=== PATIENT | female | born 1960 | race Caucasian/White ===

== ENCOUNTER 2017-10-08 13:06 | Inpatient (IN) ==
[2017-10-08] MEDS ORDERED: methylPREDNISolone 125 MG/2 ML VIAL IVP ONE (13:15)
[2017-10-08] MEDS ORDERED: Ipratropium/Albuterol Neb 3 ML IH ONE (13:15)
[2017-10-08] MEDS ORDERED: 0.9 % Sodium Chloride 1,000 ML IVC ONE (13:15)
--- NOTE | 2017-10-08 13:18 | Emergency Department Note ---
Disposition Clinical Impression: COPD (chronic obstructive pulmonary disease) Qualifiers: COPD type: unspecified COPD Qualified Code(s): J44.9 - Chronic obstructive pulmonary disease, unspecified Disposition: Admitted As Inpatient Condition: Fair Referrals: NONE,PCP [Primary Care Provider] - Forms: ED Satisfaction Letter Time of Disposition: 15:35 SOB HPI - General Chief Complaint: ED Shortness of Breath/Dyspnea Stated Complaint: JONATAN Time Seen by Provider: 10/08/17 13:15 Source: patient, EMS Mode of arrival: EMS Limitations: no limitations Nursing Notes Reviewed: Yes Vital Signs Reviewed: Yes - History of Present Illness 57-year-old female history of COPD, diabetes presents for evaluation dyspnea. Patient states everything short of breath over the past 2 days. Patient notes got worse. Patient is typically on 3 L oxygen. Patient reports some chest pain. Patient reports productive cough. Reports fevers. Patient states she has been using her inhaler as instructed. Patient does say that she has history of increased anxiety. Denies any abdominal pain nausea or vomiting. Denies any recent antibiotics or steroid use. - Related Data Home Medications Medication Instructions Recorded Confirmed Albuterol Neb [Proventil Neb] 2.5 mg IH Q6H PRN 10/08/17 10/08/17 Albuterol Sulfate [Ventolin Hfa] 2 puff IH Q6H PRN 10/08/17 10/08/17 Aspirin [Lo-Dose Aspirin EC] 81 mg PO DAILY 10/08/17 10/08/17 Carvedilol [Coreg] 6.25 mg PO BIDWM 10/08/17 10/08/17 Gabapentin [Neurontin] 600 mg PO TID 10/08/17 10/08/17 Insulin Glargine,Hum.rec.anlog 36 unit SQ QPM 10/08/17 10/08/17 [Basaglar Kwikpen U-100] Isosorbide MONOnitrate (24 HR) 30 mg PO DAILY 10/08/17 10/08/17 [Imdur] Metformin HCl [Glucophage Xr] 750 mg PO DAILY 10/08/17 10/08/17 Montelukast [Singulair] 10 mg PO DAILY 10/08/17 10/08/17 Tiotropium Br/Olodaterol HCl 2 puff IH BID 10/08/17 10/08/17 [Stiolto Respimat Inhal [place]] amLODIPine [Norvasc] 5 mg PO DAILY 10/08/17 10/08/17 Allergies Allergy/AdvReac Type Severity Reaction Status Date / Time No Known Allergies Allergy Verified 10/08/17 13:26 All systems ED: reviewed and negative except as stated. Constitutional: Denies: fever Cardiovascular: Reports: chest pain Respiratory: Reports: cough, dyspnea, sputum production Gastrointestinal: Denies: abdominal pain, nausea, vomiting Past Medical History - Past Medical History Source: patient Physical Exam - General Limitations: no limitations General appearance: alert, in no apparent distress - Head Head exam: atraumatic, normocephalic, normal inspection - Eye Eye exam: Present: normal appearance - ENT ENT exam: normal exam - Neck Neck exam: Present: normal inspection - Chest Chest inspection: Present: normal inspection, symmetric chest wall rise - Respiratory Respiratory exam: Present: respiratory distress, wheezes (scattered inspiratory wheeze), accessory muscle use, prolonged expiratory phase - Cardiovascular Cardiovascular exam: Present: regular rate, normal rhythm. Absent: systolic murmur - Abdominal Exam Abdominal exam: Present: soft - Extremities Exam Extremities exam: Present: normal inspection - Back Exam Back exam: Present: normal inspection - Neurological Exam Neurological exam: Present: alert - Skin Skin exam: Present: warm, dry, intact, normal color Course Course Narrative: Patient did have increased work of breathing upon arrival. Patient declined use of BiPAP. Patient will get basic labs nebs steroids chest x-ray. Disposition likely admission. - Reevaluation(s) Reevaluation #1: Repeat lung exam shows persistent wheezing. Patient will get repeat nebs. Time: 15:33 Vital Signs Respiratory Rate 26 10/08/17 13:24 O2 Sat by Pulse Oximetry 96 10/08/17 13:24 Temperature 97.5 F L 10/08/17 14:38 Pulse Rate 95 10/08/17 14:38 Respiratory Rate 20 10/08/17 15:32 Blood Pressure 142/83 10/08/17 14:38 O2 Sat by Pulse Oximetry 99 10/08/17 15:32 Oxygen Delivery Oxygen Delivery Nasal Cannula Shortness of Breath/Dyspnea - MDM Narrative Medical decision making narrative: Patient with a history of COPD percents for evaluation of exacerbation. Patient 's been having infectious complaints of fevers cough. Patient was to get neck upon arrival. Patient refused BiPAP. Patient was treated with triple vessel steroids. Patient's work of breathing improved however persistently had wheeze. Patient had serial nebs. Given the patient's work of breathing and dyspnea with an increased oxygen requirement the patient will be admitted to hospital service. There is low suspicion or concern that the patient does have a pulmonary embolism. Patient's symptoms are most likely infectious or related to an exacerbation. - Lab Data Lab results reviewed: Yes I reviewed the patient's lab results. Result diagrams: 10/08/17 13:35 10/08/17 13:35 Lab Results 10/08/17 10/08/17 10/08/17 Range/Units 13:35 13:35 13:35 WBC 7.5 (4.3-11.1) K/mcL RBC 4.24 (3.82-4.97) M/mcL Hgb 12.7 (11.5-15.4) g/dL Hct 38.7 (35.3-44.9) % MCV 91.3 (83.0-100.0) fL MCH 30.0 (28.0-33.3) pg MCHC 32.8 (31.6-35.5) g/dL RDW 11.9 (11.5-14.5) % Plt Count 190 (140-400) K/mcL MPV 9.6 (9.4-12.4) fL Immature Gran % 0.3 (0-4) % Seg Neutrophils % 50.4 % Lymphocytes % 27.6 % Monocytes % 21.2 % Eosinophils % 0.1 % Basophils % 0.4 % Neutrophils # 3.8 (1.6-8.9) K/mcL Lymphocytes # 2.1 (0.6-4.6) K/mcL Monocytes # 1.6 H (0.0-1.3) K/mcL Eosinophils # 0.0 (0.0-0.6) K/mcL Basophils # 0.0 (0.0-0.2) K/mcL Platelet Estimate Normal (Normal) VBG pH (7.32-7.42) pH Units VBG pCO2 (41-51) mmHg VBG pO2 (25-50) mmHg VBG HCO3 (21-27) mEq/L Sodium 134 L (136-145) mEq/L Potassium 3.5 (3.5-5.1) mEq/L Chloride 95 L (98-107) mEq/L Carbon Dioxide 29 (23-29) mEq/L BUN 7 (6-20) mg/dL Creatinine 0.57 L (0.60-1.20) mg/dL Est GFR ( Amer) > 60 (> 60) Est GFR (Non-Af Amer) > 60 (> 60) BUN/Creatinine Ratio 12 (6-26) Glucose 194 H (70-105) mg/dL Calculated Osmolality 281 (280-300) Lactic Acid 1.5 (0.5-2.2) mmol/L Calcium 9.4 (8.6-10.3) mg/dL Total Bilirubin 0.2 L (0.3-1.0) mg/dL Direct Bilirubin 0.0 (0.0-0.2) mg/dL Indirect Bilirubin 0.2 (0.0-1.2) mg/dL AST 33 (13-39) Units/L ALT 28 (7-52) Units/L Alkaline Phosphatase 61 (34-104) Units/L Troponin I < 0.03 (< 0.04) ng/mL B-Natriuretic Peptide (Less than 100) pg/mL Serum Total Protein 7.1 (6.4-8.9) g/dL Albumin 4.1 (3.5-5.7) g/dL Globulin 3.0 (2.4-3.5) g/dL Albumin/Globulin Ratio 1.4 (1.1-2.2) 10/08/17 10/08/17 Range/Units 13:35 13:52 WBC (4.3-11.1) K/mcL RBC (3.82-4.97) M/mcL Hgb (11.5-15.4) g/dL Hct (35.3-44.9) % MCV (83.0-100.0) fL MCH (28.0-33.3) pg MCHC (31.6-35.5) g/dL RDW (11.5-14.5) % Plt Count (140-400) K/mcL MPV (9.4-12.4) fL Immature Gran % (0-4) % Seg Neutrophils % % Lymphocytes % % Monocytes % % Eosinophils % % Basophils % % Neutrophils # (1.6-8.9) K/mcL Lymphocytes # (0.6-4.6) K/mcL Monocytes # (0.0-1.3) K/mcL Eosinophils # (0.0-0.6) K/mcL Basophils # (0.0-0.2) K/mcL Platelet Estimate (Normal) VBG pH 7.32 (7.32-7.42) pH Units VBG pCO2 64 H (41-51) mmHg VBG pO2 70 H (25-50) mmHg VBG HCO3 33 H (21-27) mEq/L Sodium (136-145) mEq/L Potassium (3.5-5.1) mEq/L Chloride (98-107) mEq/L Carbon Dioxide (23-29) mEq/L BUN (6-20) mg/dL Creatinine (0.60-1.20) mg/dL Est GFR ( Amer) (> 60) Est GFR (Non-Af Amer) (> 60) BUN/Creatinine Ratio (6-26) Glucose (70-105) mg/dL Calculated Osmolality (280-300) Lactic Acid (0.5-2.2) mmol/L Calcium (8.6-10.3) mg/dL Total Bilirubin (0.3-1.0) mg/dL Direct Bilirubin (0.0-0.2) mg/dL Indirect Bilirubin (0.0-1.2) mg/dL AST (13-39) Units/L ALT (7-52) Units/L Alkaline Phosphatase (34-104) Units/L Troponin I (< 0.04) ng/mL B-Natriuretic Peptide 34 (Less than 100) pg/mL Serum Total Protein (6.4-8.9) g/dL Albumin (3.5-5.7) g/dL Globulin (2.4-3.5) g/dL Albumin/Globulin Ratio (1.1-2.2) - Radiology Data Radiology results reviewed: Yes I reviewed the patient's radiology results. Chest X-Ray 10/08/17 13:15 IMPRESSION: 1. No active pulmonary disease. D/ / Juan R Campbell MD / Juan R Campbell MD Interpreting Provider: Juan R Campbell MD - EKG Data EKG attestation: Yes I reviewed and interpreted this EKG. EKG shows normal: Reports: sinus rhythm Rate: Reports: normal Rhythm: Reports: NSR [place]/QRS: Reports: right axis deviation, RBBB Interpretation: Reports: nonspecific ST-T wave changes S.Mervin - Umair Situation: Demographics Background: Presenting Complaint Assessment: Vital Signs, Course and respsone to treatment, Patient/Family Expectation Recommendation: Barrier(s) to disposition, Recommendation based on pending studies, treatments, or consults S.B.AGraciela Report Given to: Dr. Estrada Block Repor Time: 15:34
--- NOTE | 2017-10-08 13:39 | Emergency Department Note ---
START Narrative - START START: I examined this patient and my medical decision-making was reviewed with the Resident Physician. I agree with the documented findings, disposition and treatment plan as described except to the extent set forth below. 57-year-old female presented to the emergency room via EMS for shortness of breath. Patient has a history of COPD. She has not sick for the past few days with increasing work of breathing. Squad gave her a DuoNeb treatment. We will workup from a COPD cardiac standpoint. She is appearing better at this time after her DuoNeb treatments. She wears chronic home oxygen at 3 L.
[2017-10-08 13:53] LABS: Basophils % 0.4 %; Eosinophils % 0.1 %; Hematocrit 38.7 % (35.3-44.9); Hemoglobin 12.7 g/dL (11.5-15.4); Immature Granulocytes % 0.3 % (0-4); Lymphocytes # 2.1 K/mcL (0.6-4.6); Lymphocytes % 27.6 %; Mean Corpuscular HGB Conc 32.8 g/dL (31.6-35.5); Mean Corpuscular Volume 91.3 fL (83.0-100.0); Mean Platelet Volume 9.6 fL (9.4-12.4); Monocytes # 1.6 K/mcL (0.0-1.3); Monocytes % 21.2 %; Neutrophils # 3.8 K/mcL (1.6-8.9); Platelet Count 190 K/mcL (140-400); Red Blood Count 4.24 M/mcL (3.82-4.97); Red Cell Distribution Width 11.9 % (11.5-14.5); Segmented Neutrophils % 50.4 %
[2017-10-08 13:54] LABS: VBG HCO3 33 mEq/L (21-27); VBG PCO2 64 mmHg (41-51); VBG PH 7.32 pH Units (7.32-7.42); VBG PO2 70 mmHg (25-50)
[2017-10-08 14:18] LABS: Platelet Estimate Normal (Normal)
[2017-10-08 14:26] LABS: Alanine Aminotransferase 28 Units/L (7-52); Albumin 4.1 g/dL (3.5-5.7); Albumin/Globulin Ratio 1.4 (1.1-2.2); Alkaline Phosphatase 61 Units/L (34-104); Aspartate Amino Transferase 33 Units/L (13-39); BUN/Creatinine Ratio 12 (6-26); Bilirubin,Indirect 0.2 mg/dL (0.0-1.2); Bilirubin,Total 0.2 mg/dL (0.3-1.0); Blood Urea Nitrogen 7 mg/dL (6-20); Calcium 9.4 mg/dL (8.6-10.3); Carbon Dioxide 29 mEq/L (23-29); Chloride 95 mEq/L (98-107); Glucose 194 mg/dL (70-105); Osmolality,Calculated 281 (280-300); Potassium 3.5 mEq/L (3.5-5.1); Sodium 134 mEq/L (136-145); Total Protein 7.1 g/dL (6.4-8.9); Troponin I < 0.03 ng/mL (< 0.04); eGFR For African Americans > 60 (> 60); eGFR For Non-African Americans > 60 (> 60)
[2017-10-08] MEDS ORDERED: Levofloxacin 750 MG/150 ML 750 MG/150 ML BAG IVPB ONE (15:19)
[2017-10-08] MEDS ORDERED: Albuterol 2.5 MG/3 ML NEBULIZER IH ONE (15:19)
[2017-10-08] MEDS ORDERED: Naloxone 0.4 MG/ML INJ IVP PRN (16:38)
[2017-10-08] MEDS ORDERED: D5% in Water 1,000 ML IVC PRN (16:42)
[2017-10-08] MEDS ORDERED: Dextrose Gel 15 GM/37.5 ML TUBE PO PRN ×2 (16:42)
[2017-10-08] MEDS ORDERED: *HR* Dextrose 50 % in Water (Syg) 50 ML SYRINGE IVP PRN (16:42)
[2017-10-08] MEDS: Acetaminophen 325 MG TABLET PO PRN ×2 (17:17→22:36)
--- NOTE | 2017-10-08 17:17 | Internal Med History&Physical ---
Date of Encounter: 10/08/17 Time of Encounter: 16:45 Assessment and Plan (1) Acute on chronic respiratory failure with hypoxia Current visit: Yes Status: Acute Admit the pt into Tele She is high risk for sepsis and resp failure need close monitoring reviewed CXR no acute inflitrates / consolidation noticed placed on empirical abx Levaquin f/u o blood cx sent for sputum culture, step pneumonia, Legionella and respiratory viral panel continue symptomatic and supportive care (2) COPD exacerbation Current visit: Yes Status: Acute Started on high-dose IV steroids continue scheduled Duoneb (3) Influenza A Current visit: Yes Status: Acute Started on Tamiflu (4) Acute bronchitis Current visit: Yes Status: Acute Mostly influenza related Qualifiers: Qualified Code(s): J20.9 - Acute bronchitis, unspecified (5) DM2 (diabetes mellitus, type 2) Current visit: Yes Status: Acute on ISS + Lantus Qualifiers: Qualified Code(s): E11.9 - Type 2 diabetes mellitus without complications (6) HTN (hypertension) Current visit: Yes Status: Acute Stable with home medications Qualifiers: Hypertension type: essential hypertension Qualified Code(s): I10 - Essential (primary) hypertension (7) HLD (hyperlipidemia) Current visit: Yes Status: Acute Qualifiers: Hyperlipidemia type: unspecified Qualified Code(s): E78.5 - Hyperlipidemia , unspecified (8) Anxiety Current visit: Yes Status: Acute On Ativan (9) Tobacco dependence Current visit: Yes Status: Acute Counseled to quit smoking placed on nicotine patch Internal Medicine - H&P: HPI Chief complaint: Shortness of breath Admitted From: Emergency Dept Plans for Post Hospital Care: Home History of present illness: Ms. Mckeon is a 57 year old female with a known past medical history of hypertension, DM2, COPD, and chronic hypoxic respiratory failure with 3 L oxygen dependent patient presented emergency room complaining about 3 days history of progressive worsening shortness of breath, cough with greenish expectoration. In the emergency room her influenza A came back as positive. Patient denied any chest pain. She denied of any recent travel history. Her grandchildren have flulike symptoms at home Past Med Surg Social Fam HX - Past Medical History Medical history: COPD, coronary artery disease, diabetes, hypertension Psychiatric history: anxiety, depression - Social History Smoking Status: Current every day smoker Smokeless Tobacco Status: No Alcohol use: none Drug use: none - Additional Family History Additional family history: Family hsitory reviewed and non contribuitory to current problem. Internal Medicine - H&P: Meds Albuterol Neb [Proventil Neb] 2.5 mg IH Q6H PRN 10/08/17 [History] Albuterol Sulfate [Ventolin Hfa] 2 puff IH Q6H PRN 10/08/17 [History] Aspirin [Lo-Dose Aspirin EC] 81 mg PO DAILY 10/08/17 [History] Carvedilol [Coreg] 6.25 mg PO BIDWM 10/08/17 [History] Gabapentin [Neurontin] 600 mg PO TID 10/08/17 [History] Insulin Glargine,Hum.rec.anlog [Basaglar Kwikpen U-100] 36 unit SQ QPM 10/08/17 [History] Isosorbide MONOnitrate (24 HR) [Imdur] 30 mg PO DAILY 10/08/17 [History] Metformin HCl [Glucophage Xr] 750 mg PO DAILY 10/08/17 [History] Montelukast [Singulair] 10 mg PO DAILY 10/08/17 [History] Tiotropium Br/Olodaterol HCl [Stiolto Respimat Inhal [place]] 2 puff IH BID [History] amLODIPine [Norvasc] 5 mg PO DAILY 10/08/17 [History] 3 Allergy/AdvReac Type Severity Reaction Status Date / Time No Known Allergies Allergy Verified 10/08/17 13:26 All Systems PM: A 10-system review of systems was performed and is negative for pertinent findings except as documented above in the HPI. Review of systems: All the systems are reviewed everything is benign except the systems and symptoms I mentioned in the history of present illness - Constitutional Vitals: Temp Pulse Resp BP Pulse Ox 99.4 F 112 20 145/77 94 10/08/17 16:17 10/08/17 16:17 10/08/17 16:17 10/08/17 16:17 10/08/17 16:17 General appearance: Present: mild distress, A&O X 3, answers questions appropriately - Head Head exam: Present: atraumatic, normal inspection - Neck Neck exam general surgery: Present: supple - Respiratory Respiratory exam: Present: respiratory distress (mild), wheezes (moderate to severe). Absent: rales, rhonchi - Cardiovascular Cardiovascular exam: Present: RRR, +S1, +S2. Absent: tachycardia - Back Exam Back exam: Absent: CVA tenderness (L), CVA tenderness (R) - Neurological Exam Neurological exam: Present: alert, oriented X3 - Psychiatric Psychiatric exam: Present: anxious - Skin Skin exam: Absent: rash Internal Med - H&P Results - Labs CBC & Chem 7: 10/08/17 13:35 10/08/17 13:35
[2017-10-08] MEDS: *HR* LORazepam 2 MG/ML VIAL IVP PRN (17:56)
[2017-10-08] MEDS: MethylPREDNISolone 40 MG/ML VIAL IVP SCH (17:56)
[2017-10-08] MEDS ORDERED: NON-FORMULARY MEDICATION 1 EACH EACH (Insulin Glargine,Hum.Rec.Anlog [Basaglar Kwikpen U-1 SQ SCH (18:00)
[2017-10-08] MEDS: Ipratropium/Albuterol Neb 3 ML IH SCH ×2 (20:00→23:49)
[2017-10-08] MEDS: Insulin DETEMIR 100 UNIT/ML X5UNITS SQ SCH (20:50)
[2017-10-08] MEDS: Gabapentin 300 MG CAPSULE PO SCH (20:50)
[2017-10-08] MEDS ORDERED: Insulin LISPRO 300 UNITS/3 ML VIAL SQ SCH (21:00)
[2017-10-09] MEDS: MethylPREDNISolone 40 MG/ML VIAL IVP SCH ×3 (00:43→11:41)
[2017-10-09] MEDS: *HR* LORazepam 2 MG/ML VIAL IVP PRN ×3 (00:45→18:17)
[2017-10-09] MEDS: Ipratropium/Albuterol Neb 3 ML IH SCH ×6 (04:05→23:30)
[2017-10-09] MEDS: *HR* Enoxaparin 40 MG/0.4 ML SYRINGE SQ SCH (05:25)
[2017-10-09 05:54] LABS: Basophils % 0.3 %; Hematocrit 36.1 % (35.3-44.9); Hemoglobin 11.8 g/dL (11.5-15.4); Immature Granulocytes % 0.5 % (0-4); Lymphocytes # 0.7 K/mcL (0.6-4.6); Lymphocytes % 18.9 %; Mean Corpuscular HGB Conc 32.7 g/dL (31.6-35.5); Mean Corpuscular Hemoglobin 29.8 pg (28.0-33.3); Mean Corpuscular Volume 91.2 fL (83.0-100.0); Mean Platelet Volume 9.8 fL (9.4-12.4); Monocytes # 0.2 K/mcL (0.0-1.3); Monocytes % 5.9 %; Neutrophils # 2.8 K/mcL (1.6-8.9); Platelet Count 188 K/mcL (140-400); Red Blood Count 3.96 M/mcL (3.82-4.97); Red Cell Distribution Width 11.7 % (11.5-14.5); Segmented Neutrophils % 74.4 %
[2017-10-09 06:18] LABS: BUN/Creatinine Ratio 24 (6-26); Blood Urea Nitrogen 13 mg/dL (6-20); Carbon Dioxide 27 mEq/L (23-29); Chloride 103 mEq/L (98-107); Glucose 296 mg/dL (70-105); Osmolality,Calculated 293 (280-300); Potassium 4.5 mEq/L (3.5-5.1); Sodium 136 mEq/L (136-145); eGFR For African Americans > 60 (> 60); eGFR For Non-African Americans > 60 (> 60)
[2017-10-09] MEDS: Levofloxacin 750 MG/150 ML 750 MG/150 ML BAG IVPB SCH (08:12)
[2017-10-09] MEDS: Isosorbide MONOnitrate (24 HR) 30 MG TAB.ER.24H PO SCH (08:13)
[2017-10-09] MEDS: Aspirin Enteric Coated 81 MG Tablet PO SCH (08:13)
[2017-10-09] MEDS: amLODIPine 5 MG TABLET PO SCH (08:13)
[2017-10-09] MEDS: Gabapentin 300 MG CAPSULE PO SCH ×3 (08:13→20:11)
[2017-10-09] MEDS: Insulin LISPRO 300 UNITS/3 ML VIAL SQ SCH ×4 (08:14→20:23)
[2017-10-09] MEDS: Acetaminophen 325 MG TABLET PO PRN ×2 (08:33→14:17)
[2017-10-09] MEDS: Ondansetron 4 MG/2 ML VIAL IVP PRN (11:41)
[2017-10-09] MEDS: Albuterol 2.5 MG/3 ML NEBULIZER IH PRN (11:56)
--- NOTE | 2017-10-09 16:08 | Internal Med Progress Note ---
Date of Encounter: 10/09/17 Time of Encounter: 16:06 - Assessment and plan (1) Influenza A Current Visit: Yes Status: Acute Assessment and plan: rapid flu swab positive. Cont tamiflu (2) Acute on chronic respiratory failure with hypoxia Current Visit: Yes Status: Acute Assessment and plan: has known COPD. presented with worsening shortness of breath and productive cough. Appears to be an exacerbation with scattered rhonchi/wheezing. CXR without evidence of infiltrate. Symptoms significantly improved with IV steroids , ATB bronchodilators. De-escalate steroids to PO. Cont IV Levaquin, bronchodilators. Add Mucinex. (3) Anxiety Current Visit: Yes Status: Acute Assessment and plan: per hx. Says she take Xanax at home but not on vacation less. Continue Ativan for now; will check [place] (4) DM2 (diabetes mellitus, type 2) Current Visit: Yes Status: Acute Assessment and plan: per hx. Blood sugars uncontrolled. Most likely secondary to dietary and lifestyle noncompliance in addition to steroids. Decrease steroids, increase sliding scale to high dose. 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 Cont home statin Qualifiers: Hyperlipidemia type: unspecified Qualified Code(s): E78.5 - Hyperlipidemia , unspecified (6) HTN (hypertension) Current Visit: Yes Status: Acute Assessment and plan: per hx. Cont home BP medications. Monitor BP and titrate PRN Qualifiers: Hypertension type: essential hypertension Qualified Code(s): I10 - Essential (primary) hypertension (7) DVT prophylaxis Current Visit: Yes Status: Acute Assessment and plan: lovenox - Subjective Interval history: Seen and examined at bedside. Information obtained from chart review and patient report. Still with shortness of breath and nonproductive cough but overall significantly improved from arrival. No chest pain. Says she gets anxious when she starts have a coughing fit and is requesting home Xanax be resumed. - Constitutional Vitals: Temp Pulse Resp BP Pulse Ox 97.8 F 92 26 122/73 93 10/09/17 15:26 10/09/17 15:26 10/09/17 15:49 10/09/17 15:26 10/09/17 15:49 General appearance: Present: A&O X 3, morbidly obese, answers questions appropriately - Head Head exam: Present: atraumatic, normocephalic - Eye Eye exam: Present: PERRL, conjuntiva pink, sclera anicteric Pupils: Present: PERRL - Neck Neck exam general surgery: Present: supple, trachea midline. Absent: lymphadenopathy - Respiratory Respiratory exam: Present: wheezes. Absent: accessory muscle use, rales, rhonchi - Cardiovascular Cardiovascular exam: Present: RRR, +S1, +S2. Absent: diastolic murmur, gallop, rubs, systolic murmur - GI/Abdominal GI/Abdominal exam: Present: normal bowel sounds, soft, no peritoneal signs. Absent: distended, tenderness - Extremities Exam Extremities exam: Present: warm, radial pulses palpable and symmetrical. Absent : calf tenderness, cyanotic, pedal edema - Neurological Exam Neurological exam: Present: CN II-XII intact, oriented X3, no focal deficits. Absent: pronater drift, facial droop, speech deficit - Skin Skin exam: Present: dry, intact Internal Medicine: Result - Labs CBC & Chem 7: 10/09/17 05:05 10/09/17 05:05 Labs: Short CBC 10/09/17 Range/Units 05:05 WBC 3.7 L D (4.3-11.1) K/mcL Hgb 11.8 (11.5-15.4) g/dL Hct 36.1 (35.3-44.9) % Plt Count 188 (140-400) K/mcL Neutrophils # 2.8 (1.6-8.9) K/mcL BMP 10/09/17 05:05 Sodium 136 Potassium 4.5 D Chloride 103 Carbon Dioxide 27 BUN 13 Creatinine 0.54 L Glucose 296 H Calcium 9.0 - VTE Documentation of Mechanical Device: Intermittent pneumatic compression device Consult Discharge Plan - Plan Referrals: NONE,PCP [Primary Care Provider] -
[2017-10-09] MEDS: *HR* HYDROcodone/Acet 5/325 mg TABLET PO PRN ×2 (16:59→23:00)
--- NOTE | 2017-10-09 17:03 | Electrocardiograph Report ---
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
[2017-10-09] MEDS: predniSONE 20 MG TABLET PO SCH (17:11)
[2017-10-09] MEDS: Insulin DETEMIR 100 UNIT/ML X5UNITS SQ SCH (20:11)
[2017-10-09] MEDS: GuaiFENesin/Pseudophedrine TABLET PO SCH (20:11)
[2017-10-09] MEDS: *HR* Promethazine 25 MG/ML VIAL IVP PRN (20:18)
[2017-10-10] MEDS: *HR* LORazepam 2 MG/ML VIAL IVP PRN ×4 (02:13→20:01)
[2017-10-10] MEDS: Ipratropium/Albuterol Neb 3 ML IH SCH ×6 (03:38→23:22)
[2017-10-10] MEDS: *HR* Enoxaparin 40 MG/0.4 ML SYRINGE SQ SCH (05:12)
[2017-10-10 05:23] LABS: Hematocrit 35.4 % (35.3-44.9); Hemoglobin 11.3 g/dL (11.5-15.4); Mean Corpuscular HGB Conc 31.9 g/dL (31.6-35.5); Mean Corpuscular Volume 93.9 fL (83.0-100.0); Mean Platelet Volume 9.7 fL (9.4-12.4); Platelet Count 194 K/mcL (140-400); Red Blood Count 3.77 M/mcL (3.82-4.97)
[2017-10-10] MEDS ORDERED: Ondansetron 4 MG/2 ML VIAL IVP PRN (07:01)
[2017-10-10] MEDS: Ondansetron 4 MG/2 ML VIAL IVP PRN (08:55)
[2017-10-10] MEDS: Levofloxacin 750 MG/150 ML 750 MG/150 ML BAG IVPB SCH (08:55)
[2017-10-10] MEDS: amLODIPine 5 MG TABLET PO SCH (08:57)
[2017-10-10] MEDS: Insulin LISPRO 300 UNITS/3 ML VIAL SQ SCH ×4 (08:58→21:04)
[2017-10-10] MEDS: Albuterol 2.5 MG/3 ML NEBULIZER IH PRN (09:55)
--- NOTE | 2017-10-10 11:20 | Internal Med Progress Note ---
Date of Encounter: 10/10/17 Time of Encounter: 11:13 - Assessment and plan (1) Acute on chronic respiratory failure with hypoxia Current Visit: Yes Status: Acute Assessment and plan: has known COPD and wears 2.5 L oxygen at home. Now requiring 3-4 L to maintain adequate oxygen saturation. Presented with worsening shortness of breath and productive cough. Appears to be an acute COPD exacerbation with scattered rhonchi/wheezing. CXR without evidence of infiltrate. Symptoms significantly improved with IV steroids, ATB bronchodilators on 10/09 however with worsening shortness of breath and respiratory distress on 10/10 exam. Has intermittently been tachycardic which could be secondary to anxiety and/or breathing treatments. However with worsening shortness of breath, intermittent tachycardia and hypoxia will check CTA to rule out pulmonary embolism. Continue IV ATB, steroids, bronchodilators and Mucinex. (2) Influenza A Current Visit: Yes Status: Acute Assessment and plan: rapid flu swab positive. Cont tamiflu (3) Anxiety Current Visit: Yes Status: Acute Assessment and plan: per hx. Says she take Xanax at home however she has not had active Rx for Xanax since 03/2017 ([place] reviewed 10/10/2017). Clinically appears anxious which is likely contributing to shortness of breath. Continue PRN Ativan for now as she appears to be having a panic attack. Will likely discontinue on 10/10. Will discuss with patient; she will need to follow-up with her PCP for long-term anxiety management. (4) DM2 (diabetes mellitus, type 2) Current Visit: Yes Status: Acute Assessment and plan: per hx. Blood sugars uncontrolled. Most likely secondary to dietary and lifestyle noncompliance in addition to steroids. Decrease steroids, increase sliding scale to high dose. Monitor blood sugars and titrate PRN. Blood sugars variable but acceptable on 10/10 review Qualifiers: Diabetes mellitus fci insulin use: with termite exterminator helper use Diabetes mellitus complication status: with hyperglycemia Qualified Code(s): E11.65 - Type 2 diabetes mellitus with hyperglycemia; Z79.4 - vermin exterminator (current) use of insulin; Z79.4 - vermin exterminator (current) use of insulin; Z79.4 - intermediate (current ) use of insulin; Z79.4 - vermin exterminator (current) use of insulin (5) HLD (hyperlipidemia) Current Visit: Yes Status: Acute Assessment and plan: per hx. Cont home statin Qualifiers: Hyperlipidemia type: unspecified Qualified Code(s): E78.5 - Hyperlipidemia , unspecified (6) HTN (hypertension) Current Visit: Yes Status: Acute Assessment and plan: per hx. Cont home BP medications. Monitor BP and titrate PRN Qualifiers: Hypertension type: essential hypertension Qualified Code(s): I10 - Essential (primary) hypertension (7) DVT prophylaxis Current Visit: Yes Status: Acute Assessment and plan: lovenox - Subjective Interval history: Seen and examined at bedside; she appears anxious and says she is short of breath. Appears mildly dyspneic, says she cannot catch her breath. No chest pain. RN and respiratory therapy notified. Breathing treatment administered at time of exam. Reassessed approximately 45 minutes later and she appears much calmer, respirations easy and unlabored. - Constitutional Vitals: Temp Pulse Resp BP Pulse Ox 97.8 F 110 22 150/80 95 10/10/17 07:33 10/10/17 07:33 10/10/17 09:56 10/10/17 07:33 10/10/17 09:56 General appearance: Present: mild distress, A&O X 3, morbidly obese, answers questions appropriately - Head Head exam: Present: atraumatic, normocephalic - Eye Eye exam: Present: PERRL, conjuntiva pink, sclera anicteric Pupils: Present: PERRL - Neck Neck exam general surgery: Present: supple, trachea midline. Absent: lymphadenopathy - Respiratory Respiratory exam: Present: accessory muscle use, respiratory distress, rhonchi, wheezes. Absent: rales - Cardiovascular Cardiovascular exam: Present: RRR, +S1, +S2. Absent: diastolic murmur, gallop, rubs, systolic murmur - GI/Abdominal GI/Abdominal exam: Present: normal bowel sounds, soft, no peritoneal signs. Absent: distended, tenderness - Extremities Exam Extremities exam: Present: warm, radial pulses palpable and symmetrical. Absent : calf tenderness, cyanotic, pedal edema - Neurological Exam Neurological exam: Present: CN II-XII intact, oriented X3, no focal deficits. Absent: pronater drift, facial droop, speech deficit - Skin Skin exam: Present: dry, intact Internal Medicine: Result - Labs CBC & Chem 7: 10/10/17 04:54 10/09/17 05:05 Labs: Short CBC 10/10/17 Range/Units 04:54 WBC 8.3 D (4.3-11.1) K/mcL Hgb 11.3 L (11.5-15.4) g/dL Hct 35.4 (35.3-44.9) % Plt Count 194 (140-400) K/mcL - VTE Documentation of Mechanical Device: Intermittent pneumatic compression device Consult Discharge Plan - Plan Referrals: NONE,PCP [Primary Care Provider] -
[2017-10-10] MEDS: GuaiFENesin/Pseudophedrine TABLET PO SCH ×2 (11:26→20:02)
[2017-10-10] MEDS: Aspirin Enteric Coated 81 MG Tablet PO SCH (11:27)
[2017-10-10] MEDS: predniSONE 20 MG TABLET PO SCH (11:27)
[2017-10-10] MEDS: Gabapentin 300 MG CAPSULE PO SCH ×3 (11:27→20:02)
[2017-10-10] MEDS: Isosorbide MONOnitrate (24 HR) 30 MG TAB.ER.24H PO SCH (11:27)
[2017-10-10] MEDS: Acetaminophen 325 MG TABLET PO PRN (15:56)
[2017-10-10] MEDS: *HR* HYDROcodone/Acet 5/325 mg TABLET PO PRN ×2 (18:48→23:30)
[2017-10-10] MEDS: *HR* Promethazine 25 MG/ML VIAL IVP PRN (19:26)
[2017-10-10] MEDS: Insulin DETEMIR 100 UNIT/ML X5UNITS SQ SCH (20:02)
[2017-10-11] MEDS: Ipratropium/Albuterol Neb 3 ML IH SCH ×9 (03:18→23:59)
[2017-10-11] MEDS: *HR* LORazepam 2 MG/ML VIAL IVP PRN ×2 (04:06→19:59)
[2017-10-11] MEDS: *HR* HYDROcodone/Acet 5/325 mg TABLET PO PRN ×2 (05:33→17:30)
[2017-10-11] MEDS: Ondansetron 4 MG/2 ML VIAL IVP PRN (05:33)
[2017-10-11] MEDS: *HR* Enoxaparin 40 MG/0.4 ML SYRINGE SQ SCH (05:37)
[2017-10-11 05:56] LABS: Hematocrit 39.6 % (35.3-44.9); Hemoglobin 11.8 g/dL (11.5-15.4); Mean Corpuscular HGB Conc 29.8 g/dL (31.6-35.5); Mean Corpuscular Hemoglobin 29.1 pg (28.0-33.3); Mean Corpuscular Volume 97.8 fL (83.0-100.0); Mean Platelet Volume 10.2 fL (9.4-12.4); Platelet Count 167 K/mcL (140-400); Red Blood Count 4.05 M/mcL (3.82-4.97); Red Cell Distribution Width 12.2 % (11.5-14.5)
[2017-10-11 06:14] LABS: BUN/Creatinine Ratio 28 (6-26); Blood Urea Nitrogen 18 mg/dL (6-20); Calcium 8.9 mg/dL (8.6-10.3); Carbon Dioxide 36 mEq/L (23-29); Chloride 100 mEq/L (98-107); Glucose 156 mg/dL (70-105); Osmolality,Calculated 291 (280-300); Potassium 4.1 mEq/L (3.5-5.1); Sodium 138 mEq/L (136-145); eGFR For African Americans > 60 (> 60); eGFR For Non-African Americans > 60 (> 60)
[2017-10-11] MEDS: predniSONE 20 MG TABLET PO SCH (08:41)
[2017-10-11] MEDS: Gabapentin 300 MG CAPSULE PO SCH ×3 (08:42→20:11)
[2017-10-11] MEDS: Aspirin Enteric Coated 81 MG Tablet PO SCH (08:42)
[2017-10-11] MEDS: Isosorbide MONOnitrate (24 HR) 30 MG TAB.ER.24H PO SCH (08:42)
[2017-10-11] MEDS: amLODIPine 5 MG TABLET PO SCH (08:42)
[2017-10-11] MEDS: GuaiFENesin/Pseudophedrine TABLET PO SCH ×2 (08:42→20:11)
[2017-10-11] MEDS: Levofloxacin 750 MG/150 ML 750 MG/150 ML BAG IVPB SCH (08:45)
[2017-10-11] MEDS: Insulin LISPRO 300 UNITS/3 ML VIAL SQ SCH ×4 (08:49→21:04)
[2017-10-11] MEDS ORDERED: *HR* LORazepam 2 MG/ML VIAL IVP ONE ×2 (09:12→11:16)
[2017-10-11 09:21] LABS: ABG Base Excess 9 mEq/L (-2 to 3); ABG HCO3 41 mEq/L (21-27); ABG Oxygen Saturation 89 % (95-98); ABG PCO2 105 mmHg (35-45); ABG PO2 74 mmHg (85-104); ABG TCO2 45 mEq/L (20-26)
--- NOTE | 2017-10-11 09:25 | Internal Med Progress Note ---
Date of Encounter: 10/11/17 Time of Encounter: 09:18 - Assessment and plan (1) Acute and chronic respiratory failure with hypercapnia Current Visit: Yes Status: Acute Assessment and plan: has known COPD and wears 2.5 L oxygen at home. Presented with worsening shortness of breath and productive cough. Appears to be an acute COPD exacerbation with scattered rhonchi/wheezing. Urinary antigens negative. CXR without evidence of infiltrate. Symptoms initially significantly improved with IV steroids, ATB bronchodilators however now with worsening shortness of breath , increased wheezing and lethargy. ABGs show pH 7.2, PaCO2 105, PaO2 74, bicarb 41. Placed on BiPAP. Closey monitor respiratory status. Repeat ABGs in 2 hours (of note, patient is agreeable to intubation if needed) Continue IV ATB, steroids, bronchodilators. Transfer to for higher level of care and close monitoring. Resp PCR, repeat CXR pending. (2) Influenza A Current Visit: Yes Status: Acute Assessment and plan: rapid flu swab positive. Cont tamiflu (3) Anxiety Current Visit: Yes Status: Acute Assessment and plan: per hx. Says she take Xanax at home however she has not had active Rx for Xanax since 03/2017 ([place] reviewed 10/10/2017). Clinically appears anxious which is likely contributing to shortness of breath. Cont PRN ativan for now. (4) DM2 (diabetes mellitus, type 2) Current Visit: Yes Status: Acute Assessment and plan: per hx. Blood sugars uncontrolled. Most likely secondary to dietary and lifestyle noncompliance in addition to steroids. Increase sliding scale to high dose. Monitor blood sugars and titrate PRN. Blood sugars variable but acceptable on 10/11 review Qualifiers: Diabetes mellitus steel grinder insulin use: with nursing home use Diabetes mellitus complication status: with hyperglycemia Qualified Code(s): E11.65 - Type 2 diabetes mellitus with hyperglycemia; Z79.4 - shop welder (current) use of insulin; Z79.4 - shop welder (current) use of insulin; Z79.4 - shop welder (current ) use of insulin; Z79.4 - shop welder (current) use of insulin (5) HLD (hyperlipidemia) Current Visit: Yes Status: Acute Assessment and plan: per hx. Cont home statin Qualifiers: Hyperlipidemia type: unspecified Qualified Code(s): E78.5 - Hyperlipidemia , unspecified (6) HTN (hypertension) Current Visit: Yes Status: Acute Assessment and plan: per hx. BP controlled. Cont home BP medications. Monitor BP and titrate PRN Qualifiers: Hypertension type: essential hypertension Qualified Code(s): I10 - Essential (primary) hypertension (7) DVT prophylaxis Current Visit: Yes Status: Acute Assessment and plan: lovenox (8) Full code status Current Visit: Yes Status: Acute Assessment and plan: verified with patient on 10/11/2017; okay with intubation if needed. - Subjective Interval history: Seen and examined at bedside; she is in acute respiratory distress with increased wheezing, rhonchi and work of breathing compared to yesterday's exam. She is also lethargic. Stat ABGs show rested for a acidosis with PaCO2 105. Placed on BiPAP and received half milligram IV Ativan. Hemodynamically stable, respiratory status improved with BiPAP and Ativan. Transfer to [facility] for higher level of care and close monitoring. Sister called by RN and updated. Verified CODE STATUS is full code with patient at time of exam area patient also is okay with intubation if needed. - Constitutional Vitals: Temp Pulse Resp BP Pulse Ox 97.8 F 98 18 160/80 93 10/11/17 08:13 10/11/17 08:13 10/11/17 08:13 10/11/17 08:13 10/11/17 08:13 General appearance: Present: A&O X 3, morbidly obese, severe distress, answers questions appropriately - Head Head exam: Present: atraumatic, normocephalic - Eye Eye exam: Present: PERRL, conjuntiva pink, sclera anicteric Pupils: Present: PERRL - Neck Neck exam general surgery: Present: supple, trachea midline. Absent: lymphadenopathy - Respiratory Respiratory exam: Present: accessory muscle use, rales, respiratory distress, rhonchi, wheezes, tachypnea - Cardiovascular Cardiovascular exam: Present: RRR, +S1, +S2. Absent: diastolic murmur, gallop, rubs, systolic murmur - GI/Abdominal GI/Abdominal exam: Present: normal bowel sounds, soft, no peritoneal signs. Absent: distended, tenderness - Extremities Exam Extremities exam: Present: warm, radial pulses palpable and symmetrical. Absent : calf tenderness, cyanotic, pedal edema - Neurological Exam Neurological exam: Present: CN II-XII intact, oriented X3, no focal deficits. Absent: pronater drift, facial droop, speech deficit - Skin Skin exam: Present: dry, intact Internal Medicine: Result - Labs CBC & Chem 7: 10/11/17 04:13 10/11/17 04:13 Labs: Short CBC 10/11/17 Range/Units 04:13 WBC 9.6 (4.3-11.1) K/mcL Hgb 11.8 (11.5-15.4) g/dL Hct 39.6 (35.3-44.9) % Plt Count 167 (140-400) K/mcL BMP 10/11/17 04:13 Sodium 138 Potassium 4.1 Chloride 100 Carbon Dioxide 36 H BUN 18 Creatinine 0.64 Glucose 156 H Calcium 8.9 - Impressions Impressions Chest CTA 10/10/17 09:53 IMPRESSION: No evidence of pulmonary embolism. No focal consolidation in the chest. Diffuse mild airway thickening can be seen in the setting of bronchitis or bronchiolitis. D/ / Hans Arora / Hans Arora Interpreting Provider: Hans Arora - VTE Documentation of Mechanical Device: Intermittent pneumatic compression device Consult Discharge Plan - Plan Referrals: NONE,PCP [Primary Care Provider] -
[2017-10-11 11:29] LABS: Estimated Average Glucose 183 mg/dl
[2017-10-11 12:34] LABS: ABG Base Excess 10 mEq/L (-2 to 3); ABG HCO3 42 mEq/L (21-27); ABG Oxygen Saturation 93 % (95-98); ABG PCO2 101 mmHg (35-45); ABG PH 7.22 pH Units (7.32-7.45); ABG PO2 84 mmHg (85-104); ABG TCO2 45 mEq/L (20-26); Blood Gas PEEP 8 cm H2O; Blood Gas Pressure Support 16 cm H2O; Blood Gas Respiration Rate 29
[2017-10-11 13:03] LABS: Adenovirus Not Detected (Not Detect); Bordetella Pertussis Not Detected (Not Detect); Chlamydophila pneumoniae Not Detected (Not Detect); Coronavirus 229E Not Detected (Not Detect); Coronavirus HKU1 Not Detected (Not Detect); Coronavirus NL63 Not Detected (Not Detect); Coronavirus OC43 Not Detected (Not Detect); Human Metapneumovirus Not Detected (Not Detect); Human Rhinovirus/Enterovirus Not Detected (Not Detect); Influenza A Subtype 2009 H1 Not Detected (Not Detect); Influenza A Untypeable Not Detected (Not Detect); Influenza B ***DETECTED*** (Not Detect); Mycoplasma pneumoniae Not Detected (Not Detect); Parainfluenza Virus 1 Not Detected (Not Detect); Parainfluenza Virus 2 Not Detected (Not Detect); Parainfluenza Virus 3 Not Detected (Not Detect); Parainfluenza Virus 4 Not Detected (Not Detect); Respiratory Syncytial Virus Not Detected (Not Detect)
[2017-10-11] MEDS ORDERED: Perflutren Lipid Microsphere 1.3 ML in 0.9 % Sodium Chloride 8.7 ML IVP ONE (14:24)
[2017-10-11] MEDS ORDERED: Perflutren Lipid Microsphere 2 ML VIAL ONE (14:28)
[2017-10-11 17:03] LABS: ABG Base Excess 12 mEq/L (-2 to 3); ABG HCO3 42 mEq/L (21-27); ABG Oxygen Saturation 93 % (95-98); ABG PCO2 93 mmHg (35-45); ABG PH 7.27 pH Units (7.32-7.45); ABG PO2 81 mmHg (85-104); ABG TCO2 45 mEq/L (20-26); Blood Gas Modality BiLevel; Blood Gas PEEP 8 cm H2O; Blood Gas Respiration Rate 16; Blood Gas VT 500 cc
[2017-10-11] MEDS ORDERED: Ipratropium/Albuterol Neb 3 ML ONE (17:11)
[2017-10-11] MEDS: MethylPREDNISolone 40 MG/ML VIAL IVP SCH ×2 (17:16→23:23)
--- NOTE | 2017-10-11 17:24 | Event Note ---
Date of Encounter: 10/11/17 Time of Encounter: 17:22 Seen and examined at bedside. Repeat ABGs show improving pH and CO2 (7.27, 93 respectively). Drowsy but easily to respond; suspect multifactorial with Ativan and retain CO2. A Godfrey catheter was placed due to urinary retention which patient states she has had a problem in the past. Family at bedside and updated. Overall remains hemodynamically stable. Discussed with RN who feels comfortable with patient remaining on 2N at this time. Advised RN that if patient declines our ABGs worsens patient will need to be transferred to ICU. Case discussed with Dr. Jay Sotelo. Continue BiPAP, monitor serial ABGs.
[2017-10-11] MEDS: Acetaminophen 325 MG TABLET PO PRN (20:10)
[2017-10-11 22:13] LABS: ABG Base Excess 13 mEq/L (-2 to 3); ABG HCO3 43 mEq/L (21-27); ABG Oxygen Saturation 95 % (95-98); ABG PCO2 90 mmHg (35-45); ABG PH 7.29 pH Units (7.32-7.45); ABG PO2 87 mmHg (85-104); ABG TCO2 46 mEq/L (20-26); Blood Gas Modality NIV; Blood Gas PEEP 8 cm H2O
[2017-10-11] MEDS: Insulin DETEMIR 100 UNIT/ML X5UNITS SQ SCH (23:19)
[2017-10-11] MEDS: *HR* Promethazine 25 MG/ML VIAL IVP PRN (23:23)
[2017-10-12] MEDS: Ipratropium/Albuterol Neb 3 ML IH SCH ×6 (02:03→20:14)
[2017-10-12] MEDS: *HR* LORazepam 2 MG/ML VIAL IVP PRN ×3 (02:11→17:54)
[2017-10-12 03:44] LABS: Hematocrit 34.7 % (35.3-44.9); Hemoglobin 11.1 g/dL (11.5-15.4); Mean Corpuscular Hemoglobin 29.8 pg (28.0-33.3); Mean Platelet Volume 9.3 fL (9.4-12.4); Platelet Count 146 K/mcL (140-400); Red Blood Count 3.73 M/mcL (3.82-4.97); Red Cell Distribution Width 11.7 % (11.5-14.5)
[2017-10-12 04:01] LABS: BUN/Creatinine Ratio 33 (6-26); Blood Urea Nitrogen 14 mg/dL (6-20); Carbon Dioxide 38 mEq/L (23-29); Chloride 93 mEq/L (98-107); Glucose 216 mg/dL (70-105); Osmolality,Calculated 285 (280-300); Potassium 4.1 mEq/L (3.5-5.1); Sodium 134 mEq/L (136-145); eGFR For African Americans > 60 (> 60); eGFR For Non-African Americans > 60 (> 60)
[2017-10-12] MEDS: *HR* Promethazine 25 MG/ML VIAL IVP PRN ×3 (05:45→20:43)
[2017-10-12] MEDS: *HR* Enoxaparin 40 MG/0.4 ML SYRINGE SQ SCH (05:45)
[2017-10-12 08:01] LABS: ABG Base Excess 15 mEq/L (-2 to 3); ABG HCO3 43 mEq/L (21-27); ABG Oxygen Saturation 90 % (95-98); ABG PCO2 74 mmHg (35-45); ABG PH 7.37 pH Units (7.32-7.45); ABG PO2 63 mmHg (85-104); ABG TCO2 45 mEq/L (20-26)
[2017-10-12] MEDS: Aspirin Enteric Coated 81 MG Tablet PO SCH (08:06)
[2017-10-12] MEDS: Levofloxacin 750 MG/150 ML 750 MG/150 ML BAG IVPB SCH (08:06)
[2017-10-12] MEDS: Gabapentin 300 MG CAPSULE PO SCH ×3 (08:06→20:42)
[2017-10-12] MEDS: amLODIPine 5 MG TABLET PO SCH (08:06)
[2017-10-12] MEDS: Isosorbide MONOnitrate (24 HR) 30 MG TAB.ER.24H PO SCH (08:06)
[2017-10-12] MEDS: GuaiFENesin/Pseudophedrine TABLET PO SCH ×2 (08:06→20:42)
[2017-10-12] MEDS: MethylPREDNISolone 40 MG/ML VIAL IVP SCH ×3 (08:07→20:42)
[2017-10-12] MEDS: Insulin LISPRO 300 UNITS/3 ML VIAL SQ SCH ×4 (08:08→20:48)
[2017-10-12] MEDS: Ondansetron 4 MG/2 ML VIAL IVP PRN (08:25)
--- NOTE | 2017-10-12 10:21 | Internal Med Progress Note ---
<Herberth Perez - Last Filed: 10/12/17 10:53> Date of Encounter: 10/12/17 Time of Encounter: 09:40 - Assessment and plan (1) Acute and chronic respiratory failure with hypercapnia Current Visit: Yes Status: Acute Assessment and plan: Acute on chronic respiratory failure due to acute exacerbation of COPD from influenza B and history of COPD Known COPD and wears 2.5 L oxygen at home Presented with worsening shortness of breath and productive cough Scattered rhonchi/wheezing present at admission Urinary antigens negative CXR without evidence of infiltrate Patient transferred to [address] [place], [place] [address]terday due to decreased mental status with worsening shortness of breath and lethargy ABGs at the time of transfer showed pH of 7.2, PaCO2 105, PaO2 74, bicarb 41 Repeat chest x-ray unremarkable Repeat ABGs performed this morning show improvement: PH is 7.37, PCO2 of 74, PO2 of 63 Decreased air movement overall Closely monitor respiratory status Patient continues to use accessory muscles with nasal cannula, will use BiPAP if needed Repeat ABGs if needed Continue IV ATB, steroids, bronchodilators We will increase frequency of IV steroids This morning was dose 8 of 10 of Tamiflu Today is day 5 of Levaquin (2) COPD exacerbation Current Visit: Yes Status: Acute Assessment and plan: COPD exacerbation secondary to influenza B (3) Influenza B Current Visit: Yes Status: Acute Assessment and plan: Found to have positive influenza B antigen Started on Tamiflu This morning was dose 8 of 10 of Tamiflu (4) Anxiety Current Visit: Yes Status: Acute Assessment and plan: Patient has history of anxiety Says she take Xanax at home however she has not had active Rx for Xanax since 2016 ([place] reviewed 10/10/2017). Clinically appears anxious which is likely contributing to shortness of breath. Cont PRN ativan for now We will adjust dosage and/or frequency if patient placed back on BiPAP (5) DM2 (diabetes mellitus, type 2) Current Visit: Yes Status: Acute Assessment and plan: Blood sugars uncontrolled Most likely secondary to dietary and lifestyle noncompliance in addition to steroids Increase sliding scale to high dose Monitor blood sugars and titrate PRN Blood sugars variable but acceptable on 10/12 review Qualifiers: Diabetes mellitus oil heaterman insulin use: with alf use Diabetes mellitus complication status: with hyperglycemia Qualified Code(s): E11.65 - Type 2 diabetes mellitus with hyperglycemia; Z79.4 - skilled nursing (current) use of insulin; Z79.4 - laborer marine terminal (current) use of insulin; Z79.4 - skilled nursing (current ) use of insulin; Z79.4 - laborer marine terminal (current) use of insulin (6) DVT prophylaxis Current Visit: Yes Status: Acute Assessment and plan: Lovenox 40 mg daily We will start pantoprazole for patient GERD symptoms (7) HLD (hyperlipidemia) Current Visit: Yes Status: Acute Assessment and plan: Cont home statin Qualifiers: Hyperlipidemia type: unspecified Qualified Code(s): E78.5 - Hyperlipidemia , unspecified (8) HTN (hypertension) Current Visit: Yes Status: Acute Assessment and plan: BP controlled Cont home BP medications Monitor BP and titrate PRN Qualifiers: Hypertension type: essential hypertension Qualified Code(s): I10 - Essential (primary) hypertension - Subjective Interval history: Patient states she is still somewhat short of breath (that is worse than her chronic shortness of breath), though feels she is improved from previous. She does report having some mild chest discomfort which feels like surging coming off from her epigastric region. She denies having any fevers/chills, she reports constipation, she also reports feeling worn out. - Constitutional Vitals: Temp Pulse Resp BP Pulse Ox 97.5 F L 91 20 137/75 92 10/12/17 07:16 10/12/17 07:16 10/12/17 07:48 10/12/17 07:16 10/12/17 07:48 General appearance: Present: mild distress, A&O X 3, morbidly obese, answers questions appropriately Exam: General: Cooperative, pleasant, mild distress, alert and oriented 3, answers questions appropriately HEENT: Normocephalic, atraumatic, neck supple, trachea midline, Conjunctiva pink , sclera anicteric, oral mucosa moist Respiratory: Patient using accessory muscles of respiration, worse after sitting up (likely from exertion), decreased air movement throughout, mild bibasilar Rales on auscultation Cardiovascular: Tachycardia, S1 and S2 present, no murmurs/rubs/gallops/clicks appreciated GI/abdominal: Nondistended, nontender, soft, normal bowel sounds, no peritoneal signs Extremities: No calf tenderness, noncyanotic, no pedal edema appreciated, warm, lower extremity pulses palpable and symmetrical Neurological: Alert and oriented 3, no facial droop, no focal deficits Skin: Dry, intact, normal color Internal Medicine: Result - Labs CBC & Chem 7: 10/12/17 03:31 10/12/17 03:31 Labs: Short CBC 10/12/17 Range/Units 03:31 WBC 4.1 L D (4.3-11.1) K/mcL Hgb 11.1 L (11.5-15.4) g/dL Hct 34.7 L (35.3-44.9) % Plt Count 146 (140-400) K/mcL BMP 10/12/17 03:31 Sodium 134 L Potassium 4.1 Chloride 93 L Carbon Dioxide 38 H BUN 14 Creatinine 0.42 L Glucose 216 H Calcium 9.0 - ABG Interpretation ABG results: ABG ABG pH 7.37 pH Units (7.32-7.45) 10/12/17 07:43 ABG pCO2 74 mmHg (35-45) H* 10/12/17 07:43 ABG pO2 63 mmHg (85-104) L 10/12/17 07:43 ABG O2 Saturation 90 % (95-98) L 10/12/17 07:43 - Impressions Impressions Chest X-Ray 10/11/17 09:39 IMPRESSION: No acute cardiopulmonary disease. D/ / 10/11/2017 10:14:27 Joseph Aaron MD / [facility] Interpreting Provider: Joseph Aaron MD Chest X-Ray 10/11/17 19:57 IMPRESSION: No acute cardiopulmonary abnormality. D/ / Jabari Mireles / Jabari Mireles Interpreting Provider: Jabari Mireles - VTE Documentation of Mechanical Device: Intermittent pneumatic compression device Consult Discharge Plan - Plan Referrals: DANUTA MELGAR [Other] - 10/19/17 2:00 pm NONE,PCP [Non-Partnered Physician] - <Taco Nuno H - Last Filed: 10/12/17 11:13> Date of Encounter: 10/12/17 - Constitutional Vitals: Temp Pulse Resp BP Pulse Ox 97.5 F L 91 20 137/75 98 10/12/17 07:16 10/12/17 07:16 10/12/17 10:43 10/12/17 07:16 10/12/17 10:43 Internal Medicine: Result - Labs CBC & Chem 7: 10/12/17 03:31 10/12/17 03:31 Labs: Short CBC 10/12/17 Range/Units 03:31 WBC 4.1 L D (4.3-11.1) K/mcL Hgb 11.1 L (11.5-15.4) g/dL Hct 34.7 L (35.3-44.9) % Plt Count 146 (140-400) K/mcL BMP 10/12/17 03:31 Sodium 134 L Potassium 4.1 Chloride 93 L Carbon Dioxide 38 H BUN 14 Creatinine 0.42 L Glucose 216 H Calcium 9.0 - ABG Interpretation ABG results: ABG ABG pH 7.37 pH Units (7.32-7.45) 10/12/17 07:43 ABG pCO2 74 mmHg (35-45) H* 10/12/17 07:43 ABG pO2 63 mmHg (85-104) L 10/12/17 07:43 ABG O2 Saturation 90 % (95-98) L 10/12/17 07:43 - Impressions Impressions Chest X-Ray 10/11/17 19:57 IMPRESSION: No acute cardiopulmonary abnormality. D/ / Jabari Mireles / Jabari Mireles Interpreting Provider: Jabari Mireles - Attending Attestation Acute on chronic hypoxic hypercapnic respiratory failure secondary to acute COPD exacerbation due to influence of the and possibly bacterial bronchitis Continue Levaquin, Tamiflu and Solu-Medrol BiPAP qualification I examined this patient and my medical decision-making was reviewed with the Resident Physician. I agree with the documented findings, disposition and treatment plan as described except to the extent set forth below.
[2017-10-12] MEDS: Pantoprazole 40 MG VIAL IVP SCH (11:50)
[2017-10-12] MEDS: *HR* HYDROcodone/Acet 5/325 mg TABLET PO PRN ×2 (11:57→20:42)
[2017-10-12] MEDS: Albuterol 2.5 MG/3 ML NEBULIZER IH PRN (14:06)
[2017-10-12] MEDS: Insulin DETEMIR 100 UNIT/ML X5UNITS SQ SCH (20:45)
[2017-10-13] MEDS: Ipratropium/Albuterol Neb 3 ML IH SCH ×6 (00:23→20:08)
[2017-10-13] MEDS: MethylPREDNISolone 40 MG/ML VIAL IVP SCH ×4 (03:10→20:32)
[2017-10-13 05:02] LABS: Basophils % 0.4 %; Hematocrit 34.9 % (35.3-44.9); Immature Granulocytes % 3.1 % (0-4); Lymphocytes # 1.2 K/mcL (0.6-4.6); Lymphocytes % 26.7 %; Mean Corpuscular HGB Conc 31.5 g/dL (31.6-35.5); Mean Corpuscular Hemoglobin 29.2 pg (28.0-33.3); Mean Corpuscular Volume 92.6 fL (83.0-100.0); Mean Platelet Volume 9.8 fL (9.4-12.4); Monocytes # 0.6 K/mcL (0.0-1.3); Monocytes % 13.7 %; Neutrophils # 2.5 K/mcL (1.6-8.9); Platelet Count 188 K/mcL (140-400); Red Blood Count 3.77 M/mcL (3.82-4.97); Red Cell Distribution Width 11.4 % (11.5-14.5); Segmented Neutrophils % 56.1 %
[2017-10-13 05:19] LABS: BUN/Creatinine Ratio 38 (6-26); Blood Urea Nitrogen 18 mg/dL (6-20); Calcium 8.8 mg/dL (8.6-10.3); Carbon Dioxide 36 mEq/L (23-29); Chloride 96 mEq/L (98-107); Glucose 296 mg/dL (70-105); Magnesium 2.2 mg/dL (1.6-2.6); Osmolality,Calculated 299 (280-300); Phosphorous 2.8 mg/dL (2.7-4.5); Potassium 4.1 mEq/L (3.5-5.1); Sodium 138 mEq/L (136-145); eGFR For African Americans > 60 (> 60); eGFR For Non-African Americans > 60 (> 60)
[2017-10-13 05:45] LABS: Platelet Estimate Normal (Normal)
[2017-10-13] MEDS: *HR* LORazepam 2 MG/ML VIAL IVP PRN (05:49)
[2017-10-13] MEDS: *HR* HYDROcodone/Acet 5/325 mg TABLET PO PRN ×3 (05:50→23:39)
[2017-10-13] MEDS: *HR* Enoxaparin 40 MG/0.4 ML SYRINGE SQ SCH (06:02)
--- NOTE | 2017-10-13 06:35 | Event Note ---
Date of Encounter: 10/13/17 Time of Encounter: 06:24 Seen and examined at bedside. A Pressley catheter was placed during preceding day due to urinary retention. RN contacted resident MD due to presence of pink urine. Per staff overnight, pink urine seen yesterday night as well, with patient possibly pulling at pressley. Platelet count stable overnight (10/12: 146 K/ mCL, 10/13 188 K/mcL). Hgb/Hct stable. No signs of petechia on evaluation. Case discussed with Dr. Mascorro. Will confer in 30 min with AM day shift. RN notified.
[2017-10-13] MEDS: Insulin LISPRO 300 UNITS/3 ML VIAL SQ SCH ×6 (08:29→22:22)
[2017-10-13] MEDS: Isosorbide MONOnitrate (24 HR) 30 MG TAB.ER.24H PO SCH (08:29)
[2017-10-13] MEDS: Aspirin Enteric Coated 81 MG Tablet PO SCH (08:29)
[2017-10-13] MEDS: Pantoprazole 40 MG VIAL IVP SCH (08:29)
[2017-10-13] MEDS: amLODIPine 5 MG TABLET PO SCH (08:29)
[2017-10-13] MEDS: Gabapentin 300 MG CAPSULE PO SCH ×3 (08:30→20:32)
[2017-10-13] MEDS: GuaiFENesin/Pseudophedrine TABLET PO SCH ×2 (08:30→22:22)
[2017-10-13] MEDS ORDERED: levoFLOXacin 750 MG TABLET PO SCH (09:00)
--- NOTE | 2017-10-13 09:13 | Internal Med Progress Note ---
<Herberth Perez - Last Filed: 10/13/17 15:33> Date of Encounter: 10/13/17 Time of Encounter: 09:00 - Assessment and plan (1) Acute and chronic respiratory failure with hypercapnia Current Visit: Yes Status: Acute Assessment and plan: Acute on chronic respiratory failure due to acute exacerbation of COPD from influenza B and history of COPD Known COPD and wears 2.5 L oxygen at home Presented with worsening shortness of breath and productive cough Scattered rhonchi/wheezing present at admission Urinary antigens negative CXR without evidence of infiltrate Patient transferred to [facility] on 10/11/17 due to decreased mental status with worsening shortness of breath and lethargy ABGs at the time of transfer showed pH of 7.2, PaCO2 105, PaO2 74, bicarb 41 Repeat chest x-ray unremarkable Repeat ABGs performed 10/12/17 show improvement: PH is 7.37, PCO2 of 74, PO2 of 63 Patient does report improvement IV steroids increased yesterday from 40 mg later in the usual 3 times a day to 40 mg laryngeal 4 times a day Closely monitor respiratory status Patient is stable for transfer to Use BiPAP if needed Continue IV ATB, steroids, bronchodilators This morning was dose 10 of 10 of Tamiflu Today is day 5/5 of Levaquin (2) COPD exacerbation Current Visit: Yes Status: Acute Assessment and plan: COPD exacerbation secondary to influenza B (3) Influenza B Current Visit: Yes Status: Acute Assessment and plan: Found to have positive influenza B antigen Started on Tamiflu This morning was dose 10 of 10 of Tamiflu (4) Anxiety Current Visit: Yes Status: Acute Assessment and plan: Patient has history of anxiety Says she had previously taken Xanax at home however she has not had active Rx for Xanax since 03/2017 ([place] reviewed 10/10/2017). Clinically appears anxious which is likely contributing to shortness of breath. 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 mellitus halfway insulin use: with buttermaker continuous churn use Diabetes mellitus complication status: with hyperglycemia Qualified Code(s): E11.65 - Type 2 diabetes mellitus with hyperglycemia; Z79.4 - custodial (current) use of insulin; Z79.4 - emt intermediate (current) use of insulin; Z79.4 - emt intermediate (current ) use of insulin; Z79.4 - custodial (current) use of insulin (6) DVT prophylaxis Current Visit: Yes Status: Acute Assessment and plan: Lovenox 40 mg daily Continue pantoprazole (7) HLD (hyperlipidemia) Current Visit: Yes Status: Acute Assessment and plan: Continue home statin Qualifiers: Hyperlipidemia type: unspecified Qualified Code(s): E78.5 - Hyperlipidemia , unspecified (8) HTN (hypertension) Current Visit: Yes Status: Acute Assessment and plan: BP slightly elevated this mornings BP improved with repeat measurements Continue home BP medications Monitor BP and titrate PRN Qualifiers: Hypertension type: essential hypertension Qualified Code(s): I10 - Essential (primary) hypertension (9) Urinary retention Current Visit: Yes Status: Acute Assessment and plan: Patient has been having some difficulty voiding requiring pressley when previously removed, she required straight catheterization 2/2 high residual bladder volume beginning to have some slight discoloration of urine Recommend f/u urology as outpatient - Subjective Interval history: Patient reports having continued episodes of fevers and chills, though there are no documented elevations in temperature setting. She also reports having some diaphoresis during these episodes. She reports improvement in what she was experiencing previously and her shortness of breath, though states that when having a coughing fit she feels that is difficult to breathe. She reports having a dry cough, though sometimes feels she is very congested with mucus running down her throat. She reports mild nausea and mild chest pain as before. She reports having continued anxiety related to her inability to breathe well and is asking about making sure she can continue to get her anxiolytics. - Constitutional Vitals: Temp Pulse Resp BP Pulse Ox 98.3 F 80 18 161/91 95 10/13/17 07:09 10/13/17 07:09 10/13/17 08:04 10/13/17 07:09 10/13/17 08:04 General appearance: Present: A&O X 3, morbidly obese, no acute distress, answers questions appropriately Exam: General: Cooperative, pleasant, no acute distress, alert and oriented 3, answers questions appropriately HEENT: Normocephalic, atraumatic, neck supple, trachea midline, Conjunctiva pink , sclera anicteric, oral mucosa moist Respiratory: No accessory muscle usage, diffuse wheeze on auscultation Cardiovascular: Regular rate and rhythm, S1 and S2 present, no murmurs/rubs/ gallops/clicks appreciated GI/abdominal: Nondistended, nontender, soft, normal bowel sounds, no peritoneal signs Extremities: No calf tenderness, no pedal edema appreciated, warm, lower extremity pulses palpable and symmetrical Neurological: Alert and oriented 3, no facial droop, no focal deficits Skin: Dry, intact, normal color Internal Medicine: Result - Labs CBC & Chem 7: 10/13/17 04:19 10/13/17 04:19 Labs: Short CBC 10/13/17 Range/Units 04:19 WBC 4.5 (4.3-11.1) K/mcL Hgb 11.0 L (11.5-15.4) g/dL Hct 34.9 L (35.3-44.9) % Plt Count 188 (140-400) K/mcL Neutrophils # 2.5 (1.6-8.9) K/mcL BMP 10/13/17 04:19 Sodium 138 Potassium 4.1 Chloride 96 L Carbon Dioxide 36 H BUN 18 Creatinine 0.47 L Glucose 296 H Calcium 8.8 - ABG Interpretation ABG results: ABG ABG pH 7.37 pH Units (7.32-7.45) 10/12/17 07:43 ABG pCO2 74 mmHg (35-45) H* 10/12/17 07:43 ABG pO2 63 mmHg (85-104) L 10/12/17 07:43 ABG O2 Saturation 90 % (95-98) L 10/12/17 07:43 - VTE Documentation of Mechanical Device: Intermittent pneumatic compression device Consult Discharge Plan - Plan Referrals: DANUTA MELGAR [Other] - 10/19/17 2:00 pm Rodney Devries MD [Partnered Physician] - (OFFICE WILL CALL PATIENT AT HOME WITH FOLLOW UP APPOINTMENT) Antonio Calderón MD [Partnered Physician] - 10/23/17 8:45 am (bring medication with you, picture ID, and Insurance card) <NakitaobduliaTaco arizmendi H - Last Filed: 10/13/17 16:34> Date of Encounter: 10/13/17 - Assessment and plan (1) Acute and chronic respiratory failure with hypercapnia Current Visit: Yes Status: Acute (2) COPD exacerbation Current Visit: Yes Status: Acute (3) Influenza B Current Visit: Yes Status: Acute (4) Anxiety Current Visit: Yes Status: Acute (5) DM2 (diabetes mellitus, type 2) Current Visit: Yes Status: Acute Qualifiers: Diabetes mellitus halfway insulin use: with buttermaker continuous churn use Diabetes mellitus complication status: with hyperglycemia Qualified Code(s): E11.65 - Type 2 diabetes mellitus with hyperglycemia; Z79.4 - custodial (current) use of insulin; Z79.4 - emt intermediate (current) use of insulin; Z79.4 - emt intermediate (current ) use of insulin; Z79.4 - emt intermediate (current) use of insulin (6) DVT prophylaxis Current Visit: Yes Status: Acute (7) HLD (hyperlipidemia) Current Visit: Yes Status: Acute Qualifiers: Hyperlipidemia type: unspecified Qualified Code(s): E78.5 - Hyperlipidemia , unspecified (8) HTN (hypertension) Current Visit: Yes Status: Acute Qualifiers: Hypertension type: essential hypertension Qualified Code(s): I10 - Essential (primary) hypertension (9) Urinary retention Current Visit: Yes Status: Acute - Constitutional Vitals: Temp Pulse Resp BP Pulse Ox 98.4 F 105 22 155/92 95 10/13/17 16:18 10/13/17 16:18 10/13/17 16:18 10/13/17 16:18 10/13/17 16:18 Internal Medicine: Result - Labs CBC & Chem 7: 10/13/17 04:19 10/13/17 04:19 Labs: Short CBC 10/13/17 Range/Units 04:19 WBC 4.5 (4.3-11.1) K/mcL Hgb 11.0 L (11.5-15.4) g/dL Hct 34.9 L (35.3-44.9) % Plt Count 188 (140-400) K/mcL Neutrophils # 2.5 (1.6-8.9) K/mcL BMP 10/13/17 04:19 Sodium 138 Potassium 4.1 Chloride 96 L Carbon Dioxide 36 H BUN 18 Creatinine 0.47 L Glucose 296 H Calcium 8.8 - ABG Interpretation ABG results: ABG ABG pH 7.37 pH Units (7.32-7.45) 10/12/17 07:43 ABG pCO2 74 mmHg (35-45) H* 10/12/17 07:43 ABG pO2 63 mmHg (85-104) L 10/12/17 07:43 ABG O2 Saturation 90 % (95-98) L 10/12/17 07:43 - Attending Attestation Acute on chronic hypoxic hypercapnic respiratory failure secondary to acute COPD exacerbation due to influence of the and possibly bacterial bronchitis Continue Levaquin, Tamiflu and Solu-Medrol BiPAP qualification I examined this patient and my medical decision-making was reviewed with the Resident Physician. I agree with the documented findings, disposition and treatment plan as described except to the extent set forth below.
[2017-10-13] MEDS: Ondansetron 4 MG/2 ML VIAL IVP PRN (12:47)
[2017-10-13] MEDS: *HR* LORazepam 1 MG TABLET PO PRN ×2 (12:48→20:32)
[2017-10-13] MEDS: hydrOXYzine pamoate 25 MG CAPSULE PO PRN (17:30)
[2017-10-14] MEDS: Insulin DETEMIR 100 UNIT/ML X5UNITS SQ SCH ×2 (00:20→22:04)
[2017-10-14] MEDS: Ipratropium/Albuterol Neb 3 ML IH SCH ×7 (00:26→23:35)
[2017-10-14] MEDS: MethylPREDNISolone 40 MG/ML VIAL IVP SCH ×3 (00:46→15:20)
[2017-10-14] MEDS: *HR* Enoxaparin 40 MG/0.4 ML SYRINGE SQ SCH (05:11)
[2017-10-14] MEDS: *HR* HYDROcodone/Acet 5/325 mg TABLET PO PRN ×3 (05:19→22:04)
[2017-10-14 05:25] LABS: Hematocrit 35.9 % (35.3-44.9); Hemoglobin 11.4 g/dL (11.5-15.4); Mean Corpuscular HGB Conc 31.8 g/dL (31.6-35.5); Mean Corpuscular Hemoglobin 29.2 pg (28.0-33.3); Mean Corpuscular Volume 91.8 fL (83.0-100.0); Mean Platelet Volume 9.5 fL (9.4-12.4); Platelet Count 234 K/mcL (140-400); Red Blood Count 3.91 M/mcL (3.82-4.97); Red Cell Distribution Width 11.6 % (11.5-14.5)
[2017-10-14 05:46] LABS: BUN/Creatinine Ratio 36 (6-26); Blood Urea Nitrogen 18 mg/dL (6-20); Calcium 8.7 mg/dL (8.6-10.3); Carbon Dioxide 34 mEq/L (23-29); Chloride 96 mEq/L (98-107); Glucose 311 mg/dL (70-105); Osmolality,Calculated 298 (280-300); Potassium 4.2 mEq/L (3.5-5.1); Sodium 137 mEq/L (136-145); eGFR For African Americans > 60 (> 60); eGFR For Non-African Americans > 60 (> 60)
[2017-10-14] MEDS: Insulin LISPRO 300 UNITS/3 ML VIAL SQ SCH ×7 (08:29→22:04)
[2017-10-14] MEDS: Aspirin Enteric Coated 81 MG Tablet PO SCH (08:30)
[2017-10-14] MEDS: amLODIPine 5 MG TABLET PO SCH (08:30)
[2017-10-14] MEDS: Gabapentin 300 MG CAPSULE PO SCH ×3 (08:30→22:04)
[2017-10-14] MEDS: *HR* LORazepam 1 MG TABLET PO PRN ×2 (08:30→15:20)
[2017-10-14] MEDS: GuaiFENesin/Pseudophedrine TABLET PO SCH ×2 (08:30→22:03)
[2017-10-14] MEDS: Pantoprazole 40 MG VIAL IVP SCH (08:31)
[2017-10-14] MEDS: Ondansetron 4 MG/2 ML VIAL IVP PRN ×2 (08:31→16:59)
[2017-10-14] MEDS: Isosorbide MONOnitrate (24 HR) 30 MG TAB.ER.24H PO SCH (08:31)
--- NOTE | 2017-10-14 08:42 | Internal Med Progress Note ---
<Herberth Perez - Last Filed: 10/14/17 08:55> Date of Encounter: 10/14/17 Time of Encounter: 08:15 - Assessment and plan (1) Acute and chronic respiratory failure with hypercapnia Current Visit: Yes Status: Acute Assessment and plan: Acute on chronic respiratory failure due to acute exacerbation of COPD from influenza B and history of COPD Known COPD and wears 2.5 L oxygen at home Presented with worsening shortness of breath and productive cough Scattered rhonchi/wheezing present at admission Urinary antigens negative CXR without evidence of infiltrate Patient transferred to [facility] on 10/11/17 due to decreased mental status with worsening shortness of breath and lethargy ABGs at the time of transfer showed pH of 7.2, PaCO2 105, PaO2 74, bicarb 41 Repeat chest x-ray unremarkable Repeat ABGs performed 10/12/17 show improvement: PH is 7.37, PCO2 of 74, PO2 of 63 Patient does report improvement Patient did not qualify for BiPAP overnight Closely monitor respiratory status We will decrease patient's steroids to 40 mg Solu-Medrol 3 times a day Use BiPAP if needed Continue IV ATB, steroids, bronchodilators Tamiflu and Levaquin both finished yesterday (2) COPD exacerbation Current Visit: Yes Status: Acute Assessment and plan: COPD exacerbation secondary to influenza B (3) Influenza B Current Visit: Yes Status: Acute Assessment and plan: Found to have positive influenza B antigen Full course of Tamiflu finished yesterday (4) Anxiety Current Visit: Yes Status: Acute Assessment and plan: Patient has history of anxiety Says she had previously taken Xanax at home however she has not had active Rx for Xanax since 03/2017 ([place] reviewed 10/10/2017). Clinically appears anxious which is likely contributing to shortness of breath. 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: with retirement use Diabetes mellitus complication status: with hyperglycemia Qualified Code(s): E11.65 - Type 2 diabetes mellitus with hyperglycemia; Z79.4 - jail (current) use of insulin; Z79.4 - ocean transportation intermediary (current) use of insulin; Z79.4 - jail (current ) use of insulin; Z79.4 - jail (current) use of insulin (6) DVT prophylaxis Current Visit: Yes Status: Acute Assessment and plan: Lovenox 40 mg daily Continue pantoprazole (7) HLD (hyperlipidemia) Current Visit: Yes Status: Acute Assessment and plan: Continue home statin Qualifiers: Hyperlipidemia type: unspecified Qualified Code(s): E78.5 - Hyperlipidemia , unspecified (8) HTN (hypertension) Current Visit: Yes Status: Acute Assessment and plan: BP slightly elevated this mornings BP improved with repeat measurements Continue home BP medications Monitor BP and titrate PRN Qualifiers: Hypertension type: essential hypertension Qualified Code(s): I10 - Essential (primary) hypertension (9) Urinary retention Current Visit: Yes Status: Acute Assessment and plan: Patient has been having some difficulty voiding requiring pressley when previously removed, she required straight catheterization 2/2 high residual bladder volume beginning to have some slight discoloration of urine Recommend f/u urology as outpatient - Subjective Interval history: Patient reports feeling slightly worse than she did yesterday. She continues to report having low-grade fever and chills, she has been afebrile with a couple episodes of mild hypothermia. She reports having mild nausea, but not so bad she is unable to eat. She also reports having continued shortness of breath does able to converse without problem. She had BiPAP qualification last night, and did not meet requirements for outpatient BiPAP. She states she is still coughing that last night she coughs something up, but was unable to see what it was in the middle the night. She denies chest pain, denies pleuritic pain. She does report there still a light pinkish you to her urine output. - Constitutional Vitals: Temp Pulse Resp BP Pulse Ox 97.9 F 87 20 165/91 93 10/14/17 06:34 10/14/17 06:34 10/14/17 07:36 10/14/17 06:34 10/14/17 07:36 General appearance: Present: A&O X 3, morbidly obese, no acute distress, answers questions appropriately Exam: General: Cooperative, pleasant, no acute distress, alert and oriented 3, answers questions appropriately HEENT: Normocephalic, atraumatic, neck supple, trachea midline, Conjunctiva pink , sclera anicteric, oral mucosa moist Respiratory: No accessory muscle usage, clear to auscultation bilaterally Cardiovascular: Regular rate and rhythm, S1 and S2 present, no murmurs/rubs/ gallops/clicks appreciated GI/abdominal: Nondistended, nontender, soft, normal bowel sounds, no peritoneal signs Extremities: No calf tenderness, no pedal edema appreciated, warm, lower extremity pulses palpable and symmetrical Neurological: Alert and oriented 3, no facial droop, no focal deficits Skin: Dry, intact, normal color Internal Medicine: Result - Labs CBC & Chem 7: 10/14/17 04:39 10/14/17 04:39 Labs: Short CBC 10/14/17 Range/Units 04:39 WBC 6.4 (4.3-11.1) K/mcL Hgb 11.4 L (11.5-15.4) g/dL Hct 35.9 (35.3-44.9) % Plt Count 234 (140-400) K/mcL BMP 10/14/17 04:39 Sodium 137 Potassium 4.2 Chloride 96 L Carbon Dioxide 34 H BUN 18 Creatinine 0.50 L Glucose 311 H Calcium 8.7 - ABG Interpretation ABG results: ABG ABG pH 7.37 pH Units (7.32-7.45) 10/12/17 07:43 ABG pCO2 74 mmHg (35-45) H* 10/12/17 07:43 ABG pO2 63 mmHg (85-104) L 10/12/17 07:43 ABG O2 Saturation 90 % (95-98) L 10/12/17 07:43 - VTE Documentation of Mechanical Device: Intermittent pneumatic compression device Consult Discharge Plan - Plan Referrals: DANUTA MELGAR [Other] - 10/19/17 2:00 pm Rodney Devries MD [Partnered Physician] - (OFFICE WILL CALL PATIENT AT HOME WITH FOLLOW UP APPOINTMENT) Antonio Calderón MD [Partnered Physician] - 10/23/17 8:45 am (bring medication with you, picture ID, and Insurance card) <Taco Nuno H - Last Filed: 10/14/17 12:27> Date of Encounter: 10/14/17 - Assessment and plan (1) Acute and chronic respiratory failure with hypercapnia Current Visit: Yes Status: Acute (2) COPD exacerbation Current Visit: Yes Status: Acute (3) Influenza B Current Visit: Yes Status: Acute (4) Anxiety Current Visit: Yes Status: Acute (5) DM2 (diabetes mellitus, type 2) Current Visit: Yes Status: Acute Qualifiers: 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: with retirement use Diabetes mellitus complication status: with hyperglycemia Qualified Code(s): E11.65 - Type 2 diabetes mellitus with hyperglycemia; Z79.4 - jail (current) use of insulin; Z79.4 - ocean transportation intermediary (current) use of insulin; Z79.4 - jail (current ) use of insulin; Z79.4 - ocean transportation intermediary (current) use of insulin (6) DVT prophylaxis Current Visit: Yes Status: Acute (7) HLD (hyperlipidemia) Current Visit: Yes Status: Acute Qualifiers: Hyperlipidemia type: unspecified Qualified Code(s): E78.5 - Hyperlipidemia , unspecified (8) HTN (hypertension) Current Visit: Yes Status: Acute Qualifiers: Hypertension type: essential hypertension Qualified Code(s): I10 - Essential (primary) hypertension (9) Urinary retention Current Visit: Yes Status: Acute - Constitutional Vitals: Temp Pulse Resp BP Pulse Ox 98.3 F 94 17 132/77 92 10/14/17 11:23 10/14/17 11:23 10/14/17 11:23 10/14/17 11:23 10/14/17 11:23 Internal Medicine: Result - Labs CBC & Chem 7: 10/14/17 04:39 10/14/17 04:39 Labs: Short CBC 10/14/17 Range/Units 04:39 WBC 6.4 (4.3-11.1) K/mcL Hgb 11.4 L (11.5-15.4) g/dL Hct 35.9 (35.3-44.9) % Plt Count 234 (140-400) K/mcL BMP 10/14/17 04:39 Sodium 137 Potassium 4.2 Chloride 96 L Carbon Dioxide 34 H BUN 18 Creatinine 0.50 L Glucose 311 H Calcium 8.7 - ABG Interpretation ABG results: ABG ABG pH 7.37 pH Units (7.32-7.45) 03 07:43 ABG pCO2 74 mmHg (35-45) H* 03 07:43 ABG pO2 63 mmHg (85-104) L 03 07:43 ABG O2 Saturation 90 % (95-98) L 03 07:43 - Attending Attestation Acute on chronic hypoxic hypercapnic respiratory failure secondary to acute COPD exacerbation due to influence of the and possibly bacterial bronchitis Received Levaquin and Tamiflu continue Solu-Medrol BiPAP qualification I examined this patient and my medical decision-making was reviewed with the Resident Physician. I agree with the documented findings, disposition and treatment plan as described except to the extent set forth below.
[2017-10-14] MEDS: *HR* Promethazine 25 MG/ML VIAL IVP PRN (11:59)
[2017-10-14 16:30] LABS: Bilirubin,Urine Negative (Negative); Blood,Urine Large (Negative); Clarity,Urine Clear (Clear); Color,Urine Yellow (Yellow); Glucose,Urine (UA) >=1000 mg/dL (Normal); Ketones,Urine Negative (Negative); Leukocyte Esterase,Urine Negative (Negative); Nitrite,Urine Negative (Negative); Protein,Urine Negative (Neg-Trace); Specific Gravity,Urine 1.015 (1.010-1.025); Urobilinogen,Urine Normal (Normal)
[2017-10-14 16:34] LABS: Bacteria,Urine None Seen per hpf (None-Few); Hyaline Casts,Urine None Seen per lpf (None-Few); RBC,Urine 50-100 per hpf (0-3); Squamous Epithelial Cell,Urine None Seen per lpf (None-Few); WBC,Urine 0-3 per hpf (0-3)
[2017-10-14] MEDS: Albuterol 2.5 MG/3 ML NEBULIZER IH PRN (21:56)
[2017-10-15] MEDS: *HR* LORazepam 1 MG TABLET PO PRN ×3 (00:50→18:52)
[2017-10-15] MEDS: MethylPREDNISolone 40 MG/ML VIAL IVP SCH ×3 (00:50→16:18)
[2017-10-15] MEDS: Ipratropium/Albuterol Neb 3 ML IH SCH ×6 (03:40→23:35)
[2017-10-15 04:39] LABS: Hematocrit 37.3 % (35.3-44.9); Hemoglobin 12.3 g/dL (11.5-15.4); Mean Corpuscular Hemoglobin 29.9 pg (28.0-33.3); Mean Corpuscular Volume 90.5 fL (83.0-100.0); Mean Platelet Volume 9.4 fL (9.4-12.4); Platelet Count 291 K/mcL (140-400); Red Blood Count 4.12 M/mcL (3.82-4.97); Red Cell Distribution Width 11.7 % (11.5-14.5)
[2017-10-15 05:02] LABS: BUN/Creatinine Ratio 36 (6-26); Blood Urea Nitrogen 20 mg/dL (6-20); Carbon Dioxide 33 mEq/L (23-29); Chloride 97 mEq/L (98-107); Glucose 354 mg/dL (70-105); Osmolality,Calculated 301 (280-300); Potassium 4.2 mEq/L (3.5-5.1); Sodium 137 mEq/L (136-145); eGFR For African Americans > 60 (> 60); eGFR For Non-African Americans > 60 (> 60)
[2017-10-15 05:40] LABS: ABG Base Excess 8 mEq/L (-2 to 3); ABG HCO3 35 mEq/L (21-27); ABG Oxygen Saturation 91 % (95-98); ABG PCO2 54 mmHg (35-45); ABG PH 7.41 pH Units (7.32-7.45); ABG PO2 63 mmHg (85-104); ABG TCO2 36 mEq/L (20-26)
[2017-10-15] MEDS: *HR* Enoxaparin 40 MG/0.4 ML SYRINGE SQ SCH (05:54)
[2017-10-15] MEDS: *HR* HYDROcodone/Acet 5/325 mg TABLET PO PRN ×2 (05:54→20:05)
[2017-10-15] MEDS: Ondansetron 4 MG/2 ML VIAL IVP PRN ×2 (06:50→16:32)
--- NOTE | 2017-10-15 07:41 | Internal Med Progress Note ---
<Herberth Perez - Last Filed: 10/15/17 08:02> Date of Encounter: 10/15/17 Time of Encounter: 07:20 - Assessment and plan (1) Acute and chronic respiratory failure with hypercapnia Current Visit: Yes Status: Acute Assessment and plan: Acute on chronic respiratory failure due to acute exacerbation of COPD from influenza B and history of COPD Known COPD and wears 2.5 L oxygen at home Presented with worsening shortness of breath and productive cough Scattered rhonchi/wheezing present at admission Urinary antigens negative CXR without evidence of infiltrate Patient transferred to [facility] on 10/11/17 due to decreased mental status with worsening shortness of breath and lethargy ABGs at the time of transfer showed pH of 7.2, PaCO2 105, PaO2 74, bicarb 41 Repeat chest x-ray unremarkable Repeat ABGs performed 10/12/17 show improvement: PH is 7.37, PCO2 of 74, PO2 of 63 She seems to be struggling with breathing a little more today Patient did qualify for BiPAP overnight Closely monitor respiratory status We will decrease patient's steroids to 40 mg Solu-Medrol 3 times a day Use BiPAP if needed Continue IV ATB, steroids, bronchodilators consider switching xopenex for albuterol Consider a repeat CXR if patient continues to have difficulty with breathing Tamiflu and Levaquin both finished yesterday Will stop patient pseudaphed due to her continued hypertension and tachycardia (2) COPD exacerbation Current Visit: Yes Status: Acute Assessment and plan: COPD exacerbation secondary to influenza B Plan as above (3) Influenza B Current Visit: Yes Status: Acute Assessment and plan: Found to have positive influenza B antigen Full course of Tamiflu finished 10/13/16 (4) Anxiety Current Visit: Yes Status: Acute Assessment and plan: Patient has history of anxiety Says she had previously taken Xanax at home however she has not had active Rx for Xanax since 03/2017 ([place] reviewed 10[place]10/2017). Clinically appears anxious which is likely contributing to shortness of breath. Cont PRN ativan for now Will try addition of hydroxyzine We will adjust dosage and/or frequency if patient placed back on BiPAP (5) DM2 (diabetes mellitus, type 2) Current Visit: Yes Status: Acute Assessment and plan: Blood sugars uncontrolled Most likely secondary to dietary and lifestyle noncompliance in addition to steroids Blood sugars appear slightly elevated Continue high dose sliding scale to high dose Will increase patient basal insulin to her home dose of 36 units Monitor blood sugars and titrate PRN will add an additional 5 units TIDWM prandial insulin, to a total of 10 units TIDWM Qualifiers: Diabetes mellitus penitentiary insulin use: with cook box filler use Diabetes mellitus complication status: with hyperglycemia Qualified Code(s): E11.65 - Type 2 diabetes mellitus with hyperglycemia; Z79.4 - snf (current) use of insulin; Z79.4 - line staker (current) use of insulin; Z79.4 - snf (current ) use of insulin; Z79.4 - line staker (current) use of insulin (6) DVT prophylaxis Current Visit: Yes Status: Acute Assessment and plan: Lovenox 40 mg daily Continue pantoprazole (7) HLD (hyperlipidemia) Current Visit: Yes Status: Acute Assessment and plan: Continue home statin Qualifiers: Hyperlipidemia type: unspecified Qualified Code(s): E78.5 - Hyperlipidemia , unspecified (8) HTN (hypertension) Current Visit: Yes Status: Acute Assessment and plan: BP has appeared slightly elevated for the last few days Patient home carvedilol increased to 12.5 BID Pseudophed stopped today Monitor BP and titrate PRN Qualifiers: Hypertension type: essential hypertension Qualified Code(s): I10 - Essential (primary) hypertension (9) Urinary retention Current Visit: Yes Status: Acute Assessment and plan: Patient has been having some difficulty voiding requiring pressley when previously removed, she required straight catheterization 2/2 high residual bladder volume beginning to have some slight discoloration of urine Pressley fell out yesterday (apparently balloon deflated and catheter fell out of its own) Patient does report having dysuria since catheter fell out Will obtain additional UA - Subjective Interval history: Patient reports having continued fevers and chills, as well as having some shortness of breath. But, given the patient history of anxiety, it is difficult to tell whether it is because of her anxiety. Her pressley fell out yesterday and was not replaced. She does complain of having some mild burning with urination however. She did have a bipap qualification last night and appears to have qualified. - Constitutional Vitals: Temp Pulse Resp BP Pulse Ox 97.8 F 101 18 175/92 95 10/15/17 03:50 10/15/17 03:50 10/15/17 03:50 10/15/17 03:50 10/15/17 03:50 General appearance: Present: A&O X 3, morbidly obese, no acute distress, answers questions appropriately Exam: General: Cooperative, pleasant, mild distress, alert and oriented 3, answers questions appropriately HEENT: Normocephalic, atraumatic, neck supple, trachea midline, Conjunctiva pink , sclera anicteric, oral mucosa moist Respiratory: Patient appears to be smooth respiration, clear to auscultation bilaterally Cardiovascular: Regular rate and rhythm, S1 and S2 present, no murmurs/rubs/ gallops/clicks appreciated GI/abdominal: Nondistended, nontender, soft, normal bowel sounds, no peritoneal signs Extremities: No calf tenderness, no pedal edema appreciated, warm, lower extremity pulses palpable and symmetrical Neurological: Alert and oriented 3, no facial droop, no focal deficits Skin: Dry, intact, normal color Internal Medicine: Result - Labs CBC & Chem 7: 10/15/17 04:09 10/15/17 04:09 Labs: Short CBC 10/15/17 Range/Units 04:09 WBC 9.7 D (4.3-11.1) K/mcL Hgb 12.3 (11.5-15.4) g/dL Hct 37.3 (35.3-44.9) % Plt Count 291 (140-400) K/mcL BMP 10/15/17 04:09 Sodium 137 Potassium 4.2 Chloride 97 L Carbon Dioxide 33 H BUN 20 Creatinine 0.55 L Glucose 354 H Calcium 9.0 Urine 10/14/17 Range/Units 11:27 Urine Color Yellow (Yellow) Urine Clarity Clear (Clear) Urine pH 7.0 (5.0-8.0) pH Units Ur Specific Rake 1.015 (1.010-1.025) Urine Protein Negative (Neg-Trace) mg/dL Urine Glucose (UA) >=1000 H (Normal) mg/dL - ABG Interpretation ABG results: ABG ABG pH 7.41 pH Units (7.32-7.45) 10/15/17 05:35 ABG pCO2 54 mmHg (35-45) H 10/15/17 05:35 ABG pO2 63 mmHg (85-104) L 10/15/17 05:35 ABG O2 Saturation 91 % (95-98) L 10/15/17 05:35 - VTE Documentation of Mechanical Device: Intermittent pneumatic compression device Consult Discharge Plan - Plan Referrals: DANUTA MELGAR [Other] - 10/19/17 2:00 pm Rodney Devries MD [Partnered Physician] - (OFFICE WILL CALL PATIENT AT HOME WITH FOLLOW UP APPOINTMENT) Antonio Calderón MD [Partnered Physician] - 10/23/17 8:45 am (bring medication with you, picture ID, and Insurance card) <Taco Nuno H - Last Filed: 10/15/17 12:32> Date of Encounter: 10/15/17 - Assessment and plan (1) Acute and chronic respiratory failure with hypercapnia Current Visit: Yes Status: Acute (2) COPD exacerbation Current Visit: Yes Status: Acute (3) Influenza B Current Visit: Yes Status: Acute (4) Anxiety Current Visit: Yes Status: Acute (5) DM2 (diabetes mellitus, type 2) Current Visit: Yes Status: Acute Qualifiers: Diabetes mellitus cook box filler insulin use: with cook box filler use Diabetes mellitus complication status: with hyperglycemia Qualified Code(s): E11.65 - Type 2 diabetes mellitus with hyperglycemia; Z79.4 - snf (current) use of insulin; Z79.4 - line staker (current) use of insulin; Z79.4 - snf (current ) use of insulin; Z79.4 - snf (current) use of insulin (6) DVT prophylaxis Current Visit: Yes Status: Acute (7) HLD (hyperlipidemia) Current Visit: Yes Status: Acute Qualifiers: Hyperlipidemia type: unspecified Qualified Code(s): E78.5 - Hyperlipidemia , unspecified (8) HTN (hypertension) Current Visit: Yes Status: Acute Qualifiers: Hypertension type: essential hypertension Qualified Code(s): I10 - Essential (primary) hypertension (9) Urinary retention Current Visit: Yes Status: Acute - Constitutional Vitals: Temp Pulse Resp BP Pulse Ox 97.8 F 93 18 138/70 94 10/15/17 11:35 10/15/17 11:35 10/15/17 11:35 10/15/17 11:35 10/15/17 11:35 Internal Medicine: Result - Labs CBC & Chem 7: 10/15/17 04:09 10/15/17 04:09 Labs: Short CBC 10/15/17 Range/Units 04:09 WBC 9.7 D (4.3-11.1) K/mcL Hgb 12.3 (11.5-15.4) g/dL Hct 37.3 (35.3-44.9) % Plt Count 291 (140-400) K/mcL BMP 10/15/17 04:09 Sodium 137 Potassium 4.2 Chloride 97 L Carbon Dioxide 33 H BUN 20 Creatinine 0.55 L Glucose 354 H Calcium 9.0 Urine 10/14/17 Range/Units 11:27 Urine Color Yellow (Yellow) Urine Clarity Clear (Clear) Urine pH 7.0 (5.0-8.0) pH Units Ur Specific Rake 1.015 (1.010-1.025) Urine Protein Negative (Neg-Trace) mg/dL Urine Glucose (UA) >=1000 H (Normal) mg/dL - ABG Interpretation ABG results: ABG ABG pH 7.41 pH Units (7.32-7.45) 10/15/17 05:35 ABG pCO2 54 mmHg (35-45) H 10/15/17 05:35 ABG pO2 63 mmHg (85-104) L 10/15/17 05:35 ABG O2 Saturation 91 % (95-98) L 10/15/17 05:35 - Attending Attestation Acute on chronic hypoxic hypercapnic respiratory failure secondary to acute COPD exacerbation due to influence of the and possibly bacterial bronchitis Received Levaquin and Tamiflu continue Solu-Medrol increase levemir and humalog doses due to steroid induced hyperglycemia in the setting of DM2 BiPAP qualification I examined this patient and my medical decision-making was reviewed with the Resident Physician. I agree with the documented findings, disposition and treatment plan as described except to the extent set forth below.
[2017-10-15] MEDS: amLODIPine 5 MG TABLET PO SCH (08:21)
[2017-10-15] MEDS: Isosorbide MONOnitrate (24 HR) 30 MG TAB.ER.24H PO SCH (08:21)
[2017-10-15] MEDS: Aspirin Enteric Coated 81 MG Tablet PO SCH (08:21)
[2017-10-15] MEDS: Gabapentin 300 MG CAPSULE PO SCH ×3 (08:21→20:05)
[2017-10-15] MEDS: Insulin LISPRO 300 UNITS/3 ML VIAL SQ SCH ×7 (08:22→20:05)
[2017-10-15] MEDS: Insulin DETEMIR 100 UNIT/ML X5UNITS SQ SCH (20:05)
[2017-10-15 20:13] LABS: Bilirubin,Urine Negative (Negative); Blood,Urine Large (Negative); Clarity,Urine Clear (Clear); Color,Urine Yellow (Yellow); Glucose,Urine (UA) >=1000 mg/dL (Normal); Ketones,Urine Negative (Negative); Leukocyte Esterase,Urine Negative (Negative); Nitrite,Urine Positive (Negative); Protein,Urine Negative (Neg-Trace); Specific Gravity,Urine > 1.030 (1.010-1.025); Urobilinogen,Urine Normal (Normal)
[2017-10-15 20:19] LABS: Bacteria,Urine Moderate per hpf (None-Few); Hyaline Casts,Urine None Seen per lpf (None-Few); RBC,Urine TNTC per hpf (0-3); Squamous Epithelial Cell,Urine Many per lpf (None-Few)
[2017-10-16] MEDS: *HR* LORazepam 1 MG TABLET PO PRN ×3 (00:32→20:10)
[2017-10-16] MEDS: MethylPREDNISolone 40 MG/ML VIAL IVP SCH ×3 (00:32→20:13)
[2017-10-16] MEDS: Ipratropium/Albuterol Neb 3 ML IH SCH ×5 (03:50→20:01)
[2017-10-16 04:02] LABS: Basophils # 0.1 K/mcL (0.0-0.2); Basophils % 0.9 %; Hematocrit 36.6 % (35.3-44.9); Hematocrit 36.7 % (35.3-44.9); Hemoglobin 11.9 g/dL (11.5-15.4); Immature Granulocytes % 6.6 % (0-4); Lymphocytes # 1.2 K/mcL (0.6-4.6); Lymphocytes % 10.6 %; Mean Corpuscular HGB Conc 32.5 g/dL (31.6-35.5); Mean Corpuscular HGB Conc 32.7 g/dL (31.6-35.5); Mean Corpuscular Hemoglobin 29.2 pg (28.0-33.3); Mean Corpuscular Hemoglobin 29.6 pg (28.0-33.3); Mean Corpuscular Volume 89.9 fL (83.0-100.0); Mean Corpuscular Volume 90.6 fL (83.0-100.0); Mean Platelet Volume 9.3 fL (9.4-12.4); Mean Platelet Volume 9.4 fL (9.4-12.4); Monocytes % 8.6 %; Neutrophils # 8.4 K/mcL (1.6-8.9); Nucleated Red Blood Cells 0.4 /100 WBC (0); Platelet Count 309 K/mcL (140-400); Platelet Count 328 K/mcL (140-400); Red Blood Count 4.05 M/mcL (3.82-4.97); Red Blood Count 4.07 M/mcL (3.82-4.97); Red Cell Distribution Width 11.7 % (11.5-14.5); Red Cell Distribution Width 11.8 % (11.5-14.5); Segmented Neutrophils % 73.3 %
[2017-10-16 04:17] LABS: BUN/Creatinine Ratio 45 (6-26); Blood Urea Nitrogen 21 mg/dL (6-20); Calcium 8.6 mg/dL (8.6-10.3); Carbon Dioxide 33 mEq/L (23-29); Chloride 98 mEq/L (98-107); Glucose 326 mg/dL (70-105); Osmolality,Calculated 298 (280-300); Potassium 4.6 mEq/L (3.5-5.1); Sodium 136 mEq/L (136-145); eGFR For African Americans > 60 (> 60); eGFR For Non-African Americans > 60 (> 60)
[2017-10-16] MEDS: *HR* HYDROcodone/Acet 5/325 mg TABLET PO PRN ×3 (06:11→20:10)
[2017-10-16] MEDS: *HR* Enoxaparin 40 MG/0.4 ML SYRINGE SQ SCH (06:11)
[2017-10-16 06:55] LABS: Reactive Lymphocytes Present (Not Present)
[2017-10-16 06:56] LABS: Platelet Estimate Normal (Normal); Toxic Granulation Present (Not Present)
--- NOTE | 2017-10-16 07:11 | Internal Med Progress Note ---
<Herberth Perez - Last Filed: 10/16/17 08:13> Date of Encounter: 10/16/17 Time of Encounter: 06:50 - Assessment and plan (1) UTI (urinary tract infection) Current Visit: Yes Status: Acute Assessment and plan: Patient complaining of dysuria and low back pain UA suggestive for UTI, though grossly contaminated Wait for final culture and sensitivity Patient started empirically on ceftriaxone 1 g daily Patient is high risk for readmission due to patient psychiatric history with anxiety Qualifiers: Urinary tract infection type: site unspecified Hematuria presence: with hematuria Qualified Code(s): N39.0 - Urinary tract infection, site not specified; R31.9 - Hematuria, unspecified; R31.9 - Hematuria, unspecified (2) Acute and chronic respiratory failure with hypercapnia Current Visit: Yes Status: Acute Assessment and plan: Resolved. patient at baseline Acute on chronic respiratory failure due to acute exacerbation of COPD from influenza B and history of COPD Known COPD and wears 2.5 L oxygen at home Presented with worsening shortness of breath and productive cough Scattered rhonchi/wheezing present at admission Urinary antigens negative CXR without evidence of infiltrate Patient transferred to [facility] on 10/11/17 due to decreased mental status with worsening shortness of breath and lethargy ABGs at the time of transfer showed pH of 7.2, PaCO2 105, PaO2 74, bicarb 41 Repeat chest x-ray unremarkable Repeat ABGs performed 10/12/17 show improvement: PH is 7.37, PCO2 of 74, PO2 of 63 She seems to be struggling with breathing a little more today Patient did qualify for BiPAP overnight Closely monitor respiratory status We will further taper IV steroids to 20 mg Solu-Medrol every 8 hours Use BiPAP if needed Continue steroids and bronchodilators IV ceftriaxone added for UTI Tamiflu and Levaquin both finished 10/13/17 Patient Sudafed stopped previously (3) COPD exacerbation Current Visit: Yes Status: Resolved Assessment and plan: COPD exacerbation secondary to influenza B Now resolved Plan as above (4) Influenza B Current Visit: Yes Status: Acute Assessment and plan: Found to have positive influenza B antigen Full course of Tamiflu finished 10/13/16 (5) Anxiety Current Visit: Yes Status: Acute Assessment and plan: Patient has history of anxiety Says she had previously taken Xanax at home however she has not had active Rx for Xanax since 03/2017 ([place] reviewed 10/10/2017). Clinically appears anxious which is likely contributing to shortness of breath. Cont PRN ativan for now Will try addition of hydroxyzine We will adjust dosage and/or frequency if patient placed back on BiPAP (6) DM2 (diabetes mellitus, type 2) Current Visit: Yes Status: Acute Assessment and plan: Blood sugars uncontrolled Most likely secondary to dietary and lifestyle noncompliance in addition to steroids Blood sugars appear slightly elevated Continue high dose sliding scale to high dose Continue home basal insulin at 36 units Levemir Monitor blood sugars and titrate PRN Prandial insulin at 10 units 3 times a day with meals Qualifiers: Diabetes mellitus intermediate teacher insulin use: with intermediate teacher use Diabetes mellitus complication status: with hyperglycemia Qualified Code(s): E11.65 - Type 2 diabetes mellitus with hyperglycemia; Z79.4 - senior care (current) use of insulin; Z79.4 - manager terminal (current) use of insulin; Z79.4 - manager terminal (current ) use of insulin; Z79.4 - senior care (current) use of insulin (7) DVT prophylaxis Current Visit: Yes Status: Acute Assessment and plan: Lovenox 40 mg daily Continue pantoprazole (8) HLD (hyperlipidemia) Current Visit: Yes Status: Acute Assessment and plan: Continue home statin Qualifiers: Hyperlipidemia type: unspecified Qualified Code(s): E78.5 - Hyperlipidemia , unspecified (9) HTN (hypertension) Current Visit: Yes Status: Acute Assessment and plan: BP has appeared slightly elevated for the last few days Patient home carvedilol increased to 12.5 BID Pseudophed stopped today Monitor BP and titrate PRN Qualifiers: Hypertension type: essential hypertension Qualified Code(s): I10 - Essential (primary) hypertension (10) Urinary retention Current Visit: Yes Status: Acute Assessment and plan: Patient has been having some difficulty voiding requiring pressley when previously removed, she required straight catheterization 2/2 high residual bladder volume beginning to have some slight discoloration of urine Pressley fell out 10/14/17 (apparently balloon deflated and catheter fell out of its own) Patient does report having dysuria since catheter fell out UA suggestive of UTI - Subjective Interval history: Patient reports that her breathing has improved from yesterday and that she is no longer having any shortness of breath. She does report having had subjective fevers. She Also reports mild back pain and dysuria. She is concerned about a kidney infection. She denies chest pain or abdominal pain. - Constitutional Vitals: Temp Pulse Resp BP Pulse Ox 98.2 F 86 18 144/86 93 10/16/17 03:56 10/16/17 03:56 10/16/17 03:56 10/16/17 03:56 10/16/17 03:56 General appearance: Present: A&O X 3, morbidly obese, no acute distress, answers questions appropriately Exam: General: Cooperative, pleasant, mild distress, alert and oriented 3, answers questions appropriately HEENT: Normocephalic, atraumatic, neck supple, trachea midline, Conjunctiva pink , sclera anicteric, oral mucosa moist Respiratory: No accessory muscle use, clear to auscultation bilaterally Cardiovascular: Regular rate and rhythm, S1 and S2 present, no murmurs/rubs/ gallops/clicks appreciated GI/abdominal: Nondistended, soft, mild tenderness in lower abdomen, no peritoneal signs Extremities: No pedal edema appreciated, warm, lower extremity pulses palpable and symmetrical Neurological: Alert and oriented 3, no facial droop, no focal deficits Skin: Dry, intact, normal color Internal Medicine: Result - Labs CBC & Chem 7: 10/16/17 03:22 10/16/17 03:22 Labs: Short CBC 10/16/17 10/16/17 Range/Units 03:22 03:22 WBC 11.5 H 11.5 H (4.3-11.1) K/mcL Hgb 11.9 12.0 (11.5-15.4) g/dL Hct 36.6 36.7 (35.3-44.9) % Plt Count 309 328 (140-400) K/mcL Neutrophils # 8.4 (1.6-8.9) K/mcL BMP 10/16/17 03:22 Sodium 136 Potassium 4.6 Chloride 98 Carbon Dioxide 33 H BUN 21 H Creatinine 0.47 L Glucose 326 H Calcium 8.6 Urine 10/15/17 Range/Units 20:08 Urine Color Yellow (Yellow) Urine Clarity Clear (Clear) Urine pH 6.0 (5.0-8.0) pH Units Ur Specific [place] > 1.030 H (1.010-1.025) Urine Protein Negative (Neg-Trace) mg/dL Urine Glucose (UA) >=1000 H (Normal) mg/dL - ABG Interpretation ABG results: ABG ABG pH 7.41 pH Units (7.32-7.45) 10/15/17 05:35 ABG pCO2 54 mmHg (35-45) H 10/15/17 05:35 ABG pO2 63 mmHg (85-104) L 10/15/17 05:35 ABG O2 Saturation 91 % (95-98) L 10/15/17 05:35 - VTE Documentation of Mechanical Device: Intermittent pneumatic compression device Consult Discharge Plan - Plan Referrals: DANUTA MELGAR [Other] - 10/19/17 2:00 pm Rodney Devries MD [Partnered Physician] - (OFFICE WILL CALL PATIENT AT HOME WITH FOLLOW UP APPOINTMENT) Antonio Calderón MD [Partnered Physician] - 10/23/17 8:45 am (bring medication with you, picture ID, and Insurance card) <Taco Nuno H - Last Filed: 10/16/17 15:26> Date of Encounter: 10/16/17 - Assessment and plan (1) Acute and chronic respiratory failure with hypercapnia Current Visit: Yes Status: Acute (2) COPD exacerbation Current Visit: Yes Status: Resolved (3) Influenza B Current Visit: Yes Status: Acute (4) Anxiety Current Visit: Yes Status: Acute (5) DM2 (diabetes mellitus, type 2) Current Visit: Yes Status: Acute Qualifiers: Diabetes mellitus care home insulin use: with care home use Diabetes mellitus complication status: with hyperglycemia Qualified Code(s): E11.65 - Type 2 diabetes mellitus with hyperglycemia; Z79.4 - senior care (current) use of insulin; Z79.4 - senior care (current) use of insulin; Z79.4 - senior care (current ) use of insulin; Z79.4 - manager terminal (current) use of insulin (6) DVT prophylaxis Current Visit: Yes Status: Acute (7) HLD (hyperlipidemia) Current Visit: Yes Status: Acute Qualifiers: Hyperlipidemia type: unspecified Qualified Code(s): E78.5 - Hyperlipidemia , unspecified (8) HTN (hypertension) Current Visit: Yes Status: Acute Qualifiers: Hypertension type: essential hypertension Qualified Code(s): I10 - Essential (primary) hypertension (9) Urinary retention Current Visit: Yes Status: Acute - Constitutional Vitals: Temp Pulse Resp BP Pulse Ox 98 F 91 18 130/70 97 10/16/17 11:33 10/16/17 11:33 10/16/17 15:21 10/16/17 11:33 10/16/17 15:21 Internal Medicine: Result - Labs CBC & Chem 7: 10/16/17 03:22 10/16/17 03:22 Labs: Short CBC 10/16/17 10/16/17 Range/Units 03:22 03:22 WBC 11.5 H 11.5 H (4.3-11.1) K/mcL Hgb 11.9 12.0 (11.5-15.4) g/dL Hct 36.6 36.7 (35.3-44.9) % Plt Count 309 328 (140-400) K/mcL Neutrophils # 8.4 (1.6-8.9) K/mcL BMP 10/16/17 03:22 Sodium 136 Potassium 4.6 Chloride 98 Carbon Dioxide 33 H BUN 21 H Creatinine 0.47 L Glucose 326 H Calcium 8.6 Urine 10/15/17 Range/Units 20:08 Urine Color Yellow (Yellow) Urine Clarity Clear (Clear) Urine pH 6.0 (5.0-8.0) pH Units Ur Specific [place] > 1.030 H (1.010-1.025) Urine Protein Negative (Neg-Trace) mg/dL Urine Glucose (UA) >=1000 H (Normal) mg/dL - ABG Interpretation ABG results: ABG ABG pH 7.41 pH Units (7.32-7.45) 10/15/17 05:35 ABG pCO2 54 mmHg (35-45) H 10/15/17 05:35 ABG pO2 63 mmHg (85-104) L 10/15/17 05:35 ABG O2 Saturation 91 % (95-98) L 10/15/17 05:35 - Attending Attestation Acute on chronic hypoxic hypercapnic respiratory failure secondary to acute COPD exacerbation due to influence of the and possibly bacterial bronchitis Received Levaquin and Tamiflu continue steroids increased levemir and humalog doses due to steroid induced hyperglycemia in the setting of DM2 BiPAP UTI , continue Rocephin, await culture report I examined this patient and my medical decision-making was reviewed with the Resident Physician. I agree with the documented findings, disposition and treatment plan as described except to the extent set forth below.
[2017-10-16] MEDS: Aspirin Enteric Coated 81 MG Tablet PO SCH (09:23)
[2017-10-16] MEDS: Isosorbide MONOnitrate (24 HR) 30 MG TAB.ER.24H PO SCH (09:23)
[2017-10-16] MEDS: Ondansetron 4 MG/2 ML VIAL IVP PRN ×2 (09:23→20:14)
[2017-10-16] MEDS: Gabapentin 300 MG CAPSULE PO SCH ×3 (09:23→20:10)
[2017-10-16] MEDS: amLODIPine 5 MG TABLET PO SCH (09:23)
[2017-10-16] MEDS: cefTRIAXone 1,000 MG in Water for inj. (sterile) 20 ML 10 ML IVP SCH (09:24)
[2017-10-16] MEDS: Insulin LISPRO 300 UNITS/3 ML VIAL SQ SCH ×7 (09:24→21:27)
[2017-10-16] MEDS: *HR* Promethazine 25 MG/ML VIAL IVP PRN (12:38)
[2017-10-16] MEDS: Insulin DETEMIR 100 UNIT/ML X5UNITS SQ SCH (21:25)
[2017-10-17] MEDS: Ipratropium/Albuterol Neb 3 ML IH SCH ×7 (00:13→23:37)
[2017-10-17] MEDS: *HR* Promethazine 25 MG/ML VIAL IVP PRN ×2 (01:03→20:24)
[2017-10-17] MEDS: MethylPREDNISolone 40 MG/ML VIAL IVP SCH ×2 (03:20→08:16)
[2017-10-17 04:57] LABS: Hematocrit 38.3 % (35.3-44.9); Hemoglobin 12.4 g/dL (11.5-15.4); Mean Corpuscular HGB Conc 32.4 g/dL (31.6-35.5); Mean Corpuscular Hemoglobin 29.2 pg (28.0-33.3); Mean Corpuscular Volume 90.3 fL (83.0-100.0); Mean Platelet Volume 9.2 fL (9.4-12.4); Nucleated Red Blood Cells 0.2 /100 WBC (0); Platelet Count 340 K/mcL (140-400); Red Blood Count 4.24 M/mcL (3.82-4.97); Red Cell Distribution Width 12.1 % (11.5-14.5)
[2017-10-17 05:18] LABS: Lymphocytes # 3.4 K/mcL (0.6-4.6); Monocytes # 0.3 K/mcL (0.0-1.3); Neutrophils # 8.6 K/mcL (1.6-8.9); Platelet Estimate Normal (Normal)
[2017-10-17] MEDS: *HR* LORazepam 1 MG TABLET PO PRN ×4 (05:56→23:54)
[2017-10-17] MEDS: *HR* HYDROcodone/Acet 5/325 mg TABLET PO PRN ×3 (05:56→20:20)
[2017-10-17] MEDS: *HR* Enoxaparin 40 MG/0.4 ML SYRINGE SQ SCH (05:57)
[2017-10-17] MEDS: Aspirin Enteric Coated 81 MG Tablet PO SCH (08:15)
[2017-10-17] MEDS: amLODIPine 5 MG TABLET PO SCH (08:15)
[2017-10-17] MEDS: Isosorbide MONOnitrate (24 HR) 30 MG TAB.ER.24H PO SCH (08:16)
[2017-10-17] MEDS: cefTRIAXone 1,000 MG in Water for inj. (sterile) 20 ML 10 ML IVP SCH (08:16)
[2017-10-17] MEDS: Gabapentin 300 MG CAPSULE PO SCH ×3 (08:16→20:20)
[2017-10-17] MEDS: Insulin LISPRO 300 UNITS/3 ML VIAL SQ SCH ×9 (08:20→20:21)
[2017-10-17] MEDS: Ondansetron 4 MG/2 ML VIAL IVP PRN ×3 (08:28→23:54)
--- NOTE | 2017-10-17 12:15 | Internal Med Progress Note ---
Date of Encounter: 10/17/17 Time of Encounter: 12:12 - Assessment and plan (1) Acute and chronic respiratory failure with hypercapnia Current Visit: Yes Status: Acute Assessment and plan: On 3 L nasal cannula at this time. At home she is on 2.5 L. Continues to have bilateral scattered wheezing. Continue to treat underlying COPD. Monitor vital signs. Moderate risk for complications. (2) UTI (urinary tract infection) Current Visit: Yes Status: Acute Assessment and plan: Urine culture positive for gram-positive cocci. Started patient on vancomycin today. Most likely related to presence of Godfrey catheter. Qualifiers: Urinary tract infection type: acute cystitis Hematuria presence: with hematuria Qualified Code(s): N30.01 - Acute cystitis with hematuria (3) Anxiety Current Visit: Yes Status: Chronic Assessment and plan: Continue Ativan as needed. (4) COPD exacerbation Current Visit: Yes Status: Resolved Assessment and plan: Improved. On bronchodilators. O2 supplementation. Continue tapering steroids. We will switch to oral prednisone. (5) DM2 (diabetes mellitus, type 2) Current Visit: Yes Status: Chronic Assessment and plan: Blood sugars remain elevated. Patient is on 36 units Levemir at bedtime and 10 units 3 times a day of prandial insulin. She is also on high-dose correctional scale. We will add 10 units of Levemir in a.m. Qualifiers: Diabetes mellitus assisted insulin use: with intermediate manager use Diabetes mellitus complication status: with hyperglycemia Qualified Code(s): E11.65 - Type 2 diabetes mellitus with hyperglycemia; Z79.4 - assisted (current) use of insulin; Z79.4 - assisted (current) use of insulin; Z79.4 - intermediate manager (current ) use of insulin; Z79.4 - assisted (current) use of insulin (6) DVT prophylaxis Current Visit: Yes Status: Acute Assessment and plan: Patient is on Lovenox subcutaneous (7) HTN (hypertension) Current Visit: Yes Status: Chronic Assessment and plan: Well controlled. Continue amlodipine. Qualifiers: Hypertension type: essential hypertension Qualified Code(s): I10 - Essential (primary) hypertension (8) Influenza B Current Visit: Yes Status: Acute Assessment and plan: Completed treatment with Tamiflu. Does have cough. Being treated with Mucinex. - Subjective Interval history: Patient complaining of generalized body aches. Reports feeling feverish earlier. No documented episode of fever. Denies any dysuria. - Constitutional Vitals: Temp Pulse Resp BP Pulse Ox 97.3 F L 92 16 124/71 92 10/17/17 11:16 10/17/17 11:16 18 11:20 10/17/17 11:16 10/17/17 11:20 General appearance: Present: mild distress, A&O X 3, morbidly obese, no acute distress, answers questions appropriately - Neck Neck exam general surgery: Present: supple, trachea midline. Absent: lymphadenopathy - Respiratory Respiratory exam: Present: prolonged expiratory phase, wheezes. Absent: accessory muscle use, rales, rhonchi - Cardiovascular Cardiovascular exam: Present: RRR, +S1, +S2. Absent: diastolic murmur, gallop, rubs, systolic murmur - GI/Abdominal GI/Abdominal exam: Present: normal bowel sounds, soft, no peritoneal signs. Absent: distended, tenderness - Extremities Exam Extremities exam: Present: warm, radial pulses palpable and symmetrical. Absent : calf tenderness, cyanotic, pedal edema - Back Exam Back exam: Present: paraspinal tenderness - Neurological Exam Neurological exam: Present: alert, oriented X3, no focal deficits. Absent: facial droop, speech deficit - Skin Skin exam: Present: dry, intact Internal Medicine: Result - Labs CBC & Chem 7: 10/17/17 04:07 10/16/17 03:22 Labs: Short CBC 10/17/17 Range/Units 04:07 WBC 12.3 H (4.3-11.1) K/mcL Hgb 12.4 (11.5-15.4) g/dL Hct 38.3 (35.3-44.9) % Plt Count 340 (140-400) K/mcL Neutrophils # 8.6 (1.6-8.9) K/mcL - ABG Interpretation ABG results: ABG ABG pH 7.41 pH Units (7.32-7.45) 10/15/17 05:35 ABG pCO2 54 mmHg (35-45) H 10/15/17 05:35 ABG pO2 63 mmHg (85-104) L 10/15/17 05:35 ABG O2 Saturation 91 % (95-98) L 10/15/17 05:35 - VTE Documentation of Mechanical Device: Intermittent pneumatic compression device Consult Discharge Plan - Plan Referrals: DANUTA MELGAR [Other] - 10/19/17 2:00 pm Rodney Devries MD [Partnered Physician] - (OFFICE WILL CALL PATIENT AT HOME WITH FOLLOW UP APPOINTMENT) Antonio Calderón MD [Partnered Physician] - 10/23/17 8:45 am (bring medication with you, picture ID, and Insurance card)
[2017-10-17] MEDS ORDERED: Insulin DETEMIR 100 UNIT/ML X5UNITS SQ SCH (12:30)
[2017-10-17] MEDS: Insulin DETEMIR 100 UNIT/ML X5UNITS SQ SCH (20:20)
[2017-10-18] MEDS: Ipratropium/Albuterol Neb 3 ML IH SCH ×6 (03:44→23:32)
[2017-10-18 03:52] LABS: Basophils # 0.1 K/mcL (0.0-0.2); Basophils % 0.8 %; Eosinophils % 0.2 %; Hematocrit 34.9 % (35.3-44.9); Hemoglobin 11.3 g/dL (11.5-15.4); Immature Granulocytes % 6.9 % (0-4); Lymphocytes # 3.4 K/mcL (0.6-4.6); Lymphocytes % 24.6 %; Mean Corpuscular HGB Conc 32.4 g/dL (31.6-35.5); Mean Corpuscular Hemoglobin 29.7 pg (28.0-33.3); Mean Corpuscular Volume 91.8 fL (83.0-100.0); Mean Platelet Volume 9.3 fL (9.4-12.4); Monocytes # 1.9 K/mcL (0.0-1.3); Monocytes % 13.4 %; Neutrophils # 7.6 K/mcL (1.6-8.9); Nucleated Red Blood Cells 0.1 /100 WBC (0); Platelet Count 304 K/mcL (140-400); Red Cell Distribution Width 12.2 % (11.5-14.5); Segmented Neutrophils % 54.1 %
[2017-10-18] MEDS: Acetaminophen 325 MG TABLET PO PRN ×2 (03:56→08:17)
[2017-10-18 04:16] LABS: BUN/Creatinine Ratio 39 (6-26); Blood Urea Nitrogen 18 mg/dL (6-20); eGFR For African Americans > 60 (> 60); eGFR For Non-African Americans > 60 (> 60)
[2017-10-18 04:20] LABS: BUN/Creatinine Ratio 41 (6-26); Blood Urea Nitrogen 19 mg/dL (6-20); Calcium 8.3 mg/dL (8.6-10.3); Carbon Dioxide 31 mEq/L (23-29); Chloride 96 mEq/L (98-107); Glucose 343 mg/dL (70-105); Osmolality,Calculated 296 (280-300); Sodium 135 mEq/L (136-145); eGFR For African Americans > 60 (> 60); eGFR For Non-African Americans > 60 (> 60)
[2017-10-18 04:28] LABS: Platelet Estimate Normal (Normal)
[2017-10-18] MEDS: *HR* Enoxaparin 40 MG/0.4 ML SYRINGE SQ SCH (06:59)
[2017-10-18] MEDS: amLODIPine 5 MG TABLET PO SCH (08:04)
[2017-10-18] MEDS: Isosorbide MONOnitrate (24 HR) 30 MG TAB.ER.24H PO SCH (08:05)
[2017-10-18] MEDS: Aspirin Enteric Coated 81 MG Tablet PO SCH (08:05)
[2017-10-18] MEDS: Gabapentin 300 MG CAPSULE PO SCH ×3 (08:05→20:11)
[2017-10-18] MEDS: cefTRIAXone 1,000 MG in Water for inj. (sterile) 20 ML 10 ML IVP SCH (08:05)
[2017-10-18] MEDS: predniSONE 20 MG TABLET PO SCH (08:05)
[2017-10-18] MEDS: Insulin LISPRO 300 UNITS/3 ML VIAL SQ SCH ×7 (08:06→20:23)
[2017-10-18] MEDS: *HR* LORazepam 1 MG TABLET PO PRN ×3 (08:17→20:58)
[2017-10-18] MEDS: Insulin DETEMIR 100 UNIT/ML X5UNITS SQ SCH (08:17)
--- NOTE | 2017-10-18 11:12 | Internal Med Progress Note ---
Date of Encounter: 10/18/17 Time of Encounter: 10:00 - Assessment and plan (1) Acute and chronic respiratory failure with hypercapnia Current Visit: Yes Status: Acute Assessment and plan: Continue O2 supplementation. On 2.5 L nasal cannula at this time. (2) UTI (urinary tract infection) Current Visit: Yes Status: Acute Assessment and plan: Urine culture growing enterococcus and staph aureus. Awaiting sensitivity results. Continue vancomycin. Will add pyridium for dysuria . WBC count elevated but could be related to steroid use. We will monitor for now.. Qualifiers: Urinary tract infection type: acute cystitis Hematuria presence: with hematuria Qualified Code(s): N30.01 - Acute cystitis with hematuria (3) Anxiety Current Visit: Yes Status: Chronic Assessment and plan: On Ativan as needed. (4) COPD exacerbation Current Visit: Yes Status: Resolved Assessment and plan: Continue bronchodilators. Taper steroids. (5) DM2 (diabetes mellitus, type 2) Current Visit: Yes Status: Chronic Assessment and plan: Blood sugars remain elevated. We will further increase insulin regimen. Increase his Levemir to 15 units a.m. and 40 units bedtime. Continue prandial insulin coverage at 12 units 3 times a day with meals. Qualifiers: Diabetes mellitus rat exterminator insulin use: with fpc use Diabetes mellitus complication status: with hyperglycemia Qualified Code(s): E11.65 - Type 2 diabetes mellitus with hyperglycemia; Z79.4 - exterminator (current) use of insulin; Z79.4 - exterminator (current) use of insulin; Z79.4 - exterminator (current ) use of insulin; Z79.4 - exterminator (current) use of insulin (6) DVT prophylaxis Current Visit: Yes Status: Acute Assessment and plan: Continue Lovenox (7) HTN (hypertension) Current Visit: Yes Status: Chronic Assessment and plan: Blood pressure remains well controlled. On amlodipine Qualifiers: Hypertension type: essential hypertension Qualified Code(s): I10 - Essential (primary) hypertension (8) Influenza B Current Visit: Yes Status: Acute Assessment and plan: Treated with Tamiflu. - Subjective Interval history: Patient feeling better today. Body aches have improved. She does complain of dysuria. Shortness of breath is better. No chest pain or palpitations. - Constitutional Vitals: Temp Pulse Resp BP Pulse Ox 98.4 F 89 18 122/71 93 03/18/18 10:38 10/18/17 10:38 10/18/17 10:38 10/18/17 10:38 10/18/17 10:38 General appearance: Present: mild distress, A&O X 3, morbidly obese, no acute distress, answers questions appropriately - Neck Neck exam general surgery: Present: supple, trachea midline. Absent: lymphadenopathy - Respiratory Respiratory exam: Present: CTAB. Absent: accessory muscle use, rales, rhonchi, wheezes - Cardiovascular Cardiovascular exam: Present: RRR, +S1, +S2. Absent: diastolic murmur, gallop, rubs, systolic murmur - GI/Abdominal GI/Abdominal exam: Present: normal bowel sounds, soft, no peritoneal signs. Absent: distended, tenderness - Extremities Exam Extremities exam: Present: warm, radial pulses palpable and symmetrical. Absent : calf tenderness, cyanotic, pedal edema - Back Exam Back exam: Present: paraspinal tenderness Internal Medicine: Result - Labs CBC & Chem 7: 10/18/17 03:23 10/18/17 03:23 Labs: Short CBC 10/18/17 Range/Units 03:23 WBC 14.0 H (4.3-11.1) K/mcL Hgb 11.3 L (11.5-15.4) g/dL Hct 34.9 L (35.3-44.9) % Plt Count 304 (140-400) K/mcL Neutrophils # 7.6 (1.6-8.9) K/mcL BMP 10/18/17 10/18/17 03:23 03:23 Sodium 135 L Potassium 4.0 Chloride 96 L Carbon Dioxide 31 H BUN 18 19 Creatinine 0.46 L 0.46 L Glucose 343 H Calcium 8.3 L - ABG Interpretation ABG results: ABG ABG pH 7.41 pH Units (7.32-7.45) 10/15/17 05:35 ABG pCO2 54 mmHg (35-45) H 10/15/17 05:35 ABG pO2 63 mmHg (85-104) L 10/15/17 05:35 ABG O2 Saturation 91 % (95-98) L 10/15/17 05:35 - VTE Documentation of Mechanical Device: Intermittent pneumatic compression device Consult Discharge Plan - Plan Referrals: DANUTA MELGAR [Other] - 10/19/17 2:00 pm Rodney Devries MD [Partnered Physician] - (OFFICE WILL CALL PATIENT AT HOME WITH FOLLOW UP APPOINTMENT) Antonio Calderón MD [Partnered Physician] - 10/23/17 8:45 am (bring medication with you, picture ID, and Insurance card)
[2017-10-18] MEDS: Ondansetron 4 MG/2 ML VIAL IVP PRN (16:34)
[2017-10-18] MEDS: hydrOXYzine pamoate 25 MG CAPSULE PO PRN (20:24)
[2017-10-18] MEDS: *HR* HYDROcodone/Acet 5/325 mg TABLET PO PRN (20:58)
[2017-10-18] MEDS ORDERED: Insulin DETEMIR 100 UNIT/ML X5UNITS SQ SCH (21:00)
[2017-10-18] MEDS: *HR* Promethazine 25 MG/ML VIAL IVP PRN (23:23)
[2017-10-19] MEDS: *HR* HYDROcodone/Acet 5/325 mg TABLET PO PRN (02:57)
[2017-10-19] MEDS: *HR* LORazepam 1 MG TABLET PO PRN ×2 (02:57→08:02)
[2017-10-19] MEDS: Ipratropium/Albuterol Neb 3 ML IH SCH ×5 (04:20→19:50)
[2017-10-19] MEDS: *HR* Enoxaparin 40 MG/0.4 ML SYRINGE SQ SCH (04:37)
[2017-10-19] MEDS: Isosorbide MONOnitrate (24 HR) 30 MG TAB.ER.24H PO SCH (07:55)
[2017-10-19] MEDS: amLODIPine 5 MG TABLET PO SCH (07:55)
[2017-10-19] MEDS: Aspirin Enteric Coated 81 MG Tablet PO SCH (07:55)
[2017-10-19] MEDS: Gabapentin 300 MG CAPSULE PO SCH (07:55)
[2017-10-19] MEDS: predniSONE 20 MG TABLET PO SCH (07:55)
[2017-10-19] MEDS: Insulin DETEMIR 100 UNIT/ML X5UNITS SQ SCH (07:56)
[2017-10-19] MEDS: Insulin LISPRO 300 UNITS/3 ML VIAL SQ SCH ×4 (07:56→11:57)
[2017-10-19] MEDS: Acetaminophen 325 MG TABLET PO PRN ×2 (08:02→15:45)
--- NOTE | 2017-10-19 09:30 | Physician Discharge Referral ---
<AnaHerberth - Last Filed: 10/19/17 10:15> Home Health/Hosp Referral Info Transfer to: Home Health Provider in Charge Post Discharge: PCP - Diagnosis (1) UTI (urinary tract infection) Priority: Primary Status: Acute (2) Acute and chronic respiratory failure with hypercapnia Priority: Primary Status: Resolved (3) COPD exacerbation Priority: Primary Status: Resolved (4) Influenza B Priority: Primary Status: Resolved (5) Anxiety Priority: Primary Status: Chronic (6) DM2 (diabetes mellitus, type 2) Priority: Primary Status: Chronic (7) DVT prophylaxis Priority: Secondary Status: Acute (8) HLD (hyperlipidemia) Priority: Primary Status: Chronic (9) HTN (hypertension) Priority: Primary Status: Chronic (10) Urinary retention Priority: Primary Status: Chronic - Respiratory Orders Oxygen / L per min (3 l/min at all times Bipap at night per script) Smoking Cessation: Smoking cessation has been advised. For more information, call the [place] Quit Line at 9-741-AFTE-NOW. - Diet/Nutrition Diet/Nutrition Orders: No Concentrated Sweets - Activity Activity Orders: Ambulate - Services Needed Following services are medically necessary services: Nursing, Physical Therapy ( Home safety eval), Occupational Therapy (Home safety eval) - Transfer Medications Prescriptions: hydrOXYzine pamoate [HydrOXYzine Pamoate] 25 mg PO TID PRN #50 capsule PRN Reason: Anxiety Nitrofurantoin Macrocrystal [Nitrofurantoin] 100 mg PO BID #14 capsule predniSONE [PredniSONE] See Taper PO DAILY #38 tablet Home Medications: Albuterol Neb [Proventil Neb] 2.5 mg IH Q6H PRN 10/08/17 [History] Albuterol Sulfate [Ventolin Hfa] 2 puff IH Q6H PRN 10/08/17 [History] Aspirin [Lo-Dose Aspirin EC] 81 mg PO DAILY 10/08/17 [History] Carvedilol [Coreg] 6.25 mg PO BIDWM 10/08/17 [History] Gabapentin [Neurontin] 600 mg PO TID 10/08/17 [History] Insulin Glargine,Hum.rec.anlog [Basaglar Kwikpen U-100] 36 unit SQ QPM 10/08/17 [History] Isosorbide MONOnitrate (24 HR) [Imdur] 30 mg PO DAILY 10/08/17 [History] Metformin HCl [Glucophage Xr] 750 mg PO DAILY 10/08/17 [History] Montelukast [Singulair] 10 mg PO DAILY 10/08/17 [History] Tiotropium Br/Olodaterol HCl [Stiolto Respimat Inhal Malcolm] 2 puff IH BID [History] amLODIPine [Norvasc] 5 mg PO DAILY 10/08/17 [History] Nitrofurantoin Macrocrystal [Nitrofurantoin] 100 mg PO BID #14 capsule 10/19/17 [Rx] hydrOXYzine pamoate [HydrOXYzine Pamoate] 25 mg PO TID PRN #50 capsule 10/19/17 [Rx] predniSONE [PredniSONE] See Taper PO DAILY #38 tablet 10/19/17 [Rx] Allergies/Adverse Reactions: 3 Allergy/AdvReac Type Severity Reaction Status Date / Time No Known Allergies Allergy Verified 10/08/17 13:26 Certification: Further, I certify that my clinical findings support that this patient is homebound (i.e. absences from home require considerable and taxing effort and are for medical reasons or uatsdin services or infrequently or short duration when for other reasons) because: Homebound Reason: Patient requires assistance of a person or device to safely leave home, Leaving home requires considerable and taxing effort due to condition Attestation: My signature below is to certify that this patient is under my care and that I, or nurse practitioner, or a physician's fleet administrative assistant working with me, has a face-to -face encounter with this patient. <Taco Nuno - Last Filed: 10/19/17 17:03> - Diagnosis (1) Acute and chronic respiratory failure with hypercapnia Status: Resolved (2) COPD exacerbation Status: Resolved (3) Influenza B Status: Resolved (4) Anxiety Status: Chronic (5) DM2 (diabetes mellitus, type 2) Status: Chronic (6) DVT prophylaxis Status: Acute (7) HLD (hyperlipidemia) Status: Chronic (8) HTN (hypertension) Status: Chronic (9) Urinary retention Status: Chronic - Respiratory Orders Smoking Cessation: Smoking cessation has been advised. For more information, call the [place] [employer] Quit Line at 5-617-FKPT-NOW. Certification: Further, I certify that my clinical findings support that this patient is homebound (i.e. absences from home require considerable and taxing effort and are for medical reasons or uatsdin services or infrequently or short duration when for other reasons) because: Attestation: My signature below is to certify that this patient is under my care and that I, or nurse practitioner, or a physician's fleet administrative assistant working with me, has a face-to -face encounter with this patient.
--- NOTE | 2017-10-19 09:31 | Discharge Summary ---
<Herberth Perez - Last Filed: 10/19/17 13:09> - NOTES TO OUTPATIENT PROVIDER Notes to Outpatient Provider: She was treated initially for an URI and found to be Flu B positive. She completed a course of Tamiflu and received antibiotics for concern of possibe bacterial superinfection. Her respiratory status returned to baseline (which is pretty bad) and qualified for bipap, but started to develop urinary symptoms. She was found to have enterococcus and staph epi. uti. [facility]. Orders not resulted at time of discharge: Pending orders 10/16/17 08:00 Culture,Urine [RM] Routine 10/19/17 10:00 Vancomycin,Trough Timed Date of Encounter: 10/19/17 Time of Encounter: 08:15 - Discharge Diagnosis (1) UTI (urinary tract infection) Priority: Primary Status: Acute Qualifiers: Urinary tract infection type: acute cystitis Hematuria presence: with hematuria Qualified Code(s): N30.01 - Acute cystitis with hematuria (2) Acute and chronic respiratory failure with hypercapnia Priority: Primary Status: Resolved (3) COPD exacerbation Priority: Primary Status: Resolved (4) Influenza B Priority: Primary Status: Resolved (5) Anxiety Priority: Primary Status: Chronic (6) DM2 (diabetes mellitus, type 2) Priority: Primary Status: Chronic Qualifiers: Diabetes mellitus correction insulin use: with long term care phlebotomist use Diabetes mellitus complication status: with hyperglycemia Qualified Code(s): E11.65 - Type 2 diabetes mellitus with hyperglycemia; 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; Z79.4 - nursing home (current) use of insulin; Z79.4 - ferry terminal supervisor (current ) use of insulin; Z79.4 - nursing home (current) use of insulin (7) DVT prophylaxis Priority: Secondary Status: Acute (8) HLD (hyperlipidemia) Priority: Primary Status: Chronic Qualifiers: Hyperlipidemia type: unspecified Qualified Code(s): E78.5 - Hyperlipidemia , unspecified (9) HTN (hypertension) Priority: Primary Status: Chronic Qualifiers: Hypertension type: essential hypertension Qualified Code(s): I10 - Essential (primary) hypertension (10) Urinary retention Priority: Primary Status: Chronic Hospital course: Mrs. Mckeon is a 57 year old woman with past medical history of COPD, CAD, diabetes, and chronic respiratory failure on 3 L home oxygen who presented to [facility] on 10/08/17 with a 3 day history of progressive worsening dyspnea with cough productive of greenish sputum. At presentation she was found to be flu B positive with a clear chest x-ray. She was treated for 5 days with Tamiflu and received empiric antibiotics. She received a full course of Tamiflu and antibiotics and her respiratory status appeared to stabilize, though she did have one episode of CO2 narcosis requiring BiPAP administration. Although her respiratory status improved, after being in the hospital for several days she developed an UTI. She was empirically started on ceftriaxone, but after initial culture come back that showed enterococcus and gram-positive cocci, she was changed to vancomycin. She was on vancomycin for 2 days when final culture and sensitivity came back that showed both bacteria have sensitivity to nitrofurantoin. At this point patient is continuing to complain of some dysuria but feels she is safe for discharge with continuation of antibiotics, three-week prednisone taper, and home BiPAP. Patient does not drive and is mostly homebound and would likely benefit from home health. Discharge discussed with: patient, nurse, social work - Time Spent with Patient Total time spent providing and/or coordinating discharge services: Greater than 30 minutes - Discharge Medications Prescriptions: hydrOXYzine pamoate [HydrOXYzine Pamoate] 25 mg PO TID PRN #50 capsule PRN Reason: Anxiety Nitrofurantoin Macrocrystal [Nitrofurantoin] 100 mg PO BID #14 capsule predniSONE [PredniSONE] See Taper PO DAILY #38 tablet Home Medications: Albuterol Neb [Proventil Neb] 2.5 mg IH Q6H PRN 10/08/17 [History] Albuterol Sulfate [Ventolin Hfa] 2 puff IH Q6H PRN 10/08/17 [History] Aspirin [Lo-Dose Aspirin EC] 81 mg PO DAILY 10/08/17 [History] Carvedilol [Coreg] 6.25 mg PO BIDWM 10/08/17 [History] Gabapentin [Neurontin] 600 mg PO TID 10/08/17 [History] Insulin Glargine,Hum.rec.anlog [Basaglar Kwikpen U-100] 36 unit SQ QPM 10/08/17 [History] Isosorbide MONOnitrate (24 HR) [Imdur] 30 mg PO DAILY 10/08/17 [History] Metformin HCl [Glucophage Xr] 750 mg PO DAILY 10/08/17 [History] Montelukast [Singulair] 10 mg PO DAILY 10/08/17 [History] Tiotropium Br/Olodaterol HCl [Stiolto Respimat Inhal [place]] 2 puff IH BID [History] amLODIPine [Norvasc] 5 mg PO DAILY 10/08/17 [History] Nitrofurantoin Macrocrystal [Nitrofurantoin] 100 mg PO BID #14 capsule 10/19/17 [Rx] hydrOXYzine pamoate [HydrOXYzine Pamoate] 25 mg PO TID PRN #50 capsule 10/19/17 [Rx] predniSONE [PredniSONE] See Taper PO DAILY #38 tablet 10/19/17 [Rx] Allergies/Adverse Reactions: 3 Allergy/AdvReac Type Severity Reaction Status Date / Time No Known Allergies Allergy Verified 10/08/17 13:26 Date of admission: 10/08/17 17:15 Primary care physician: Patrica Melgar Consults: 10/11/17 12:43 Consult to Pulmonology [CONS] Stat Consulting Provider: [facility] Reason for Consult: Critical ABG on bipap. Time Notified: 12:44 Call Completed: Yes Discharging clinician: Herberth Perez Anticipated date of discharge: 10/19/17 - Constitutional Vitals: Temp Pulse Resp BP Pulse Ox 97.4 F L 93 18 129/69 94 10/19/17 07:16 10/19/17 07:16 10/19/17 07:27 10/19/17 07:16 10/19/17 07:27 General appearance: Present: A&O X 3, morbidly obese, no acute distress, answers questions appropriately Exam: General: Cooperative, pleasant, no acute distress, alert and oriented 3, answers questions appropriately HEENT: Normocephalic, atraumatic, Conjunctiva pink, sclera anicteric, oral mucosa moist Respiratory: No accessory muscle usage, clear to auscultation bilaterally, no wheezes/rhonchi/rales appreciated Cardiovascular: Regular rate and rhythm, S1 and S2 present, no murmurs/rubs/ gallops/clicks appreciated GI/abdominal: Nondistended, mild tenderness in the suprapubic region, soft, normal bowel sounds, no peritoneal signs Extremities: No calf tenderness, 1+ pedal edema appreciated, warm, lower extremity pulses palpable and symmetrical Neurological: Alert and oriented 3, no facial droop, no focal deficits Skin: Dry, intact, normal color - Patient Status Disposition: Home Health Service Condition: Fair Functional capacity at discharge: independent ambulation Overall status at discharge: patient is progressing back to baseline - Discharge Instructions Instructions: Urinary Tract Infection in Women (DC), Influenza (DC), Chronic Obstructive Pulmonary Disease (DC) Follow Up With: PATRICA MELGAR [Other] - 10/26/17 3:00 pm Rodney Devries MD [Partnered Physician] - (OFFICE WILL CALL PATIENT AT HOME WITH FOLLOW UP APPOINTMENT) Antonio Calderón MD [Partnered Physician] - 10/23/17 8:45 am (bring medication with you, picture ID, and Insurance card) Additional Instructions: Please return to ED if worsening shortness of breath, development of chest pain , return of fevers/chills, development of worse pain in her back or worsening pain with urination. Physical medications as prescribed: Nitrofurantoin 100 mg twice a day for 7 days Hydroxyzine 25 mg up to 3 times a day as needed for anxiety Prednisone 10 mg tablets as a taper as follows: Take 4 tablets once a day for 5 days Then take 2 tablets once a day for 5 days Then take 1 tablet once a day for 5 days Then take 1/2 tablet once a day for 5 days Please follow-up with your PCP in 1-2 weeks Please follow-up with urology in 1-2 weeks This follow-up with cardiology in 1-2 weeks - Diet and Activity Activity: increase activity as tolerated, wear oxygen at all times, wear oxygen at night Diet: diabetic diet - VTE Documentation of Mechanical Device: Intermittent pneumatic compression device <Taco Nuno - Last Filed: 10/19/17 16:50> Orders not resulted at time of discharge: Pending orders 10/16/17 08:00 Culture,Urine [RM] Routine Date of Encounter: 10/19/17 - Discharge Diagnosis (1) Acute and chronic respiratory failure with hypercapnia Status: Resolved (2) COPD exacerbation Status: Resolved (3) Influenza B Status: Resolved (4) Anxiety Status: Chronic (5) DM2 (diabetes mellitus, type 2) Status: Chronic Qualifiers: Diabetes mellitus long term care phlebotomist insulin use: with long term care phlebotomist use Diabetes mellitus complication status: with hyperglycemia Qualified Code(s): E11.65 - Type 2 diabetes mellitus with hyperglycemia; Z79.4 - nursing home (current) use of insulin; Z79.4 - nursing home (current) use of insulin; Z79.4 - ferry terminal supervisor (current ) use of insulin; 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 Mckeon is a 57 year old female - Time Spent with Patient Total time spent providing and/or coordinating discharge services: Date of admission: 10/08/17 17:15 Primary care physician: Patrica Melgar Consults: 10/11/17 12:43 Consult to Pulmonology [CONS] Stat Consulting Provider: [facility] Reason for Consult: Critical ABG on bipap. Time Notified: 12:44 Call Completed: Yes - Constitutional Vitals: Temp Pulse Resp BP Pulse Ox 98.1 F 105 18 147/80 93 10/19/17 15:12 10/19/17 15:12 10/19/17 15:41 10/19/17 15:12 10/19/17 15:41 - Attending Attestation Acute on chronic hypoxic hypercapnic respiratory failure secondary to acute COPD exacerbation due to influence of the and possibly bacterial bronchitis Received Levaquin and Tamiflu continue steroids BiPAP sepsis 2ry to UTI due to enterococcus and staph epidermidis responded to IV vancomycin, discharge on nitrofurantoin for 1 week time spent 40 min I examined this patient and my medical decision-making was reviewed with the Resident Physician. I agree with the documented findings, disposition and treatment plan as described except to the extent set forth below
[2017-10-19 15:13] VITALS: BP 147/80
[2017-10-19] MEDS ORDERED: Ondansetron ODT 4 MG TAB.RAPDIS SL ONE (16:23)
[2017-10-19] MEDS ORDERED: Aminoglycoside Consult 1 EACH MC ONE (18:39)
== END 2017-10-19 18:40 | disposition home health service (06) | DRG 113 ==
LOC: 3BNU 13:06 → EMEROO 13:06 → 3BNU 16:06 → SUATTDRO 17:15 → 3BNU 10-11 06:38 → 2NNU 10-11 11:06 → 2ANU 10-13 16:54
PROVIDERS: ADMIT Family Medicine; ATTEND Internal Medicine

== ENCOUNTER 2020-03-21 21:58 | Observation (INO) ==
[2020-03-22 01:39] LABS: Adenovirus Not Detected (Not Detect); Coronavirus 229E Not Detected (Not Detect); Coronavirus HKU1 Not Detected (Not Detect); Coronavirus NL63 Not Detected (Not Detect); Coronavirus OC43 Not Detected (Not Detect)
[2020-03-22 01:42] LABS: Bordetella Pertussis Not Detected (Not Detect); Chlamydophila pneumoniae Not Detected (Not Detect); Human Metapneumovirus Not Detected (Not Detect); Human Rhinovirus/Enterovirus Not Detected (Not Detect); Influenza A Subtype 2009 H1 Not Detected (Not Detect); Influenza B Not Detected (Not Detect); Mycoplasma pneumoniae Not Detected (Not Detect); Parainfluenza Virus 1 Not Detected (Not Detect); Parainfluenza Virus 2 Not Detected (Not Detect); Parainfluenza Virus 3 Not Detected (Not Detect); Parainfluenza Virus 4 Not Detected (Not Detect); Respiratory Syncytial Virus Not Detected (Not Detect)
[2020-03-22] MEDS ORDERED: Naloxone 0.4 MG/ML INJ IVP PRN (02:38)
[2020-03-22] MEDS ORDERED: *HR* Dextrose 50 % in Water (Vial) 50 ML VIAL IVP PRN (02:41)
[2020-03-22] MEDS ORDERED: D5% in Water 1,000 ML IVC PRN (02:41)
[2020-03-22] MEDS ORDERED: Dextrose Gel 15 GM/37.5 ML TUBE PO PRN ×2 (02:41)
[2020-03-22] MEDS ORDERED: Albuterol 2.5 MG/3 ML NEBULIZER IH PRN (03:29)
[2020-03-22] MEDS: Ipratropium/Albuterol Neb 3 ML IH SCH ×4 (03:45→22:18)
[2020-03-22 04:41] LABS: Hematocrit 40.8 % (35.3-44.9); Hemoglobin 12.5 g/dL (11.5-15.4); Mean Corpuscular HGB Conc 30.6 g/dL (31.6-35.5); Mean Corpuscular Hemoglobin 29.1 pg (28.0-33.3); Mean Corpuscular Volume 95.1 fL (83.0-100.0); Mean Platelet Volume 9.1 fL (9.4-12.4); Platelet Count 250 K/mcL (140-400); Red Blood Count 4.29 M/mcL (3.82-4.97); Red Cell Distribution Width 11.6 % (11.5-14.5); White Blood Count 11.8 K/mcL (4.3-11.1)
[2020-03-22 05:02] LABS: Alanine Aminotransferase 16 Units/L (7-52); Albumin 3.9 g/dL (3.5-5.7); Albumin/Globulin Ratio 1.3 (1.1-2.2); Alkaline Phosphatase 58 Units/L (34-104); Aspartate Amino Transferase 11 Units/L (13-39); BUN/Creatinine Ratio 26 (6-26); Bilirubin,Total 0.4 mg/dL (0.3-1.0); Blood Urea Nitrogen 15 mg/dL (8-23); Calcium 9.2 mg/dL (8.6-10.3); Carbon Dioxide 34 mEq/L (23-29); Chloride 95 mEq/L (98-107); Glucose 367 mg/dL (70-105); Magnesium 1.8 mg/dL (1.6-2.6); Osmolality,Calculated 302 (280-300); Phosphorous 3.3 mg/dL (2.7-4.5); Potassium 4.1 mEq/L (3.5-5.1); Sodium 138 mEq/L (136-145); Total Protein 6.9 g/dL (6.4-8.9); eGFR For African Americans > 60 (> 60); eGFR For Non-African Americans > 60 (> 60)
[2020-03-22] MEDS: MethylPREDNISolone 40 MG/ML VIAL IVP SCH ×3 (05:15→20:14)
[2020-03-22] MEDS: Nicotine 21 MG PATCH.TD24 TD SCH (05:16)
[2020-03-22] MEDS: *HR* Heparin 5,000 UNIT/ML VIAL SQ SCH ×2 (05:16→17:24)
[2020-03-22] MEDS: Azithromycin 500 MG in 0.9 % Sodium Chloride 250 ML IVPB SCH (05:16)
[2020-03-22] MEDS ORDERED: *HR* LORazepam 0.5 MG TABLET PO ONE (05:50)
[2020-03-22] MEDS: Acetaminophen 325 MG TABLET PO PRN ×4 (06:36→21:56)
[2020-03-22] MEDS: Insulin LISPRO 300 UNITS/3 ML VIAL SQ SCH ×3 (08:23→21:51)
[2020-03-22] MEDS ORDERED: MethylPREDNISolone 40 MG/ML VIAL IVP SCH (13:45)
[2020-03-22] MEDS: Gabapentin 300 MG CAPSULE PO SCH ×2 (14:34→20:14)
[2020-03-22] MEDS: carvediloL 6.25 MG TABLET PO SCH (14:34)
[2020-03-22] MEDS: Aspirin Enteric Coated 81 MG Tablet PO SCH (14:41)
[2020-03-22] MEDS: hydrOXYzine pamoate 25 MG CAPSULE PO PRN ×2 (14:53→21:55)
[2020-03-22] MEDS ORDERED: Insulin DETEMIR 100 UNIT/ML X5UNITS SQ SCH (18:00)
[2020-03-22] MEDS ORDERED: Insulin LISPRO 300 UNITS/3 ML VIAL SQ SCH (21:00)
[2020-03-22] MEDS ORDERED: GUAIFENESIN 1200 MG PO SCH (21:00)
[2020-03-22] MEDS: (Tiotropium Br/Olodaterol Hcl [Stiolto Respimat Inhal IH SCH (21:56)
[2020-03-23] MEDS: Ipratropium/Albuterol Neb 3 ML IH SCH ×2 (03:53→10:01)
[2020-03-23] MEDS: MethylPREDNISolone 40 MG/ML VIAL IVP SCH (04:06)
[2020-03-23] MEDS: Azithromycin 500 MG in 0.9 % Sodium Chloride 250 ML IVPB SCH (04:07)
[2020-03-23] MEDS: Acetaminophen 325 MG TABLET PO PRN (04:12)
[2020-03-23] MEDS: *HR* Heparin 5,000 UNIT/ML VIAL SQ SCH (05:22)
[2020-03-23 05:25] LABS: Basophils % 0.1 %; Hematocrit 36.7 % (35.3-44.9); Hemoglobin 11.5 g/dL (11.5-15.4); Immature Granulocytes % 0.7 % (0-4); Lymphocytes # 1.6 K/mcL (0.6-4.6); Lymphocytes % 12.5 %; Mean Corpuscular HGB Conc 31.3 g/dL (31.6-35.5); Mean Corpuscular Hemoglobin 30.4 pg (28.0-33.3); Mean Corpuscular Volume 97.1 fL (83.0-100.0); Mean Platelet Volume 9.2 fL (9.4-12.4); Monocytes # 1.2 K/mcL (0.0-1.3); Monocytes % 9.3 %; Neutrophils # 10.1 K/mcL (1.6-8.9); Platelet Count 233 K/mcL (140-400); Red Blood Count 3.78 M/mcL (3.82-4.97); Red Cell Distribution Width 11.7 % (11.5-14.5); Segmented Neutrophils % 77.4 %; White Blood Count 13.1 K/mcL (4.3-11.1)
[2020-03-23 06:02] LABS: BUN/Creatinine Ratio 53 (6-26); Blood Urea Nitrogen 25 mg/dL (8-23); Calcium 8.5 mg/dL (8.6-10.3); Chloride 101 mEq/L (98-107); Glucose 296 mg/dL (70-105); Magnesium 2.1 mg/dL (1.6-2.6); Osmolality,Calculated 301 (280-300); Phosphorous 3.4 mg/dL (2.7-4.5); Potassium 4.2 mEq/L (3.5-5.1); Sodium 138 mEq/L (136-145); eGFR For African Americans > 60 (> 60); eGFR For Non-African Americans > 60 (> 60)
[2020-03-23 06:31] LABS: Carbon Dioxide 29 mEq/L (23-29)
[2020-03-23] MEDS: Insulin LISPRO 300 UNITS/3 ML VIAL SQ SCH (08:16)
[2020-03-23] MEDS: Nicotine 21 MG PATCH.TD24 TD SCH (08:18)
[2020-03-23] MEDS: carvediloL 6.25 MG TABLET PO SCH (08:19)
[2020-03-23] MEDS: Aspirin Enteric Coated 81 MG Tablet PO SCH (08:20)
[2020-03-23] MEDS: Gabapentin 300 MG CAPSULE PO SCH (08:20)
[2020-03-23] MEDS ORDERED: amLODIPine 5 MG TABLET PO SCH (09:00)
[2020-03-23] MEDS ORDERED: Insulin LISPRO 300 UNITS/3 ML VIAL SQ SCH (09:08)
[2020-03-23] MEDS: (Tiotropium Br/Olodaterol Hcl [Stiolto Respimat Inhal IH SCH (09:09)
[2020-03-23] MEDS ORDERED: Furosemide 40 MG TABLET PO SCH (09:15)
[2020-03-23] MEDS ORDERED: Isosorbide MONOnitrate (24 HR) 30 MG TAB.ER.24H PO SCH (09:15)
[2020-03-23] MEDS: hydrOXYzine pamoate 25 MG CAPSULE PO PRN (10:22)
[2020-03-23 10:24] VITALS: BP 145/84
== END 2020-03-23 12:31 | disposition home health service (06) ==
LOC: CDU → SUATTDRO 03-22 00:01 → 3BNU 03-22 02:34
PROVIDERS: ADMIT Internal Medicine; ATTEND Internal Medicine

== ENCOUNTER 2020-09-12 17:17 | Inpatient (IN) ==
[2020-09-12] MEDS ORDERED: Naloxone 0.4 MG/ML INJ IVP PRN (20:37)
[2020-09-12] MEDS ORDERED: Artificial Tears SOLN 15 ML BOTTLE BOTH EYES PRN (20:42)
[2020-09-12] MEDS: FentaNYL (PF) 1,000 MCG/100 ML IV.SOLN IVC SCH (21:10)
[2020-09-12] MEDS: Chlorhexidine Rinse 15 ML MOUTHWASH MM SCH (21:22)
[2020-09-12 21:47] LABS: ABG Base Excess 19 mEq/L (-2 to 3); ABG HCO3 45 mEq/L (21-27); ABG Oxygen Saturation 97 % (95-98); ABG PCO2 55 mmHg (35-45); ABG PH 7.52 pH Units (7.32-7.45); ABG PO2 80 mmHg (85-104); ABG TCO2 47 mEq/L (20-26); Blood Gas Modality ASSIST CONTROL; Blood Gas VT 450 cc
[2020-09-12 22:17] LABS: Basophils % 0.2 %; Hematocrit 40.5 % (35.3-44.9); Hemoglobin 12.3 g/dL (11.5-15.4); Immature Granulocytes % 0.6 % (0-4); Lymphocytes # 0.9 K/mcL (0.6-4.6); Lymphocytes % 9.9 %; Mean Corpuscular HGB Conc 30.4 g/dL (31.6-35.5); Mean Corpuscular Hemoglobin 29.6 pg (28.0-33.3); Mean Corpuscular Volume 97.6 fL (83.0-100.0); Mean Platelet Volume 9.6 fL (9.4-12.4); Monocytes # 0.1 K/mcL (0.0-1.3); Monocytes % 1.4 %; Neutrophils # 7.5 K/mcL (1.6-8.9); Platelet Count 241 K/mcL (140-400); Red Blood Count 4.15 M/mcL (3.82-4.97); Red Cell Distribution Width 11.6 % (11.5-14.5); Segmented Neutrophils % 87.9 %; White Blood Count 8.6 K/mcL (4.3-11.1)
[2020-09-12 22:38] LABS: BUN/Creatinine Ratio 25 (6-26); Blood Urea Nitrogen 13 mg/dL (8-23); Calcium 9.2 mg/dL (8.6-10.3); Carbon Dioxide 41 mEq/L (23-29); Chloride 89 mEq/L (98-107); Glucose 340 mg/dL (70-105); Magnesium 1.8 mg/dL (1.6-2.6); Osmolality,Calculated 296 (280-300); Potassium 4.1 mEq/L (3.5-5.1); Sodium 136 mEq/L (136-145); eGFR For African Americans > 60 (> 60); eGFR For Non-African Americans > 60 (> 60)
[2020-09-12] MEDS ORDERED: Dextrose Gel 15 GM/37.5 ML TUBE PO PRN ×2 (23:42)
[2020-09-12] MEDS ORDERED: *HR* Dextrose 50 % in Water (Vial) 50 ML VIAL IVP PRN (23:42)
[2020-09-12] MEDS ORDERED: D5% in Water 1,000 ML IVC PRN (23:42)
[2020-09-12] MEDS: methylPREDNISolone 125 MG/2 ML VIAL IVP SCH (23:54)
[2020-09-12] MEDS: Artificial Tears SOLN 15 ML BOTTLE BOTH EYES SCH (23:55)
[2020-09-13] MEDS: Insulin LISPRO 300 UNITS/3 ML VIAL SUBQ SCH ×6 (00:01→23:07)
[2020-09-13] MEDS: Ipratropium/Albuterol Neb 3 ML IH SCH ×7 (00:14→23:24)
[2020-09-13] MEDS: Artificial Tears SOLN 15 ML BOTTLE BOTH EYES SCH ×6 (03:04→23:06)
[2020-09-13 03:34] LABS: Adenovirus Not Detected (Not Detect); Bordetella Pertussis Not Detected (Not Detect); Chlamydophila pneumoniae Not Detected (Not Detect); Coronavirus 229E Not Detected (Not Detect); Coronavirus HKU1 Not Detected (Not Detect); Coronavirus NL63 Not Detected (Not Detect); Coronavirus OC43 Not Detected (Not Detect); Human Metapneumovirus Not Detected (Not Detect); Human Rhinovirus/Enterovirus Not Detected (Not Detect); Influenza A Subtype 2009 H1 Not Detected (Not Detect); Influenza B Not Detected (Not Detect); Mycoplasma pneumoniae Not Detected (Not Detect); Parainfluenza Virus 1 Not Detected (Not Detect); Parainfluenza Virus 2 Not Detected (Not Detect); Parainfluenza Virus 3 Not Detected (Not Detect); Parainfluenza Virus 4 Not Detected (Not Detect); Respiratory Syncytial Virus Not Detected (Not Detect); SARS-CoV-2 Not Detected (Not Detect)
[2020-09-13 04:30] LABS: ABG Base Excess 13 mEq/L (-2 to 3); ABG HCO3 41 mEq/L (21-27); ABG Oxygen Saturation 89 % (95-98); ABG PCO2 62 mmHg (35-45); ABG PH 7.42 pH Units (7.32-7.45); ABG PO2 58 mmHg (85-104); ABG TCO2 42 mEq/L (20-26); Blood Gas Modality ASSIST CONTROL; Blood Gas VT 400 cc
[2020-09-13 04:42] LABS: Basophils % 0.1 %; Hematocrit 41.4 % (35.3-44.9); Hemoglobin 12.5 g/dL (11.5-15.4); Immature Granulocytes % 0.8 % (0-4); Lymphocytes # 0.9 K/mcL (0.6-4.6); Lymphocytes % 8.5 %; Mean Corpuscular HGB Conc 30.2 g/dL (31.6-35.5); Mean Corpuscular Hemoglobin 29.2 pg (28.0-33.3); Mean Corpuscular Volume 96.7 fL (83.0-100.0); Mean Platelet Volume 9.7 fL (9.4-12.4); Monocytes # 0.2 K/mcL (0.0-1.3); Monocytes % 1.4 %; Neutrophils # 9.9 K/mcL (1.6-8.9); Platelet Count 251 K/mcL (140-400); Red Blood Count 4.28 M/mcL (3.82-4.97); Red Cell Distribution Width 11.6 % (11.5-14.5); Segmented Neutrophils % 89.2 %; White Blood Count 11.1 K/mcL (4.3-11.1)
[2020-09-13 05:03] LABS: BUN/Creatinine Ratio 25 (6-26); Blood Urea Nitrogen 14 mg/dL (8-23); Calcium 9.5 mg/dL (8.6-10.3); Carbon Dioxide 40 mEq/L (23-29); Chloride 89 mEq/L (98-107); Glucose 290 mg/dL (70-105); Magnesium 1.8 mg/dL (1.6-2.6); Osmolality,Calculated 295 (280-300); Potassium 3.5 mEq/L (3.5-5.1); Sodium 137 mEq/L (136-145); eGFR For African Americans > 60 (> 60); eGFR For Non-African Americans > 60 (> 60)
[2020-09-13] MEDS: *HR* Enoxaparin 40 MG/0.4 ML SYRINGE SQ SCH (05:38)
[2020-09-13] MEDS: methylPREDNISolone 125 MG/2 ML VIAL IVP SCH (05:38)
[2020-09-13] MEDS: Chlorhexidine Rinse 15 ML MOUTHWASH MM SCH ×2 (08:19→19:20)
[2020-09-13] MEDS: Pantoprazole 40 MG VIAL IVP SCH (08:19)
[2020-09-13] MEDS: Azithromycin 500 MG in 0.9 % Sodium Chloride 250 ML IVPB SCH (08:20)
[2020-09-13] MEDS: cefTRIAXone 1,000 MG in Water for inj. (sterile) 10 ML IVP SCH (08:20)
[2020-09-13] MEDS: FentaNYL (PF) 1,000 MCG/100 ML IV.SOLN IVC SCH ×3 (08:31→23:15)
[2020-09-13] MEDS: Furosemide 40 MG/4 ML VIAL IVP SCH (10:56)
[2020-09-13] MEDS: Insulin DETEMIR 100 UNIT/ML X5UNITS SUBQ SCH ×2 (12:03→19:20)
[2020-09-13 13:23] LABS: Estimated Average Glucose 229 mg/dl; Hemoglobin A1C 9.6 %
[2020-09-13] MEDS ORDERED: Perflutren Lipid Microsphere 1.3 ML in 0.9 % Sodium Chloride 8.7 ML IVP PRN (15:45)
[2020-09-13] MEDS: MethylPREDNISolone 40 MG/ML VIAL IVP SCH (17:43)
[2020-09-14] MEDS: Insulin LISPRO 300 UNITS/3 ML VIAL SUBQ SCH ×6 (03:20→23:47)
[2020-09-14] MEDS: Artificial Tears SOLN 15 ML BOTTLE BOTH EYES SCH ×6 (03:20→23:46)
[2020-09-14] MEDS: Ipratropium/Albuterol Neb 3 ML IH SCH ×6 (04:28→23:48)
[2020-09-14] MEDS: MethylPREDNISolone 40 MG/ML VIAL IVP SCH ×2 (05:28→18:03)
[2020-09-14] MEDS: *HR* Enoxaparin 40 MG/0.4 ML SYRINGE SQ SCH (05:29)
[2020-09-14] MEDS: FentaNYL (PF) 1,000 MCG/100 ML IV.SOLN IVC SCH ×2 (05:29→12:51)
[2020-09-14 05:34] LABS: ABG Base Excess 19 mEq/L (-2 to 3); ABG HCO3 50 mEq/L (21-27); ABG Oxygen Saturation 88 % (95-98); ABG PCO2 95 mmHg (35-45); ABG PH 7.33 pH Units (7.32-7.45); ABG PO2 64 mmHg (85-104); ABG TCO2 > 50 mEq/L (20-26); Blood Gas VT 400 cc
[2020-09-14 06:02] LABS: Basophils % 0.1 %; Hematocrit 38.8 % (35.3-44.9); Hemoglobin 12.1 g/dL (11.5-15.4); Immature Granulocytes % 0.7 % (0-4); Lymphocytes # 1.7 K/mcL (0.6-4.6); Lymphocytes % 9.7 %; Mean Corpuscular HGB Conc 31.2 g/dL (31.6-35.5); Mean Corpuscular Hemoglobin 30.1 pg (28.0-33.3); Mean Corpuscular Volume 96.5 fL (83.0-100.0); Mean Platelet Volume 9.7 fL (9.4-12.4); Monocytes # 2.2 K/mcL (0.0-1.3); Monocytes % 12.3 %; Platelet Count 268 K/mcL (140-400); Red Blood Count 4.02 M/mcL (3.82-4.97); Red Cell Distribution Width 11.7 % (11.5-14.5); Segmented Neutrophils % 77.2 %
[2020-09-14 06:04] LABS: Neutrophils # 13.7 K/mcL (1.6-8.9); White Blood Count 17.7 K/mcL (4.3-11.1)
[2020-09-14 06:25] LABS: BUN/Creatinine Ratio 63 (6-26); Blood Urea Nitrogen 32 mg/dL (8-23); Calcium 9.2 mg/dL (8.6-10.3); Carbon Dioxide 42 mEq/L (23-29); Chloride 90 mEq/L (98-107); Glucose 247 mg/dL (70-105); Osmolality,Calculated 299 (280-300); Sodium 137 mEq/L (136-145); eGFR For African Americans > 60 (> 60); eGFR For Non-African Americans > 60 (> 60)
[2020-09-14] MEDS: cefTRIAXone 1,000 MG in Water for inj. (sterile) 10 ML IVP SCH (08:30)
[2020-09-14] MEDS: Chlorhexidine Rinse 15 ML MOUTHWASH MM SCH ×2 (08:30→20:16)
[2020-09-14] MEDS: Pantoprazole 40 MG VIAL IVP SCH (08:30)
[2020-09-14] MEDS: Furosemide 40 MG/4 ML VIAL IVP SCH (08:30)
[2020-09-14] MEDS: Azithromycin 500 MG in 0.9 % Sodium Chloride 250 ML IVPB SCH (08:31)
[2020-09-14] MEDS: Insulin DETEMIR 100 UNIT/ML X5UNITS SUBQ SCH ×2 (08:33→20:16)
[2020-09-14] MEDS: Dexmedetomidine HCl 400 MCG/100 ML MLS IVC SCH ×3 (09:23→21:47)
[2020-09-14] MEDS: Gabapentin 400 MG CAPSULE GTUBE SCH ×3 (12:54→22:16)
[2020-09-14] MEDS ORDERED: Ipratropium/Albuterol Neb 3 ML IH ONE (15:45)
[2020-09-14] MEDS ORDERED: Levalbuterol Neb 1.25 MG/3 ML IH ONE ×2 (15:50)
[2020-09-14] MEDS ORDERED: *HR* Metoprolol 5 MG/5 ML VIAL IVP PRN (15:51)
[2020-09-14] MEDS ORDERED: Levalbuterol Neb 1.25 MG/3 ML ONE (15:57)
[2020-09-15] MEDS: Dexmedetomidine HCl 400 MCG/100 ML MLS IVC SCH ×2 (02:04→06:12)
[2020-09-15] MEDS: Insulin LISPRO 300 UNITS/3 ML VIAL SUBQ SCH ×5 (04:41→20:40)
[2020-09-15] MEDS: Artificial Tears SOLN 15 ML BOTTLE BOTH EYES SCH ×2 (04:43→09:07)
[2020-09-15] MEDS: Ipratropium/Albuterol Neb 3 ML IH SCH ×5 (04:49→20:02)
[2020-09-15] MEDS ORDERED: Haloperidol Lactate 5 MG/ML VIAL IM ONE (06:26)
[2020-09-15] MEDS: MethylPREDNISolone 40 MG/ML VIAL IVP SCH (06:30)
[2020-09-15] MEDS: *HR* Enoxaparin 40 MG/0.4 ML SYRINGE SQ SCH (06:30)
[2020-09-15 07:50] LABS: ABG Base Excess 19 mEq/L (-2 to 3); ABG HCO3 45 mEq/L (21-27); ABG Oxygen Saturation 96 % (95-98); ABG PCO2 56 mmHg (35-45); ABG PH 7.52 pH Units (7.32-7.45); ABG PO2 79 mmHg (85-104); ABG TCO2 47 mEq/L (20-26)
[2020-09-15] MEDS ORDERED: carvediloL 6.25 MG TABLET PO SCH (08:00)
[2020-09-15] MEDS: Gabapentin 400 MG CAPSULE GTUBE SCH (08:55)
[2020-09-15] MEDS: Insulin DETEMIR 100 UNIT/ML X5UNITS SUBQ SCH ×2 (08:56→20:40)
[2020-09-15] MEDS: Chlorhexidine Rinse 15 ML MOUTHWASH MM SCH (09:08)
[2020-09-15 10:00] LABS: Basophils % 0.2 %; Hematocrit 39.3 % (35.3-44.9); Hemoglobin 12.6 g/dL (11.5-15.4); Lymphocytes # 0.8 K/mcL (0.6-4.6); Lymphocytes % 5.5 %; Mean Corpuscular HGB Conc 32.1 g/dL (31.6-35.5); Mean Corpuscular Hemoglobin 29.9 pg (28.0-33.3); Mean Corpuscular Volume 93.1 fL (83.0-100.0); Mean Platelet Volume 9.4 fL (9.4-12.4); Monocytes # 1.6 K/mcL (0.0-1.3); Monocytes % 11.3 %; Neutrophils # 11.5 K/mcL (1.6-8.9); Platelet Count 240 K/mcL (140-400); Red Blood Count 4.22 M/mcL (3.82-4.97); Red Cell Distribution Width 11.9 % (11.5-14.5)
[2020-09-15 10:24] LABS: BUN/Creatinine Ratio 45 (6-26); Blood Urea Nitrogen 18 mg/dL (8-23); Calcium 9.3 mg/dL (8.6-10.3); Carbon Dioxide 41 mEq/L (23-29); Chloride 92 mEq/L (98-107); Glucose 201 mg/dL (70-105); Osmolality,Calculated 294 (280-300); Potassium 3.4 mEq/L (3.5-5.1); Sodium 138 mEq/L (136-145); eGFR For African Americans > 60 (> 60); eGFR For Non-African Americans > 60 (> 60)
[2020-09-15] MEDS: Pantoprazole 40 MG VIAL IVP SCH (10:27)
[2020-09-15] MEDS: Furosemide 40 MG/4 ML VIAL IVP SCH (10:27)
[2020-09-15] MEDS: Azithromycin 500 MG in 0.9 % Sodium Chloride 250 ML IVPB SCH (10:27)
[2020-09-15] MEDS: cefTRIAXone 1,000 MG in Water for inj. (sterile) 10 ML IVP SCH (10:28)
[2020-09-15] MEDS ORDERED: Dextrose Gel 15 GM/37.5 ML TUBE PO PRN ×2 (11:14)
[2020-09-15] MEDS ORDERED: *HR* Dextrose 50 % in Water (Vial) 50 ML VIAL IVP PRN (11:14)
[2020-09-15] MEDS ORDERED: D5% in Water 1,000 ML IVC PRN (11:14)
[2020-09-15] MEDS ORDERED: Naloxone 0.4 MG/ML INJ IVP PRN (11:14)
[2020-09-15] MEDS ORDERED: Gabapentin 400 MG CAPSULE GTUBE SCH (15:00)
[2020-09-15] MEDS: carvediloL 6.25 MG TABLET PO SCH (16:52)
[2020-09-15] MEDS: *HR* Metoprolol 5 MG/5 ML VIAL IVP PRN (16:53)
[2020-09-15] MEDS ORDERED: Melatonin 3 MG TABLET PO PRN (20:07)
[2020-09-15] MEDS: Gabapentin 400 MG CAPSULE PO SCH (20:39)
[2020-09-16] MEDS: Ipratropium/Albuterol Neb 3 ML IH SCH ×7 (00:03→23:42)
[2020-09-16 05:45] LABS: Basophils # 0.1 K/mcL (0.0-0.2); Basophils % 0.3 %; Eosinophils % 0.1 %; Hematocrit 42.8 % (35.3-44.9); Hemoglobin 13.5 g/dL (11.5-15.4); Immature Granulocytes % 0.7 % (0-4); Lymphocytes # 3.3 K/mcL (0.6-4.6); Mean Corpuscular HGB Conc 31.5 g/dL (31.6-35.5); Mean Corpuscular Hemoglobin 29.7 pg (28.0-33.3); Mean Corpuscular Volume 94.1 fL (83.0-100.0); Mean Platelet Volume 9.6 fL (9.4-12.4); Monocytes # 2.2 K/mcL (0.0-1.3); Neutrophils # 9.2 K/mcL (1.6-8.9); Platelet Count 262 K/mcL (140-400); Red Blood Count 4.55 M/mcL (3.82-4.97); Red Cell Distribution Width 12.1 % (11.5-14.5); Segmented Neutrophils % 61.9 %; White Blood Count 14.9 K/mcL (4.3-11.1)
[2020-09-16 05:53] LABS: VBG Ionized Calcium 0.98 mmol/L (1.15-1.35)
[2020-09-16 06:04] LABS: Alanine Aminotransferase 20 Units/L (7-52); Albumin 3.7 g/dL (3.5-5.7); Albumin/Globulin Ratio 1.2 (1.1-2.2); Alkaline Phosphatase 51 Units/L (34-104); Aspartate Amino Transferase 32 Units/L (13-39); BUN/Creatinine Ratio 39 (6-26); Bilirubin,Total 0.5 mg/dL (0.3-1.0); Blood Urea Nitrogen 17 mg/dL (8-23); Calcium 9.3 mg/dL (8.6-10.3); Carbon Dioxide 37 mEq/L (23-29); Chloride 91 mEq/L (98-107); Globulin 3.2 g/dL (2.4-3.5); Glucose 186 mg/dL (70-105); Osmolality,Calculated 290 (280-300); Phosphorous 2.8 mg/dL (2.7-4.5); Sodium 137 mEq/L (136-145); Total Protein 6.9 g/dL (6.4-8.9); eGFR For African Americans > 60 (> 60); eGFR For Non-African Americans > 60 (> 60)
[2020-09-16] MEDS: *HR* Enoxaparin 40 MG/0.4 ML SYRINGE SQ SCH (06:11)
[2020-09-16] MEDS: Furosemide 40 MG TABLET PO SCH (07:36)
[2020-09-16] MEDS: MethylPREDNISolone 40 MG/ML VIAL IVP SCH (07:36)
[2020-09-16] MEDS: Gabapentin 400 MG CAPSULE PO SCH ×3 (07:36→20:49)
[2020-09-16] MEDS: carvediloL 6.25 MG TABLET PO SCH (07:36)
[2020-09-16] MEDS: Insulin DETEMIR 100 UNIT/ML X5UNITS SUBQ SCH ×2 (07:37→20:56)
[2020-09-16] MEDS: Azithromycin 500 MG in 0.9 % Sodium Chloride 250 ML IVPB SCH (07:38)
[2020-09-16] MEDS: Insulin LISPRO 300 UNITS/3 ML VIAL SUBQ SCH ×4 (07:39→20:54)
[2020-09-16] MEDS ORDERED: cefTRIAXone 1,000 MG in Water for inj. (sterile) 10 ML IVP SCH (09:00)
[2020-09-16] MEDS ORDERED: Pantoprazole 40 MG VIAL IVP SCH (09:00)
[2020-09-16] MEDS ORDERED: Sennosides/Docusate Sodium TABLET PO PRN (10:51)
[2020-09-16] MEDS: *HR* Metoprolol 5 MG/5 ML VIAL IVP PRN (13:35)
[2020-09-16] MEDS: carvediloL 25 MG TABLET PO SCH (16:13)
[2020-09-16] MEDS: *HR* LORazepam 0.5 MG TABLET PO PRN (16:13)
[2020-09-16] MEDS: Potassium Chloride Elixir 20 MEQ/15 ML UDC PO SCH ×2 (16:13→20:49)
[2020-09-16] MEDS: Melatonin 3 MG TABLET PO PRN (20:54)
[2020-09-17] MEDS: *HR* LORazepam 0.5 MG TABLET PO PRN ×3 (00:12→17:58)
[2020-09-17] MEDS: Ipratropium/Albuterol Neb 3 ML IH SCH ×6 (04:31→23:19)
[2020-09-17 05:25] LABS: ABG Base Excess 12 mEq/L (-2 to 3); ABG HCO3 40 mEq/L (21-27); ABG Oxygen Saturation 94 % (95-98); ABG PCO2 69 mmHg (35-45); ABG PH 7.37 pH Units (7.32-7.45); ABG PO2 75 mmHg (85-104); ABG TCO2 42 mEq/L (20-26)
[2020-09-17] MEDS: *HR* Enoxaparin 40 MG/0.4 ML SYRINGE SQ SCH (05:49)
[2020-09-17] MEDS ORDERED: NON-FORMULARY MEDICATION 1 EACH EACH (Gabapentin [Neurontin] 800 MG) PO SCH (09:00)
[2020-09-17] MEDS ORDERED: Acetaminophen 325 MG TABLET PO PRN (09:07)
[2020-09-17] MEDS: Potassium Chloride Elixir 20 MEQ/15 ML UDC PO SCH ×3 (09:15→21:59)
[2020-09-17] MEDS: Azithromycin 500 MG in 0.9 % Sodium Chloride 250 ML IVPB SCH (09:19)
[2020-09-17] MEDS: Insulin DETEMIR 100 UNIT/ML X5UNITS SUBQ SCH ×2 (09:22→21:59)
[2020-09-17] MEDS: carvediloL 25 MG TABLET PO SCH ×2 (09:24→17:58)
[2020-09-17] MEDS: Furosemide 40 MG TABLET PO SCH (09:25)
[2020-09-17] MEDS: MethylPREDNISolone 40 MG/ML VIAL IVP SCH (09:30)
[2020-09-17] MEDS: Gabapentin 400 MG CAPSULE PO SCH ×3 (09:37→21:59)
[2020-09-17] MEDS: Insulin LISPRO 300 UNITS/3 ML VIAL SUBQ SCH ×4 (09:54→22:01)
[2020-09-17 10:24] LABS: Hematocrit 39.5 % (35.3-44.9); Hemoglobin 12.4 g/dL (11.5-15.4); Mean Corpuscular HGB Conc 31.4 g/dL (31.6-35.5); Mean Corpuscular Volume 95.6 fL (83.0-100.0); Platelet Count 268 K/mcL (140-400); Red Blood Count 4.13 M/mcL (3.82-4.97); Red Cell Distribution Width 12.3 % (11.5-14.5); White Blood Count 11.9 K/mcL (4.3-11.1)
[2020-09-17 10:42] LABS: BUN/Creatinine Ratio 48 (6-26); Blood Urea Nitrogen 27 mg/dL (8-23); Calcium 8.9 mg/dL (8.6-10.3); Carbon Dioxide 32 mEq/L (23-29); Chloride 95 mEq/L (98-107); Glucose 401 mg/dL (70-105); Osmolality,Calculated 304 (280-300); Potassium 3.7 mEq/L (3.5-5.1); Sodium 136 mEq/L (136-145); eGFR For African Americans > 60 (> 60); eGFR For Non-African Americans > 60 (> 60)
[2020-09-17] MEDS: Melatonin 3 MG TABLET PO PRN (22:08)
[2020-09-18] MEDS: *HR* LORazepam 0.5 MG TABLET PO PRN (00:59)
[2020-09-18] MEDS: Ipratropium/Albuterol Neb 3 ML IH SCH ×2 (04:02→07:37)
[2020-09-18 04:58] LABS: Hematocrit 39.5 % (35.3-44.9); Hemoglobin 12.1 g/dL (11.5-15.4); Mean Corpuscular HGB Conc 30.6 g/dL (31.6-35.5); Mean Corpuscular Hemoglobin 29.8 pg (28.0-33.3); Mean Corpuscular Volume 97.3 fL (83.0-100.0); Mean Platelet Volume 10.1 fL (9.4-12.4); Platelet Count 291 K/mcL (140-400); Red Blood Count 4.06 M/mcL (3.82-4.97); Red Cell Distribution Width 12.1 % (11.5-14.5); White Blood Count 11.9 K/mcL (4.3-11.1)
[2020-09-18 05:17] LABS: BUN/Creatinine Ratio 55 (6-26); Blood Urea Nitrogen 26 mg/dL (8-23); Calcium 9.1 mg/dL (8.6-10.3); Carbon Dioxide 34 mEq/L (23-29); Chloride 98 mEq/L (98-107); Glucose 211 mg/dL (70-105); Osmolality,Calculated 295 (280-300); Sodium 137 mEq/L (136-145); eGFR For African Americans > 60 (> 60); eGFR For Non-African Americans > 60 (> 60)
[2020-09-18] MEDS: Insulin DETEMIR 100 UNIT/ML X5UNITS SUBQ SCH (08:46)
[2020-09-18] MEDS: Gabapentin 400 MG CAPSULE PO SCH (08:46)
[2020-09-18] MEDS: *HR* Enoxaparin 40 MG/0.4 ML SYRINGE SQ SCH (08:46)
[2020-09-18] MEDS: carvediloL 25 MG TABLET PO SCH (08:46)
[2020-09-18] MEDS: Furosemide 40 MG TABLET PO SCH (08:46)
[2020-09-18] MEDS: Potassium Chloride Elixir 20 MEQ/15 ML UDC PO SCH (08:46)
[2020-09-18] MEDS: Insulin LISPRO 300 UNITS/3 ML VIAL SUBQ SCH (08:47)
[2020-09-18] MEDS: MethylPREDNISolone 40 MG/ML VIAL IVP SCH (08:48)
[2020-09-18 09:12] VITALS: BP 125/83
[2020-09-18] MEDS ORDERED: Insulin LISPRO 300 UNITS/3 ML VIAL SUBQ SCH ×2 (11:30→21:00)
== END 2020-09-18 10:32 | disposition home or self-care (01) | DRG 208 ==
LOC: ICNU → SUATTDRO 20:42 → 2ANU 09-15 12:16
PROVIDERS: ADMIT Pediatrics; ATTEND Internal Medicine

== ENCOUNTER 2020-09-29 01:26 | Inpatient (IN) ==
[2020-09-29] MEDS ORDERED: Naloxone 0.4 MG/ML INJ IVP PRN (05:21)
[2020-09-29] MEDS ORDERED: Ipratropium/Albuterol Neb 3 ML IH PRN (05:23)
[2020-09-29] MEDS ORDERED: Dextrose Gel 15 GM/37.5 ML TUBE PO PRN ×2 (05:24)
[2020-09-29] MEDS ORDERED: *HR* Dextrose 50 % in Water (Vial) 50 ML VIAL IVP PRN (05:24)
[2020-09-29] MEDS ORDERED: D5% in Water 1,000 ML IVC PRN (05:24)
[2020-09-29 05:59] LABS: Basophils % 0.1 %; Hematocrit 36.9 % (35.3-44.9); Hemoglobin 11.1 g/dL (11.5-15.4); Immature Granulocytes % 0.9 % (0-4); Lymphocytes # 0.9 K/mcL (0.6-4.6); Mean Corpuscular HGB Conc 30.1 g/dL (31.6-35.5); Mean Corpuscular Hemoglobin 29.6 pg (28.0-33.3); Mean Corpuscular Volume 98.4 fL (83.0-100.0); Monocytes # 0.3 K/mcL (0.0-1.3); Monocytes % 2.4 %; Neutrophils # 13.1 K/mcL (1.6-8.9); Platelet Count 186 K/mcL (140-400); Red Blood Count 3.75 M/mcL (3.82-4.97); Red Cell Distribution Width 11.9 % (11.5-14.5); Segmented Neutrophils % 90.6 %; White Blood Count 14.4 K/mcL (4.3-11.1)
[2020-09-29 06:12] LABS: Prothrombin Time 11.8 Seconds (9.4-12.1)
[2020-09-29 06:22] LABS: Alanine Aminotransferase 21 Units/L (7-52); Albumin 3.5 g/dL (3.5-5.7); Albumin/Globulin Ratio 1.3 (1.1-2.2); Alkaline Phosphatase 50 Units/L (34-104); Aspartate Amino Transferase 11 Units/L (13-39); BUN/Creatinine Ratio 28 (6-26); Bilirubin,Total 0.3 mg/dL (0.3-1.0); Blood Urea Nitrogen 13 mg/dL (8-23); Calcium 8.9 mg/dL (8.6-10.3); Carbon Dioxide 43 mEq/L (23-29); Chloride 92 mEq/L (98-107); Globulin 2.7 g/dL (2.4-3.5); Glucose 349 mg/dL (70-105); Magnesium 2.1 mg/dL (1.6-2.6); Osmolality,Calculated 304 (280-300); Potassium 4.4 mEq/L (3.5-5.1); Sodium 140 mEq/L (136-145); Total Protein 6.2 g/dL (6.4-8.9); eGFR For African Americans > 60 (> 60); eGFR For Non-African Americans > 60 (> 60)
[2020-09-29] MEDS: Insulin LISPRO 300 UNITS/3 ML VIAL SUBQ SCH ×3 (06:47→21:51)
[2020-09-29] MEDS: *HR* Enoxaparin 40 MG/0.4 ML SYRINGE SQ SCH (06:48)
[2020-09-29] MEDS: Azithromycin 500 MG in 0.9 % Sodium Chloride 250 ML IVPB SCH (06:49)
[2020-09-29] MEDS: Ipratropium/Albuterol Neb 3 ML IH SCH ×4 (07:56→20:50)
[2020-09-29] MEDS: Aspirin Enteric Coated 81 MG Tablet PO SCH ×2 (09:10→09:14)
[2020-09-29] MEDS: Furosemide 40 MG/4 ML VIAL IVP SCH ×2 (09:11→21:29)
[2020-09-29] MEDS: MethylPREDNISolone 40 MG/ML VIAL IVP SCH ×3 (09:11→23:55)
[2020-09-29] MEDS ORDERED: *HR* LORazepam 2 MG/ML VIAL IVP ONE (12:13)
[2020-09-29] MEDS ORDERED: *HR* LORazepam 2 MG/ML VIAL ONE (12:21)
[2020-09-29] MEDS: Ondansetron 4 MG/2 ML VIAL IVP PRN (13:50)
[2020-09-29] MEDS: Dexmedetomidine HCl 400 MCG/100 ML MLS IVC SCH ×2 (14:02→21:28)
[2020-09-29 16:03] LABS: ABG Base Excess 18 mEq/L (-2 to 3); ABG HCO3 50 mEq/L (21-27); ABG Oxygen Saturation 93 % (95-98); ABG PCO2 92 mmHg (35-45); ABG PH 7.34 pH Units (7.32-7.45); ABG PO2 76 mmHg (85-104); ABG TCO2 > 50 mEq/L (20-26)
[2020-09-29] MEDS: Lactulose Oral Soln 20 GM/30 ML UDC PO SCH ×3 (16:35→20:33)
[2020-09-29] MEDS: carvediloL 6.25 MG TABLET PO SCH (16:35)
[2020-09-29 17:49] LABS: Amphetamine Screen,Urine Negative ng/mL (Cutoff=1000); Barbiturate Screen,Urine Negative ng/mL (Cutoff=200); Benzodiazepines Screen,Urine Negative ng/mL (Cutoff=200); Cannabinoid Screen,Urine Negative ng/mL (Cutoff = 50); Cocaine Screen,Urine Negative ng/mL (Cutoff= 300); Opiate Screen,Urine Negative ng/mL (Cutoff=300); Phencyclidine Screen,Urine Negative ng/mL (Cutoff=25)
[2020-09-29] MEDS ORDERED: Insulin LISPRO 300 UNITS/3 ML VIAL SUBQ SCH ×2 (21:00→21:43)
[2020-09-29] MEDS: Nicotine 21 MG PATCH.TD24 TD SCH (21:05)
[2020-09-29 21:09] LABS: ABG Base Excess 19 mEq/L (-2 to 3); ABG HCO3 50 mEq/L (21-27); ABG Oxygen Saturation 94 % (95-98); ABG PCO2 97 mmHg (35-45); ABG PH 7.32 pH Units (7.32-7.45); ABG PO2 84 mmHg (85-104); ABG TCO2 > 50 mEq/L (20-26)
[2020-09-29] MEDS: *HR* LORazepam 0.5 MG TABLET PO PRN (21:20)
[2020-09-29] MEDS: Insulin DETEMIR 100 UNIT/ML X5UNITS SUBQ SCH (21:52)
[2020-09-29] MEDS ORDERED: Insulin LISPRO 300 UNITS/3 ML VIAL SUBQ ONE (23:47)
[2020-09-29] MEDS ORDERED: Haloperidol Lactate 5 MG/ML VIAL IVP ONE (23:51)
[2020-09-30] MEDS: Ipratropium/Albuterol Neb 3 ML IH SCH ×7 (00:16→23:07)
[2020-09-30] MEDS: Dexmedetomidine HCl 400 MCG/100 ML MLS IVC SCH ×4 (03:10→23:46)
[2020-09-30 04:49] LABS: Hematocrit 37.8 % (35.3-44.9); Hemoglobin 11.8 g/dL (11.5-15.4); Mean Corpuscular HGB Conc 31.2 g/dL (31.6-35.5); Mean Corpuscular Hemoglobin 29.6 pg (28.0-33.3); Mean Corpuscular Volume 94.7 fL (83.0-100.0); Mean Platelet Volume 9.2 fL (9.4-12.4); Platelet Count 189 K/mcL (140-400); Red Blood Count 3.99 M/mcL (3.82-4.97); Red Cell Distribution Width 11.9 % (11.5-14.5); White Blood Count 10.1 K/mcL (4.3-11.1)
[2020-09-30 05:28] LABS: BUN/Creatinine Ratio 45 (6-26); Blood Urea Nitrogen 20 mg/dL (8-23); Calcium 9.3 mg/dL (8.6-10.3); Carbon Dioxide > 45 mEq/L (23-29); Chloride 89 mEq/L (98-107); Glucose 170 mg/dL (70-105); Osmolality,Calculated 299 (280-300); Potassium 3.8 mEq/L (3.5-5.1); Sodium 141 mEq/L (136-145); eGFR For African Americans > 60 (> 60); eGFR For Non-African Americans > 60 (> 60)
[2020-09-30] MEDS: *HR* Enoxaparin 40 MG/0.4 ML SYRINGE SQ SCH (05:32)
[2020-09-30] MEDS: Azithromycin 500 MG in 0.9 % Sodium Chloride 250 ML IVPB SCH (05:33)
[2020-09-30] MEDS ORDERED: Insulin LISPRO 300 UNITS/3 ML VIAL SUBQ SCH (07:30)
[2020-09-30 09:45] LABS: ABG Base Excess 21 mEq/L (-2 to 3); ABG HCO3 51 mEq/L (21-27); ABG Oxygen Saturation 93 % (95-98); ABG PCO2 87 mmHg (35-45); ABG PH 7.38 pH Units (7.32-7.45); ABG PO2 74 mmHg (85-104); ABG TCO2 > 50 mEq/L (20-26)
[2020-09-30] MEDS: Insulin LISPRO 300 UNITS/3 ML VIAL SUBQ SCH ×4 (10:27→20:12)
[2020-09-30] MEDS: Budesonide/Formoterol 80/4.5 1 PUFF INH IH SCH (11:08)
[2020-09-30] MEDS: MethylPREDNISolone 40 MG/ML VIAL IVP SCH ×3 (11:11→23:47)
[2020-09-30] MEDS: Furosemide 40 MG/4 ML VIAL IVP SCH ×2 (11:11→20:01)
[2020-09-30] MEDS: Lactulose Oral Soln 20 GM/30 ML UDC PO SCH ×4 (11:12→20:01)
[2020-09-30] MEDS: Aspirin Enteric Coated 81 MG Tablet PO SCH (11:12)
[2020-09-30] MEDS: carvediloL 6.25 MG TABLET PO SCH ×2 (11:12→15:03)
[2020-09-30] MEDS: *HR* LORazepam 0.5 MG TABLET PO PRN (20:01)
[2020-09-30] MEDS: Nicotine 21 MG PATCH.TD24 TD SCH (20:13)
[2020-09-30] MEDS: Insulin DETEMIR 100 UNIT/ML X5UNITS SUBQ SCH (20:16)
[2020-10-01] MEDS: Lactulose Oral Soln 20 GM/30 ML UDC PO SCH ×5 (01:16→20:54)
[2020-10-01] MEDS: Ipratropium/Albuterol Neb 3 ML IH SCH ×6 (04:13→23:29)
[2020-10-01 05:41] LABS: Hematocrit 39.5 % (35.3-44.9); Hemoglobin 12.7 g/dL (11.5-15.4); Mean Corpuscular HGB Conc 32.2 g/dL (31.6-35.5); Mean Corpuscular Hemoglobin 29.7 pg (28.0-33.3); Mean Corpuscular Volume 92.3 fL (83.0-100.0); Mean Platelet Volume 9.4 fL (9.4-12.4); Platelet Count 176 K/mcL (140-400); Red Blood Count 4.28 M/mcL (3.82-4.97); Red Cell Distribution Width 11.9 % (11.5-14.5); White Blood Count 11.4 K/mcL (4.3-11.1)
[2020-10-01 05:57] LABS: BUN/Creatinine Ratio 36 (6-26); Blood Urea Nitrogen 18 mg/dL (8-23); Calcium 9.3 mg/dL (8.6-10.3); Carbon Dioxide 43 mEq/L (23-29); Chloride 87 mEq/L (98-107); Glucose 319 mg/dL (70-105); Osmolality,Calculated 296 (280-300); Potassium 3.7 mEq/L (3.5-5.1); Sodium 136 mEq/L (136-145); eGFR For African Americans > 60 (> 60); eGFR For Non-African Americans > 60 (> 60)
[2020-10-01] MEDS: Azithromycin 500 MG in 0.9 % Sodium Chloride 250 ML IVPB SCH (06:10)
[2020-10-01] MEDS: *HR* Enoxaparin 40 MG/0.4 ML SYRINGE SQ SCH (06:11)
[2020-10-01] MEDS: Dexmedetomidine HCl 400 MCG/100 ML MLS IVC SCH ×2 (06:18→18:43)
[2020-10-01] MEDS: Furosemide 40 MG/4 ML VIAL IVP SCH ×2 (07:21→20:54)
[2020-10-01] MEDS: MethylPREDNISolone 40 MG/ML VIAL IVP SCH ×3 (07:21→22:59)
[2020-10-01] MEDS: Aspirin Enteric Coated 81 MG Tablet PO SCH (07:21)
[2020-10-01] MEDS: carvediloL 6.25 MG TABLET PO SCH ×2 (07:21→17:30)
[2020-10-01] MEDS: Insulin LISPRO 300 UNITS/3 ML VIAL SUBQ SCH ×5 (07:22→20:55)
[2020-10-01] MEDS: Budesonide/Formoterol 80/4.5 1 PUFF INH IH SCH (07:39)
[2020-10-01] MEDS: Acetaminophen 325 MG TABLET PO PRN ×2 (10:57→19:13)
[2020-10-01] MEDS: *HR* LORazepam 0.5 MG TABLET PO PRN ×2 (10:57→22:30)
[2020-10-01] MEDS: Nicotine 21 MG PATCH.TD24 TD SCH (20:54)
[2020-10-01] MEDS ORDERED: Insulin DETEMIR 100 UNIT/ML X5UNITS SUBQ SCH (21:00)
[2020-10-02 03:22] LABS: Hematocrit 39.2 % (35.3-44.9); Hemoglobin 12.4 g/dL (11.5-15.4); Mean Corpuscular HGB Conc 31.6 g/dL (31.6-35.5); Mean Corpuscular Hemoglobin 29.7 pg (28.0-33.3); Mean Corpuscular Volume 93.8 fL (83.0-100.0); Mean Platelet Volume 9.9 fL (9.4-12.4); Platelet Count 185 K/mcL (140-400); Red Blood Count 4.18 M/mcL (3.82-4.97); Red Cell Distribution Width 11.9 % (11.5-14.5); White Blood Count 10.6 K/mcL (4.3-11.1)
[2020-10-02 03:41] LABS: BUN/Creatinine Ratio 44 (6-26); Blood Urea Nitrogen 28 mg/dL (8-23); Calcium 9.3 mg/dL (8.6-10.3); Carbon Dioxide 37 mEq/L (23-29); Chloride 90 mEq/L (98-107); Glucose 400 mg/dL (70-105); Osmolality,Calculated 304 (280-300); Potassium 3.6 mEq/L (3.5-5.1); Sodium 136 mEq/L (136-145); eGFR For African Americans > 60 (> 60); eGFR For Non-African Americans > 60 (> 60)
[2020-10-02] MEDS: Ipratropium/Albuterol Neb 3 ML IH SCH ×6 (04:07→23:16)
[2020-10-02 04:50] LABS: VBG HCO3 38 mEq/L (21-27); VBG PCO2 61 mmHg (41-51); VBG PH 7.41 pH Units (7.32-7.42); VBG PO2 37 mmHg (25-50)
[2020-10-02] MEDS: *HR* Enoxaparin 40 MG/0.4 ML SYRINGE SQ SCH (05:23)
[2020-10-02] MEDS: Budesonide/Formoterol 80/4.5 1 PUFF INH IH SCH (07:45)
[2020-10-02] MEDS: Lactulose Oral Soln 20 GM/30 ML UDC PO SCH ×4 (09:46→20:48)
[2020-10-02] MEDS: Aspirin Enteric Coated 81 MG Tablet PO SCH (09:46)
[2020-10-02] MEDS: carvediloL 6.25 MG TABLET PO SCH ×2 (09:46→17:33)
[2020-10-02] MEDS: *HR* LORazepam 0.5 MG TABLET PO PRN ×2 (09:46→23:40)
[2020-10-02] MEDS: Acetaminophen 325 MG TABLET PO PRN ×3 (09:46→23:40)
[2020-10-02] MEDS: MethylPREDNISolone 40 MG/ML VIAL IVP SCH (09:47)
[2020-10-02] MEDS: Furosemide 40 MG/4 ML VIAL IVP SCH ×2 (09:47→20:48)
[2020-10-02] MEDS: Insulin LISPRO 300 UNITS/3 ML VIAL SUBQ SCH ×4 (09:57→20:46)
[2020-10-02] MEDS: Nicotine 21 MG PATCH.TD24 TD SCH (20:45)
[2020-10-02] MEDS ORDERED: Insulin DETEMIR 100 UNIT/ML X5UNITS SUBQ SCH (21:00)
[2020-10-02] MEDS: Ondansetron 4 MG/2 ML VIAL IVP PRN (22:32)
[2020-10-03 02:36] LABS: Basophils % 0.1 %; Eosinophils % 0.1 %; Hematocrit 41.6 % (35.3-44.9); Hemoglobin 13.1 g/dL (11.5-15.4); Immature Granulocytes % 0.9 % (0-4); Lymphocytes # 2.8 K/mcL (0.6-4.6); Lymphocytes % 19.6 %; Mean Corpuscular HGB Conc 31.5 g/dL (31.6-35.5); Mean Corpuscular Volume 95.2 fL (83.0-100.0); Mean Platelet Volume 10.1 fL (9.4-12.4); Monocytes # 1.9 K/mcL (0.0-1.3); Monocytes % 13.3 %; Neutrophils # 9.3 K/mcL (1.6-8.9); Platelet Count 174 K/mcL (140-400); Red Blood Count 4.37 M/mcL (3.82-4.97); White Blood Count 14.1 K/mcL (4.3-11.1)
[2020-10-03 03:08] LABS: BUN/Creatinine Ratio 51 (6-26); Blood Urea Nitrogen 32 mg/dL (8-23); Calcium 9.3 mg/dL (8.6-10.3); Carbon Dioxide 36 mEq/L (23-29); Chloride 91 mEq/L (98-107); Glucose 147 mg/dL (70-105); Osmolality,Calculated 294 (280-300); Potassium 2.9 mEq/L (3.5-5.1); Sodium 137 mEq/L (136-145); eGFR For African Americans > 60 (> 60); eGFR For Non-African Americans > 60 (> 60)
[2020-10-03] MEDS: Ipratropium/Albuterol Neb 3 ML IH SCH ×3 (04:20→10:56)
[2020-10-03] MEDS: *HR* Enoxaparin 40 MG/0.4 ML SYRINGE SQ SCH (05:12)
[2020-10-03] MEDS ORDERED: *HR* HYDROcodone/Acet 5/325 mg TABLET PO ONE (05:27)
[2020-10-03] MEDS ORDERED: Nitroglycerin 0.4 MG TAB.SUBL SL PRN (05:52)
[2020-10-03] MEDS ORDERED: Potassium Chloride 40 MEQ, Lidocaine 1% 2 ML in 0.9 % Sodium Chloride 500 ML IVPB ONE (07:31)
[2020-10-03] MEDS: Budesonide/Formoterol 80/4.5 1 PUFF INH IH SCH (08:06)
[2020-10-03] MEDS: Acetaminophen 325 MG TABLET PO PRN (08:28)
[2020-10-03] MEDS: Aspirin Enteric Coated 81 MG Tablet PO SCH (08:28)
[2020-10-03] MEDS: carvediloL 6.25 MG TABLET PO SCH (08:28)
[2020-10-03] MEDS: Furosemide 40 MG/4 ML VIAL IVP SCH (08:30)
[2020-10-03] MEDS: Lactulose Oral Soln 20 GM/30 ML UDC PO SCH ×2 (08:30→12:01)
[2020-10-03] MEDS: Insulin LISPRO 300 UNITS/3 ML VIAL SUBQ SCH ×2 (08:31→11:46)
[2020-10-03] MEDS: *HR* LORazepam 0.5 MG TABLET PO PRN (08:45)
[2020-10-03] MEDS ORDERED: predniSONE 20 MG TABLET PO SCH (09:00)
[2020-10-03 12:13] VITALS: BP 112/69
== END 2020-10-03 13:29 | disposition home health service (06) | DRG 291 ==
LOC: 2NENU → SUATTDRO 04:26
PROVIDERS: ADMIT Internal Medicine; ATTEND Internal Medicine

== ENCOUNTER 2020-11-16 22:37 | Inpatient (IN) ==
[2020-11-17] MEDS ORDERED: Naloxone 0.4 MG/ML INJ IVP PRN (02:29)
[2020-11-17] MEDS ORDERED: *HR* Midazolam HCl 5 MG/5 ML VIAL IVP ONE (02:36)
[2020-11-17 02:51] LABS: ABG Base Excess 16 mEq/L (-2 to 3); ABG HCO3 44 mEq/L (21-27); ABG Oxygen Saturation 96 % (95-98); ABG PCO2 72 mmHg (35-45); ABG PH 7.39 pH Units (7.32-7.45); ABG PO2 89 mmHg (85-104); ABG TCO2 46 mEq/L (20-26); Blood Gas VT 450 cc
[2020-11-17] MEDS ORDERED: Artificial Tears SOLN 15 ML BOTTLE BOTH EYES PRN (02:51)
[2020-11-17] MEDS: FentaNYL (PF) 1,000 MCG/100 ML IV.SOLN IVC SCH ×2 (03:09→15:18)
[2020-11-17] MEDS: Artificial Tears SOLN 15 ML BOTTLE BOTH EYES SCH ×5 (03:18→19:51)
[2020-11-17] MEDS: Dexmedetomidine HCl 400 MCG/100 ML MLS IVC SCH ×4 (03:18→23:23)
[2020-11-17] MEDS: Chlorhexidine Rinse 15 ML MOUTHWASH MM SCH ×3 (03:18→19:51)
[2020-11-17] MEDS ORDERED: D5% in Water 1,000 ML IVC PRN (03:29)
[2020-11-17] MEDS ORDERED: Dextrose Gel 15 GM/37.5 ML TUBE PO PRN ×2 (03:29)
[2020-11-17] MEDS: Ipratropium/Albuterol Neb 3 ML IH PRN ×2 (03:45→08:08)
[2020-11-17] MEDS: Insulin LISPRO 300 UNITS/3 ML VIAL SUBQ SCH ×5 (04:07→19:54)
[2020-11-17] MEDS ORDERED: Acetaminophen IV 500 MG/50 ML BAG IVPB ONE (04:45)
[2020-11-17] MEDS: *HR* Heparin 5,000 UNIT/ML VIAL SQ SCH ×3 (05:00→21:48)
[2020-11-17 05:30] LABS: Basophils # 0.1 K/mcL (0.0-0.2); Basophils % 0.4 %; Eosinophils % 0.3 %; Hematocrit 36.4 % (35.3-44.9); Hemoglobin 10.9 g/dL (11.5-15.4); Lymphocytes # 3.2 K/mcL (0.6-4.6); Lymphocytes % 23.2 %; Mean Corpuscular HGB Conc 29.9 g/dL (31.6-35.5); Mean Corpuscular Hemoglobin 30.6 pg (28.0-33.3); Mean Corpuscular Volume 102.2 fL (83.0-100.0); Mean Platelet Volume 9.6 fL (9.4-12.4); Monocytes # 1.6 K/mcL (0.0-1.3); Monocytes % 11.3 %; Neutrophils # 8.9 K/mcL (1.6-8.9); Nucleated Red Blood Cells 0.4 /100 WBC (0); Platelet Count 193 K/mcL (140-400); Red Blood Count 3.56 M/mcL (3.82-4.97); Red Cell Distribution Width 12.6 % (11.5-14.5); Segmented Neutrophils % 63.8 %
[2020-11-17 05:33] LABS: VBG Ionized Calcium 1.13 mmol/L (1.15-1.35)
[2020-11-17] MEDS ORDERED: Albuterol 2.5 MG/3 ML NEBULIZER IH PRN (05:47)
[2020-11-17 06:02] LABS: BUN/Creatinine Ratio 26 (6-26); Blood Urea Nitrogen 15 mg/dL (8-23); Calcium 9.7 mg/dL (8.6-10.3); Carbon Dioxide > 45 mEq/L (23-29); Chloride 87 mEq/L (98-107); Glucose 280 mg/dL (70-105); Magnesium 1.9 mg/dL (1.6-2.6); Osmolality,Calculated 305 (280-300); Phosphorous 1.1 mg/dL (2.7-4.5); Potassium 3.9 mEq/L (3.5-5.1); Sodium 142 mEq/L (136-145); eGFR For African Americans > 60 (> 60); eGFR For Non-African Americans > 60 (> 60)
[2020-11-17] MEDS: Azithromycin 500 MG in 0.9 % Sodium Chloride 250 ML IVPB SCH (06:08)
[2020-11-17] MEDS ORDERED: Potassium Phosphate 44 MEQ in 0.9 % Sodium Chloride 250 ML IVPB ONE (06:18)
[2020-11-17] MEDS: Pantoprazole 40 MG VIAL IVP SCH (08:33)
[2020-11-17] MEDS: predniSONE 20 MG TABLET PO SCH (08:34)
[2020-11-17] MEDS: Lactulose Oral Soln 20 GM/30 ML UDC GTUBE SCH ×2 (08:34→19:51)
[2020-11-17] MEDS ORDERED: Calcium Gluconate 1gm/50mL 1 GM/50 ML BAG IVPB ONE (09:37)
[2020-11-17] MEDS: Albuterol 2.5 MG/3 ML NEBULIZER IH SCH ×7 (09:49→21:03)
[2020-11-17 10:14] LABS: Adenovirus Not Detected (Not Detect); Coronavirus 229E Not Detected (Not Detect); Coronavirus HKU1 Not Detected (Not Detect); Coronavirus NL63 Not Detected (Not Detect); Coronavirus OC43 Not Detected (Not Detect); Human Metapneumovirus Not Detected (Not Detect); Human Rhinovirus/Enterovirus Not Detected (Not Detect); Influenza A Subtype 2009 H1 Not Detected (Not Detect)
[2020-11-17 10:15] LABS: Bordetella Pertussis Not Detected (Not Detect); Chlamydophila pneumoniae Not Detected (Not Detect); Influenza B Not Detected (Not Detect); Mycoplasma pneumoniae Not Detected (Not Detect); Parainfluenza Virus 1 Not Detected (Not Detect); Parainfluenza Virus 2 Not Detected (Not Detect); Parainfluenza Virus 3 Not Detected (Not Detect); Parainfluenza Virus 4 Not Detected (Not Detect); Respiratory Syncytial Virus Not Detected (Not Detect)
[2020-11-17 10:52] LABS: % Iron Saturation 9 % (15-50); Iron 31 mcg/dL (50-170); Transferrin 246 mg/dL (203-362)
[2020-11-17 11:11] LABS: Ferritin 57 ng/mL (10-120)
[2020-11-17 11:16] LABS: Folate 10.1 ng/mL (3.0-16.0)
[2020-11-17] MEDS: Ipratropium/Albuterol Neb 3 ML IH SCH ×4 (11:49→23:16)
[2020-11-17] MEDS: *HR* Midazolam HCl 2 MG/2 ML VIAL IVP PRN (12:16)
[2020-11-17 15:21] LABS: VBG Ionized Calcium 1.12 mmol/L (1.15-1.35)
[2020-11-17 17:07] LABS: BUN/Creatinine Ratio 33 (6-26); Blood Urea Nitrogen 15 mg/dL (8-23); Carbon Dioxide 40 mEq/L (23-29); Chloride 89 mEq/L (98-107); Glucose 339 mg/dL (70-105); Osmolality,Calculated 302 (280-300); Potassium 3.6 mEq/L (3.5-5.1); Sodium 139 mEq/L (136-145); eGFR For African Americans > 60 (> 60); eGFR For Non-African Americans > 60 (> 60)
[2020-11-18] MEDS: Artificial Tears SOLN 15 ML BOTTLE BOTH EYES SCH ×6 (00:02→20:17)
[2020-11-18] MEDS: *HR* Midazolam HCl 2 MG/2 ML VIAL IVP PRN ×6 (00:02→16:38)
[2020-11-18] MEDS: Insulin LISPRO 300 UNITS/3 ML VIAL SUBQ SCH ×6 (00:04→20:17)
[2020-11-18] MEDS: FentaNYL (PF) 1,000 MCG/100 ML IV.SOLN IVC SCH ×4 (00:32→19:50)
[2020-11-18] MEDS: Ipratropium/Albuterol Neb 3 ML IH SCH ×6 (03:28→22:44)
[2020-11-18 04:11] LABS: ABG Base Excess 8 mEq/L (-2 to 3); ABG HCO3 39 mEq/L (21-27); ABG Oxygen Saturation 94 % (95-98); ABG PCO2 90 mmHg (35-45); ABG PH 7.24 pH Units (7.32-7.45); ABG PO2 88 mmHg (85-104); ABG TCO2 42 mEq/L (20-26); Blood Gas VT 430 cc
[2020-11-18] MEDS: Azithromycin 500 MG in 0.9 % Sodium Chloride 250 ML IVPB SCH (05:02)
[2020-11-18] MEDS: *HR* Heparin 5,000 UNIT/ML VIAL SQ SCH ×3 (05:02→22:11)
[2020-11-18 05:09] LABS: Basophils % 0.2 %; Eosinophils % 0.1 %; Hematocrit 35.7 % (35.3-44.9); Hemoglobin 11.2 g/dL (11.5-15.4); Immature Granulocytes % 0.6 % (0-4); Lymphocytes # 2.3 K/mcL (0.6-4.6); Lymphocytes % 15.6 %; Mean Corpuscular HGB Conc 31.4 g/dL (31.6-35.5); Mean Corpuscular Hemoglobin 30.9 pg (28.0-33.3); Mean Corpuscular Volume 98.6 fL (83.0-100.0); Mean Platelet Volume 9.7 fL (9.4-12.4); Monocytes # 2.1 K/mcL (0.0-1.3); Monocytes % 14.6 %; Neutrophils # 9.9 K/mcL (1.6-8.9); Nucleated Red Blood Cells 0.1 /100 WBC (0); Platelet Count 197 K/mcL (140-400); Red Blood Count 3.62 M/mcL (3.82-4.97); Red Cell Distribution Width 12.5 % (11.5-14.5); Segmented Neutrophils % 68.9 %; White Blood Count 14.4 K/mcL (4.3-11.1)
[2020-11-18 05:22] LABS: Prothrombin Time 11.2 Seconds (9.4-12.1)
[2020-11-18 05:25] LABS: Activated Partial Thrombo Time 24.4 Seconds (26.0-36.0)
[2020-11-18 05:27] LABS: Magnesium 1.9 mg/dL (1.6-2.6); Phosphorous 3.3 mg/dL (2.7-4.5)
[2020-11-18] MEDS: Dexmedetomidine HCl 400 MCG/100 ML MLS IVC SCH ×4 (06:15→22:12)
[2020-11-18 07:34] LABS: BUN/Creatinine Ratio 41 (6-26); Blood Urea Nitrogen 19 mg/dL (8-23); Calcium 9.4 mg/dL (8.6-10.3); Carbon Dioxide 39 mEq/L (23-29); Chloride 90 mEq/L (98-107); Glucose 260 mg/dL (70-105); Osmolality,Calculated 299 (280-300); Sodium 139 mEq/L (136-145); eGFR For African Americans > 60 (> 60); eGFR For Non-African Americans > 60 (> 60)
[2020-11-18] MEDS: Chlorhexidine Rinse 15 ML MOUTHWASH MM SCH ×2 (08:23→20:16)
[2020-11-18] MEDS: Pantoprazole 40 MG VIAL IVP SCH (08:23)
[2020-11-18] MEDS: Lactulose Oral Soln 20 GM/30 ML UDC GTUBE SCH ×2 (08:23→20:16)
[2020-11-18] MEDS: predniSONE 20 MG TABLET PO SCH (08:23)
[2020-11-18] MEDS ORDERED: Furosemide 40 MG/4 ML VIAL IVP ONE (09:02)
[2020-11-18] MEDS ORDERED: Potassium Chloride Elixir 20 MEQ/15 ML UDC PO ONE (09:27)
[2020-11-18 14:46] LABS: BUN/Creatinine Ratio 42 (6-26); Blood Urea Nitrogen 21 mg/dL (8-23); Calcium 9.1 mg/dL (8.6-10.3); Carbon Dioxide 40 mEq/L (23-29); Chloride 89 mEq/L (98-107); Glucose 380 mg/dL (70-105); Osmolality,Calculated 303 (280-300); Potassium 3.5 mEq/L (3.5-5.1); Sodium 137 mEq/L (136-145); eGFR For African Americans > 60 (> 60); eGFR For Non-African Americans > 60 (> 60)
[2020-11-18] MEDS ORDERED: Potassium Chloride Elixir 20 MEQ/15 ML UDC GTUBE ONE (14:49)
[2020-11-18] MEDS: Insulin DETEMIR 100 UNIT/ML X5UNITS SUBQ SCH (20:16)
[2020-11-18] MEDS ORDERED: Insulin DETEMIR 100 UNIT/ML X5UNITS SUBQ SCH (21:00)
[2020-11-19] MEDS: Artificial Tears SOLN 15 ML BOTTLE BOTH EYES SCH ×7 (00:17→23:42)
[2020-11-19] MEDS: Insulin LISPRO 300 UNITS/3 ML VIAL SUBQ SCH ×7 (00:18→23:43)
[2020-11-19] MEDS: FentaNYL (PF) 2,500 MCG/50 ML IV.SOLN IVC SCH ×3 (00:25→17:42)
[2020-11-19] MEDS: Dexmedetomidine HCl 400 MCG/100 ML MLS IVC SCH ×5 (02:05→20:54)
[2020-11-19] MEDS: Ipratropium/Albuterol Neb 3 ML IH SCH ×5 (04:21→20:11)
[2020-11-19 04:57] LABS: ABG Base Excess 17 mEq/L (-2 to 3); ABG HCO3 44 mEq/L (21-27); ABG Oxygen Saturation 92 % (95-98); ABG PCO2 64 mmHg (35-45); ABG PH 7.44 pH Units (7.32-7.45); ABG PO2 65 mmHg (85-104); ABG TCO2 45 mEq/L (20-26); Blood Gas Modality ASSIST CONTROL; Blood Gas VT 450 cc
[2020-11-19] MEDS: *HR* Heparin 5,000 UNIT/ML VIAL SQ SCH ×3 (05:35→20:56)
[2020-11-19] MEDS: Azithromycin 500 MG in 0.9 % Sodium Chloride 250 ML IVPB SCH (05:35)
[2020-11-19 06:10] LABS: Basophils % 0.2 %; Eosinophils # 0.1 K/mcL (0.0-0.6); Eosinophils % 0.6 %; Hematocrit 33.8 % (35.3-44.9); Hemoglobin 10.4 g/dL (11.5-15.4); Immature Granulocytes % 1.1 % (0-4); Lymphocytes # 2.8 K/mcL (0.6-4.6); Lymphocytes % 17.6 %; Mean Corpuscular HGB Conc 30.8 g/dL (31.6-35.5); Mean Corpuscular Hemoglobin 30.4 pg (28.0-33.3); Mean Corpuscular Volume 98.8 fL (83.0-100.0); Mean Platelet Volume 10.3 fL (9.4-12.4); Monocytes % 12.6 %; Neutrophils # 10.9 K/mcL (1.6-8.9); Nucleated Red Blood Cells 0.1 /100 WBC (0); Platelet Count 187 K/mcL (140-400); Red Blood Count 3.42 M/mcL (3.82-4.97); Segmented Neutrophils % 67.9 %; White Blood Count 16.1 K/mcL (4.3-11.1)
[2020-11-19 07:03] LABS: Alanine Aminotransferase 11 Units/L (7-52); Albumin 3.2 g/dL (3.5-5.7); Albumin/Globulin Ratio 1.1 (1.1-2.2); Alkaline Phosphatase 47 Units/L (34-104); Aspartate Amino Transferase 11 Units/L (13-39); BUN/Creatinine Ratio 47 (6-26); Bilirubin,Total 0.3 mg/dL (0.3-1.0); Blood Urea Nitrogen 17 mg/dL (8-23); Calcium 8.9 mg/dL (8.6-10.3); Carbon Dioxide 37 mEq/L (23-29); Chloride 93 mEq/L (98-107); Globulin 2.8 g/dL (2.4-3.5); Glucose 287 mg/dL (70-105); Magnesium 1.8 mg/dL (1.6-2.6); Osmolality,Calculated 298 (280-300); Phosphorous 2.8 mg/dL (2.7-4.5); Potassium 3.2 mEq/L (3.5-5.1); Sodium 138 mEq/L (136-145); eGFR For African Americans > 60 (> 60); eGFR For Non-African Americans > 60 (> 60)
[2020-11-19] MEDS: *HR* Midazolam HCl 2 MG/2 ML VIAL IVP PRN ×9 (08:20→22:43)
[2020-11-19] MEDS: Lactulose Oral Soln 20 GM/30 ML UDC GTUBE SCH (08:29)
[2020-11-19] MEDS: Chlorhexidine Rinse 15 ML MOUTHWASH MM SCH ×2 (08:29→20:21)
[2020-11-19] MEDS: predniSONE 20 MG TABLET PO SCH (08:29)
[2020-11-19] MEDS: Pantoprazole 40 MG VIAL IVP SCH (08:29)
[2020-11-19] MEDS: Insulin DETEMIR 100 UNIT/ML X5UNITS SUBQ SCH ×2 (08:43→20:39)
[2020-11-19] MEDS ORDERED: Furosemide 40 MG/4 ML VIAL IVP ONE (09:39)
[2020-11-19] MEDS ORDERED: Potassium Chloride Elixir 20 MEQ/15 ML UDC GTUBE ONE ×2 (11:38→18:41)
[2020-11-19] MEDS: QUEtiapine Fumarate 25 MG TABLET GTUBE SCH ×2 (11:49→20:21)
[2020-11-19 12:55] LABS: Albumin 3.6 g/dL (3.5-5.7); Albumin/Globulin Ratio 1.1 (1.1-2.2); Bilirubin,Direct 0.1 mg/dL (0.0-0.2); Bilirubin,Indirect 0.3 mg/dL (0.0-1.0); Bilirubin,Total 0.4 mg/dL (0.3-1.0); Globulin 3.3 g/dL (2.4-3.5); Total Protein 6.9 g/dL (6.4-8.9)
[2020-11-19] MEDS: cefTRIAXone 1,000 MG in Water for inj. (sterile) 10 ML IVP SCH (15:36)
[2020-11-19] MEDS: Potassium Phosphate 44 MEQ in 0.9 % Sodium Chloride 250 ML IVPB PRN (18:45)
[2020-11-20] MEDS: Ipratropium/Albuterol Neb 3 ML IH SCH ×6 (00:15→19:46)
[2020-11-20] MEDS: Dexmedetomidine HCl 400 MCG/100 ML MLS IVC SCH ×6 (01:52→23:03)
[2020-11-20] MEDS ORDERED: methylPREDNISolone 125 MG/2 ML VIAL IVP ONE (01:54)
[2020-11-20] MEDS ORDERED: methylPREDNISolone 125 MG/2 ML VIAL ONE (01:57)
[2020-11-20 02:16] LABS: ABG Base Excess 13 mEq/L (-2 to 3); ABG HCO3 41 mEq/L (21-27); ABG Oxygen Saturation 98 % (95-98); ABG PCO2 69 mmHg (35-45); ABG PH 7.38 pH Units (7.32-7.45); ABG PO2 116 mmHg (85-104); ABG TCO2 43 mEq/L (20-26); Blood Gas Modality ASSIST CONTROL; Blood Gas VT 400 cc
[2020-11-20] MEDS: Artificial Tears SOLN 15 ML BOTTLE BOTH EYES SCH ×5 (03:53→21:47)
[2020-11-20] MEDS: Insulin LISPRO 300 UNITS/3 ML VIAL SUBQ SCH ×5 (03:54→21:46)
[2020-11-20] MEDS: Acetylcysteine 10% 2 ML INHSOL IH SCH ×6 (04:00→19:46)
[2020-11-20 04:22] LABS: Basophils % 0.2 %; Eosinophils # 0.1 K/mcL (0.0-0.6); Eosinophils % 0.3 %; Hematocrit 33.1 % (35.3-44.9); Hemoglobin 10.2 g/dL (11.5-15.4); Immature Granulocytes % 1.5 % (0-4); Lymphocytes # 1.2 K/mcL (0.6-4.6); Lymphocytes % 6.1 %; Mean Corpuscular HGB Conc 30.8 g/dL (31.6-35.5); Mean Corpuscular Hemoglobin 30.3 pg (28.0-33.3); Mean Corpuscular Volume 98.2 fL (83.0-100.0); Mean Platelet Volume 9.9 fL (9.4-12.4); Monocytes # 3.1 K/mcL (0.0-1.3); Monocytes % 15.4 %; Neutrophils # 15.4 K/mcL (1.6-8.9); Nucleated Red Blood Cells 0.4 /100 WBC (0); Platelet Count 187 K/mcL (140-400); Red Blood Count 3.37 M/mcL (3.82-4.97); Segmented Neutrophils % 76.5 %; White Blood Count 20.2 K/mcL (4.3-11.1)
[2020-11-20 04:48] LABS: BUN/Creatinine Ratio 50 (6-26); Blood Urea Nitrogen 27 mg/dL (8-23); Carbon Dioxide 41 mEq/L (23-29); Chloride 93 mEq/L (98-107); Glucose 211 mg/dL (70-105); Magnesium 2.1 mg/dL (1.6-2.6); Osmolality,Calculated 301 (280-300); Phosphorous 5.2 mg/dL (2.7-4.5); Potassium 3.5 mEq/L (3.5-5.1); Sodium 140 mEq/L (136-145); eGFR For African Americans > 60 (> 60); eGFR For Non-African Americans > 60 (> 60)
[2020-11-20 05:00] LABS: ABG Base Excess 15 mEq/L (-2 to 3); ABG HCO3 43 mEq/L (21-27); ABG Oxygen Saturation 89 % (95-98); ABG PCO2 80 mmHg (35-45); ABG PH 7.34 pH Units (7.32-7.45); ABG PO2 64 mmHg (85-104); ABG TCO2 46 mEq/L (20-26); Blood Gas VT 400 cc
[2020-11-20] MEDS: FentaNYL (PF) 2,500 MCG/50 ML IV.SOLN IVC SCH ×2 (05:21→17:53)
[2020-11-20] MEDS: Azithromycin 500 MG in 0.9 % Sodium Chloride 250 ML IVPB SCH (05:23)
[2020-11-20] MEDS: *HR* Heparin 5,000 UNIT/ML VIAL SQ SCH ×3 (05:23→21:45)
[2020-11-20] MEDS: Pantoprazole 40 MG VIAL IVP SCH (08:28)
[2020-11-20] MEDS: methylPREDNISolone 125 MG/2 ML VIAL IVP SCH (08:29)
[2020-11-20] MEDS: QUEtiapine Fumarate 25 MG TABLET GTUBE SCH ×2 (08:29→21:44)
[2020-11-20] MEDS: Chlorhexidine Rinse 15 ML MOUTHWASH MM SCH ×2 (08:29→21:45)
[2020-11-20] MEDS: Insulin DETEMIR 100 UNIT/ML X5UNITS SUBQ SCH ×2 (08:30→21:45)
[2020-11-20] MEDS ORDERED: Insulin DETEMIR 100 UNIT/ML X5UNITS SUBQ ONE (09:00)
[2020-11-20] MEDS ORDERED: Potassium Chloride Elixir 20 MEQ/15 ML UDC GTUBE ONE (09:45)
[2020-11-20] MEDS ORDERED: Furosemide 40 MG/4 ML VIAL IVP ONE (11:01)
[2020-11-20] MEDS: cefTRIAXone 1,000 MG in Water for inj. (sterile) 10 ML IVP SCH (14:18)
[2020-11-20] MEDS: MethylPREDNISolone 40 MG/ML VIAL IVP SCH (17:50)
[2020-11-20] MEDS ORDERED: Insulin DETEMIR 100 UNIT/ML X5UNITS SUBQ SCH (21:00)
[2020-11-20] MEDS: *HR* Midazolam HCl 2 MG/2 ML VIAL IVP PRN (23:36)
[2020-11-21] MEDS: Acetylcysteine 10% 2 ML INHSOL IH SCH ×7 (00:09→23:49)
[2020-11-21] MEDS: Ipratropium/Albuterol Neb 3 ML IH SCH ×7 (00:09→23:49)
[2020-11-21] MEDS: Insulin LISPRO 300 UNITS/3 ML VIAL SUBQ SCH ×7 (00:27→23:29)
[2020-11-21] MEDS: Artificial Tears SOLN 15 ML BOTTLE BOTH EYES SCH ×7 (00:28→23:29)
[2020-11-21] MEDS: Dexmedetomidine HCl 400 MCG/100 ML MLS IVC SCH ×6 (03:36→23:16)
[2020-11-21 04:14] LABS: ABG Base Excess 14 mEq/L (-2 to 3); ABG HCO3 43 mEq/L (21-27); ABG Oxygen Saturation 97 % (95-98); ABG PCO2 82 mmHg (35-45); ABG PH 7.33 pH Units (7.32-7.45); ABG PO2 101 mmHg (85-104); ABG TCO2 46 mEq/L (20-26); Blood Gas Modality AF; Blood Gas VT 400 cc
[2020-11-21 04:49] LABS: Basophils # 0.1 K/mcL (0.0-0.2); Basophils % 0.2 %; Immature Granulocytes % 1.3 % (0-4); Lymphocytes # 1.3 K/mcL (0.6-4.6); Lymphocytes % 5.5 %; Mean Corpuscular HGB Conc 30.3 g/dL (31.6-35.5); Mean Corpuscular Volume 99.1 fL (83.0-100.0); Mean Platelet Volume 10.5 fL (9.4-12.4); Monocytes # 2.9 K/mcL (0.0-1.3); Monocytes % 11.9 %; Neutrophils # 19.4 K/mcL (1.6-8.9); Nucleated Red Blood Cells 0.4 /100 WBC (0); Platelet Count 218 K/mcL (140-400); Red Blood Count 3.33 M/mcL (3.82-4.97); Red Cell Distribution Width 12.7 % (11.5-14.5); Segmented Neutrophils % 81.1 %; White Blood Count 23.9 K/mcL (4.3-11.1)
[2020-11-21 04:57] LABS: INR 1.2; Prothrombin Time 13.6 Seconds (9.4-12.1)
[2020-11-21] MEDS: *HR* Midazolam HCl 2 MG/2 ML VIAL IVP PRN ×6 (04:58→23:16)
[2020-11-21] MEDS: MethylPREDNISolone 40 MG/ML VIAL IVP SCH ×2 (05:01→17:21)
[2020-11-21] MEDS: *HR* Heparin 5,000 UNIT/ML VIAL SQ SCH ×3 (05:02→21:34)
[2020-11-21 05:13] LABS: Alanine Aminotransferase 15 Units/L (7-52); Albumin 3.2 g/dL (3.5-5.7); Albumin/Globulin Ratio 0.8 (1.1-2.2); Alkaline Phosphatase 56 Units/L (34-104); Aspartate Amino Transferase 15 Units/L (13-39); BUN/Creatinine Ratio 66 (6-26); Bilirubin,Total 0.2 mg/dL (0.3-1.0); Blood Urea Nitrogen 27 mg/dL (8-23); Calcium 9.1 mg/dL (8.6-10.3); Carbon Dioxide 42 mEq/L (23-29); Chloride 93 mEq/L (98-107); Globulin 3.8 g/dL (2.4-3.5); Glucose 194 mg/dL (70-105); Magnesium 2.1 mg/dL (1.6-2.6); Osmolality,Calculated 302 (280-300); Phosphorous 2.8 mg/dL (2.7-4.5); Potassium 3.4 mEq/L (3.5-5.1); Sodium 141 mEq/L (136-145); eGFR For African Americans > 60 (> 60); eGFR For Non-African Americans > 60 (> 60)
[2020-11-21] MEDS: Pantoprazole 40 MG VIAL IVP SCH (08:50)
[2020-11-21] MEDS: Chlorhexidine Rinse 15 ML MOUTHWASH MM SCH ×2 (08:50→19:45)
[2020-11-21] MEDS: QUEtiapine Fumarate 25 MG TABLET GTUBE SCH ×2 (08:50→19:45)
[2020-11-21] MEDS: Insulin DETEMIR 100 UNIT/ML X5UNITS SUBQ SCH ×2 (08:51→19:47)
[2020-11-21] MEDS: methylPREDNISolone 125 MG/2 ML VIAL IVP SCH (09:39)
[2020-11-21] MEDS: *HR* Labetalol 20 MG/4 ML SYRINGE IVP PRN (10:54)
[2020-11-21] MEDS: FentaNYL (PF) 2,500 MCG/50 ML IV.SOLN IVC SCH (11:05)
[2020-11-21] MEDS ORDERED: *HR* Labetalol 20 MG/4 ML SYRINGE IVP ONE (13:53)
[2020-11-21] MEDS: cefTRIAXone 1,000 MG in Water for inj. (sterile) 10 ML IVP SCH (15:11)
[2020-11-21 15:48] LABS: VBG Ionized Calcium 1.22 mmol/L (1.15-1.35)
[2020-11-21 16:10] LABS: BUN/Creatinine Ratio 73 (6-26); Blood Urea Nitrogen 30 mg/dL (8-23); Calcium 9.1 mg/dL (8.6-10.3); Carbon Dioxide 43 mEq/L (23-29); Chloride 94 mEq/L (98-107); Glucose 129 mg/dL (70-105); Osmolality,Calculated 300 (280-300); Potassium 3.3 mEq/L (3.5-5.1); Sodium 141 mEq/L (136-145); eGFR For African Americans > 60 (> 60); eGFR For Non-African Americans > 60 (> 60)
[2020-11-21] MEDS ORDERED: Potassium Chloride Elixir 20 MEQ/15 ML UDC GTUBE ONE (18:00)
[2020-11-22] MEDS: *HR* Midazolam HCl 2 MG/2 ML VIAL IVP PRN ×3 (03:04→18:35)
[2020-11-22] MEDS: Dexmedetomidine HCl 400 MCG/100 ML MLS IVC SCH ×6 (03:07→21:45)
[2020-11-22] MEDS: Artificial Tears SOLN 15 ML BOTTLE BOTH EYES SCH ×4 (03:24→16:23)
[2020-11-22] MEDS: Acetylcysteine 10% 2 ML INHSOL IH SCH ×6 (03:39→23:30)
[2020-11-22] MEDS: Ipratropium/Albuterol Neb 3 ML IH SCH ×6 (03:39→23:30)
[2020-11-22 03:50] LABS: Basophils % 0.2 %; Eosinophils # 0.1 K/mcL (0.0-0.6); Eosinophils % 0.5 %; Hematocrit 31.8 % (35.3-44.9); Hemoglobin 9.6 g/dL (11.5-15.4); Immature Granulocytes % 1.8 % (0-4); Lymphocytes # 1.1 K/mcL (0.6-4.6); Lymphocytes % 5.4 %; Mean Corpuscular HGB Conc 30.2 g/dL (31.6-35.5); Mean Corpuscular Hemoglobin 30.8 pg (28.0-33.3); Mean Corpuscular Volume 101.9 fL (83.0-100.0); Mean Platelet Volume 10.3 fL (9.4-12.4); Monocytes # 2.9 K/mcL (0.0-1.3); Monocytes % 14.7 %; Neutrophils # 15.1 K/mcL (1.6-8.9); Nucleated Red Blood Cells 0.3 /100 WBC (0); Platelet Count 233 K/mcL (140-400); Red Blood Count 3.12 M/mcL (3.82-4.97); Red Cell Distribution Width 12.6 % (11.5-14.5); Segmented Neutrophils % 77.4 %; White Blood Count 19.5 K/mcL (4.3-11.1)
[2020-11-22 04:14] LABS: ABG Base Excess 14 mEq/L (-2 to 3); ABG HCO3 42 mEq/L (21-27); ABG Oxygen Saturation 94 % (95-98); ABG PCO2 72 mmHg (35-45); ABG PH 7.37 pH Units (7.32-7.45); ABG PO2 76 mmHg (85-104); ABG TCO2 44 mEq/L (20-26); Blood Gas VT 400 cc
[2020-11-22 04:23] LABS: BUN/Creatinine Ratio 66 (6-26); Blood Urea Nitrogen 25 mg/dL (8-23); Carbon Dioxide 41 mEq/L (23-29); Chloride 94 mEq/L (98-107); Glucose 244 mg/dL (70-105); Magnesium 2.1 mg/dL (1.6-2.6); Osmolality,Calculated 300 (280-300); Potassium 3.9 mEq/L (3.5-5.1); Sodium 139 mEq/L (136-145); eGFR For African Americans > 60 (> 60); eGFR For Non-African Americans > 60 (> 60)
[2020-11-22] MEDS: FentaNYL (PF) 2,500 MCG/50 ML IV.SOLN IVC SCH (04:32)
[2020-11-22] MEDS: Insulin LISPRO 300 UNITS/3 ML VIAL SUBQ SCH ×5 (04:35→20:39)
[2020-11-22] MEDS ORDERED: Furosemide 20 MG/2 ML VIAL IVP ONE (05:00)
[2020-11-22] MEDS ORDERED: Potassium Chloride Elixir 20 MEQ/15 ML UDC GTUBE ONE (05:22)
[2020-11-22] MEDS: *HR* Heparin 5,000 UNIT/ML VIAL SQ SCH ×3 (05:38→21:46)
[2020-11-22] MEDS: MethylPREDNISolone 40 MG/ML VIAL IVP SCH ×2 (05:38→17:23)
[2020-11-22] MEDS ORDERED: Furosemide 40 MG/4 ML VIAL IVP ONE (08:19)
[2020-11-22] MEDS: *HR* Labetalol 20 MG/4 ML SYRINGE IVP PRN ×2 (08:23→15:45)
[2020-11-22] MEDS: Pantoprazole 40 MG VIAL IVP SCH (08:50)
[2020-11-22] MEDS: Chlorhexidine Rinse 15 ML MOUTHWASH MM SCH ×2 (08:50→20:40)
[2020-11-22] MEDS: QUEtiapine Fumarate 25 MG TABLET GTUBE SCH (08:52)
[2020-11-22] MEDS: Insulin DETEMIR 100 UNIT/ML X5UNITS SUBQ SCH (08:54)
[2020-11-22] MEDS ORDERED: Haloperidol Lactate 5 MG/ML VIAL IVP ONE (12:00)
[2020-11-22] MEDS ORDERED: Haloperidol Lactate 5 MG/ML VIAL IM PRN (14:02)
[2020-11-22] MEDS: *HR* LORazepam 2 MG/ML VIAL IVP SCH ×2 (15:45→18:30)
[2020-11-22] MEDS: cefTRIAXone 1,000 MG in Water for inj. (sterile) 10 ML IVP SCH (15:45)
[2020-11-22] MEDS: *HR* Dextrose 50 % in Water (Vial) 50 ML VIAL IVP PRN ×2 (15:52→18:49)
[2020-11-22 18:27] LABS: BUN/Creatinine Ratio 58 (6-26); Blood Urea Nitrogen 23 mg/dL (8-23); Calcium 9.2 mg/dL (8.6-10.3); Carbon Dioxide 43 mEq/L (23-29); Chloride 93 mEq/L (98-107); Glucose 55 mg/dL (70-105); Osmolality,Calculated 299 (280-300); Phosphorous 1.8 mg/dL (2.7-4.5); Potassium 3.1 mEq/L (3.5-5.1); Sodium 144 mEq/L (136-145); eGFR For African Americans > 60 (> 60); eGFR For Non-African Americans > 60 (> 60)
[2020-11-22] MEDS: Potassium Phosphate 44 MEQ in 0.9 % Sodium Chloride 250 ML IVPB PRN (18:55)
[2020-11-22] MEDS ORDERED: *HR* LORazepam 2 MG/ML VIAL ONE (20:30)
[2020-11-23] MEDS: *HR* LORazepam 2 MG/ML VIAL IVP SCH ×2 (00:14→03:59)
[2020-11-23] MEDS: Insulin LISPRO 300 UNITS/3 ML VIAL SUBQ SCH ×7 (00:15→23:10)
[2020-11-23] MEDS: Dexmedetomidine HCl 400 MCG/100 ML MLS IVC SCH ×3 (01:32→14:17)
[2020-11-23 02:00] LABS: BUN/Creatinine Ratio 55 (6-26); Blood Urea Nitrogen 21 mg/dL (8-23); Calcium 8.9 mg/dL (8.6-10.3); Carbon Dioxide 38 mEq/L (23-29); Chloride 95 mEq/L (98-107); Glucose 134 mg/dL (70-105); Osmolality,Calculated 297 (280-300); Potassium 3.7 mEq/L (3.5-5.1); Sodium 141 mEq/L (136-145); eGFR For African Americans > 60 (> 60); eGFR For Non-African Americans > 60 (> 60)
[2020-11-23] MEDS ORDERED: Furosemide 20 MG/2 ML VIAL IVP ONE (02:07)
[2020-11-23] MEDS: Acetylcysteine 10% 2 ML INHSOL IH SCH ×6 (03:32→23:32)
[2020-11-23] MEDS: Ipratropium/Albuterol Neb 3 ML IH SCH ×6 (03:33→23:32)
[2020-11-23 04:56] LABS: Basophils # 0.1 K/mcL (0.0-0.2); Basophils % 0.7 %; Hematocrit 35.4 % (35.3-44.9); Hemoglobin 10.8 g/dL (11.5-15.4); Immature Granulocytes % 3.8 % (0-4); Lymphocytes # 2.2 K/mcL (0.6-4.6); Lymphocytes % 14.5 %; Mean Corpuscular HGB Conc 30.5 g/dL (31.6-35.5); Mean Corpuscular Hemoglobin 30.3 pg (28.0-33.3); Mean Corpuscular Volume 99.2 fL (83.0-100.0); Mean Platelet Volume 10.4 fL (9.4-12.4); Monocytes # 2.7 K/mcL (0.0-1.3); Monocytes % 17.5 %; Neutrophils # 9.7 K/mcL (1.6-8.9); Nucleated Red Blood Cells 0.1 /100 WBC (0); Platelet Count 291 K/mcL (140-400); Red Blood Count 3.57 M/mcL (3.82-4.97); Red Cell Distribution Width 12.8 % (11.5-14.5); Segmented Neutrophils % 63.5 %; White Blood Count 15.2 K/mcL (4.3-11.1)
[2020-11-23 05:14] LABS: BUN/Creatinine Ratio 55 (6-26); Blood Urea Nitrogen 22 mg/dL (8-23); Carbon Dioxide 40 mEq/L (23-29); Chloride 93 mEq/L (98-107); Glucose 136 mg/dL (70-105); Magnesium 1.8 mg/dL (1.6-2.6); Osmolality,Calculated 297 (280-300); Potassium 3.4 mEq/L (3.5-5.1); Sodium 141 mEq/L (136-145); eGFR For African Americans > 60 (> 60); eGFR For Non-African Americans > 60 (> 60)
[2020-11-23] MEDS: *HR* Heparin 5,000 UNIT/ML VIAL SQ SCH ×3 (05:25→21:06)
[2020-11-23] MEDS: MethylPREDNISolone 40 MG/ML VIAL IVP SCH ×2 (05:25→17:38)
[2020-11-23] MEDS: Pantoprazole 40 MG VIAL IVP SCH (07:58)
[2020-11-23] MEDS: Chlorhexidine Rinse 15 ML MOUTHWASH MM SCH (07:59)
[2020-11-23 08:11] LABS: Phosphorous 3.2 mg/dL (2.7-4.5)
[2020-11-23] MEDS ORDERED: Furosemide 40 MG/4 ML VIAL IVP ONE (08:35)
[2020-11-23] MEDS: *HR* LORazepam 2 MG/ML VIAL IVP PRN ×3 (11:10→23:38)
[2020-11-23] MEDS ORDERED: *HR* LORazepam 2 MG/ML VIAL IVP ONE (11:59)
[2020-11-23] MEDS: cefTRIAXone 1,000 MG in Water for inj. (sterile) 10 ML IVP SCH (14:15)
[2020-11-23 15:02] LABS: BUN/Creatinine Ratio 57 (6-26); Blood Urea Nitrogen 27 mg/dL (8-23); Calcium 9.1 mg/dL (8.6-10.3); Carbon Dioxide 37 mEq/L (23-29); Chloride 92 mEq/L (98-107); Glucose 275 mg/dL (70-105); Magnesium 2.3 mg/dL (1.6-2.6); Osmolality,Calculated 301 (280-300); Potassium 3.8 mEq/L (3.5-5.1); Sodium 138 mEq/L (136-145); eGFR For African Americans > 60 (> 60); eGFR For Non-African Americans > 60 (> 60)
[2020-11-23] MEDS: *HR* Metoprolol 5 MG/5 ML VIAL IVP PRN (23:49)
[2020-11-24] MEDS: Insulin LISPRO 300 UNITS/3 ML VIAL SUBQ SCH ×6 (03:00→23:21)
[2020-11-24 03:15] LABS: Hematocrit 37.7 % (35.3-44.9); Hemoglobin 11.6 g/dL (11.5-15.4); Mean Corpuscular HGB Conc 30.8 g/dL (31.6-35.5); Mean Corpuscular Hemoglobin 30.1 pg (28.0-33.3); Mean Corpuscular Volume 97.9 fL (83.0-100.0); Mean Platelet Volume 9.9 fL (9.4-12.4); Platelet Count 384 K/mcL (140-400); Red Blood Count 3.85 M/mcL (3.82-4.97); Red Cell Distribution Width 12.9 % (11.5-14.5)
[2020-11-24 03:16] LABS: Nucleated Red Blood Cells 0.4 /100 WBC (0)
[2020-11-24 03:25] LABS: VBG Ionized Calcium 1.13 mmol/L (1.15-1.35)
[2020-11-24 03:33] LABS: Anisocytosis 1+ (Not Present); Lymphocytes # 3.1 K/mcL (0.6-4.6); Monocytes # 1.7 K/mcL (0.0-1.3); Neutrophils # 11.9 K/mcL (1.6-8.9); Platelet Estimate Normal (Normal); Poikilocytosis 1+ (Not Present); Polychromasia 1+ (Not Present)
[2020-11-24 03:34] LABS: BUN/Creatinine Ratio 67 (6-26); Blood Urea Nitrogen 29 mg/dL (8-23); Calcium 9.5 mg/dL (8.6-10.3); Carbon Dioxide 36 mEq/L (23-29); Chloride 94 mEq/L (98-107); Glucose 157 mg/dL (70-105); Magnesium 2.3 mg/dL (1.6-2.6); Osmolality,Calculated 299 (280-300); Phosphorous 3.3 mg/dL (2.7-4.5); Potassium 3.9 mEq/L (3.5-5.1); Reactive Lymphocytes Present (Not Present); Smudge Cells Present (Not Present); Sodium 140 mEq/L (136-145); eGFR For African Americans > 60 (> 60); eGFR For Non-African Americans > 60 (> 60)
[2020-11-24] MEDS: Ipratropium/Albuterol Neb 3 ML IH SCH ×6 (03:36→23:23)
[2020-11-24] MEDS: Acetylcysteine 10% 2 ML INHSOL IH SCH ×6 (03:36→23:23)
[2020-11-24] MEDS ORDERED: Potassium Chloride 40 MEQ, Lidocaine 1% 2 ML in 0.9 % Sodium Chloride 500 ML IVPB ONE (03:44)
[2020-11-24] MEDS ORDERED: Furosemide 40 MG/4 ML VIAL IVP ONE ×2 (03:44→17:00)
[2020-11-24] MEDS: MethylPREDNISolone 40 MG/ML VIAL IVP SCH ×2 (05:15→18:00)
[2020-11-24] MEDS: *HR* Heparin 5,000 UNIT/ML VIAL SQ SCH ×3 (05:15→21:15)
[2020-11-24] MEDS: *HR* LORazepam 2 MG/ML VIAL IVP PRN ×4 (05:29→21:15)
[2020-11-24] MEDS: *HR* Metoprolol 5 MG/5 ML VIAL IVP PRN (05:57)
[2020-11-24] MEDS ORDERED: *HR* LORazepam 2 MG/ML VIAL IVP ONE (07:45)
[2020-11-24 07:53] LABS: ABG Base Excess 9 mEq/L (-2 to 3); ABG HCO3 36 mEq/L (21-27); ABG Oxygen Saturation 97 % (95-98); ABG PCO2 63 mmHg (35-45); ABG PH 7.37 pH Units (7.32-7.45); ABG PO2 98 mmHg (85-104); ABG TCO2 38 mEq/L (20-26)
[2020-11-24 10:40] LABS: Bacteria,Urine Few per hpf (None-Few); Bilirubin,Urine Negative (Negative); Blood,Urine Large (Negative); Clarity,Urine Turbid (Clear); Color,Urine Light-Orange (Yellow); Glucose,Urine (UA) Normal (Normal); Ketones,Urine 60 mg/dL (Negative); Leukocyte Esterase,Urine Trace (Negative); Mucus,Urine Few per lpf (None-Few); Nitrite,Urine Negative (Negative); PH,Urine 5.5 pH Units (5.0-8.0); Protein,Urine 70 mg/dL (Neg-Trace); RBC,Urine TNTC per hpf (0-3); Specific Gravity,Urine 1.028 (1.010-1.025); Squamous Epithelial Cell,Urine Few per hpf (None-Few); Urobilinogen,Urine Normal (Normal)
[2020-11-24] MEDS: cefTRIAXone 1,000 MG in Water for inj. (sterile) 10 ML IVP SCH (14:03)
[2020-11-24] MEDS: Haloperidol Lactate 5 MG/ML VIAL IM PRN ×2 (16:37→23:15)
[2020-11-25] MEDS: *HR* LORazepam 2 MG/ML VIAL IVP PRN ×4 (02:01→15:58)
[2020-11-25] MEDS: Acetylcysteine 10% 2 ML INHSOL IH SCH ×5 (03:52→19:54)
[2020-11-25] MEDS: Ipratropium/Albuterol Neb 3 ML IH SCH ×5 (03:52→19:53)
[2020-11-25] MEDS: Insulin LISPRO 300 UNITS/3 ML VIAL SUBQ SCH ×6 (04:04→23:33)
[2020-11-25 04:32] LABS: Basophils % 0.1 %; Hematocrit 40.5 % (35.3-44.9); Immature Granulocytes % 4.6 % (0-4); Lymphocytes # 1.9 K/mcL (0.6-4.6); Lymphocytes % 13.4 %; Mean Corpuscular HGB Conc 29.6 g/dL (31.6-35.5); Mean Corpuscular Hemoglobin 30.5 pg (28.0-33.3); Mean Corpuscular Volume 103.1 fL (83.0-100.0); Mean Platelet Volume 10.1 fL (9.4-12.4); Monocytes # 2.5 K/mcL (0.0-1.3); Monocytes % 17.2 %; Neutrophils # 9.4 K/mcL (1.6-8.9); Nucleated Red Blood Cells 0.3 /100 WBC (0); Platelet Count 348 K/mcL (140-400); Red Blood Count 3.93 M/mcL (3.82-4.97); Segmented Neutrophils % 64.7 %; White Blood Count 14.5 K/mcL (4.3-11.1)
[2020-11-25] MEDS: Haloperidol Lactate 5 MG/ML VIAL IM PRN ×4 (04:32→23:33)
[2020-11-25 04:52] LABS: BUN/Creatinine Ratio 85 (6-26); Blood Urea Nitrogen 35 mg/dL (8-23); Calcium 9.7 mg/dL (8.6-10.3); Carbon Dioxide 33 mEq/L (23-29); Chloride 102 mEq/L (98-107); Glucose 173 mg/dL (70-105); Magnesium 2.2 mg/dL (1.6-2.6); Osmolality,Calculated 310 (280-300); Potassium 4.3 mEq/L (3.5-5.1); Sodium 144 mEq/L (136-145); eGFR For African Americans > 60 (> 60); eGFR For Non-African Americans > 60 (> 60)
[2020-11-25] MEDS: *HR* Heparin 5,000 UNIT/ML VIAL SQ SCH ×3 (05:59→23:33)
[2020-11-25] MEDS: MethylPREDNISolone 40 MG/ML VIAL IVP SCH ×2 (06:00→18:25)
[2020-11-25] MEDS: *HR* Metoprolol 5 MG/5 ML VIAL IVP PRN (11:54)
[2020-11-25 13:31] LABS: Enterococcus by PCR Not Detected (Not Detect); mecA Methicillin-Resist Gene DETECTED (Not Detect)
[2020-11-25 13:32] LABS: Acinetobacter baumannii by PCR Not Detected (Not Detect); Candida albicans by PCR Not Detected (Not Detect); Candida glabrata by PCR Not Detected (Not Detect); Candida krusei by PCR Not Detected (Not Detect); Candida parapsilosis by PCR Not Detected (Not Detect); Candida tropicalis by PCR Not Detected (Not Detect); Enterobacter cloacae Cmplx PCR Not Detected (Not Detect); Enterobacteriaceae by PCR Not Detected (Not Detect); Escherichia coli by PCR Not Detected (Not Detect); Klebsiella oxytoca by PCR Not Detected (Not Detect); Klebsiella pneumoniae by PCR Not Detected (Not Detect); Proteus by PCR Not Detected (Not Detect); Pseudomonas aeruginosa by PCR Not Detected (Not Detect); Serratia marcescens by PCR Not Detected (Not Detect); Staphylococcus aureus by PCR Not Detected (Not Detect); Staphylococcus by PCR DETECTED (Not Detect); Streptococcus agalactiae(B)PCR Not Detected (Not Detect); Streptococcus by PCR Not Detected (Not Detect); Streptococcus pneumoniae PCR Not Detected (Not Detect); Streptococcus pyogenes (A) PCR Not Detected (Not Detect)
[2020-11-25] MEDS: cefTRIAXone 1,000 MG in Water for inj. (sterile) 10 ML IVP SCH (15:59)
[2020-11-25] MEDS: QUEtiapine Fumarate 25 MG TABLET PO SCH ×2 (15:59→19:38)
[2020-11-26] MEDS: Ipratropium/Albuterol Neb 3 ML IH SCH ×6 (00:12→19:44)
[2020-11-26] MEDS: Acetylcysteine 10% 2 ML INHSOL IH SCH ×6 (00:12→19:44)
[2020-11-26] MEDS: *HR* LORazepam 2 MG/ML VIAL IVP PRN (02:29)
[2020-11-26] MEDS: MethylPREDNISolone 40 MG/ML VIAL IVP SCH (05:09)
[2020-11-26] MEDS: Insulin LISPRO 300 UNITS/3 ML VIAL SUBQ SCH ×5 (05:12→20:10)
[2020-11-26] MEDS: *HR* Heparin 5,000 UNIT/ML VIAL SQ SCH ×3 (05:16→21:00)
[2020-11-26] MEDS: QUEtiapine Fumarate 25 MG TABLET PO SCH ×3 (07:47→20:10)
[2020-11-26 10:29] LABS: Hematocrit 37.3 % (35.3-44.9); Hemoglobin 11.1 g/dL (11.5-15.4); Mean Corpuscular HGB Conc 29.8 g/dL (31.6-35.5); Mean Corpuscular Hemoglobin 29.8 pg (28.0-33.3); Mean Corpuscular Volume 100.3 fL (83.0-100.0); Nucleated Red Blood Cells 0.2 /100 WBC (0); Platelet Count 391 K/mcL (140-400); Red Blood Count 3.72 M/mcL (3.82-4.97); Red Cell Distribution Width 13.3 % (11.5-14.5); White Blood Count 17.4 K/mcL (4.3-11.1)
[2020-11-26 10:47] LABS: BUN/Creatinine Ratio 58 (6-26); Blood Urea Nitrogen 31 mg/dL (8-23); Calcium 10.1 mg/dL (8.6-10.3); Carbon Dioxide 36 mEq/L (23-29); Chloride 106 mEq/L (98-107); Glucose 204 mg/dL (70-105); Magnesium 2.2 mg/dL (1.6-2.6); Osmolality,Calculated 322 (280-300); Potassium 3.6 mEq/L (3.5-5.1); Sodium 150 mEq/L (136-145); eGFR For African Americans > 60 (> 60); eGFR For Non-African Americans > 60 (> 60)
[2020-11-26] MEDS: *HR* LORazepam 2 MG/ML VIAL IVP SCH ×3 (10:48→20:09)
[2020-11-26 11:16] LABS: Neutrophils # 14.6 K/mcL (1.6-8.9); Platelet Estimate Normal (Normal)
[2020-11-26] MEDS: cefTRIAXone 1,000 MG in Water for inj. (sterile) 10 ML IVP SCH (15:26)
[2020-11-26] MEDS: Sennosides 8.6 MG TABLET PO SCH (20:10)
[2020-11-27] MEDS: Insulin LISPRO 300 UNITS/3 ML VIAL SUBQ SCH ×6 (00:04→21:24)
[2020-11-27] MEDS: Acetylcysteine 10% 2 ML INHSOL IH SCH ×7 (04:22→23:30)
[2020-11-27] MEDS: Ipratropium/Albuterol Neb 3 ML IH SCH ×7 (04:22→23:30)
[2020-11-27] MEDS: *HR* Heparin 5,000 UNIT/ML VIAL SQ SCH ×3 (06:11→21:09)
[2020-11-27] MEDS: *HR* LORazepam 2 MG/ML VIAL IVP SCH ×4 (08:06→21:09)
[2020-11-27] MEDS: Sennosides 8.6 MG TABLET PO SCH ×2 (08:12→21:10)
[2020-11-27] MEDS: QUEtiapine Fumarate 25 MG TABLET PO SCH ×3 (08:12→21:09)
[2020-11-27] MEDS ORDERED: MethylPREDNISolone 40 MG/ML VIAL IVP SCH (09:00)
[2020-11-27 09:51] LABS: Eosinophils % 0.1 %; Nucleated Red Blood Cells 0.4 /100 WBC (0)
[2020-11-27 09:52] LABS: Basophils # 0.1 K/mcL (0.0-0.2); Basophils % 0.5 %; Hematocrit 35.4 % (35.3-44.9); Hemoglobin 10.6 g/dL (11.5-15.4); Immature Granulocytes % 4.4 % (0-4); Lymphocytes # 1.7 K/mcL (0.6-4.6); Lymphocytes % 10.6 %; Mean Corpuscular HGB Conc 29.9 g/dL (31.6-35.5); Mean Corpuscular Hemoglobin 30.2 pg (28.0-33.3); Mean Corpuscular Volume 100.9 fL (83.0-100.0); Mean Platelet Volume 9.8 fL (9.4-12.4); Monocytes # 1.2 K/mcL (0.0-1.3); Monocytes % 7.7 %; Neutrophils # 12.4 K/mcL (1.6-8.9); Platelet Count 365 K/mcL (140-400); Red Blood Count 3.51 M/mcL (3.82-4.97); Red Cell Distribution Width 13.3 % (11.5-14.5); Segmented Neutrophils % 76.7 %; White Blood Count 16.1 K/mcL (4.3-11.1)
[2020-11-27 09:55] LABS: BUN/Creatinine Ratio 38 (6-26); Blood Urea Nitrogen 20 mg/dL (8-23); Carbon Dioxide 32 mEq/L (23-29); Chloride 100 mEq/L (98-107); Glucose 276 mg/dL (70-105); Magnesium 1.7 mg/dL (1.6-2.6); Osmolality,Calculated 308 (280-300); Phosphorous 3.2 mg/dL (2.7-4.5); Potassium 3.1 mEq/L (3.5-5.1); Sodium 143 mEq/L (136-145); eGFR For African Americans > 60 (> 60); eGFR For Non-African Americans > 60 (> 60)
[2020-11-27] MEDS ORDERED: Potassium Phosphate 44 MEQ in 0.9 % Sodium Chloride 250 ML IVPB PRN (10:13)
[2020-11-27] MEDS ORDERED: Naloxone 0.4 MG/ML INJ IVP PRN (10:13)
[2020-11-27] MEDS ORDERED: Dextrose Gel 15 GM/37.5 ML TUBE PO PRN ×3 (10:13→21:18)
[2020-11-27] MEDS ORDERED: *HR* Dextrose 50 % in Water (Vial) 50 ML VIAL IVP PRN (10:13)
[2020-11-27] MEDS ORDERED: D5% in Water 1,000 ML IVC PRN (10:13)
[2020-11-27] MEDS ORDERED: Insulin LISPRO 300 UNITS/3 ML VIAL SUBQ SCH (12:00)
[2020-11-27] MEDS ORDERED: Acetaminophen 325 MG TABLET PO PRN (14:49)
[2020-11-27] MEDS: carvediloL 6.25 MG TABLET PO SCH (15:59)
[2020-11-27] MEDS ORDERED: Insulin DETEMIR 100 UNIT/ML X5UNITS SUBQ SCH (21:00)
[2020-11-27] MEDS: Insulin DETEMIR 100 UNIT/ML X5UNITS SUBQ SCH (21:10)
[2020-11-28] MEDS: Haloperidol Lactate 5 MG/ML VIAL IM PRN ×2 (00:18→23:27)
[2020-11-28] MEDS: *HR* LORazepam 2 MG/ML VIAL IVP PRN ×2 (00:58→23:26)
[2020-11-28] MEDS: Ipratropium/Albuterol Neb 3 ML IH SCH ×6 (04:10→23:44)
[2020-11-28] MEDS: Acetylcysteine 10% 2 ML INHSOL IH SCH ×6 (04:11→23:45)
[2020-11-28] MEDS: *HR* Heparin 5,000 UNIT/ML VIAL SQ SCH ×3 (04:54→20:50)
[2020-11-28 08:14] LABS: Basophils # 0.1 K/mcL (0.0-0.2); Basophils % 0.4 %; Eosinophils % 0.2 %; Hematocrit 35.3 % (35.3-44.9); Hemoglobin 10.6 g/dL (11.5-15.4); Lymphocytes # 2.7 K/mcL (0.6-4.6); Lymphocytes % 15.9 %; Mean Corpuscular Hemoglobin 30.3 pg (28.0-33.3); Mean Corpuscular Volume 100.9 fL (83.0-100.0); Mean Platelet Volume 10.4 fL (9.4-12.4); Monocytes # 1.2 K/mcL (0.0-1.3); Monocytes % 7.1 %; Neutrophils # 12.4 K/mcL (1.6-8.9); Platelet Count 346 K/mcL (140-400); Red Cell Distribution Width 12.9 % (11.5-14.5); Segmented Neutrophils % 72.4 %; White Blood Count 17.1 K/mcL (4.3-11.1)
[2020-11-28] MEDS: carvediloL 6.25 MG TABLET PO SCH ×2 (08:23→17:26)
[2020-11-28] MEDS: *HR* LORazepam 2 MG/ML VIAL IVP SCH ×3 (08:24→20:50)
[2020-11-28] MEDS: QUEtiapine Fumarate 25 MG TABLET PO SCH ×3 (08:24→20:48)
[2020-11-28] MEDS: Sennosides 8.6 MG TABLET PO SCH ×2 (08:25→20:49)
[2020-11-28] MEDS: Insulin LISPRO 300 UNITS/3 ML VIAL SUBQ SCH ×4 (08:25→21:30)
[2020-11-28] MEDS: Insulin DETEMIR 100 UNIT/ML X5UNITS SUBQ SCH ×2 (08:39→20:50)
[2020-11-28 08:41] LABS: BUN/Creatinine Ratio 33 (6-26); Blood Urea Nitrogen 16 mg/dL (8-23); Calcium 9.2 mg/dL (8.6-10.3); Carbon Dioxide 33 mEq/L (23-29); Chloride 98 mEq/L (98-107); Glucose 191 mg/dL (70-105); Magnesium 1.8 mg/dL (1.6-2.6); Osmolality,Calculated 296 (280-300); Phosphorous 3.7 mg/dL (2.7-4.5); Sodium 140 mEq/L (136-145); eGFR For African Americans > 60 (> 60); eGFR For Non-African Americans > 60 (> 60)
[2020-11-28] MEDS ORDERED: predniSONE 20 MG TABLET PO SCH (09:00)
[2020-11-28] MEDS ORDERED: MethylPREDNISolone 40 MG/ML VIAL IVP SCH (09:00)
[2020-11-28] MEDS ORDERED: Potassium Chloride Elixir 20 MEQ/15 ML UDC PO ONE (11:37)
[2020-11-28] MEDS ORDERED: levoFLOXacin 750 MG/150 ML 750 MG/150 ML BAG IVPB SCH (12:00)
[2020-11-28] MEDS: Doxycycline 100 MG in 0.9 % Sodium Chloride Mini Bag 100 ML IVPB SCH (17:25)
[2020-11-28] MEDS: amLODIPine 5 MG TABLET PO SCH (20:49)
[2020-11-28 20:53] LABS: VBG Ionized Calcium 1.23 mmol/L (1.15-1.35)
[2020-11-28 21:06] LABS: BUN/Creatinine Ratio 29 (6-26); Blood Urea Nitrogen 14 mg/dL (8-23); Calcium 9.1 mg/dL (8.6-10.3); Carbon Dioxide 38 mEq/L (23-29); Chloride 99 mEq/L (98-107); Glucose 222 mg/dL (70-105); Magnesium 1.9 mg/dL (1.6-2.6); Osmolality,Calculated 297 (280-300); Phosphorous 3.6 mg/dL (2.7-4.5); Potassium 3.5 mEq/L (3.5-5.1); Sodium 140 mEq/L (136-145); eGFR For African Americans > 60 (> 60); eGFR For Non-African Americans > 60 (> 60)
[2020-11-29] MEDS: Dexmedetomidine HCl 400 MCG/100 ML MLS IVC SCH ×2 (02:40→13:04)
[2020-11-29] MEDS: Ipratropium/Albuterol Neb 3 ML IH SCH ×5 (03:54→20:36)
[2020-11-29] MEDS: Acetylcysteine 10% 2 ML INHSOL IH SCH ×5 (03:54→20:36)
[2020-11-29] MEDS: Doxycycline 100 MG in 0.9 % Sodium Chloride Mini Bag 100 ML IVPB SCH ×2 (05:55→17:06)
[2020-11-29] MEDS: *HR* Heparin 5,000 UNIT/ML VIAL SQ SCH ×3 (05:56→20:36)
[2020-11-29 06:43] LABS: Basophils # 0.1 K/mcL (0.0-0.2); Basophils % 0.4 %; Eosinophils % 0.2 %; Hematocrit 35.4 % (35.3-44.9); Hemoglobin 10.5 g/dL (11.5-15.4); Immature Granulocytes % 2.6 % (0-4); Lymphocytes # 1.8 K/mcL (0.6-4.6); Lymphocytes % 11.5 %; Mean Corpuscular HGB Conc 29.7 g/dL (31.6-35.5); Mean Corpuscular Hemoglobin 29.8 pg (28.0-33.3); Mean Corpuscular Volume 100.6 fL (83.0-100.0); Monocytes # 1.2 K/mcL (0.0-1.3); Monocytes % 7.6 %; Neutrophils # 11.9 K/mcL (1.6-8.9); Platelet Count 260 K/mcL (140-400); Red Blood Count 3.52 M/mcL (3.82-4.97); Red Cell Distribution Width 12.9 % (11.5-14.5); Segmented Neutrophils % 77.7 %; White Blood Count 15.3 K/mcL (4.3-11.1)
[2020-11-29 07:06] LABS: BUN/Creatinine Ratio 31 (6-26); Blood Urea Nitrogen 13 mg/dL (8-23); Calcium 9.2 mg/dL (8.6-10.3); Carbon Dioxide 36 mEq/L (23-29); Chloride 101 mEq/L (98-107); Glucose 111 mg/dL (70-105); Magnesium 2.3 mg/dL (1.6-2.6); Osmolality,Calculated 293 (280-300); Phosphorous 3.7 mg/dL (2.7-4.5); Potassium 3.8 mEq/L (3.5-5.1); Sodium 141 mEq/L (136-145); eGFR For African Americans > 60 (> 60); eGFR For Non-African Americans > 60 (> 60)
[2020-11-29] MEDS: Budesonide/Formoterol 80/4.5 1 PUFF INH IH SCH (07:21)
[2020-11-29] MEDS: Insulin LISPRO 300 UNITS/3 ML VIAL SUBQ SCH ×4 (07:29→19:41)
[2020-11-29] MEDS: *HR* LORazepam 2 MG/ML VIAL IVP SCH ×3 (07:38→19:46)
[2020-11-29] MEDS: Insulin DETEMIR 100 UNIT/ML X5UNITS SUBQ SCH ×2 (07:39→19:45)
[2020-11-29] MEDS: carvediloL 6.25 MG TABLET PO SCH ×2 (07:49→17:08)
[2020-11-29] MEDS: Aspirin Enteric Coated 81 MG Tablet PO SCH (07:49)
[2020-11-29] MEDS: QUEtiapine Fumarate 25 MG TABLET PO SCH ×3 (07:50→20:00)
[2020-11-29] MEDS: Sennosides 8.6 MG TABLET PO SCH ×4 (07:50→20:49)
[2020-11-29] MEDS: amLODIPine 5 MG TABLET PO SCH (07:50)
[2020-11-29] MEDS: predniSONE 20 MG TABLET PO SCH (07:50)
[2020-11-29] MEDS ORDERED: Isovue-370 500 ML BOTTLE IVP ONE (10:48)
[2020-11-29] MEDS ORDERED: Furosemide 40 MG/4 ML VIAL IVP ONE (10:57)
[2020-11-29 12:36] LABS: VBG HCO3 37 mEq/L (21-27); VBG PCO2 61 mmHg (41-51); VBG PH 7.39 pH Units (7.32-7.42); VBG PO2 187 mmHg (25-50)
[2020-11-29] MEDS: Haloperidol Lactate 5 MG/ML VIAL IM PRN (18:10)
[2020-11-29] MEDS: *HR* Metoprolol 5 MG/5 ML VIAL IVP PRN (19:47)
[2020-11-29] MEDS ORDERED: Potassium Chloride 40 MEQ, Lidocaine 1% 2 ML in 0.9 % Sodium Chloride 500 ML IVPB ONE (23:45)
[2020-11-30] MEDS: Acetylcysteine 10% 2 ML INHSOL IH SCH ×7 (00:07→23:23)
[2020-11-30] MEDS: Ipratropium/Albuterol Neb 3 ML IH SCH ×7 (00:07→23:22)
[2020-11-30] MEDS: Dexmedetomidine HCl 400 MCG/100 ML MLS IVC SCH ×5 (00:28→22:40)
[2020-11-30] MEDS: Cefepime HCl 2,000 MG in Water for inj. (sterile) 20 ML IVPB SCH ×3 (00:30→16:34)
[2020-11-30] MEDS: Doxycycline 100 MG in 0.9 % Sodium Chloride Mini Bag 100 ML IVPB SCH ×2 (05:12→17:23)
[2020-11-30] MEDS: *HR* Heparin 5,000 UNIT/ML VIAL SQ SCH ×3 (05:13→22:37)
[2020-11-30 06:32] LABS: Basophils % 0.2 %; Eosinophils # 0.1 K/mcL (0.0-0.6); Eosinophils % 0.8 %; Hematocrit 34.6 % (35.3-44.9); Hemoglobin 10.1 g/dL (11.5-15.4); Immature Granulocytes % 1.7 % (0-4); Lymphocytes # 2.1 K/mcL (0.6-4.6); Lymphocytes % 18.7 %; Mean Corpuscular HGB Conc 29.2 g/dL (31.6-35.5); Mean Corpuscular Hemoglobin 29.5 pg (28.0-33.3); Mean Corpuscular Volume 101.2 fL (83.0-100.0); Mean Platelet Volume 10.1 fL (9.4-12.4); Monocytes # 0.8 K/mcL (0.0-1.3); Monocytes % 7.7 %; Neutrophils # 7.8 K/mcL (1.6-8.9); Platelet Count 294 K/mcL (140-400); Red Blood Count 3.42 M/mcL (3.82-4.97); Red Cell Distribution Width 12.8 % (11.5-14.5); Segmented Neutrophils % 70.9 %
[2020-11-30 06:53] LABS: BUN/Creatinine Ratio 30 (6-26); Blood Urea Nitrogen 14 mg/dL (8-23); Carbon Dioxide 36 mEq/L (23-29); Chloride 100 mEq/L (98-107); Glucose 174 mg/dL (70-105); Osmolality,Calculated 295 (280-300); Potassium 4.5 mEq/L (3.5-5.1); Sodium 140 mEq/L (136-145); eGFR For African Americans > 60 (> 60); eGFR For Non-African Americans > 60 (> 60)
[2020-11-30] MEDS: Budesonide/Formoterol 80/4.5 1 PUFF INH IH SCH (07:54)
[2020-11-30] MEDS: *HR* LORazepam 2 MG/ML VIAL IVP SCH (08:17)
[2020-11-30] MEDS: Insulin DETEMIR 100 UNIT/ML X5UNITS SUBQ SCH ×2 (08:18→22:35)
[2020-11-30] MEDS: Insulin LISPRO 300 UNITS/3 ML VIAL SUBQ SCH ×4 (08:19→22:35)
[2020-11-30] MEDS: carvediloL 6.25 MG TABLET PO SCH ×2 (08:20→16:39)
[2020-11-30] MEDS: amLODIPine 5 MG TABLET PO SCH (08:20)
[2020-11-30] MEDS: Aspirin Enteric Coated 81 MG Tablet PO SCH (08:20)
[2020-11-30] MEDS: predniSONE 20 MG TABLET PO SCH (08:40)
[2020-11-30] MEDS: QUEtiapine Fumarate 25 MG TABLET PO SCH ×3 (08:40→20:01)
[2020-11-30] MEDS: Sennosides 8.6 MG TABLET PO SCH (20:01)
[2020-12-01] MEDS: Cefepime HCl 2,000 MG in Water for inj. (sterile) 20 ML IVPB SCH ×4 (00:26→23:50)
[2020-12-01] MEDS: Acetylcysteine 10% 2 ML INHSOL IH SCH ×6 (04:29→23:58)
[2020-12-01] MEDS: Ipratropium/Albuterol Neb 3 ML IH SCH ×6 (04:29→23:57)
[2020-12-01 05:19] LABS: Basophils % 0.1 %; Eosinophils % 0.4 %; Hematocrit 31.4 % (35.3-44.9); Hemoglobin 9.7 g/dL (11.5-15.4); Immature Granulocytes % 0.9 % (0-4); Lymphocytes # 1.9 K/mcL (0.6-4.6); Lymphocytes % 16.3 %; Mean Corpuscular HGB Conc 30.9 g/dL (31.6-35.5); Mean Corpuscular Hemoglobin 30.7 pg (28.0-33.3); Mean Corpuscular Volume 99.4 fL (83.0-100.0); Mean Platelet Volume 10.1 fL (9.4-12.4); Monocytes # 1.1 K/mcL (0.0-1.3); Monocytes % 9.8 %; Neutrophils # 8.2 K/mcL (1.6-8.9); Platelet Count 326 K/mcL (140-400); Red Blood Count 3.16 M/mcL (3.82-4.97); Red Cell Distribution Width 12.8 % (11.5-14.5); Segmented Neutrophils % 72.5 %; White Blood Count 11.3 K/mcL (4.3-11.1)
[2020-12-01] MEDS: Dexmedetomidine HCl 400 MCG/100 ML MLS IVC SCH ×3 (05:23→21:18)
[2020-12-01] MEDS: *HR* Heparin 5,000 UNIT/ML VIAL SQ SCH ×3 (05:25→20:58)
[2020-12-01] MEDS: Doxycycline 100 MG in 0.9 % Sodium Chloride Mini Bag 100 ML IVPB SCH ×2 (05:25→17:29)
[2020-12-01 05:37] LABS: BUN/Creatinine Ratio 23 (6-26); Blood Urea Nitrogen 10 mg/dL (8-23); Calcium 8.8 mg/dL (8.6-10.3); Carbon Dioxide 36 mEq/L (23-29); Chloride 96 mEq/L (98-107); Glucose 211 mg/dL (70-105); Magnesium 1.6 mg/dL (1.6-2.6); Osmolality,Calculated 293 (280-300); Phosphorous 2.3 mg/dL (2.7-4.5); Potassium 3.7 mEq/L (3.5-5.1); Sodium 139 mEq/L (136-145); eGFR For African Americans > 60 (> 60); eGFR For Non-African Americans > 60 (> 60)
[2020-12-01] MEDS: Budesonide/Formoterol 80/4.5 1 PUFF INH IH SCH (07:17)
[2020-12-01] MEDS: carvediloL 6.25 MG TABLET PO SCH ×3 (09:39→17:44)
[2020-12-01] MEDS: QUEtiapine Fumarate 25 MG TABLET PO SCH ×3 (09:39→20:58)
[2020-12-01] MEDS: Sennosides 8.6 MG TABLET PO SCH ×2 (09:39→20:58)
[2020-12-01] MEDS: predniSONE 20 MG TABLET PO SCH (09:39)
[2020-12-01] MEDS: Insulin DETEMIR 100 UNIT/ML X5UNITS SUBQ SCH ×2 (09:41→21:17)
[2020-12-01] MEDS: Insulin LISPRO 300 UNITS/3 ML VIAL SUBQ SCH ×4 (09:42→21:17)
[2020-12-01] MEDS: Aspirin Enteric Coated 81 MG Tablet PO SCH (10:09)
[2020-12-01] MEDS: amLODIPine 5 MG TABLET PO SCH (12:09)
[2020-12-02] MEDS: *HR* LORazepam 2 MG/ML VIAL IVP PRN (00:41)
[2020-12-02] MEDS: Ipratropium/Albuterol Neb 3 ML IH SCH ×6 (03:28→23:39)
[2020-12-02] MEDS: Acetylcysteine 10% 2 ML INHSOL IH SCH ×6 (03:28→23:39)
[2020-12-02] MEDS: Doxycycline 100 MG in 0.9 % Sodium Chloride Mini Bag 100 ML IVPB SCH ×2 (05:45→18:17)
[2020-12-02] MEDS: *HR* Heparin 5,000 UNIT/ML VIAL SQ SCH ×3 (05:45→21:47)
[2020-12-02] MEDS: Dexmedetomidine HCl 400 MCG/100 ML MLS IVC SCH ×3 (05:46→18:15)
[2020-12-02] MEDS: Budesonide/Formoterol 80/4.5 1 PUFF INH IH SCH ×2 (07:46→20:43)
[2020-12-02] MEDS: predniSONE 20 MG TABLET PO SCH (07:57)
[2020-12-02] MEDS: QUEtiapine Fumarate 25 MG TABLET PO SCH ×3 (07:57→18:49)
[2020-12-02] MEDS: Cefepime HCl 2,000 MG in Water for inj. (sterile) 20 ML IVPB SCH ×2 (07:58→18:16)
[2020-12-02] MEDS: Aspirin Enteric Coated 81 MG Tablet PO SCH (07:58)
[2020-12-02] MEDS: Sennosides 8.6 MG TABLET PO SCH ×2 (07:58→21:47)
[2020-12-02] MEDS: carvediloL 6.25 MG TABLET PO SCH ×2 (07:58→18:17)
[2020-12-02] MEDS: Insulin LISPRO 300 UNITS/3 ML VIAL SUBQ SCH ×4 (07:59→21:54)
[2020-12-02] MEDS: Insulin DETEMIR 100 UNIT/ML X5UNITS SUBQ SCH ×2 (08:01→21:53)
[2020-12-02] MEDS: amLODIPine 5 MG TABLET PO SCH (10:15)
[2020-12-02] MEDS ORDERED: Haloperidol Lactate 5 MG/ML VIAL IVP ONE ×2 (11:41→22:36)
[2020-12-03] MEDS: Cefepime HCl 2,000 MG in Water for inj. (sterile) 20 ML IVPB SCH ×3 (00:22→16:54)
[2020-12-03] MEDS: Dexmedetomidine HCl 400 MCG/100 ML MLS IVC SCH ×3 (00:23→17:30)
[2020-12-03 02:03] LABS: Basophils % 0.1 %; Eosinophils # 0.1 K/mcL (0.0-0.6); Eosinophils % 0.6 %; Hemoglobin 9.6 g/dL (11.5-15.4); Lymphocytes # 2.7 K/mcL (0.6-4.6); Lymphocytes % 25.7 %; Mean Corpuscular Hemoglobin 29.4 pg (28.0-33.3); Mean Corpuscular Volume 94.8 fL (83.0-100.0); Mean Platelet Volume 10.1 fL (9.4-12.4); Monocytes # 1.5 K/mcL (0.0-1.3); Monocytes % 14.5 %; Neutrophils # 6.1 K/mcL (1.6-8.9); Platelet Count 358 K/mcL (140-400); Red Blood Count 3.27 M/mcL (3.82-4.97); Red Cell Distribution Width 12.6 % (11.5-14.5); Segmented Neutrophils % 58.1 %; White Blood Count 10.4 K/mcL (4.3-11.1)
[2020-12-03 02:19] LABS: BUN/Creatinine Ratio 20 (6-26); Blood Urea Nitrogen 9 mg/dL (8-23); Carbon Dioxide 32 mEq/L (23-29); Chloride 97 mEq/L (98-107); Glucose 169 mg/dL (70-105); Osmolality,Calculated 289 (280-300); Potassium 3.4 mEq/L (3.5-5.1); Sodium 138 mEq/L (136-145); eGFR For African Americans > 60 (> 60); eGFR For Non-African Americans > 60 (> 60)
[2020-12-03] MEDS: Ipratropium/Albuterol Neb 3 ML IH SCH ×6 (04:12→22:53)
[2020-12-03] MEDS: Acetylcysteine 10% 2 ML INHSOL IH SCH ×6 (04:13→22:53)
[2020-12-03] MEDS: Doxycycline 100 MG in 0.9 % Sodium Chloride Mini Bag 100 ML IVPB SCH ×2 (05:51→17:36)
[2020-12-03] MEDS: *HR* Heparin 5,000 UNIT/ML VIAL SQ SCH ×3 (05:51→20:23)
[2020-12-03] MEDS: carvediloL 6.25 MG TABLET PO SCH ×2 (08:44→17:41)
[2020-12-03] MEDS: QUEtiapine Fumarate 25 MG TABLET PO SCH ×3 (08:44→20:25)
[2020-12-03] MEDS: Aspirin Enteric Coated 81 MG Tablet PO SCH (08:44)
[2020-12-03] MEDS: predniSONE 20 MG TABLET PO SCH (08:44)
[2020-12-03] MEDS: amLODIPine 5 MG TABLET PO SCH (08:46)
[2020-12-03] MEDS: Sennosides 8.6 MG TABLET PO SCH ×2 (08:46→20:27)
[2020-12-03] MEDS: Nystatin SUSP 5 ML UD.LIQ PO SCH ×5 (08:46→20:26)
[2020-12-03] MEDS: Insulin LISPRO 300 UNITS/3 ML VIAL SUBQ SCH ×4 (08:52→20:24)
[2020-12-03] MEDS: Insulin DETEMIR 100 UNIT/ML X5UNITS SUBQ SCH ×2 (09:01→20:25)
[2020-12-03] MEDS ORDERED: E-Z-PAQUE (BARIUM SULF) SUSP 1 BOTTLE PO ONE (10:59)
[2020-12-03] MEDS ORDERED: E-Z-HD (BARIUM SULF) SUSPENSION PO ONE (10:59)
[2020-12-03] MEDS ORDERED: Haloperidol Lactate 5 MG/ML VIAL IM ONE (21:00)
[2020-12-04] MEDS: Cefepime HCl 2,000 MG in Water for inj. (sterile) 20 ML IVPB SCH ×4 (01:04→23:57)
[2020-12-04 02:03] LABS: Basophils % 0.3 %; Eosinophils # 0.1 K/mcL (0.0-0.6); Eosinophils % 1.1 %; Hematocrit 32.2 % (35.3-44.9); Hemoglobin 9.9 g/dL (11.5-15.4); Immature Granulocytes % 0.9 % (0-4); Lymphocytes # 2.6 K/mcL (0.6-4.6); Lymphocytes % 34.1 %; Mean Corpuscular HGB Conc 30.7 g/dL (31.6-35.5); Mean Corpuscular Hemoglobin 29.6 pg (28.0-33.3); Mean Corpuscular Volume 96.1 fL (83.0-100.0); Mean Platelet Volume 9.7 fL (9.4-12.4); Monocytes # 1.2 K/mcL (0.0-1.3); Monocytes % 16.6 %; Neutrophils # 3.5 K/mcL (1.6-8.9); Platelet Count 322 K/mcL (140-400); Red Blood Count 3.35 M/mcL (3.82-4.97); Red Cell Distribution Width 12.9 % (11.5-14.5); White Blood Count 7.5 K/mcL (4.3-11.1)
[2020-12-04 02:22] LABS: BUN/Creatinine Ratio 19 (6-26); Blood Urea Nitrogen 9 mg/dL (8-23); Calcium 9.2 mg/dL (8.6-10.3); Carbon Dioxide 34 mEq/L (23-29); Chloride 102 mEq/L (98-107); Glucose 147 mg/dL (70-105); Osmolality,Calculated 297 (280-300); Potassium 3.3 mEq/L (3.5-5.1); Sodium 143 mEq/L (136-145); eGFR For African Americans > 60 (> 60); eGFR For Non-African Americans > 60 (> 60)
[2020-12-04] MEDS: Dexmedetomidine HCl 400 MCG/100 ML MLS IVC SCH ×3 (03:14→23:58)
[2020-12-04] MEDS: Ipratropium/Albuterol Neb 3 ML IH SCH ×6 (03:45→23:18)
[2020-12-04] MEDS: Acetylcysteine 10% 2 ML INHSOL IH SCH ×6 (03:45→23:18)
[2020-12-04] MEDS: Doxycycline 100 MG in 0.9 % Sodium Chloride Mini Bag 100 ML IVPB SCH ×2 (06:36→17:22)
[2020-12-04] MEDS: *HR* Heparin 5,000 UNIT/ML VIAL SQ SCH ×3 (06:36→20:35)
[2020-12-04] MEDS: Budesonide/Formoterol 80/4.5 1 PUFF INH IH SCH (07:49)
[2020-12-04] MEDS: amLODIPine 5 MG TABLET PO SCH (08:47)
[2020-12-04] MEDS: Nystatin SUSP 5 ML UD.LIQ PO SCH ×4 (08:47→20:34)
[2020-12-04] MEDS: predniSONE 20 MG TABLET PO SCH (08:47)
[2020-12-04] MEDS: QUEtiapine Fumarate 25 MG TABLET PO SCH ×3 (08:48→20:36)
[2020-12-04] MEDS: carvediloL 6.25 MG TABLET PO SCH ×2 (08:49→17:21)
[2020-12-04] MEDS: Aspirin Enteric Coated 81 MG Tablet PO SCH (08:49)
[2020-12-04] MEDS: Insulin LISPRO 300 UNITS/3 ML VIAL SUBQ SCH ×4 (09:02→20:35)
[2020-12-04] MEDS: Sennosides 8.6 MG TABLET PO SCH ×2 (09:02→20:36)
[2020-12-04] MEDS: Insulin DETEMIR 100 UNIT/ML X5UNITS SUBQ SCH ×2 (09:05→20:34)
[2020-12-04] MEDS: haloperidoL 1 MG TABLET PO SCH (20:35)
[2020-12-05 03:00] LABS: Basophils % 0.3 %; Eosinophils # 0.1 K/mcL (0.0-0.6); Hematocrit 31.5 % (35.3-44.9); Hemoglobin 9.7 g/dL (11.5-15.4); Immature Granulocytes % 1.4 % (0-4); Lymphocytes # 2.9 K/mcL (0.6-4.6); Lymphocytes % 37.2 %; Mean Corpuscular HGB Conc 30.8 g/dL (31.6-35.5); Mean Corpuscular Hemoglobin 30.2 pg (28.0-33.3); Mean Corpuscular Volume 98.1 fL (83.0-100.0); Mean Platelet Volume 9.7 fL (9.4-12.4); Monocytes # 1.1 K/mcL (0.0-1.3); Neutrophils # 3.6 K/mcL (1.6-8.9); Platelet Count 305 K/mcL (140-400); Red Blood Count 3.21 M/mcL (3.82-4.97); Red Cell Distribution Width 12.8 % (11.5-14.5); Segmented Neutrophils % 46.1 %; White Blood Count 7.7 K/mcL (4.3-11.1)
[2020-12-05 03:58] LABS: BUN/Creatinine Ratio 26 (6-26); Blood Urea Nitrogen 11 mg/dL (8-23); Calcium 8.7 mg/dL (8.6-10.3); Carbon Dioxide 30 mEq/L (23-29); Chloride 102 mEq/L (98-107); Glucose 139 mg/dL (70-105); Osmolality,Calculated 296 (280-300); Potassium 3.1 mEq/L (3.5-5.1); Sodium 142 mEq/L (136-145); eGFR For African Americans > 60 (> 60); eGFR For Non-African Americans > 60 (> 60)
[2020-12-05] MEDS: Acetylcysteine 10% 2 ML INHSOL IH SCH ×6 (04:06→23:25)
[2020-12-05] MEDS: Ipratropium/Albuterol Neb 3 ML IH SCH ×6 (04:06→23:25)
[2020-12-05] MEDS: Doxycycline 100 MG in 0.9 % Sodium Chloride Mini Bag 100 ML IVPB SCH ×2 (05:59→17:17)
[2020-12-05] MEDS: *HR* Heparin 5,000 UNIT/ML VIAL SQ SCH ×3 (06:26→22:31)
[2020-12-05] MEDS: Budesonide/Formoterol 80/4.5 1 PUFF INH IH SCH (07:32)
[2020-12-05] MEDS: Insulin LISPRO 300 UNITS/3 ML VIAL SUBQ SCH ×4 (09:02→22:34)
[2020-12-05] MEDS: Aspirin Enteric Coated 81 MG Tablet PO SCH (09:03)
[2020-12-05] MEDS: amLODIPine 5 MG TABLET PO SCH (09:03)
[2020-12-05] MEDS: haloperidoL 1 MG TABLET PO SCH (09:03)
[2020-12-05] MEDS: Sennosides 8.6 MG TABLET PO SCH ×2 (09:04→22:33)
[2020-12-05] MEDS: QUEtiapine Fumarate 25 MG TABLET PO SCH ×3 (09:04→22:20)
[2020-12-05] MEDS: carvediloL 6.25 MG TABLET PO SCH ×2 (09:04→17:17)
[2020-12-05] MEDS: Cefepime HCl 2,000 MG in Water for inj. (sterile) 20 ML IVPB SCH ×3 (09:05→22:32)
[2020-12-05] MEDS: Nystatin SUSP 5 ML UD.LIQ PO SCH ×4 (09:05→22:32)
[2020-12-05] MEDS: predniSONE 20 MG TABLET PO SCH (09:05)
[2020-12-05] MEDS: Insulin DETEMIR 100 UNIT/ML X5UNITS SUBQ SCH ×2 (09:07→22:31)
[2020-12-05] MEDS ORDERED: Ipratropium/Albuterol Neb 3 ML IH ONE (09:20)
[2020-12-05] MEDS: Furosemide 40 MG/4 ML VIAL IVP SCH (11:12)
[2020-12-05] MEDS: haloperidoL 5 MG TABLET PO SCH ×2 (15:34→22:33)
[2020-12-05] MEDS ORDERED: Furosemide 40 MG/4 ML VIAL IVP ONE (19:00)
[2020-12-05] MEDS: *HR* LORazepam 2 MG/ML VIAL IVP PRN (22:34)
[2020-12-05] MEDS: *HR* Metoprolol 5 MG/5 ML VIAL IVP PRN (23:02)
[2020-12-06 01:42] LABS: Basophils % 0.5 %; Eosinophils % 0.2 %; Hematocrit 39.9 % (35.3-44.9); Hemoglobin 12.4 g/dL (11.5-15.4); Immature Granulocytes % 1.4 % (0-4); Lymphocytes # 2.5 K/mcL (0.6-4.6); Lymphocytes % 28.6 %; Mean Corpuscular HGB Conc 31.1 g/dL (31.6-35.5); Mean Corpuscular Hemoglobin 30.2 pg (28.0-33.3); Mean Corpuscular Volume 97.3 fL (83.0-100.0); Mean Platelet Volume 10.8 fL (9.4-12.4); Monocytes # 1.2 K/mcL (0.0-1.3); Monocytes % 13.3 %; Neutrophils # 4.9 K/mcL (1.6-8.9); Platelet Count 277 K/mcL (140-400); Red Cell Distribution Width 13.3 % (11.5-14.5); White Blood Count 8.8 K/mcL (4.3-11.1)
[2020-12-06 02:04] LABS: BUN/Creatinine Ratio 21 (6-26); Blood Urea Nitrogen 12 mg/dL (8-23); Calcium 9.4 mg/dL (8.6-10.3); Carbon Dioxide 34 mEq/L (23-29); Chloride 96 mEq/L (98-107); Glucose 216 mg/dL (70-105); Osmolality,Calculated 300 (280-300); Potassium 3.5 mEq/L (3.5-5.1); Sodium 142 mEq/L (136-145); eGFR For African Americans > 60 (> 60); eGFR For Non-African Americans > 60 (> 60)
[2020-12-06] MEDS: Ipratropium/Albuterol Neb 3 ML IH SCH ×7 (03:53→23:00)
[2020-12-06] MEDS: Acetylcysteine 10% 2 ML INHSOL IH SCH ×8 (03:53→23:00)
[2020-12-06] MEDS: *HR* Metoprolol 5 MG/5 ML VIAL IVP PRN (07:00)
[2020-12-06] MEDS: *HR* Heparin 5,000 UNIT/ML VIAL SQ SCH ×3 (07:01→21:12)
[2020-12-06] MEDS: Doxycycline 100 MG in 0.9 % Sodium Chloride Mini Bag 100 ML IVPB SCH (07:02)
[2020-12-06] MEDS: Budesonide/Formoterol 80/4.5 1 PUFF INH IH SCH (07:35)
[2020-12-06] MEDS: Furosemide 40 MG/4 ML VIAL IVP SCH (08:34)
[2020-12-06] MEDS: Cefepime HCl 2,000 MG in Water for inj. (sterile) 20 ML IVPB SCH ×3 (08:34→23:21)
[2020-12-06] MEDS: Nystatin SUSP 5 ML UD.LIQ PO SCH ×4 (08:35→21:12)
[2020-12-06] MEDS: amLODIPine 5 MG TABLET PO SCH (08:36)
[2020-12-06] MEDS: Aspirin Enteric Coated 81 MG Tablet PO SCH (08:36)
[2020-12-06] MEDS: Sennosides 8.6 MG TABLET PO SCH ×2 (08:36→21:11)
[2020-12-06] MEDS: carvediloL 6.25 MG TABLET PO SCH ×2 (08:36→17:41)
[2020-12-06] MEDS: haloperidoL 5 MG TABLET PO SCH ×2 (08:36→21:11)
[2020-12-06] MEDS: predniSONE 20 MG TABLET PO SCH (08:37)
[2020-12-06] MEDS: QUEtiapine Fumarate 25 MG TABLET PO SCH (08:37)
[2020-12-06] MEDS: Insulin DETEMIR 100 UNIT/ML X5UNITS SUBQ SCH ×2 (08:39→21:14)
[2020-12-06] MEDS: Insulin LISPRO 300 UNITS/3 ML VIAL SUBQ SCH ×4 (08:40→21:13)
[2020-12-06] MEDS ORDERED: E-Z-PAQUE (BARIUM SULF) SUSP 1 BOTTLE PO ONE (12:47)
[2020-12-06] MEDS ORDERED: E-Z-HD (BARIUM SULF) SUSPENSION PO ONE (12:47)
[2020-12-07] MEDS: Ipratropium/Albuterol Neb 3 ML IH SCH ×6 (04:13→23:27)
[2020-12-07] MEDS: Acetylcysteine 10% 2 ML INHSOL IH SCH ×6 (04:14→23:27)
[2020-12-07] MEDS: *HR* Heparin 5,000 UNIT/ML VIAL SQ SCH ×3 (06:09→20:12)
[2020-12-07 07:22] LABS: Hematocrit 40.8 % (35.3-44.9); Hemoglobin 12.5 g/dL (11.5-15.4); Mean Corpuscular HGB Conc 30.6 g/dL (31.6-35.5); Mean Corpuscular Hemoglobin 29.3 pg (28.0-33.3); Mean Corpuscular Volume 95.6 fL (83.0-100.0); Mean Platelet Volume 10.1 fL (9.4-12.4); Platelet Count 362 K/mcL (140-400); Red Blood Count 4.27 M/mcL (3.82-4.97); Red Cell Distribution Width 13.2 % (11.5-14.5); White Blood Count 9.8 K/mcL (4.3-11.1)
[2020-12-07] MEDS: Budesonide/Formoterol 80/4.5 1 PUFF INH IH SCH (07:49)
[2020-12-07 08:10] LABS: BUN/Creatinine Ratio 32 (6-26); Blood Urea Nitrogen 20 mg/dL (8-23); Calcium 9.3 mg/dL (8.6-10.3); Carbon Dioxide 32 mEq/L (23-29); Chloride 92 mEq/L (98-107); Glucose 252 mg/dL (70-105); Osmolality,Calculated 295 (280-300); Potassium 3.3 mEq/L (3.5-5.1); Sodium 137 mEq/L (136-145); eGFR For African Americans > 60 (> 60); eGFR For Non-African Americans > 60 (> 60)
[2020-12-07] MEDS: haloperidoL 5 MG TABLET PO SCH ×2 (08:17→20:12)
[2020-12-07] MEDS: Sennosides 8.6 MG TABLET PO SCH ×2 (08:17→20:13)
[2020-12-07] MEDS: Furosemide 40 MG/4 ML VIAL IVP SCH (08:17)
[2020-12-07] MEDS: Cefepime HCl 2,000 MG in Water for inj. (sterile) 20 ML IVPB SCH ×2 (08:17→15:02)
[2020-12-07] MEDS: amLODIPine 5 MG TABLET PO SCH (08:18)
[2020-12-07] MEDS: Insulin DETEMIR 100 UNIT/ML X5UNITS SUBQ SCH ×2 (08:18→20:15)
[2020-12-07] MEDS: Insulin LISPRO 300 UNITS/3 ML VIAL SUBQ SCH ×4 (08:19→23:12)
[2020-12-07] MEDS: Nystatin SUSP 5 ML UD.LIQ PO SCH ×4 (08:19→20:13)
[2020-12-07] MEDS: Aspirin Enteric Coated 81 MG Tablet PO SCH (08:19)
[2020-12-07] MEDS: carvediloL 6.25 MG TABLET PO SCH ×2 (08:19→16:30)
[2020-12-07 17:38] LABS: ABG Base Excess 13 mEq/L (-2 to 3); ABG HCO3 41 mEq/L (21-27); ABG Oxygen Saturation 92 % (95-98); ABG PCO2 69 mmHg (35-45); ABG PH 7.38 pH Units (7.32-7.45); ABG PO2 68 mmHg (85-104); ABG TCO2 43 mEq/L (20-26); Blood Gas VT 500 cc
[2020-12-07] MEDS ORDERED: Chloraseptic Spray 177 ML BOTTLE MM PRN (22:09)
[2020-12-07] MEDS: Dexmedetomidine HCl 400 MCG/100 ML MLS IVC SCH (23:45)
[2020-12-08] MEDS: Ipratropium/Albuterol Neb 3 ML IH SCH ×6 (03:36→19:42)
[2020-12-08] MEDS: Acetylcysteine 10% 2 ML INHSOL IH SCH ×5 (03:36→19:42)
[2020-12-08 04:25] LABS: BUN/Creatinine Ratio 30 (6-26); Blood Urea Nitrogen 19 mg/dL (8-23); Calcium 9.4 mg/dL (8.6-10.3); Carbon Dioxide 38 mEq/L (23-29); Chloride 91 mEq/L (98-107); Glucose 280 mg/dL (70-105); Magnesium 1.5 mg/dL (1.6-2.6); Osmolality,Calculated 296 (280-300); Phosphorous 3.6 mg/dL (2.7-4.5); Potassium 3.4 mEq/L (3.5-5.1); Sodium 137 mEq/L (136-145); eGFR For African Americans > 60 (> 60); eGFR For Non-African Americans > 60 (> 60)
[2020-12-08 05:26] LABS: Adenovirus Not Detected (Not Detect); Bordetella Pertussis Not Detected (Not Detect); Chlamydophila pneumoniae Not Detected (Not Detect); Coronavirus 229E Not Detected (Not Detect); Coronavirus HKU1 Not Detected (Not Detect); Coronavirus NL63 Not Detected (Not Detect); Coronavirus OC43 Not Detected (Not Detect); Human Metapneumovirus Not Detected (Not Detect); Human Rhinovirus/Enterovirus Not Detected (Not Detect); Influenza A Subtype 2009 H1 Not Detected (Not Detect); Influenza B Not Detected (Not Detect); Mycoplasma pneumoniae Not Detected (Not Detect); Parainfluenza Virus 1 Not Detected (Not Detect); Parainfluenza Virus 2 Not Detected (Not Detect); Parainfluenza Virus 3 Not Detected (Not Detect); Parainfluenza Virus 4 Not Detected (Not Detect); Respiratory Syncytial Virus Not Detected (Not Detect); SARS-CoV-2 Not Detected (Not Detect)
[2020-12-08] MEDS: *HR* Heparin 5,000 UNIT/ML VIAL SQ SCH ×3 (05:55→22:43)
[2020-12-08] MEDS ORDERED: Magnesium Sulfate 1 GM/102 ML PIGGYBACK IVPB ONE (07:05)
[2020-12-08] MEDS: Budesonide/Formoterol 80/4.5 1 PUFF INH IH SCH (07:28)
[2020-12-08] MEDS: Dexmedetomidine HCl 400 MCG/100 ML MLS IVC SCH (08:27)
[2020-12-08] MEDS: Insulin DETEMIR 100 UNIT/ML X5UNITS SUBQ SCH ×2 (08:37→22:43)
[2020-12-08] MEDS: Insulin LISPRO 300 UNITS/3 ML VIAL SUBQ SCH ×4 (08:41→19:44)
[2020-12-08] MEDS: Furosemide 40 MG/4 ML VIAL IVP SCH (10:26)
[2020-12-08] MEDS: amLODIPine 5 MG TABLET PO SCH (12:51)
[2020-12-08] MEDS: Nystatin SUSP 5 ML UD.LIQ PO SCH ×4 (12:51→22:43)
[2020-12-08] MEDS: carvediloL 6.25 MG TABLET PO SCH ×2 (12:52→16:45)
[2020-12-08] MEDS: Sennosides 8.6 MG TABLET PO SCH ×2 (12:57→22:44)
[2020-12-08] MEDS: Aspirin Enteric Coated 81 MG Tablet PO SCH (12:57)
[2020-12-08] MEDS: haloperidoL 5 MG TABLET PO SCH (12:57)
[2020-12-08] MEDS: Thiamine (B-1) 100 MG in 0.9 % Sodium Chloride 50 ML IVPB SCH (16:31)
[2020-12-08] MEDS ORDERED: Haloperidol Lactate 5 MG/ML VIAL IM ONE (22:08)
[2020-12-08] MEDS ORDERED: Haloperidol Lactate 5 MG/ML VIAL IM PRN (22:27)
[2020-12-08] MEDS: diazePAM 10 MG/2 ML SYRINGE IVP SCH (22:42)
[2020-12-09] MEDS ORDERED: diazePAM 10 MG/2 ML SYRINGE IVP SCH
[2020-12-09] MEDS: Acetylcysteine 10% 2 ML INHSOL IH SCH ×7 (00:02→23:16)
[2020-12-09] MEDS: Ipratropium/Albuterol Neb 3 ML IH SCH ×7 (00:02→23:16)
[2020-12-09 02:38] LABS: Basophils # 0.1 K/mcL (0.0-0.2); Basophils % 0.8 %; Eosinophils # 0.1 K/mcL (0.0-0.6); Eosinophils % 1.1 %; Hematocrit 36.3 % (35.3-44.9); Hemoglobin 11.2 g/dL (11.5-15.4); Immature Granulocytes % 4.2 % (0-4); Lymphocytes % 28.8 %; Mean Corpuscular HGB Conc 30.9 g/dL (31.6-35.5); Mean Corpuscular Hemoglobin 29.7 pg (28.0-33.3); Mean Corpuscular Volume 96.3 fL (83.0-100.0); Mean Platelet Volume 9.7 fL (9.4-12.4); Monocytes # 1.7 K/mcL (0.0-1.3); Monocytes % 16.4 %; Nucleated Red Blood Cells 1.4 /100 WBC (0); Platelet Count 352 K/mcL (140-400); Red Blood Count 3.77 M/mcL (3.82-4.97); Red Cell Distribution Width 13.2 % (11.5-14.5); Segmented Neutrophils % 48.7 %; White Blood Count 10.3 K/mcL (4.3-11.1)
[2020-12-09 02:56] LABS: BUN/Creatinine Ratio 28 (6-26); Blood Urea Nitrogen 14 mg/dL (8-23); Carbon Dioxide 38 mEq/L (23-29); Chloride 93 mEq/L (98-107); Glucose 229 mg/dL (70-105); Magnesium 1.8 mg/dL (1.6-2.6); Osmolality,Calculated 296 (280-300); Potassium 3.7 mEq/L (3.5-5.1); Sodium 139 mEq/L (136-145); eGFR For African Americans > 60 (> 60); eGFR For Non-African Americans > 60 (> 60)
[2020-12-09 03:16] LABS: Thyroid Stimulating Hormone 1.164 mcIU/mL (0.340-5.600)
[2020-12-09] MEDS: diazePAM 10 MG/2 ML SYRINGE IVP SCH ×3 (05:45→21:06)
[2020-12-09] MEDS: *HR* Heparin 5,000 UNIT/ML VIAL SQ SCH ×3 (05:46→21:06)
[2020-12-09] MEDS: Budesonide/Formoterol 80/4.5 1 PUFF INH IH SCH (07:36)
[2020-12-09] MEDS: Insulin LISPRO 300 UNITS/3 ML VIAL SUBQ SCH ×4 (08:14→21:07)
[2020-12-09] MEDS: Nystatin SUSP 5 ML UD.LIQ PO SCH ×5 (08:15→21:06)
[2020-12-09] MEDS: Furosemide 20 MG/2 ML VIAL IVP SCH (08:15)
[2020-12-09] MEDS: Aspirin Enteric Coated 81 MG Tablet PO SCH (08:15)
[2020-12-09] MEDS: carvediloL 6.25 MG TABLET PO SCH ×2 (08:16→17:23)
[2020-12-09] MEDS: amLODIPine 5 MG TABLET PO SCH (08:16)
[2020-12-09] MEDS: Sennosides 8.6 MG TABLET PO SCH ×2 (08:16→21:07)
[2020-12-09] MEDS: Insulin DETEMIR 100 UNIT/ML X5UNITS SUBQ SCH ×2 (09:14→21:11)
[2020-12-09] MEDS: Thiamine (B-1) 100 MG in 0.9 % Sodium Chloride 50 ML IVPB SCH (09:14)
[2020-12-10] MEDS: Ipratropium/Albuterol Neb 3 ML IH SCH ×6 (03:16→23:28)
[2020-12-10] MEDS: Acetylcysteine 10% 2 ML INHSOL IH SCH ×6 (03:16→23:28)
[2020-12-10] MEDS: *HR* Heparin 5,000 UNIT/ML VIAL SQ SCH ×3 (06:02→21:39)
[2020-12-10] MEDS: diazePAM 10 MG/2 ML SYRINGE IVP SCH (06:02)
[2020-12-10] MEDS: Budesonide/Formoterol 80/4.5 1 PUFF INH IH SCH (07:26)
[2020-12-10] MEDS: Dexmedetomidine HCl 400 MCG/100 ML MLS IVC SCH ×2 (07:50→07:51)
[2020-12-10] MEDS: haloperidoL 5 MG TABLET PO SCH (07:51)
[2020-12-10] MEDS: Insulin LISPRO 300 UNITS/3 ML VIAL SUBQ SCH ×4 (08:49→21:39)
[2020-12-10] MEDS: Furosemide 20 MG/2 ML VIAL IVP SCH (08:51)
[2020-12-10] MEDS: Insulin DETEMIR 100 UNIT/ML X5UNITS SUBQ SCH ×2 (08:51→21:39)
[2020-12-10] MEDS: Thiamine (B-1) 100 MG in 0.9 % Sodium Chloride 50 ML IVPB SCH ×2 (08:52→21:38)
[2020-12-10] MEDS: amLODIPine 5 MG TABLET PO SCH (08:54)
[2020-12-10] MEDS: Sennosides 8.6 MG TABLET PO SCH ×2 (08:54→20:26)
[2020-12-10] MEDS: Nystatin SUSP 5 ML UD.LIQ PO SCH ×4 (08:54→21:39)
[2020-12-10] MEDS: carvediloL 6.25 MG TABLET PO SCH ×2 (08:54→16:06)
[2020-12-10] MEDS: Aspirin Enteric Coated 81 MG Tablet PO SCH (08:54)
[2020-12-10 12:20] LABS: Mean Corpuscular HGB Conc 30.8 g/dL (31.6-35.5); Mean Corpuscular Hemoglobin 29.8 pg (28.0-33.3); Mean Corpuscular Volume 96.8 fL (83.0-100.0); Mean Platelet Volume 9.7 fL (9.4-12.4); Platelet Count 333 K/mcL (140-400); Red Blood Count 4.03 M/mcL (3.82-4.97); Red Cell Distribution Width 13.4 % (11.5-14.5); White Blood Count 10.1 K/mcL (4.3-11.1)
[2020-12-10] MEDS ORDERED: Haloperidol Lactate 5 MG/ML VIAL IVP PRN (12:38)
[2020-12-10 13:04] LABS: BUN/Creatinine Ratio 20 (6-26); Blood Urea Nitrogen 10 mg/dL (8-23); Carbon Dioxide 43 mEq/L (23-29); Chloride 88 mEq/L (98-107); Glucose 236 mg/dL (70-105); Osmolality,Calculated 299 (280-300); Potassium 2.9 mEq/L (3.5-5.1); Sodium 141 mEq/L (136-145); eGFR For African Americans > 60 (> 60); eGFR For Non-African Americans > 60 (> 60)
[2020-12-10] MEDS ORDERED: Potassium Chloride 40 MEQ, Lidocaine 1% 2 ML in 0.9 % Sodium Chloride 500 ML IVPB ONE (15:32)
[2020-12-10] MEDS ORDERED: diazePAM 10 MG/2 ML SYRINGE IVP SCH (18:00)
[2020-12-11] MEDS: Acetylcysteine 10% 2 ML INHSOL IH SCH ×6 (04:16→23:18)
[2020-12-11] MEDS: Ipratropium/Albuterol Neb 3 ML IH SCH ×6 (04:16→23:18)
[2020-12-11] MEDS: Dexmedetomidine HCl 400 MCG/100 ML MLS IVC SCH (05:13)
[2020-12-11] MEDS: Budesonide/Formoterol 80/4.5 1 PUFF INH IH SCH (07:20)
[2020-12-11] MEDS: Insulin LISPRO 300 UNITS/3 ML VIAL SUBQ SCH ×4 (07:28→20:36)
[2020-12-11] MEDS: Aspirin Enteric Coated 81 MG Tablet PO SCH (07:28)
[2020-12-11] MEDS: carvediloL 6.25 MG TABLET PO SCH ×2 (07:28→17:55)
[2020-12-11] MEDS: Sennosides 8.6 MG TABLET PO SCH ×2 (07:29→20:35)
[2020-12-11] MEDS: amLODIPine 5 MG TABLET PO SCH (07:29)
[2020-12-11] MEDS: Insulin DETEMIR 100 UNIT/ML X5UNITS SUBQ SCH ×2 (07:29→23:04)
[2020-12-11] MEDS: Nystatin SUSP 5 ML UD.LIQ PO SCH ×4 (07:29→20:35)
[2020-12-11] MEDS: Furosemide 20 MG/2 ML VIAL IVP SCH (08:40)
[2020-12-11] MEDS: Haloperidol Lactate 5 MG/ML VIAL IVP PRN ×2 (09:29→20:26)
[2020-12-11 10:03] LABS: Basophils # 0.1 K/mcL (0.0-0.2); Basophils % 0.9 %; Eosinophils % 0.1 %; Hematocrit 40.5 % (35.3-44.9); Hemoglobin 12.1 g/dL (11.5-15.4); Immature Granulocytes % 3.5 % (0-4); Lymphocytes # 1.8 K/mcL (0.6-4.6); Lymphocytes % 16.1 %; Mean Corpuscular HGB Conc 29.9 g/dL (31.6-35.5); Mean Corpuscular Hemoglobin 29.6 pg (28.0-33.3); Mean Platelet Volume 9.7 fL (9.4-12.4); Monocytes # 1.3 K/mcL (0.0-1.3); Neutrophils # 7.4 K/mcL (1.6-8.9); Nucleated Red Blood Cells 1.6 /100 WBC (0); Platelet Count 321 K/mcL (140-400); Red Blood Count 4.09 M/mcL (3.82-4.97); Segmented Neutrophils % 67.4 %; White Blood Count 10.9 K/mcL (4.3-11.1)
[2020-12-11 10:29] LABS: BUN/Creatinine Ratio 24 (6-26); Blood Urea Nitrogen 15 mg/dL (8-23); Calcium 9.4 mg/dL (8.6-10.3); Carbon Dioxide 38 mEq/L (23-29); Chloride 92 mEq/L (98-107); Glucose 351 mg/dL (70-105); Magnesium 1.7 mg/dL (1.6-2.6); Osmolality,Calculated 309 (280-300); Sodium 142 mEq/L (136-145); eGFR For African Americans > 60 (> 60); eGFR For Non-African Americans > 60 (> 60)
[2020-12-11 12:03] LABS: ABG Base Excess 19 mEq/L (-2 to 3); ABG HCO3 48 mEq/L (21-27); ABG Oxygen Saturation 97 % (95-98); ABG PCO2 77 mmHg (35-45); ABG PH 7.41 pH Units (7.32-7.45); ABG PO2 92 mmHg (85-104); ABG TCO2 > 50 mEq/L (20-26); Blood Gas VT 450 cc
[2020-12-11] MEDS: Thiamine (B-1) 100 MG in 0.9 % Sodium Chloride 50 ML IVPB SCH ×2 (17:53→20:29)
[2020-12-11] MEDS: *HR* Heparin 5,000 UNIT/ML VIAL SQ SCH ×3 (19:41→23:04)
[2020-12-12 01:31] LABS: Basophils # 0.1 K/mcL (0.0-0.2); Basophils % 0.7 %; Eosinophils % 0.4 %; Hematocrit 40.9 % (35.3-44.9); Hemoglobin 12.4 g/dL (11.5-15.4); Immature Granulocytes % 2.9 % (0-4); Lymphocytes # 2.5 K/mcL (0.6-4.6); Mean Corpuscular HGB Conc 30.3 g/dL (31.6-35.5); Mean Corpuscular Hemoglobin 30.1 pg (28.0-33.3); Mean Corpuscular Volume 99.3 fL (83.0-100.0); Mean Platelet Volume 9.5 fL (9.4-12.4); Monocytes # 1.8 K/mcL (0.0-1.3); Neutrophils # 4.9 K/mcL (1.6-8.9); Nucleated Red Blood Cells 2.5 /100 WBC (0); Platelet Count 269 K/mcL (140-400); Red Blood Count 4.12 M/mcL (3.82-4.97); White Blood Count 9.6 K/mcL (4.3-11.1)
[2020-12-12] MEDS ORDERED: Haloperidol Lactate 5 MG/ML VIAL IVP ONE (01:32)
[2020-12-12 01:50] LABS: BUN/Creatinine Ratio 29 (6-26); Blood Urea Nitrogen 18 mg/dL (8-23); Calcium 9.2 mg/dL (8.6-10.3); Carbon Dioxide 39 mEq/L (23-29); Chloride 95 mEq/L (98-107); Glucose 232 mg/dL (70-105); Osmolality,Calculated 309 (280-300); Potassium 3.7 mEq/L (3.5-5.1); Sodium 145 mEq/L (136-145); eGFR For African Americans > 60 (> 60); eGFR For Non-African Americans > 60 (> 60)
[2020-12-12 01:58] LABS: Platelet Estimate Normal (Normal)
[2020-12-12] MEDS: Acetylcysteine 10% 2 ML INHSOL IH SCH ×6 (03:32→23:06)
[2020-12-12] MEDS: Ipratropium/Albuterol Neb 3 ML IH SCH ×6 (03:32→23:06)
[2020-12-12] MEDS: Haloperidol Lactate 5 MG/ML VIAL IVP PRN ×2 (05:17→22:23)
[2020-12-12] MEDS: *HR* Heparin 5,000 UNIT/ML VIAL SQ SCH ×3 (06:05→22:06)
[2020-12-12] MEDS: Nystatin SUSP 5 ML UD.LIQ PO SCH ×4 (08:32→21:57)
[2020-12-12] MEDS: Insulin DETEMIR 100 UNIT/ML X5UNITS SUBQ SCH ×2 (08:32→21:58)
[2020-12-12] MEDS: Furosemide 20 MG/2 ML VIAL IVP SCH (08:32)
[2020-12-12] MEDS: amLODIPine 5 MG TABLET PO SCH (08:33)
[2020-12-12] MEDS: Aspirin Enteric Coated 81 MG Tablet PO SCH (08:33)
[2020-12-12] MEDS: Sennosides 8.6 MG TABLET PO SCH ×2 (08:33→21:57)
[2020-12-12] MEDS: Insulin LISPRO 300 UNITS/3 ML VIAL SUBQ SCH ×4 (08:33→21:57)
[2020-12-12] MEDS: carvediloL 6.25 MG TABLET PO SCH ×3 (08:33→17:25)
[2020-12-12] MEDS: Budesonide/Formoterol 80/4.5 1 PUFF INH IH SCH (11:12)
[2020-12-12] MEDS: Thiamine (B-1) 100 MG in 0.9 % Sodium Chloride 50 ML IVPB SCH ×2 (15:37→21:58)
[2020-12-12 16:19] LABS: Bilirubin,Urine Negative (Negative); Blood,Urine Negative (Negative); Budding Yeast,Urine Many per hpf (None Seen); Clarity,Urine Turbid (Clear); Color,Urine Yellow (Yellow); Glucose,Urine (UA) Normal (Normal); Ketones,Urine Trace mg/dL (Negative); Leukocyte Esterase,Urine Small (Negative); Mucus,Urine Many per lpf (None-Few); Nitrite,Urine Negative (Negative); Protein,Urine 50 mg/dL (Neg-Trace); RBC,Urine 15-30 per hpf (0-3); Specific Gravity,Urine 1.018 (1.010-1.025); Squamous Epithelial Cell,Urine Few per hpf (None-Few); Urobilinogen,Urine Normal (Normal); WBC,Urine 15-30 per hpf (0-3)
[2020-12-13] MEDS: Ipratropium/Albuterol Neb 3 ML IH SCH ×6 (03:34→23:33)
[2020-12-13] MEDS: Acetylcysteine 10% 2 ML INHSOL IH SCH ×3 (03:34→11:41)
[2020-12-13] MEDS: *HR* Heparin 5,000 UNIT/ML VIAL SQ SCH ×3 (05:06→22:11)
[2020-12-13] MEDS ORDERED: Furosemide 40 MG/4 ML VIAL IVP ONE (05:20)
[2020-12-13] MEDS ORDERED: Scopolamine Patch 1.5 MG PATCH.TD72 TD ONE (05:22)
[2020-12-13 07:14] LABS: Mean Platelet Volume 9.8 fL (9.4-12.4); Red Cell Distribution Width 14.2 % (11.5-14.5)
[2020-12-13 07:16] LABS: Hemoglobin 12.6 g/dL (11.5-15.4); Mean Corpuscular HGB Conc 29.3 g/dL (31.6-35.5); Mean Corpuscular Hemoglobin 30.2 pg (28.0-33.3); Mean Corpuscular Volume 103.1 fL (83.0-100.0); Platelet Count 274 K/mcL (140-400); Red Blood Count 4.17 M/mcL (3.82-4.97); White Blood Count 12.4 K/mcL (4.3-11.1)
[2020-12-13] MEDS: Budesonide/Formoterol 80/4.5 1 PUFF INH IH SCH (07:43)
[2020-12-13 07:44] LABS: BUN/Creatinine Ratio 23 (6-26); Blood Urea Nitrogen 21 mg/dL (8-23); Carbon Dioxide 43 mEq/L (23-29); Chloride 94 mEq/L (98-107); Glucose 260 mg/dL (70-105); Potassium 3.8 mEq/L (3.5-5.1); Sodium 147 mEq/L (136-145); eGFR For African Americans > 60 (> 60); eGFR For Non-African Americans > 60 (> 60)
[2020-12-13 07:45] LABS: Calcium 9.8 mg/dL (8.6-10.3); Magnesium 1.9 mg/dL (1.6-2.6); Osmolality,Calculated 316 (280-300)
[2020-12-13] MEDS: Furosemide 20 MG/2 ML VIAL IVP SCH (08:02)
[2020-12-13] MEDS: Insulin LISPRO 300 UNITS/3 ML VIAL SUBQ SCH ×3 (08:02→16:24)
[2020-12-13] MEDS: Nystatin SUSP 5 ML UD.LIQ PO SCH ×3 (08:02→22:11)
[2020-12-13] MEDS: carvediloL 6.25 MG TABLET PO SCH ×2 (08:12→15:54)
[2020-12-13] MEDS: Aspirin Enteric Coated 81 MG Tablet PO SCH (08:12)
[2020-12-13] MEDS: Sennosides 8.6 MG TABLET PO SCH ×2 (08:12→22:11)
[2020-12-13] MEDS: amLODIPine 5 MG TABLET PO SCH (08:12)
[2020-12-13] MEDS: Insulin DETEMIR 100 UNIT/ML X5UNITS SUBQ SCH ×2 (08:14→22:10)
[2020-12-13 09:26] LABS: ABG Base Excess 19 mEq/L (-2 to 3); ABG HCO3 52 mEq/L (21-27); ABG Oxygen Saturation 91 % (95-98); ABG PCO2 107 mmHg (35-45); ABG PO2 75 mmHg (85-104); ABG TCO2 > 50 mEq/L (20-26); Blood Gas VT 500 cc
[2020-12-13] MEDS ORDERED: 0.9 % Sodium Chloride 1,000 ML ONE (10:18)
[2020-12-13] MEDS ORDERED: FentaNYL (PF) 1,000 MCG/100 ML IV.SOLN IVC SCH (10:45)
[2020-12-13] MEDS ORDERED: levoFLOXacin 750 MG/150 ML 750 MG/150 ML BAG IVPB SCH (11:00)
[2020-12-13] MEDS ORDERED: Ringers Solution, Lactated 1,000 ML ONE (11:11)
[2020-12-13] MEDS ORDERED: Ringer's Solution, Lactated 250 ML IV.SOLN IVC ONE ×2 (11:15→13:15)
[2020-12-13] MEDS ORDERED: Ringers Solution, Lactated 500 ML IVC ONE ×2 (11:18→11:30)
[2020-12-13] MEDS ORDERED: *HR* Propofol 200 MG/20 ML VIAL IVP ONE (11:32)
[2020-12-13] MEDS ORDERED: Midazolam HCl 50 MG/100 ML IV.SOLN IVC SCH (11:45)
[2020-12-13] MEDS ORDERED: Artificial Tears SOLN 15 ML BOTTLE BOTH EYES PRN ×2 (12:29→13:15)
[2020-12-13] MEDS ORDERED: Haloperidol Lactate 5 MG/ML VIAL IVP PRN (13:15)
[2020-12-13] MEDS ORDERED: Chloraseptic Spray 177 ML BOTTLE MM PRN (13:15)
[2020-12-13] MEDS ORDERED: Dextrose Gel 15 GM/37.5 ML TUBE PO PRN ×2 (13:15)
[2020-12-13] MEDS ORDERED: Naloxone 0.4 MG/ML INJ IVP PRN (13:15)
[2020-12-13] MEDS ORDERED: *HR* Dextrose 50 % in Water (Vial) 50 ML VIAL IVP PRN (13:15)
[2020-12-13] MEDS ORDERED: Acetaminophen 325 MG TABLET PO PRN (13:15)
[2020-12-13] MEDS ORDERED: *HR* Metoprolol 5 MG/5 ML VIAL IVP PRN (13:15)
[2020-12-13] MEDS ORDERED: D5% in Water 1,000 ML IVC PRN (13:15)
[2020-12-13 13:50] LABS: ABG Base Excess 24 mEq/L (-2 to 3); ABG HCO3 51 mEq/L (21-27); ABG Oxygen Saturation 94 % (95-98); ABG PCO2 57 mmHg (35-45); ABG PH 7.56 pH Units (7.32-7.45); ABG PO2 64 mmHg (85-104); ABG TCO2 > 50 mEq/L (20-26); Blood Gas VT 450 cc
[2020-12-13] MEDS: Piperacillin/Tazobactam 3.375 GM in 0.9 % Sodium Chloride Mini Bag 100 ML IVPB SCH (14:52)
[2020-12-13] MEDS: Artificial Tears SOLN 15 ML BOTTLE BOTH EYES SCH ×2 (14:52→21:56)
[2020-12-13] MEDS ORDERED: Acetylcysteine 10% 2 ML INHSOL IH SCH (16:00)
[2020-12-13] MEDS ORDERED: Piperacillin/Tazobactam 3.375 GM in 0.9 % Sodium Chloride Mini Bag 100 ML IVPB SCH (16:00)
[2020-12-13] MEDS ORDERED: methylPREDNISolone 125 MG/2 ML VIAL IVP SCH ×2 (16:00)
[2020-12-13] MEDS ORDERED: Artificial Tears SOLN 15 ML BOTTLE BOTH EYES SCH (16:00)
[2020-12-13] MEDS ORDERED: Insulin LISPRO 300 UNITS/3 ML VIAL SUBQ SCH (21:00)
[2020-12-13] MEDS ORDERED: Chlorhexidine Rinse 15 ML MOUTHWASH MM SCH (21:00)
[2020-12-13] MEDS ORDERED: Bisacodyl 10 MG RECTAL SUPPOSITORY RC SCH (21:00)
[2020-12-13] MEDS ORDERED: Insulin DETEMIR 100 UNIT/ML X5UNITS SUBQ SCH (21:00)
[2020-12-13] MEDS: FentaNYL (PF) 1,000 MCG/100 ML IV.SOLN IVC SCH (21:20)
[2020-12-13] MEDS: Midazolam HCl 50 MG/100 ML IV.SOLN IVC SCH (21:56)
[2020-12-13] MEDS: Thiamine (B-1) 100 MG in 0.9 % Sodium Chloride 50 ML IVPB SCH (22:10)
[2020-12-13] MEDS: Chlorhexidine Rinse 15 ML MOUTHWASH MM SCH (22:11)
[2020-12-13] MEDS: Bisacodyl 10 MG RECTAL SUPPOSITORY RC SCH (22:13)
[2020-12-14] MEDS: Artificial Tears SOLN 15 ML BOTTLE BOTH EYES SCH ×6 (00:07→22:18)
[2020-12-14] MEDS: MethylPREDNISolone 40 MG/ML VIAL IVP SCH ×3 (00:10→15:31)
[2020-12-14] MEDS: Piperacillin/Tazobactam 3.375 GM in 0.9 % Sodium Chloride Mini Bag 100 ML IVPB SCH ×3 (00:10→15:31)
[2020-12-14] MEDS: Midazolam HCl 50 MG/100 ML IV.SOLN IVC SCH ×3 (00:35→21:36)
[2020-12-14] MEDS: FentaNYL (PF) 1,000 MCG/100 ML IV.SOLN IVC SCH ×4 (03:08→21:53)
[2020-12-14] MEDS: Ipratropium/Albuterol Neb 3 ML IH SCH ×6 (03:24→23:14)
[2020-12-14 04:06] LABS: ABG Base Excess 14 mEq/L (-2 to 3); ABG HCO3 42 mEq/L (21-27); ABG Oxygen Saturation 93 % (95-98); ABG PCO2 70 mmHg (35-45); ABG PH 7.39 pH Units (7.32-7.45); ABG PO2 70 mmHg (85-104); ABG TCO2 45 mEq/L (20-26); Blood Gas VT 350 cc
[2020-12-14 05:04] LABS: VBG Ionized Calcium 1.11 mmol/L (1.15-1.35)
[2020-12-14 05:15] LABS: Basophils # 0.1 K/mcL (0.0-0.2); Basophils % 0.7 %; Hematocrit 37.9 % (35.3-44.9); Hemoglobin 11.1 g/dL (11.5-15.4); Immature Granulocytes % 4.3 % (0-4); Lymphocytes % 8.5 %; Mean Corpuscular HGB Conc 29.3 g/dL (31.6-35.5); Mean Corpuscular Hemoglobin 29.8 pg (28.0-33.3); Mean Corpuscular Volume 101.9 fL (83.0-100.0); Monocytes # 0.8 K/mcL (0.0-1.3); Monocytes % 6.9 %; Neutrophils # 9.2 K/mcL (1.6-8.9); Nucleated Red Blood Cells 2.5 /100 WBC (0); Platelet Count 227 K/mcL (140-400); Red Blood Count 3.72 M/mcL (3.82-4.97); Red Cell Distribution Width 14.4 % (11.5-14.5); Segmented Neutrophils % 79.6 %; White Blood Count 11.6 K/mcL (4.3-11.1)
[2020-12-14 05:24] LABS: Magnesium 1.6 mg/dL (1.6-2.6); Phosphorous 3.3 mg/dL (2.7-4.5)
[2020-12-14 05:36] LABS: Albumin 2.9 g/dL (3.5-5.7); Albumin/Globulin Ratio 0.7 (1.1-2.2); Bilirubin,Total 0.5 mg/dL (0.3-1.0); Calcium 8.9 mg/dL (8.6-10.3); Potassium 3.9 mEq/L (3.5-5.1); Total Protein 6.9 g/dL (6.4-8.9)
[2020-12-14] MEDS: *HR* Heparin 5,000 UNIT/ML VIAL SQ SCH ×3 (06:21→22:20)
[2020-12-14] MEDS: carvediloL 6.25 MG TABLET PO SCH ×2 (07:26→17:21)
[2020-12-14] MEDS: Aspirin 81 MG TAB.CHEW PO SCH (07:26)
[2020-12-14] MEDS: Sennosides 8.6 MG TABLET PO SCH ×2 (07:26→22:20)
[2020-12-14] MEDS: Pantoprazole 40 MG VIAL IVP SCH (07:26)
[2020-12-14] MEDS: Nystatin SUSP 5 ML UD.LIQ PO SCH ×4 (07:27→22:19)
[2020-12-14] MEDS: Chlorhexidine Rinse 15 ML MOUTHWASH MM SCH ×2 (07:27→22:19)
[2020-12-14] MEDS: Budesonide/Formoterol 80/4.5 1 PUFF INH IH SCH (07:45)
[2020-12-14] MEDS: Thiamine (B-1) 100 MG in 0.9 % Sodium Chloride 50 ML IVPB SCH (08:02)
[2020-12-14] MEDS: Insulin DETEMIR 100 UNIT/ML X5UNITS SUBQ SCH (08:03)
[2020-12-14] MEDS: Insulin LISPRO 300 UNITS/3 ML VIAL SUBQ SCH ×4 (08:03→22:19)
[2020-12-14] MEDS ORDERED: methylPREDNISolone 125 MG/2 ML VIAL IVP SCH (09:00)
[2020-12-14] MEDS ORDERED: Furosemide 20 MG/2 ML VIAL IVP SCH (09:00)
[2020-12-14] MEDS ORDERED: amLODIPine 5 MG TABLET PO SCH (09:00)
[2020-12-14] MEDS ORDERED: Pantoprazole 40 MG VIAL IVP SCH (09:00)
[2020-12-14] MEDS ORDERED: Aspirin Enteric Coated 81 MG Tablet PO SCH (09:00)
[2020-12-14] MEDS ORDERED: levoFLOXacin 750 MG/150 ML 750 MG/150 ML BAG IVPB SCH (11:00)
[2020-12-14] MEDS: Albumin Human 5% 12.5 GM/250 ML IV.SOLN IVC SCH ×2 (11:14→13:25)
[2020-12-14 18:14] LABS: Calcium 9.1 mg/dL (8.6-10.3); Potassium 3.3 mEq/L (3.5-5.1)
[2020-12-14 19:00] LABS: Appearance of Body Fluid Hazy (Clear); Volume of Body Fluid 15 mL
[2020-12-14 19:05] LABS: Appearance of Body Fluid Hazy (Clear)
[2020-12-14 19:06] LABS: Volume of Body Fluid 15 mL
[2020-12-14] MEDS ORDERED: Insulin DETEMIR 100 UNIT/ML X5UNITS SUBQ SCH (21:00)
[2020-12-14] MEDS: Bisacodyl 10 MG RECTAL SUPPOSITORY RC SCH (22:20)
[2020-12-15] MEDS: Artificial Tears SOLN 15 ML BOTTLE BOTH EYES SCH ×7 (00:14→23:12)
[2020-12-15] MEDS: Insulin LISPRO 300 UNITS/3 ML VIAL SUBQ SCH ×4 (00:14→12:50)
[2020-12-15] MEDS: Piperacillin/Tazobactam 3.375 GM in 0.9 % Sodium Chloride Mini Bag 100 ML IVPB SCH ×4 (00:17→23:14)
[2020-12-15] MEDS: MethylPREDNISolone 40 MG/ML VIAL IVP SCH ×4 (00:18→23:13)
[2020-12-15] MEDS: FentaNYL (PF) 1,000 MCG/100 ML IV.SOLN IVC SCH ×3 (03:07→13:58)
[2020-12-15] MEDS: Midazolam HCl 50 MG/100 ML IV.SOLN IVC SCH ×3 (03:07→15:30)
[2020-12-15] MEDS: Ipratropium/Albuterol Neb 3 ML IH SCH ×6 (03:35→23:18)
[2020-12-15 04:48] LABS: ABG Base Excess 15 mEq/L (-2 to 3); ABG HCO3 45 mEq/L (21-27); ABG Oxygen Saturation 90 % (95-98); ABG PCO2 88 mmHg (35-45); ABG PH 7.31 pH Units (7.32-7.45); ABG PO2 68 mmHg (85-104); ABG TCO2 47 mEq/L (20-26); Blood Gas Modality ASSIST CONTROL; Blood Gas VT 350 cc
[2020-12-15] MEDS: *HR* Heparin 5,000 UNIT/ML VIAL SQ SCH ×3 (05:15→22:11)
[2020-12-15 05:42] LABS: Monocytes % 12.7 %
[2020-12-15 05:43] LABS: VBG Ionized Calcium 1.23 mmol/L (1.15-1.35)
[2020-12-15 05:44] LABS: Basophils % 0.3 %; Hematocrit 32.4 % (35.3-44.9); Hemoglobin 9.7 g/dL (11.5-15.4); Immature Granulocytes % 2.5 % (0-4); Lymphocytes # 0.9 K/mcL (0.6-4.6); Lymphocytes % 7.7 %; Mean Corpuscular HGB Conc 29.9 g/dL (31.6-35.5); Mean Corpuscular Hemoglobin 30.8 pg (28.0-33.3); Mean Corpuscular Volume 102.9 fL (83.0-100.0); Mean Platelet Volume 9.7 fL (9.4-12.4); Monocytes # 1.4 K/mcL (0.0-1.3); Neutrophils # 8.5 K/mcL (1.6-8.9); Nucleated Red Blood Cells 1.1 /100 WBC (0); Platelet Count 179 K/mcL (140-400); Red Blood Count 3.15 M/mcL (3.82-4.97); Red Cell Distribution Width 14.6 % (11.5-14.5); Segmented Neutrophils % 76.8 %
[2020-12-15 06:08] LABS: Magnesium 2.4 mg/dL (1.6-2.6); Phosphorous 3.6 mg/dL (2.7-4.5); Potassium 3.7 mEq/L (3.5-5.1)
[2020-12-15] MEDS: Budesonide/Formoterol 80/4.5 1 PUFF INH IH SCH (07:52)
[2020-12-15] MEDS: Pantoprazole 40 MG VIAL IVP SCH (08:59)
[2020-12-15] MEDS: Insulin DETEMIR 100 UNIT/ML X5UNITS SUBQ SCH ×2 (09:05→10:33)
[2020-12-15] MEDS: Nystatin SUSP 5 ML UD.LIQ PO SCH ×4 (09:05→19:42)
[2020-12-15] MEDS: carvediloL 6.25 MG TABLET PO SCH ×2 (09:06→17:24)
[2020-12-15] MEDS: Sennosides 8.6 MG TABLET PO SCH ×2 (09:06→19:42)
[2020-12-15] MEDS: Aspirin 81 MG TAB.CHEW PO SCH (09:06)
[2020-12-15] MEDS: Chlorhexidine Rinse 15 ML MOUTHWASH MM SCH ×2 (09:07→19:42)
[2020-12-15] MEDS ORDERED: *HR* Dextrose 50 % in Water (Vial) 50 ML VIAL IVP PRN (13:40)
[2020-12-15] MEDS: Bisacodyl 10 MG RECTAL SUPPOSITORY RC SCH (19:42)
[2020-12-15] MEDS: FentaNYL (PF) 2,500 MCG/50 ML IV.SOLN IVC SCH (19:43)
[2020-12-16] MEDS: Ipratropium/Albuterol Neb 3 ML IH SCH ×6 (03:01→23:36)
[2020-12-16] MEDS: FentaNYL (PF) 2,500 MCG/50 ML IV.SOLN IVC SCH ×2 (03:04→19:38)
[2020-12-16] MEDS: Artificial Tears SOLN 15 ML BOTTLE BOTH EYES SCH ×6 (03:04→23:38)
[2020-12-16 03:41] LABS: Basophils # 0.1 K/mcL (0.0-0.2); Basophils % 0.4 %; Hematocrit 33.5 % (35.3-44.9); Hemoglobin 9.7 g/dL (11.5-15.4); Immature Granulocytes % 4.7 % (0-4); Lymphocytes # 0.7 K/mcL (0.6-4.6); Lymphocytes % 5.5 %; Mean Corpuscular Hemoglobin 29.9 pg (28.0-33.3); Mean Corpuscular Volume 103.4 fL (83.0-100.0); Mean Platelet Volume 9.9 fL (9.4-12.4); Monocytes # 1.4 K/mcL (0.0-1.3); Monocytes % 10.8 %; Neutrophils # 10.1 K/mcL (1.6-8.9); Nucleated Red Blood Cells 1.6 /100 WBC (0); Platelet Count 180 K/mcL (140-400); Red Blood Count 3.24 M/mcL (3.82-4.97); Red Cell Distribution Width 14.3 % (11.5-14.5); Segmented Neutrophils % 78.6 %; White Blood Count 12.8 K/mcL (4.3-11.1)
[2020-12-16 03:46] LABS: VBG Ionized Calcium 1.19 mmol/L (1.15-1.35)
[2020-12-16 04:01] LABS: Albumin 2.9 g/dL (3.5-5.7); Albumin/Globulin Ratio 0.9 (1.1-2.2); Bilirubin,Total 0.3 mg/dL (0.3-1.0); Calcium 8.8 mg/dL (8.6-10.3); Globulin 3.2 g/dL (2.4-3.5); Magnesium 2.5 mg/dL (1.6-2.6); Phosphorous 2.1 mg/dL (2.7-4.5); Total Protein 6.1 g/dL (6.4-8.9)
[2020-12-16 04:02] LABS: ABG Base Excess 12 mEq/L (-2 to 3); ABG HCO3 41 mEq/L (21-27); ABG Oxygen Saturation 89 % (95-98); ABG PCO2 83 mmHg (35-45); ABG PH 7.31 pH Units (7.32-7.45); ABG PO2 65 mmHg (85-104); ABG TCO2 44 mEq/L (20-26); Blood Gas VT 350 cc
[2020-12-16] MEDS ORDERED: Potassium Phosphate 44 MEQ in 0.9 % Sodium Chloride 250 ML IVPB ONE (04:27)
[2020-12-16] MEDS: *HR* Heparin 5,000 UNIT/ML VIAL SQ SCH ×3 (05:18→23:34)
[2020-12-16] MEDS ORDERED: D5% in Water 1,000 ML IVC SCH (08:15)
[2020-12-16] MEDS: Budesonide/Formoterol 80/4.5 1 PUFF INH IH SCH (08:25)
[2020-12-16] MEDS: Nystatin SUSP 5 ML UD.LIQ PO SCH ×4 (10:00→19:44)
[2020-12-16] MEDS: levoFLOXacin 750 MG/150 ML 750 MG/150 ML BAG IVPB SCH (11:39)
[2020-12-16] MEDS: Piperacillin/Tazobactam 3.375 GM in 0.9 % Sodium Chloride Mini Bag 100 ML IVPB SCH ×3 (11:40→23:35)
[2020-12-16] MEDS: Pantoprazole 40 MG VIAL IVP SCH (11:40)
[2020-12-16] MEDS: MethylPREDNISolone 40 MG/ML VIAL IVP SCH ×3 (11:40→23:35)
[2020-12-16] MEDS: Sennosides 8.6 MG TABLET PO SCH ×2 (11:41→19:44)
[2020-12-16] MEDS: carvediloL 6.25 MG TABLET PO SCH ×2 (11:41→17:01)
[2020-12-16] MEDS: Aspirin 81 MG TAB.CHEW PO SCH (11:41)
[2020-12-16] MEDS: Chlorhexidine Rinse 15 ML MOUTHWASH MM SCH ×2 (11:41→19:44)
[2020-12-16 18:20] LABS: Calcium 8.3 mg/dL (8.6-10.3); Phosphorous 4.4 mg/dL (2.7-4.5); Potassium 4.4 mEq/L (3.5-5.1)
[2020-12-16] MEDS: Bisacodyl 10 MG RECTAL SUPPOSITORY RC SCH (19:44)
[2020-12-17] MEDS: Ipratropium/Albuterol Neb 3 ML IH SCH ×6 (03:14→23:12)
[2020-12-17] MEDS: Artificial Tears SOLN 15 ML BOTTLE BOTH EYES SCH ×6 (04:16→23:24)
[2020-12-17 04:19] LABS: ABG Base Excess 11 mEq/L (-2 to 3); ABG HCO3 40 mEq/L (21-27); ABG Oxygen Saturation 91 % (95-98); ABG PCO2 76 mmHg (35-45); ABG PH 7.32 pH Units (7.32-7.45); ABG PO2 69 mmHg (85-104); ABG TCO2 42 mEq/L (20-26); Blood Gas Modality ASSIST CONTROL; Blood Gas VT 350 cc
[2020-12-17 05:39] LABS: VBG Ionized Calcium 1.14 mmol/L (1.15-1.35)
[2020-12-17] MEDS: *HR* Heparin 5,000 UNIT/ML VIAL SQ SCH ×3 (05:40→21:00)
[2020-12-17 05:41] LABS: Hematocrit 33.2 % (35.3-44.9); Hemoglobin 9.8 g/dL (11.5-15.4); Lymphocytes # 1.1 K/mcL (0.6-4.6); Mean Corpuscular HGB Conc 29.5 g/dL (31.6-35.5); Mean Corpuscular Hemoglobin 30.4 pg (28.0-33.3); Mean Corpuscular Volume 103.1 fL (83.0-100.0); Mean Platelet Volume 10.4 fL (9.4-12.4); Platelet Count 174 K/mcL (140-400); Red Blood Count 3.22 M/mcL (3.82-4.97); Red Cell Distribution Width 14.5 % (11.5-14.5); White Blood Count 14.2 K/mcL (4.3-11.1)
[2020-12-17 05:59] LABS: Alanine Aminotransferase 20 Units/L (7-52); Alkaline Phosphatase 46 Units/L (34-104); Aspartate Amino Transferase 30 Units/L (13-39); BUN/Creatinine Ratio 40 (6-26); Bilirubin,Total 0.3 mg/dL (0.3-1.0); Blood Urea Nitrogen 40 mg/dL (8-23); Calcium 8.3 mg/dL (8.6-10.3); Carbon Dioxide 39 mEq/L (23-29); Chloride 103 mEq/L (98-107); Globulin 2.9 g/dL (2.4-3.5); Glucose 112 mg/dL (70-105); Magnesium 2.3 mg/dL (1.6-2.6); Osmolality,Calculated 315 (280-300); Phosphorous 3.4 mg/dL (2.7-4.5); Potassium 4.7 mEq/L (3.5-5.1); Sodium 147 mEq/L (136-145); Total Protein 5.9 g/dL (6.4-8.9); eGFR For African Americans > 60 (> 60); eGFR For Non-African Americans 56 (> 60)
[2020-12-17 06:00] LABS: Monocytes # 0.6 K/mcL (0.0-1.3); Neutrophils # 11.1 K/mcL (1.6-8.9); Platelet Estimate Normal (Normal); Smudge Cells Present (Not Present)
[2020-12-17] MEDS: Piperacillin/Tazobactam 3.375 GM in 0.9 % Sodium Chloride Mini Bag 100 ML IVPB SCH ×3 (07:43→23:23)
[2020-12-17] MEDS: Nystatin SUSP 5 ML UD.LIQ PO SCH ×4 (07:43→19:29)
[2020-12-17] MEDS: Sennosides 8.6 MG TABLET PO SCH ×2 (07:43→19:29)
[2020-12-17] MEDS: Chlorhexidine Rinse 15 ML MOUTHWASH MM SCH ×2 (07:43→19:29)
[2020-12-17] MEDS: Pantoprazole 40 MG VIAL IVP SCH (07:44)
[2020-12-17] MEDS: MethylPREDNISolone 40 MG/ML VIAL IVP SCH ×3 (07:44→23:23)
[2020-12-17] MEDS: carvediloL 6.25 MG TABLET PO SCH ×2 (07:44→16:51)
[2020-12-17] MEDS: Aspirin 81 MG TAB.CHEW PO SCH (07:44)
[2020-12-17] MEDS ORDERED: D5% in Water 1,000 ML IVC PRN (07:48)
[2020-12-17] MEDS ORDERED: Dextrose Gel 15 GM/37.5 ML TUBE PO PRN ×2 (07:48)
[2020-12-17] MEDS: Budesonide/Formoterol 80/4.5 1 PUFF INH IH SCH (07:51)
[2020-12-17 11:04] LABS: ABG Base Excess 13 mEq/L (-2 to 3); ABG HCO3 42 mEq/L (21-27); ABG Oxygen Saturation 91 % (95-98); ABG PCO2 81 mmHg (35-45); ABG PH 7.32 pH Units (7.32-7.45); ABG PO2 69 mmHg (85-104); ABG TCO2 44 mEq/L (20-26); Blood Gas Modality CPAP/PS; Blood Gas Pressure Support 5 cm H2O
[2020-12-17] MEDS: Insulin LISPRO 300 UNITS/3 ML VIAL SUBQ SCH ×4 (12:17→23:38)
[2020-12-17] MEDS: FentaNYL (PF) 2,500 MCG/50 ML IV.SOLN IVC SCH (16:59)
[2020-12-17] MEDS: Bisacodyl 10 MG RECTAL SUPPOSITORY RC SCH (19:29)
[2020-12-17] MEDS ORDERED: Insulin DETEMIR 100 UNIT/ML X5UNITS SUBQ SCH (21:00)
[2020-12-18] MEDS: Ipratropium/Albuterol Neb 3 ML IH SCH ×6 (03:09→23:52)
[2020-12-18] MEDS: Artificial Tears SOLN 15 ML BOTTLE BOTH EYES SCH ×5 (03:28→19:16)
[2020-12-18] MEDS: Insulin LISPRO 300 UNITS/3 ML VIAL SUBQ SCH ×5 (03:29→20:32)
[2020-12-18 03:54] LABS: Hematocrit 31.4 % (35.3-44.9); Hemoglobin 9.3 g/dL (11.5-15.4); Mean Corpuscular HGB Conc 29.6 g/dL (31.6-35.5); Mean Corpuscular Hemoglobin 30.7 pg (28.0-33.3); Mean Corpuscular Volume 103.6 fL (83.0-100.0); Mean Platelet Volume 10.4 fL (9.4-12.4); Nucleated Red Blood Cells 1.7 /100 WBC (0); Platelet Count 159 K/mcL (140-400); Red Blood Count 3.03 M/mcL (3.82-4.97); Red Cell Distribution Width 14.8 % (11.5-14.5)
[2020-12-18 03:55] LABS: VBG Ionized Calcium 1.16 mmol/L (1.15-1.35)
[2020-12-18 04:15] LABS: Alanine Aminotransferase 21 Units/L (7-52); Albumin 2.9 g/dL (3.5-5.7); Albumin/Globulin Ratio 1.1 (1.1-2.2); Alkaline Phosphatase 43 Units/L (34-104); Aspartate Amino Transferase 28 Units/L (13-39); BUN/Creatinine Ratio 50 (6-26); Bilirubin,Total 0.3 mg/dL (0.3-1.0); Blood Urea Nitrogen 43 mg/dL (8-23); Calcium 8.1 mg/dL (8.6-10.3); Carbon Dioxide 39 mEq/L (23-29); Chloride 101 mEq/L (98-107); Globulin 2.6 g/dL (2.4-3.5); Glucose 390 mg/dL (70-105); Magnesium 2.4 mg/dL (1.6-2.6); Osmolality,Calculated 325 (280-300); Phosphorous 4.2 mg/dL (2.7-4.5); Potassium 5.4 mEq/L (3.5-5.1); Sodium 144 mEq/L (136-145); Total Protein 5.5 g/dL (6.4-8.9); eGFR For African Americans > 60 (> 60); eGFR For Non-African Americans > 60 (> 60)
[2020-12-18 04:26] LABS: Basophilic Stippling 2+ (Not Present)
[2020-12-18 04:28] LABS: Lymphocytes # 0.5 K/mcL (0.6-4.6); Monocytes # 1.7 K/mcL (0.0-1.3); Neutrophils # 8.9 K/mcL (1.6-8.9); Platelet Estimate Normal (Normal)
[2020-12-18 04:33] LABS: ABG Base Excess 12 mEq/L (-2 to 3); ABG HCO3 41 mEq/L (21-27); ABG Oxygen Saturation 88 % (95-98); ABG PCO2 80 mmHg (35-45); ABG PH 7.32 pH Units (7.32-7.45); ABG PO2 63 mmHg (85-104); ABG TCO2 44 mEq/L (20-26); Blood Gas Modality ASSIST CONTROL; Blood Gas VT 350 cc
[2020-12-18] MEDS: *HR* Heparin 5,000 UNIT/ML VIAL SQ SCH ×3 (05:52→21:03)
[2020-12-18] MEDS: Budesonide/Formoterol 80/4.5 1 PUFF INH IH SCH (07:39)
[2020-12-18] MEDS: Aspirin 81 MG TAB.CHEW PO SCH (08:28)
[2020-12-18] MEDS: MethylPREDNISolone 40 MG/ML VIAL IVP SCH ×2 (08:29→15:56)
[2020-12-18] MEDS: Nystatin SUSP 5 ML UD.LIQ PO SCH ×4 (08:29→19:27)
[2020-12-18] MEDS: Chlorhexidine Rinse 15 ML MOUTHWASH MM SCH ×2 (08:29→19:16)
[2020-12-18] MEDS: Pantoprazole 40 MG VIAL IVP SCH (08:29)
[2020-12-18] MEDS: Sennosides 8.6 MG TABLET PO SCH ×2 (08:29→19:16)
[2020-12-18] MEDS: carvediloL 6.25 MG TABLET PO SCH ×2 (08:29→15:56)
[2020-12-18] MEDS: Piperacillin/Tazobactam 3.375 GM in 0.9 % Sodium Chloride Mini Bag 100 ML IVPB SCH ×2 (08:30→15:56)
[2020-12-18] MEDS: Insulin DETEMIR 100 UNIT/ML X5UNITS SUBQ SCH ×2 (11:43→20:32)
[2020-12-18] MEDS: FentaNYL (PF) 2,500 MCG/50 ML IV.SOLN IVC SCH (11:45)
[2020-12-18] MEDS: levoFLOXacin 750 MG/150 ML 750 MG/150 ML BAG IVPB SCH (11:52)
[2020-12-18] MEDS: Midazolam HCl 50 MG/100 ML IV.SOLN IVC SCH (19:15)
[2020-12-18] MEDS: Dexmedetomidine HCl 400 MCG/100 ML MLS IVC SCH (19:23)
[2020-12-18] MEDS: Bisacodyl 10 MG RECTAL SUPPOSITORY RC SCH (19:23)
[2020-12-19] MEDS: Insulin LISPRO 300 UNITS/3 ML VIAL SUBQ SCH ×7 (00:38→23:31)
[2020-12-19] MEDS: Artificial Tears SOLN 15 ML BOTTLE BOTH EYES SCH ×7 (00:38→23:31)
[2020-12-19] MEDS: MethylPREDNISolone 40 MG/ML VIAL IVP SCH ×2 (00:42→08:56)
[2020-12-19] MEDS: Piperacillin/Tazobactam 3.375 GM in 0.9 % Sodium Chloride Mini Bag 100 ML IVPB SCH ×4 (00:43→23:31)
[2020-12-19] MEDS: *HR* Metoprolol 5 MG/5 ML VIAL IVP PRN ×2 (02:21→17:14)
[2020-12-19 03:17] LABS: VBG Ionized Calcium 1.21 mmol/L (1.15-1.35)
[2020-12-19 03:17] LABS: Hematocrit 35.9 % (35.3-44.9)
[2020-12-19 03:19] LABS: Hemoglobin 10.5 g/dL (11.5-15.4); Mean Corpuscular HGB Conc 29.2 g/dL (31.6-35.5); Mean Corpuscular Hemoglobin 30.5 pg (28.0-33.3); Mean Corpuscular Volume 104.4 fL (83.0-100.0); Mean Platelet Volume 10.1 fL (9.4-12.4); Nucleated Red Blood Cells 1.7 /100 WBC (0); Platelet Count 183 K/mcL (140-400); Red Blood Count 3.44 M/mcL (3.82-4.97); Red Cell Distribution Width 14.8 % (11.5-14.5)
[2020-12-19 03:47] LABS: Lymphocytes # 2.2 K/mcL (0.6-4.6); Monocytes # 1.1 K/mcL (0.0-1.3); Neutrophils # 10.1 K/mcL (1.6-8.9)
[2020-12-19 03:48] LABS: Anisocytosis 1+ (Not Present); Platelet Estimate Normal (Normal); Polychromasia 1+ (Not Present)
[2020-12-19 03:49] LABS: Alanine Aminotransferase 37 Units/L (7-52); Albumin 3.2 g/dL (3.5-5.7); Albumin/Globulin Ratio 1.1 (1.1-2.2); Alkaline Phosphatase 57 Units/L (34-104); Aspartate Amino Transferase 47 Units/L (13-39); BUN/Creatinine Ratio 55 (6-26); Bilirubin,Total 0.4 mg/dL (0.3-1.0); Blood Urea Nitrogen 33 mg/dL (8-23); Calcium 8.8 mg/dL (8.6-10.3); Carbon Dioxide 43 mEq/L (23-29); Chloride 103 mEq/L (98-107); Glucose 173 mg/dL (70-105); Magnesium 2.1 mg/dL (1.6-2.6); Osmolality,Calculated 321 (280-300); Phosphorous 4.3 mg/dL (2.7-4.5); Potassium 4.9 mEq/L (3.5-5.1); Sodium 150 mEq/L (136-145); Total Protein 6.2 g/dL (6.4-8.9); eGFR For African Americans > 60 (> 60); eGFR For Non-African Americans > 60 (> 60)
[2020-12-19] MEDS: Ipratropium/Albuterol Neb 3 ML IH SCH ×6 (03:57→23:42)
[2020-12-19] MEDS ORDERED: D5% in Water 1,000 ML IVC SCH (04:00)
[2020-12-19] MEDS: *HR* Heparin 5,000 UNIT/ML VIAL SQ SCH ×3 (05:25→21:15)
[2020-12-19] MEDS: Budesonide/Formoterol 80/4.5 1 PUFF INH IH SCH (07:29)
[2020-12-19] MEDS: Sennosides 8.6 MG TABLET PO SCH ×2 (08:53→20:05)
[2020-12-19] MEDS: Nystatin SUSP 5 ML UD.LIQ PO SCH ×4 (08:53→20:04)
[2020-12-19] MEDS: Pantoprazole 40 MG VIAL IVP SCH (08:57)
[2020-12-19] MEDS: Aspirin 81 MG TAB.CHEW PO SCH (08:57)
[2020-12-19] MEDS: carvediloL 6.25 MG TABLET PO SCH ×2 (08:57→17:15)
[2020-12-19] MEDS: Chlorhexidine Rinse 15 ML MOUTHWASH MM SCH ×2 (08:59→20:03)
[2020-12-19] MEDS: Insulin DETEMIR 100 UNIT/ML X5UNITS SUBQ SCH ×2 (08:59→20:06)
[2020-12-19] MEDS: levoFLOXacin 750 MG/150 ML 750 MG/150 ML BAG IVPB SCH (14:55)
[2020-12-19] MEDS: Midazolam HCl 50 MG/100 ML IV.SOLN IVC SCH (14:55)
[2020-12-19] MEDS: predniSONE 20 MG TABLET PO SCH (17:11)
[2020-12-19] MEDS: Dexmedetomidine HCl 400 MCG/100 ML MLS IVC SCH (20:02)
[2020-12-19] MEDS: Bisacodyl 10 MG RECTAL SUPPOSITORY RC SCH (20:05)
[2020-12-20] MEDS: Ipratropium/Albuterol Neb 3 ML IH SCH ×6 (03:49→23:39)
[2020-12-20] MEDS: Artificial Tears SOLN 15 ML BOTTLE BOTH EYES SCH ×2 (03:59→08:40)
[2020-12-20 04:01] LABS: Hematocrit 34.6 % (35.3-44.9); Hemoglobin 10.1 g/dL (11.5-15.4); Mean Corpuscular HGB Conc 29.2 g/dL (31.6-35.5); Mean Corpuscular Hemoglobin 30.3 pg (28.0-33.3); Mean Corpuscular Volume 103.9 fL (83.0-100.0); Mean Platelet Volume 9.7 fL (9.4-12.4); Nucleated Red Blood Cells 1.4 /100 WBC (0); Platelet Count 180 K/mcL (140-400); Red Blood Count 3.33 M/mcL (3.82-4.97); Red Cell Distribution Width 14.6 % (11.5-14.5); White Blood Count 12.2 K/mcL (4.3-11.1)
[2020-12-20 04:04] LABS: VBG Ionized Calcium 1.21 mmol/L (1.15-1.35)
[2020-12-20 04:37] LABS: Anisocytosis 1+ (Not Present); Lymphocytes # 4.2 K/mcL (0.6-4.6); Monocytes # 0.5 K/mcL (0.0-1.3); Neutrophils # 6.6 K/mcL (1.6-8.9); Platelet Estimate Normal (Normal); Polychromasia 1+ (Not Present)
[2020-12-20 04:40] LABS: Alanine Aminotransferase 30 Units/L (7-52); Albumin 3.1 g/dL (3.5-5.7); Albumin/Globulin Ratio 1.1 (1.1-2.2); Alkaline Phosphatase 46 Units/L (34-104); Aspartate Amino Transferase 27 Units/L (13-39); BUN/Creatinine Ratio 46 (6-26); Bilirubin,Total 0.4 mg/dL (0.3-1.0); Blood Urea Nitrogen 27 mg/dL (8-23); Carbon Dioxide > 45 mEq/L (23-29); Chloride 99 mEq/L (98-107); Globulin 2.7 g/dL (2.4-3.5); Glucose 110 mg/dL (70-105); Magnesium 1.8 mg/dL (1.6-2.6); Osmolality,Calculated 312 (280-300); Potassium 4.2 mEq/L (3.5-5.1); Sodium 148 mEq/L (136-145); Total Protein 5.8 g/dL (6.4-8.9); eGFR For African Americans > 60 (> 60); eGFR For Non-African Americans > 60 (> 60)
[2020-12-20] MEDS: Insulin LISPRO 300 UNITS/3 ML VIAL SUBQ SCH ×5 (05:20→21:01)
[2020-12-20] MEDS: *HR* Heparin 5,000 UNIT/ML VIAL SQ SCH ×3 (05:20→20:54)
[2020-12-20] MEDS: Budesonide/Formoterol 80/4.5 1 PUFF INH IH SCH (07:43)
[2020-12-20] MEDS: Pantoprazole 40 MG VIAL IVP SCH (08:39)
[2020-12-20] MEDS: Piperacillin/Tazobactam 3.375 GM in 0.9 % Sodium Chloride Mini Bag 100 ML IVPB SCH ×2 (08:39→16:42)
[2020-12-20] MEDS: carvediloL 6.25 MG TABLET PO SCH ×2 (08:40→18:09)
[2020-12-20] MEDS: Aspirin 81 MG TAB.CHEW PO SCH (08:41)
[2020-12-20] MEDS: Chlorhexidine Rinse 15 ML MOUTHWASH MM SCH (08:41)
[2020-12-20] MEDS: Nystatin SUSP 5 ML UD.LIQ PO SCH ×4 (08:43→20:54)
[2020-12-20] MEDS: Sennosides 8.6 MG TABLET PO SCH ×2 (08:43→20:55)
[2020-12-20] MEDS: predniSONE 20 MG TABLET PO SCH (08:43)
[2020-12-20] MEDS ORDERED: D5% in Water 1,000 ML IVC SCH (10:15)
[2020-12-20] MEDS: levoFLOXacin 750 MG/150 ML 750 MG/150 ML BAG IVPB SCH (14:58)
[2020-12-20] MEDS: Dexmedetomidine HCl 400 MCG/100 ML MLS IVC SCH (18:57)
[2020-12-20] MEDS: Bisacodyl 10 MG RECTAL SUPPOSITORY RC SCH (20:55)
[2020-12-20] MEDS: Insulin DETEMIR 100 UNIT/ML X5UNITS SUBQ SCH (20:55)
[2020-12-21] MEDS: *HR* Metoprolol 5 MG/5 ML VIAL IVP PRN ×2 (00:13→08:46)
[2020-12-21] MEDS: Piperacillin/Tazobactam 3.375 GM in 0.9 % Sodium Chloride Mini Bag 100 ML IVPB SCH ×4 (00:13→23:07)
[2020-12-21] MEDS: Insulin LISPRO 300 UNITS/3 ML VIAL SUBQ SCH ×7 (00:54→23:13)
[2020-12-21 03:31] LABS: Hematocrit 32.1 % (35.3-44.9); Hemoglobin 9.5 g/dL (11.5-15.4); Mean Corpuscular HGB Conc 29.6 g/dL (31.6-35.5); Mean Corpuscular Hemoglobin 30.4 pg (28.0-33.3); Mean Corpuscular Volume 102.9 fL (83.0-100.0); Nucleated Red Blood Cells 0.8 /100 WBC (0); Platelet Count 150 K/mcL (140-400); Red Blood Count 3.12 M/mcL (3.82-4.97); Red Cell Distribution Width 14.5 % (11.5-14.5)
[2020-12-21 03:40] LABS: VBG Ionized Calcium 1.15 mmol/L (1.15-1.35)
[2020-12-21] MEDS: Ipratropium/Albuterol Neb 3 ML IH SCH ×6 (03:41→23:58)
[2020-12-21 03:55] LABS: Alanine Aminotransferase 26 Units/L (7-52); Albumin 2.8 g/dL (3.5-5.7); Albumin/Globulin Ratio 1.1 (1.1-2.2); Alkaline Phosphatase 40 Units/L (34-104); Aspartate Amino Transferase 22 Units/L (13-39); BUN/Creatinine Ratio 48 (6-26); Bilirubin,Total 0.4 mg/dL (0.3-1.0); Blood Urea Nitrogen 20 mg/dL (8-23); Calcium 8.7 mg/dL (8.6-10.3); Carbon Dioxide > 45 mEq/L (23-29); Chloride 99 mEq/L (98-107); Globulin 2.6 g/dL (2.4-3.5); Glucose 105 mg/dL (70-105); Magnesium 1.5 mg/dL (1.6-2.6); Osmolality,Calculated 307 (280-300); Phosphorous 3.7 mg/dL (2.7-4.5); Potassium 3.8 mEq/L (3.5-5.1); Sodium 147 mEq/L (136-145); Total Protein 5.4 g/dL (6.4-8.9); eGFR For African Americans > 60 (> 60); eGFR For Non-African Americans > 60 (> 60)
[2020-12-21 04:01] LABS: Anisocytosis 1+ (Not Present); Basophilic Stippling 2+ (Not Present); Eosinophils # 0.2 K/mcL (0.0-0.6); Lymphocytes # 1.3 K/mcL (0.6-4.6); Monocytes # 1.1 K/mcL (0.0-1.3); Neutrophils # 6.1 K/mcL (1.6-8.9); Platelet Estimate Normal (Normal); Polychromasia 1+ (Not Present)
[2020-12-21] MEDS ORDERED: Calcium Gluconate 1gm/50mL 1 GM/50 ML BAG IVPB PRN (04:13)
[2020-12-21] MEDS: Potassium Chloride 40 MEQ/200 ML BAG IVPB PRN (04:40)
[2020-12-21] MEDS: *HR* Heparin 5,000 UNIT/ML VIAL SQ SCH ×3 (05:01→23:06)
[2020-12-21] MEDS: Budesonide/Formoterol 80/4.5 1 PUFF INH IH SCH (07:50)
[2020-12-21] MEDS: Aspirin 81 MG TAB.CHEW PO SCH (08:36)
[2020-12-21] MEDS: carvediloL 6.25 MG TABLET PO SCH ×2 (08:36→15:40)
[2020-12-21] MEDS: Insulin DETEMIR 100 UNIT/ML X5UNITS SUBQ SCH ×3 (08:36→19:46)
[2020-12-21] MEDS: predniSONE 20 MG TABLET PO SCH (08:37)
[2020-12-21] MEDS: Sennosides 8.6 MG TABLET PO SCH ×2 (08:37→19:47)
[2020-12-21] MEDS: Pantoprazole 40 MG VIAL IVP SCH (08:42)
[2020-12-21] MEDS: Nystatin SUSP 5 ML UD.LIQ PO SCH ×4 (08:42→19:46)
[2020-12-21] MEDS: MethylPREDNISolone 40 MG/ML VIAL IVP SCH (10:12)
[2020-12-21 13:07] LABS: Magnesium 1.8 mg/dL (1.6-2.6); Potassium 4.2 mEq/L (3.5-5.1)
[2020-12-21] MEDS: levoFLOXacin 750 MG/150 ML 750 MG/150 ML BAG IVPB SCH (14:14)
[2020-12-21] MEDS: Dexmedetomidine HCl 400 MCG/100 ML MLS IVC SCH (16:30)
[2020-12-21] MEDS: *HR* Dextrose 50 % in Water (Vial) 50 ML VIAL IVP PRN (19:45)
[2020-12-21] MEDS: Bisacodyl 10 MG RECTAL SUPPOSITORY RC SCH (19:46)
[2020-12-22] MEDS: Dexmedetomidine HCl 400 MCG/100 ML MLS IVC SCH ×2 (02:17→18:47)
[2020-12-22] MEDS: Insulin LISPRO 300 UNITS/3 ML VIAL SUBQ SCH ×6 (03:36→23:20)
[2020-12-22] MEDS: Ipratropium/Albuterol Neb 3 ML IH SCH ×6 (03:41→23:11)
[2020-12-22 03:47] LABS: Basophils % 0.5 %; Eosinophils % 0.2 %; Hematocrit 29.7 % (35.3-44.9); Hemoglobin 8.8 g/dL (11.5-15.4); Immature Granulocytes % 4.8 % (0-4); Lymphocytes # 1.3 K/mcL (0.6-4.6); Lymphocytes % 15.5 %; Mean Corpuscular HGB Conc 29.6 g/dL (31.6-35.5); Mean Corpuscular Hemoglobin 30.4 pg (28.0-33.3); Mean Corpuscular Volume 102.8 fL (83.0-100.0); Monocytes # 1.3 K/mcL (0.0-1.3); Monocytes % 15.7 %; Neutrophils # 5.1 K/mcL (1.6-8.9); Nucleated Red Blood Cells 0.4 /100 WBC (0); Platelet Count 151 K/mcL (140-400); Red Blood Count 2.89 M/mcL (3.82-4.97); Red Cell Distribution Width 14.6 % (11.5-14.5); Segmented Neutrophils % 63.3 %; White Blood Count 8.1 K/mcL (4.3-11.1)
[2020-12-22 04:12] LABS: Alanine Aminotransferase 24 Units/L (7-52); Albumin 2.9 g/dL (3.5-5.7); Albumin/Globulin Ratio 1.1 (1.1-2.2); Alkaline Phosphatase 40 Units/L (34-104); Aspartate Amino Transferase 22 Units/L (13-39); BUN/Creatinine Ratio 37 (6-26); Bilirubin,Total 0.5 mg/dL (0.3-1.0); Blood Urea Nitrogen 16 mg/dL (8-23); Calcium 8.6 mg/dL (8.6-10.3); Carbon Dioxide 45 mEq/L (23-29); Chloride 100 mEq/L (98-107); Globulin 2.6 g/dL (2.4-3.5); Glucose 120 mg/dL (70-105); Osmolality,Calculated 310 (280-300); Phosphorous 2.2 mg/dL (2.7-4.5); Potassium 3.5 mEq/L (3.5-5.1); Sodium 149 mEq/L (136-145); Total Protein 5.5 g/dL (6.4-8.9); eGFR For African Americans > 60 (> 60); eGFR For Non-African Americans > 60 (> 60)
[2020-12-22 04:13] LABS: BUN/Creatinine Ratio 38 (6-26); Blood Urea Nitrogen 16 mg/dL (8-23); Calcium 8.6 mg/dL (8.6-10.3); Carbon Dioxide 44 mEq/L (23-29); Chloride 100 mEq/L (98-107); Glucose 121 mg/dL (70-105); Osmolality,Calculated 308 (280-300); Potassium 3.5 mEq/L (3.5-5.1); Sodium 148 mEq/L (136-145); eGFR For African Americans > 60 (> 60); eGFR For Non-African Americans > 60 (> 60)
[2020-12-22] MEDS ORDERED: Potassium Phosphate 44 MEQ in 0.9 % Sodium Chloride 250 ML IVPB ONE ×2 (05:06→17:17)
[2020-12-22] MEDS: *HR* Heparin 5,000 UNIT/ML VIAL SQ SCH ×3 (05:40→23:10)
[2020-12-22] MEDS: Budesonide/Formoterol 80/4.5 1 PUFF INH IH SCH (07:36)
[2020-12-22] MEDS: Nystatin SUSP 5 ML UD.LIQ PO SCH ×4 (07:42→19:38)
[2020-12-22] MEDS: MethylPREDNISolone 40 MG/ML VIAL IVP SCH (07:42)
[2020-12-22] MEDS: Piperacillin/Tazobactam 3.375 GM in 0.9 % Sodium Chloride Mini Bag 100 ML IVPB SCH ×3 (07:42→23:10)
[2020-12-22] MEDS: Pantoprazole 40 MG VIAL IVP SCH (07:42)
[2020-12-22] MEDS: Sennosides 8.6 MG TABLET PO SCH ×2 (07:42→19:39)
[2020-12-22] MEDS: Insulin DETEMIR 100 UNIT/ML X5UNITS SUBQ SCH ×3 (07:43→19:39)
[2020-12-22] MEDS: carvediloL 6.25 MG TABLET PO SCH ×2 (07:43→16:42)
[2020-12-22] MEDS: Aspirin 81 MG TAB.CHEW PO SCH (07:43)
[2020-12-22] MEDS: levoFLOXacin 750 MG/150 ML 750 MG/150 ML BAG IVPB SCH (14:29)
[2020-12-22] MEDS: D5% in Water 1,000 ML IVC SCH (15:08)
[2020-12-22 17:09] LABS: Phosphorous 2.7 mg/dL (2.7-4.5); Potassium 3.8 mEq/L (3.5-5.1)
[2020-12-22] MEDS: Bisacodyl 10 MG RECTAL SUPPOSITORY RC SCH (19:38)
[2020-12-23] MEDS: D5% in Water 1,000 ML IVC SCH ×2 (03:08→10:22)
[2020-12-23] MEDS: Insulin LISPRO 300 UNITS/3 ML VIAL SUBQ SCH ×6 (03:20→23:38)
[2020-12-23 03:29] LABS: Basophils % 0.2 %; Eosinophils % 0.4 %; Hematocrit 28.6 % (35.3-44.9); Hemoglobin 8.7 g/dL (11.5-15.4); Immature Granulocytes % 3.9 % (0-4); Lymphocytes # 1.5 K/mcL (0.6-4.6); Lymphocytes % 18.1 %; Mean Corpuscular HGB Conc 30.4 g/dL (31.6-35.5); Mean Corpuscular Hemoglobin 30.3 pg (28.0-33.3); Mean Corpuscular Volume 99.7 fL (83.0-100.0); Mean Platelet Volume 9.8 fL (9.4-12.4); Monocytes # 1.2 K/mcL (0.0-1.3); Monocytes % 14.2 %; Neutrophils # 5.3 K/mcL (1.6-8.9); Nucleated Red Blood Cells 0.2 /100 WBC (0); Platelet Count 157 K/mcL (140-400); Red Blood Count 2.87 M/mcL (3.82-4.97); Red Cell Distribution Width 14.6 % (11.5-14.5); Segmented Neutrophils % 63.2 %; White Blood Count 8.4 K/mcL (4.3-11.1)
[2020-12-23 03:34] LABS: VBG Ionized Calcium 1.14 mmol/L (1.15-1.35)
[2020-12-23 03:55] LABS: BUN/Creatinine Ratio 33 (6-26); Blood Urea Nitrogen 16 mg/dL (8-23); Calcium 8.6 mg/dL (8.6-10.3); Carbon Dioxide 41 mEq/L (23-29); Chloride 101 mEq/L (98-107); Glucose 115 mg/dL (70-105); Magnesium 1.7 mg/dL (1.6-2.6); Osmolality,Calculated 308 (280-300); Potassium 3.5 mEq/L (3.5-5.1); Sodium 148 mEq/L (136-145); eGFR For African Americans > 60 (> 60); eGFR For Non-African Americans > 60 (> 60)
[2020-12-23] MEDS: Ipratropium/Albuterol Neb 3 ML IH SCH ×6 (03:57→23:47)
[2020-12-23 04:26] LABS: Phosphorous 4.5 mg/dL (2.7-4.5)
[2020-12-23] MEDS: *HR* Heparin 5,000 UNIT/ML VIAL SQ SCH ×3 (04:33→23:16)
[2020-12-23] MEDS: Potassium Chloride 40 MEQ/200 ML BAG IVPB PRN (04:33)
[2020-12-23] MEDS: Budesonide/Formoterol 80/4.5 1 PUFF INH IH SCH (07:35)
[2020-12-23] MEDS: Pantoprazole 40 MG VIAL IVP SCH (07:44)
[2020-12-23] MEDS: Piperacillin/Tazobactam 3.375 GM in 0.9 % Sodium Chloride Mini Bag 100 ML IVPB SCH (07:44)
[2020-12-23] MEDS: Sennosides 8.6 MG TABLET PO SCH ×2 (07:45→19:24)
[2020-12-23] MEDS: Nystatin SUSP 5 ML UD.LIQ PO SCH ×4 (07:45→19:40)
[2020-12-23] MEDS: MethylPREDNISolone 40 MG/ML VIAL IVP SCH (07:45)
[2020-12-23] MEDS: carvediloL 6.25 MG TABLET PO SCH ×2 (07:46→16:45)
[2020-12-23] MEDS: Aspirin 81 MG TAB.CHEW PO SCH (07:55)
[2020-12-23] MEDS: OLANZapine 5 MG TAB.RAPDIS PO SCH ×2 (08:01→09:10)
[2020-12-23] MEDS: Insulin DETEMIR 100 UNIT/ML X5UNITS SUBQ SCH ×2 (08:01→19:23)
[2020-12-23] MEDS: Dexmedetomidine HCl 400 MCG/100 ML MLS IVC SCH (10:21)
[2020-12-23] MEDS ORDERED: OLANZapine 5 MG TAB.RAPDIS PO ONE (11:00)
[2020-12-23] MEDS: Bisacodyl 10 MG RECTAL SUPPOSITORY RC SCH (19:24)
[2020-12-24] MEDS: Dexmedetomidine HCl 400 MCG/100 ML MLS IVC SCH ×2 (01:40→15:39)
[2020-12-24] MEDS: D5% in Water 1,000 ML IVC SCH ×2 (01:41→19:57)
[2020-12-24 03:01] LABS: ABG Base Excess 12 mEq/L (-2 to 3); ABG HCO3 45 mEq/L (21-27); ABG Oxygen Saturation 81 % (95-98); ABG PCO2 133 mmHg (35-45); ABG PH 7.14 pH Units (7.32-7.45); ABG PO2 63 mmHg (85-104); ABG TCO2 49 mEq/L (20-26); Blood Gas VT 500 cc
[2020-12-24] MEDS ORDERED: *HR* Midazolam HCl 2 MG/2 ML VIAL IVP ONE (03:07)
[2020-12-24] MEDS: FentaNYL (PF) 1,000 MCG/100 ML IV.SOLN IVC SCH ×4 (03:27→19:14)
[2020-12-24] MEDS: Insulin LISPRO 300 UNITS/3 ML VIAL SUBQ SCH ×6 (03:40→23:31)
[2020-12-24] MEDS: Ipratropium/Albuterol Neb 3 ML IH SCH ×6 (03:42→23:17)
[2020-12-24 04:00] LABS: Basophils % 0.3 %; Eosinophils % 0.2 %; Hematocrit 29.6 % (35.3-44.9); Hemoglobin 8.8 g/dL (11.5-15.4); Immature Granulocytes % 2.1 % (0-4); Lymphocytes # 0.5 K/mcL (0.6-4.6); Lymphocytes % 5.6 %; Mean Corpuscular HGB Conc 29.7 g/dL (31.6-35.5); Mean Corpuscular Hemoglobin 30.3 pg (28.0-33.3); Mean Corpuscular Volume 102.1 fL (83.0-100.0); Mean Platelet Volume 9.7 fL (9.4-12.4); Monocytes # 0.9 K/mcL (0.0-1.3); Monocytes % 9.8 %; Neutrophils # 7.6 K/mcL (1.6-8.9); Nucleated Red Blood Cells 0.2 /100 WBC (0); Platelet Count 149 K/mcL (140-400); Red Cell Distribution Width 14.8 % (11.5-14.5); White Blood Count 9.2 K/mcL (4.3-11.1)
[2020-12-24 04:19] LABS: BUN/Creatinine Ratio 33 (6-26); Blood Urea Nitrogen 13 mg/dL (8-23); Calcium 8.3 mg/dL (8.6-10.3); Carbon Dioxide 39 mEq/L (23-29); Chloride 100 mEq/L (98-107); Glucose 201 mg/dL (70-105); Magnesium 1.7 mg/dL (1.6-2.6); Osmolality,Calculated 304 (280-300); Potassium 3.6 mEq/L (3.5-5.1); Sodium 144 mEq/L (136-145); eGFR For African Americans > 60 (> 60); eGFR For Non-African Americans > 60 (> 60)
[2020-12-24 04:24] LABS: VBG Ionized Calcium 1.17 mmol/L (1.15-1.35)
[2020-12-24 04:26] LABS: ABG Base Excess 12 mEq/L (-2 to 3); ABG HCO3 39 mEq/L (21-27); ABG Oxygen Saturation 96 % (95-98); ABG PCO2 64 mmHg (35-45); ABG PH 7.39 pH Units (7.32-7.45); ABG PO2 85 mmHg (85-104); ABG TCO2 41 mEq/L (20-26); Blood Gas VT 500 cc
[2020-12-24] MEDS: Potassium Chloride 40 MEQ/200 ML BAG IVPB PRN ×2 (04:28→17:39)
[2020-12-24] MEDS: *HR* Heparin 5,000 UNIT/ML VIAL SQ SCH ×3 (04:29→23:29)
[2020-12-24] MEDS: Budesonide/Formoterol 80/4.5 1 PUFF INH IH SCH (07:35)
[2020-12-24] MEDS: Norepinephrine 4 MG/254 ML IV.SOLN IVC SCH (07:50)
[2020-12-24] MEDS: OLANZapine 5 MG TAB.RAPDIS PO SCH (07:51)
[2020-12-24] MEDS: Nystatin SUSP 5 ML UD.LIQ PO SCH ×4 (07:54→19:58)
[2020-12-24] MEDS: Pantoprazole 40 MG VIAL IVP SCH (07:54)
[2020-12-24] MEDS ORDERED: Artificial Tears SOLN 15 ML BOTTLE BOTH EYES PRN (07:56)
[2020-12-24] MEDS: Midazolam HCl 50 MG/100 ML IV.SOLN IVC SCH ×3 (08:10→20:47)
[2020-12-24] MEDS: Insulin DETEMIR 100 UNIT/ML X5UNITS SUBQ SCH ×2 (08:25→19:59)
[2020-12-24] MEDS: Chlorhexidine Rinse 15 ML MOUTHWASH MM SCH ×2 (09:01→19:58)
[2020-12-24] MEDS: Artificial Tears SOLN 15 ML BOTTLE BOTH EYES SCH ×5 (09:01→23:30)
[2020-12-24] MEDS: Aspirin 81 MG TAB.CHEW PO SCH (09:01)
[2020-12-24] MEDS: carvediloL 6.25 MG TABLET PO SCH ×2 (09:02→16:35)
[2020-12-24] MEDS: Sennosides 8.6 MG TABLET PO SCH (09:03)
[2020-12-24 09:53] LABS: Influenza A PCR Negative (Negative); Influenza B PCR Negative (Negative); Resp. Syncytial Virus PCR Negative (Negative); SARS-CoV-2 by PCR (In House) Negative (Negative)
[2020-12-24] MEDS: Budesonide/Formoterol 160/4.5 1 PUFF INH IH SCH ×3 (10:55→20:14)
[2020-12-24] MEDS: MethylPREDNISolone 40 MG/ML VIAL IVP SCH (11:06)
[2020-12-24] MEDS: Piperacillin/Tazobactam 3.375 GM in 0.9 % Sodium Chloride Mini Bag 100 ML IVPB SCH ×2 (16:40→23:29)
[2020-12-24 17:14] LABS: Magnesium 1.8 mg/dL (1.6-2.6); Potassium 3.8 mEq/L (3.5-5.1)
[2020-12-24 17:58] LABS: Bilirubin,Urine Negative (Negative); Blood,Urine Negative (Negative); Clarity,Urine Turbid (Clear); Color,Urine Light-Yellow (Yellow); Glucose,Urine (UA) Normal (Normal); Ketones,Urine 40 mg/dL (Negative); Leukocyte Esterase,Urine Negative (Negative); Nitrite,Urine Negative (Negative); PH,Urine 8.5 pH Units (5.0-8.0); Protein,Urine 30 mg/dL (Neg-Trace); Specific Gravity,Urine 1.014 (1.010-1.025); Urobilinogen,Urine Normal (Normal)
[2020-12-24 18:16] LABS: Budding Yeast,Urine Many per hpf (None Seen); Granular Casts,Urine Few per lpf (None Seen); WBC,Urine 0-3 per hpf (0-3)
[2020-12-24 18:17] LABS: Amorphous Sediment,Urine Few per hpf (None-Few)
[2020-12-24] MEDS ORDERED: Acetaminophen IV 1,000 MG/100 ML BAG IVPB ONE (19:25)
[2020-12-24 22:03] LABS: Appearance of Body Fluid Hazy (Clear)
[2020-12-24 22:04] LABS: Volume of Body Fluid 20 mL
[2020-12-25] MEDS: FentaNYL (PF) 1,000 MCG/100 ML IV.SOLN IVC SCH ×5 (00:08→21:13)
[2020-12-25] MEDS: Dexmedetomidine HCl 400 MCG/100 ML MLS IVC SCH ×2 (03:21→18:29)
[2020-12-25] MEDS: Artificial Tears SOLN 15 ML BOTTLE BOTH EYES SCH ×5 (03:22→19:50)
[2020-12-25] MEDS: Ipratropium/Albuterol Neb 3 ML IH SCH ×6 (03:28→23:42)
[2020-12-25] MEDS: Midazolam HCl 50 MG/100 ML IV.SOLN IVC SCH ×2 (03:37→14:21)
[2020-12-25 03:49] LABS: VBG Ionized Calcium 1.13 mmol/L (1.15-1.35)
[2020-12-25 04:04] LABS: ABG Base Excess 7 mEq/L (-2 to 3); ABG HCO3 32 mEq/L (21-27); ABG Oxygen Saturation 94 % (95-98); ABG PCO2 48 mmHg (35-45); ABG PH 7.44 pH Units (7.32-7.45); ABG PO2 68 mmHg (85-104); ABG TCO2 34 mEq/L (20-26); Blood Gas VT 500 cc
[2020-12-25 04:05] LABS: BUN/Creatinine Ratio 30 (6-26); Blood Urea Nitrogen 12 mg/dL (8-23); Calcium 8.1 mg/dL (8.6-10.3); Carbon Dioxide 32 mEq/L (23-29); Chloride 102 mEq/L (98-107); Glucose 92 mg/dL (70-105); Magnesium 2.3 mg/dL (1.6-2.6); Osmolality,Calculated 291 (280-300); Phosphorous 2.2 mg/dL (2.7-4.5); Potassium 3.7 mEq/L (3.5-5.1); Sodium 141 mEq/L (136-145); eGFR For African Americans > 60 (> 60); eGFR For Non-African Americans > 60 (> 60)
[2020-12-25] MEDS ORDERED: Potassium Phosphate 44 MEQ in 0.9 % Sodium Chloride 250 ML IVPB ONE (04:07)
[2020-12-25] MEDS: Insulin LISPRO 300 UNITS/3 ML VIAL SUBQ SCH ×5 (04:09→20:08)
[2020-12-25 04:20] LABS: Basophils % 0.1 %; Eosinophils % 0.3 %; Hematocrit 25.8 % (35.3-44.9); Hemoglobin 7.7 g/dL (11.5-15.4); Lymphocytes # 1.8 K/mcL (0.6-4.6); Lymphocytes % 25.7 %; Mean Corpuscular HGB Conc 29.8 g/dL (31.6-35.5); Mean Corpuscular Hemoglobin 29.4 pg (28.0-33.3); Mean Corpuscular Volume 98.5 fL (83.0-100.0); Mean Platelet Volume 10.1 fL (9.4-12.4); Monocytes # 0.8 K/mcL (0.0-1.3); Monocytes % 11.1 %; Neutrophils # 4.3 K/mcL (1.6-8.9); Platelet Count 148 K/mcL (140-400); Red Blood Count 2.62 M/mcL (3.82-4.97); Red Cell Distribution Width 15.1 % (11.5-14.5); Segmented Neutrophils % 61.8 %; White Blood Count 6.9 K/mcL (4.3-11.1)
[2020-12-25] MEDS: *HR* Heparin 5,000 UNIT/ML VIAL SQ SCH ×3 (04:48→21:56)
[2020-12-25] MEDS: Budesonide/Formoterol 160/4.5 1 PUFF INH IH SCH ×2 (07:28→20:03)
[2020-12-25] MEDS: Aspirin 81 MG TAB.CHEW PO SCH (08:02)
[2020-12-25] MEDS: OLANZapine 5 MG TAB.RAPDIS PO SCH (08:02)
[2020-12-25] MEDS: Norepinephrine 4 MG/254 ML IV.SOLN IVC SCH (08:02)
[2020-12-25] MEDS: Piperacillin/Tazobactam 3.375 GM in 0.9 % Sodium Chloride Mini Bag 100 ML IVPB SCH ×2 (08:02→16:15)
[2020-12-25] MEDS: MethylPREDNISolone 40 MG/ML VIAL IVP SCH (08:02)
[2020-12-25] MEDS: Nystatin SUSP 5 ML UD.LIQ PO SCH ×4 (08:02→20:20)
[2020-12-25] MEDS: Chlorhexidine Rinse 15 ML MOUTHWASH MM SCH ×2 (08:02→20:20)
[2020-12-25] MEDS: carvediloL 6.25 MG TABLET PO SCH ×2 (08:02→16:15)
[2020-12-25] MEDS: D5% in Water 1,000 ML IVC SCH ×2 (08:03→19:26)
[2020-12-25] MEDS: Pantoprazole 40 MG VIAL IVP SCH (08:03)
[2020-12-25] MEDS ORDERED: Furosemide 40 MG/4 ML VIAL ONE (08:05)
[2020-12-25] MEDS: Insulin DETEMIR 100 UNIT/ML X5UNITS SUBQ SCH ×2 (08:05→20:20)
[2020-12-25] MEDS ORDERED: Furosemide 20 MG/2 ML VIAL IVP ONE (08:06)
[2020-12-25] MEDS: Furosemide 20 MG/2 ML VIAL IVP SCH (08:18)
[2020-12-25] MEDS ORDERED: *HR* Rocuronium Bromide 50 MG/5 ML VIAL ONE (08:41)
[2020-12-25] MEDS ORDERED: EPHEDrine 50 MG/ML VIAL ONE (08:42)
[2020-12-25] MEDS ORDERED: *HR* Phenylephrine 10 MG/ML VIAL ONE (08:42)
[2020-12-25] MEDS ORDERED: Simethicone 40 MG/0.6 ML MLS IR ONE (08:50)
[2020-12-25] MEDS ORDERED: 0.9 % Sodium Chloride 1,000 ML ONE (09:03)
[2020-12-25 10:34] LABS: Basophils % 0.3 %; Eosinophils % 0.5 %; Hematocrit 26.4 % (35.3-44.9); Hemoglobin 7.8 g/dL (11.5-15.4); Immature Granulocytes % 1.3 % (0-4); Lymphocytes # 0.8 K/mcL (0.6-4.6); Lymphocytes % 9.9 %; Mean Corpuscular HGB Conc 29.5 g/dL (31.6-35.5); Mean Corpuscular Hemoglobin 29.7 pg (28.0-33.3); Mean Corpuscular Volume 100.4 fL (83.0-100.0); Mean Platelet Volume 9.8 fL (9.4-12.4); Monocytes # 0.5 K/mcL (0.0-1.3); Monocytes % 6.7 %; Neutrophils # 6.4 K/mcL (1.6-8.9); Platelet Count 144 K/mcL (140-400); Red Blood Count 2.63 M/mcL (3.82-4.97); Segmented Neutrophils % 81.3 %; White Blood Count 7.9 K/mcL (4.3-11.1)
[2020-12-25 18:45] LABS: Hematocrit 25.9 % (35.3-44.9); Hemoglobin 8.2 g/dL (11.5-15.4)
[2020-12-26] MEDS: Insulin LISPRO 300 UNITS/3 ML VIAL SUBQ SCH ×7 (00:15→23:57)
[2020-12-26] MEDS: Piperacillin/Tazobactam 3.375 GM in 0.9 % Sodium Chloride Mini Bag 100 ML IVPB SCH ×4 (00:17→23:51)
[2020-12-26] MEDS: Artificial Tears SOLN 15 ML BOTTLE BOTH EYES SCH ×7 (00:24→23:58)
[2020-12-26] MEDS: Midazolam HCl 50 MG/100 ML IV.SOLN IVC SCH ×4 (00:30→23:30)
[2020-12-26] MEDS: FentaNYL (PF) 1,000 MCG/100 ML IV.SOLN IVC SCH ×5 (02:14→23:30)
[2020-12-26] MEDS: Ipratropium/Albuterol Neb 3 ML IH SCH ×5 (03:14→20:08)
[2020-12-26] MEDS: *HR* Dextrose 50 % in Water (Vial) 50 ML VIAL IVP PRN (03:22)
[2020-12-26 03:58] LABS: ABG Base Excess 8 mEq/L (-2 to 3); ABG HCO3 35 mEq/L (21-27); ABG Oxygen Saturation 94 % (95-98); ABG PCO2 63 mmHg (35-45); ABG PH 7.35 pH Units (7.32-7.45); ABG PO2 78 mmHg (85-104); ABG TCO2 37 mEq/L (20-26); Blood Gas Modality ASSIST CONTROL; Blood Gas VT 400 cc
[2020-12-26 04:54] LABS: Eosinophils % 0.3 %; Hematocrit 23.6 % (35.3-44.9); Hemoglobin 7.3 g/dL (11.5-15.4); Lymphocytes # 1.5 K/mcL (0.6-4.6); Lymphocytes % 21.6 %; Mean Corpuscular HGB Conc 30.9 g/dL (31.6-35.5); Mean Corpuscular Hemoglobin 30.5 pg (28.0-33.3); Mean Corpuscular Volume 98.7 fL (83.0-100.0); Mean Platelet Volume 9.6 fL (9.4-12.4); Monocytes # 0.8 K/mcL (0.0-1.3); Monocytes % 11.2 %; Neutrophils # 4.6 K/mcL (1.6-8.9); Platelet Count 141 K/mcL (140-400); Red Blood Count 2.39 M/mcL (3.82-4.97); Red Cell Distribution Width 14.6 % (11.5-14.5); Segmented Neutrophils % 65.9 %
[2020-12-26 05:04] LABS: VBG Ionized Calcium 1.15 mmol/L (1.15-1.35)
[2020-12-26 05:14] LABS: BUN/Creatinine Ratio 34 (6-26); Blood Urea Nitrogen 11 mg/dL (8-23); Calcium 7.9 mg/dL (8.6-10.3); Carbon Dioxide 35 mEq/L (23-29); Chloride 101 mEq/L (98-107); Glucose 114 mg/dL (70-105); Magnesium 1.6 mg/dL (1.6-2.6); Osmolality,Calculated 292 (280-300); Potassium 3.1 mEq/L (3.5-5.1); Sodium 141 mEq/L (136-145); eGFR For African Americans > 60 (> 60); eGFR For Non-African Americans > 60 (> 60)
[2020-12-26] MEDS: Potassium Chloride 40 MEQ/200 ML BAG IVPB PRN (05:24)
[2020-12-26] MEDS: *HR* Heparin 5,000 UNIT/ML VIAL SQ SCH ×3 (06:13→20:17)
[2020-12-26] MEDS: Budesonide/Formoterol 160/4.5 1 PUFF INH IH SCH ×2 (07:30→20:08)
[2020-12-26] MEDS: Insulin DETEMIR 100 UNIT/ML X5UNITS SUBQ SCH ×2 (08:19→20:17)
[2020-12-26] MEDS: Norepinephrine 4 MG/254 ML IV.SOLN IVC SCH (08:19)
[2020-12-26] MEDS: Pantoprazole 40 MG VIAL IVP SCH (08:23)
[2020-12-26] MEDS: Nystatin SUSP 5 ML UD.LIQ PO SCH ×4 (08:23→20:17)
[2020-12-26] MEDS: Chlorhexidine Rinse 15 ML MOUTHWASH MM SCH ×2 (08:23→20:17)
[2020-12-26] MEDS: MethylPREDNISolone 40 MG/ML VIAL IVP SCH (08:24)
[2020-12-26] MEDS: Furosemide 20 MG/2 ML VIAL IVP SCH (08:24)
[2020-12-26] MEDS: Dexmedetomidine HCl 400 MCG/100 ML MLS IVC SCH (09:20)
[2020-12-26] MEDS: carvediloL 6.25 MG TABLET PO SCH ×2 (09:33→15:51)
[2020-12-26] MEDS: Aspirin 81 MG TAB.CHEW PO SCH (09:33)
[2020-12-26] MEDS: Sennosides 8.6 MG TABLET PO SCH (09:33)
[2020-12-26 10:22] LABS: Basophils % 0.3 %; Eosinophils % 0.3 %; Hematocrit 27.4 % (35.3-44.9); Hemoglobin 8.5 g/dL (11.5-15.4); Immature Granulocytes % 1.1 % (0-4); Lymphocytes # 1.8 K/mcL (0.6-4.6); Lymphocytes % 22.6 %; Mean Corpuscular Hemoglobin 30.6 pg (28.0-33.3); Mean Corpuscular Volume 98.6 fL (83.0-100.0); Mean Platelet Volume 9.7 fL (9.4-12.4); Monocytes # 0.9 K/mcL (0.0-1.3); Monocytes % 11.4 %; Neutrophils # 5.2 K/mcL (1.6-8.9); Platelet Count 163 K/mcL (140-400); Red Blood Count 2.78 M/mcL (3.82-4.97); Segmented Neutrophils % 64.3 %
[2020-12-26 10:30] LABS: INR 1.1; Prothrombin Time 12.3 Seconds (9.4-12.1)
[2020-12-26 10:33] LABS: Activated Partial Thrombo Time 29.3 Seconds (26.0-36.0)
[2020-12-26] MEDS: Gabapentin 400 MG CAPSULE GTUBE SCH ×2 (14:56→20:18)
[2020-12-26 23:12] LABS: VBG Ionized Calcium 1.18 mmol/L (1.15-1.35)
[2020-12-26 23:33] LABS: BUN/Creatinine Ratio 36 (6-26); Blood Urea Nitrogen 12 mg/dL (8-23); Calcium 8.1 mg/dL (8.6-10.3); Carbon Dioxide 36 mEq/L (23-29); Chloride 99 mEq/L (98-107); Glucose 237 mg/dL (70-105); Magnesium 1.9 mg/dL (1.6-2.6); Osmolality,Calculated 293 (280-300); Potassium 3.9 mEq/L (3.5-5.1); Sodium 138 mEq/L (136-145); eGFR For African Americans > 60 (> 60); eGFR For Non-African Americans > 60 (> 60)
[2020-12-27] MEDS: Ipratropium/Albuterol Neb 3 ML IH SCH ×7 (00:05→23:31)
[2020-12-27 03:10] LABS: Basophils % 0.2 %; Eosinophils % 0.2 %; Hematocrit 24.5 % (35.3-44.9); Hemoglobin 7.5 g/dL (11.5-15.4); Immature Granulocytes % 0.8 % (0-4); Lymphocytes # 1.1 K/mcL (0.6-4.6); Lymphocytes % 18.6 %; Mean Corpuscular HGB Conc 30.6 g/dL (31.6-35.5); Mean Corpuscular Hemoglobin 30.1 pg (28.0-33.3); Mean Corpuscular Volume 98.4 fL (83.0-100.0); Mean Platelet Volume 9.6 fL (9.4-12.4); Monocytes # 0.7 K/mcL (0.0-1.3); Monocytes % 11.4 %; Neutrophils # 4.2 K/mcL (1.6-8.9); Platelet Count 150 K/mcL (140-400); Red Blood Count 2.49 M/mcL (3.82-4.97); Red Cell Distribution Width 14.8 % (11.5-14.5); Segmented Neutrophils % 68.8 %; White Blood Count 6.1 K/mcL (4.3-11.1)
[2020-12-27 03:19] LABS: INR 1.1; Prothrombin Time 12.2 Seconds (9.4-12.1)
[2020-12-27 03:22] LABS: Activated Partial Thrombo Time 29.8 Seconds (26.0-36.0)
[2020-12-27 03:28] LABS: BUN/Creatinine Ratio 39 (6-26); Blood Urea Nitrogen 13 mg/dL (8-23); Calcium 8.1 mg/dL (8.6-10.3); Carbon Dioxide 38 mEq/L (23-29); Chloride 100 mEq/L (98-107); Glucose 151 mg/dL (70-105); Magnesium 1.8 mg/dL (1.6-2.6); Osmolality,Calculated 293 (280-300); Phosphorous 2.5 mg/dL (2.7-4.5); Potassium 3.4 mEq/L (3.5-5.1); Sodium 140 mEq/L (136-145); eGFR For African Americans > 60 (> 60); eGFR For Non-African Americans > 60 (> 60)
[2020-12-27] MEDS: Potassium Chloride 40 MEQ/200 ML BAG IVPB PRN (04:02)
[2020-12-27] MEDS: Artificial Tears SOLN 15 ML BOTTLE BOTH EYES SCH ×6 (04:04→23:26)
[2020-12-27] MEDS: Insulin LISPRO 300 UNITS/3 ML VIAL SUBQ SCH ×6 (04:05→23:26)
[2020-12-27 04:14] LABS: ABG Base Excess 10 mEq/L (-2 to 3); ABG HCO3 37 mEq/L (21-27); ABG Oxygen Saturation 95 % (95-98); ABG PCO2 65 mmHg (35-45); ABG PH 7.36 pH Units (7.32-7.45); ABG PO2 80 mmHg (85-104); ABG TCO2 39 mEq/L (20-26); Blood Gas VT 400 cc
[2020-12-27] MEDS: FentaNYL (PF) 1,000 MCG/100 ML IV.SOLN IVC SCH ×4 (04:30→21:02)
[2020-12-27] MEDS: *HR* Heparin 5,000 UNIT/ML VIAL SQ SCH ×3 (05:29→20:26)
[2020-12-27] MEDS: Budesonide/Formoterol 160/4.5 1 PUFF INH IH SCH ×2 (07:51→19:55)
[2020-12-27] MEDS: Pantoprazole 40 MG VIAL IVP SCH (07:58)
[2020-12-27] MEDS: Piperacillin/Tazobactam 3.375 GM in 0.9 % Sodium Chloride Mini Bag 100 ML IVPB SCH ×3 (07:58→23:28)
[2020-12-27] MEDS: MethylPREDNISolone 40 MG/ML VIAL IVP SCH (07:59)
[2020-12-27] MEDS: Furosemide 20 MG/2 ML VIAL IVP SCH (07:59)
[2020-12-27] MEDS: Norepinephrine 4 MG/254 ML IV.SOLN IVC SCH (08:08)
[2020-12-27] MEDS: Chlorhexidine Rinse 15 ML MOUTHWASH MM SCH ×2 (08:13→20:25)
[2020-12-27] MEDS: Nystatin SUSP 5 ML UD.LIQ PO SCH ×4 (08:13→20:25)
[2020-12-27] MEDS: carvediloL 6.25 MG TABLET PO SCH ×2 (08:14→16:54)
[2020-12-27] MEDS: Gabapentin 400 MG CAPSULE GTUBE SCH ×3 (08:14→20:25)
[2020-12-27] MEDS: Sennosides 8.6 MG TABLET PO SCH (08:14)
[2020-12-27] MEDS: Aspirin 81 MG TAB.CHEW PO SCH (08:14)
[2020-12-27] MEDS: Insulin DETEMIR 100 UNIT/ML X5UNITS SUBQ SCH ×2 (09:32→20:25)
[2020-12-27 11:41] LABS: Magnesium 2.1 mg/dL (1.6-2.6); Potassium 4.3 mEq/L (3.5-5.1)
[2020-12-27] MEDS ORDERED: Lidocaine/EPI 1:100k 1% 50 ML VIAL ONE (12:49)
[2020-12-27] MEDS ORDERED: *HR* Rocuronium Bromide 50 MG/5 ML VIAL ONE ×2 (12:49→13:31)
[2020-12-27 15:20] LABS: Influenza A PCR Body Fluid NOT DETECTED; Influenza B PCR Body Fluid NOT DETECTED; RVP Body Fluid Source BAL
[2020-12-27] MEDS ORDERED: *HR* Atropine Sulfate 1 MG/10 ML SYRINGE ONE (16:14)
[2020-12-27 16:22] LABS: ABG Base Excess 12 mEq/L (-2 to 3); ABG HCO3 40 mEq/L (21-27); ABG Oxygen Saturation 98 % (95-98); ABG PCO2 71 mmHg (35-45); ABG PH 7.36 pH Units (7.32-7.45); ABG PO2 109 mmHg (85-104); ABG TCO2 42 mEq/L (20-26); Blood Gas VT 400 cc
[2020-12-27 16:48] LABS: Basophils % 0.1 %; Hematocrit 26.8 % (35.3-44.9); Hemoglobin 8.2 g/dL (11.5-15.4); Immature Granulocytes % 1.6 % (0-4); Lymphocytes # 0.9 K/mcL (0.6-4.6); Lymphocytes % 10.9 %; Mean Corpuscular HGB Conc 30.6 g/dL (31.6-35.5); Mean Corpuscular Hemoglobin 30.3 pg (28.0-33.3); Mean Corpuscular Volume 98.9 fL (83.0-100.0); Mean Platelet Volume 9.8 fL (9.4-12.4); Monocytes # 0.5 K/mcL (0.0-1.3); Monocytes % 5.9 %; Neutrophils # 6.7 K/mcL (1.6-8.9); Nucleated Red Blood Cells 0.2 /100 WBC (0); Platelet Count 197 K/mcL (140-400); Red Blood Count 2.71 M/mcL (3.82-4.97); Segmented Neutrophils % 81.5 %; White Blood Count 8.2 K/mcL (4.3-11.1)
[2020-12-27 16:53] LABS: VBG Ionized Calcium 1.15 mmol/L (1.15-1.35)
[2020-12-27 17:12] LABS: Alanine Aminotransferase 20 Units/L (7-52); Albumin 2.9 g/dL (3.5-5.7); Albumin/Globulin Ratio 1.2 (1.1-2.2); Alkaline Phosphatase 41 Units/L (34-104); Aspartate Amino Transferase 15 Units/L (13-39); BUN/Creatinine Ratio 36 (6-26); Bilirubin,Total 0.4 mg/dL (0.3-1.0); Blood Urea Nitrogen 12 mg/dL (8-23); Calcium 8.2 mg/dL (8.6-10.3); Carbon Dioxide 39 mEq/L (23-29); Chloride 99 mEq/L (98-107); Globulin 2.5 g/dL (2.4-3.5); Glucose 182 mg/dL (70-105); Magnesium 1.8 mg/dL (1.6-2.6); Osmolality,Calculated 294 (280-300); Phosphorous 3.2 mg/dL (2.7-4.5); Sodium 140 mEq/L (136-145); Total Protein 5.4 g/dL (6.4-8.9); Troponin I < 0.03 ng/mL (< 0.04); eGFR For African Americans > 60 (> 60); eGFR For Non-African Americans > 60 (> 60)
[2020-12-27 17:26] LABS: Thyroid Stimulating Hormone 0.387 mcIU/mL (0.340-5.600)
[2020-12-27] MEDS ORDERED: Calcium Chloride 1,000 MG in 0.9 % Sodium Chloride 100 ML IVPB ONE (18:00)
[2020-12-27] MEDS: Midazolam HCl 50 MG/100 ML IV.SOLN IVC SCH (18:20)
[2020-12-28] MEDS: Midazolam HCl 50 MG/100 ML IV.SOLN IVC SCH ×4 (00:56→17:21)
[2020-12-28] MEDS: FentaNYL (PF) 2,500 MCG/50 ML IV.SOLN IVC SCH ×2 (02:26→14:02)
[2020-12-28] MEDS: Ipratropium/Albuterol Neb 3 ML IH SCH ×6 (03:13→23:22)
[2020-12-28 03:17] LABS: Basophils % 0.2 %; Eosinophils % 0.2 %; Hematocrit 28.2 % (35.3-44.9); Hemoglobin 8.5 g/dL (11.5-15.4); Immature Granulocytes % 1.4 % (0-4); Lymphocytes # 2.5 K/mcL (0.6-4.6); Lymphocytes % 21.4 %; Mean Corpuscular HGB Conc 30.1 g/dL (31.6-35.5); Mean Corpuscular Hemoglobin 29.9 pg (28.0-33.3); Mean Corpuscular Volume 99.3 fL (83.0-100.0); Mean Platelet Volume 9.6 fL (9.4-12.4); Monocytes # 1.5 K/mcL (0.0-1.3); Monocytes % 12.8 %; Neutrophils # 7.6 K/mcL (1.6-8.9); Nucleated Red Blood Cells 0.3 /100 WBC (0); Platelet Count 212 K/mcL (140-400); Red Blood Count 2.84 M/mcL (3.82-4.97); Red Cell Distribution Width 15.2 % (11.5-14.5); White Blood Count 11.8 K/mcL (4.3-11.1)
[2020-12-28] MEDS: Insulin LISPRO 300 UNITS/3 ML VIAL SUBQ SCH ×5 (03:35→22:09)
[2020-12-28 03:36] LABS: BUN/Creatinine Ratio 38 (6-26); Blood Urea Nitrogen 14 mg/dL (8-23); Calcium 8.5 mg/dL (8.6-10.3); Carbon Dioxide 36 mEq/L (23-29); Chloride 101 mEq/L (98-107); Glucose 140 mg/dL (70-105); Magnesium 1.7 mg/dL (1.6-2.6); Osmolality,Calculated 297 (280-300); Phosphorous 1.6 mg/dL (2.7-4.5); Potassium 3.8 mEq/L (3.5-5.1); Sodium 142 mEq/L (136-145); eGFR For African Americans > 60 (> 60); eGFR For Non-African Americans > 60 (> 60)
[2020-12-28] MEDS: Artificial Tears SOLN 15 ML BOTTLE BOTH EYES SCH ×5 (03:36→22:10)
[2020-12-28] MEDS: Norepinephrine 4 MG/254 ML IV.SOLN IVC SCH (03:49)
[2020-12-28] MEDS: Potassium Chloride 40 MEQ/200 ML BAG IVPB PRN ×2 (03:52→15:32)
[2020-12-28 04:29] LABS: ABG Base Excess 10 mEq/L (-2 to 3); ABG HCO3 36 mEq/L (21-27); ABG Oxygen Saturation 96 % (95-98); ABG PCO2 55 mmHg (35-45); ABG PH 7.42 pH Units (7.32-7.45); ABG PO2 82 mmHg (85-104); ABG TCO2 38 mEq/L (20-26); Blood Gas VT 400 cc
[2020-12-28] MEDS: *HR* Heparin 5,000 UNIT/ML VIAL SQ SCH ×3 (05:07→22:08)
[2020-12-28] MEDS: Budesonide/Formoterol 160/4.5 1 PUFF INH IH SCH ×2 (07:12→19:39)
[2020-12-28] MEDS: Sennosides 8.6 MG TABLET PO SCH ×2 (08:44→22:09)
[2020-12-28] MEDS: Aspirin 81 MG TAB.CHEW PO SCH (08:44)
[2020-12-28] MEDS: Nystatin SUSP 5 ML UD.LIQ PO SCH ×4 (08:44→22:09)
[2020-12-28] MEDS: Pantoprazole 40 MG VIAL IVP SCH (08:44)
[2020-12-28] MEDS: Furosemide 20 MG/2 ML VIAL IVP SCH (08:44)
[2020-12-28] MEDS: MethylPREDNISolone 40 MG/ML VIAL IVP SCH (08:44)
[2020-12-28] MEDS: Insulin DETEMIR 100 UNIT/ML X5UNITS SUBQ SCH ×2 (08:44→22:20)
[2020-12-28] MEDS: carvediloL 6.25 MG TABLET PO SCH ×2 (08:44→17:36)
[2020-12-28] MEDS: Chlorhexidine Rinse 15 ML MOUTHWASH MM SCH ×2 (08:44→22:09)
[2020-12-28] MEDS: Gabapentin 400 MG CAPSULE GTUBE SCH ×3 (08:44→22:09)
[2020-12-28] MEDS: Piperacillin/Tazobactam 3.375 GM in 0.9 % Sodium Chloride Mini Bag 100 ML IVPB SCH ×2 (09:06→15:38)
[2020-12-28] MEDS: Valproic Acid Oral Soln 250 MG/5 ML UDC GTUBE SCH ×2 (10:19→17:36)
[2020-12-28 11:30] LABS: Magnesium 2.1 mg/dL (1.6-2.6); Phosphorous 1.7 mg/dL (2.7-4.5); Potassium 3.9 mEq/L (3.5-5.1)
[2020-12-28] MEDS ORDERED: Perflutren Lipid Microsphere 1.3 ML in 0.9 % Sodium Chloride 8.7 ML IVP PRN (12:31)
[2020-12-28] MEDS: Dexmedetomidine HCl 400 MCG/100 ML MLS IVC SCH (17:36)
[2020-12-28 18:53] LABS: HSV Source BAL LUL
[2020-12-29] MEDS: Piperacillin/Tazobactam 3.375 GM in 0.9 % Sodium Chloride Mini Bag 100 ML IVPB SCH ×3 (01:02→15:53)
[2020-12-29] MEDS: Valproic Acid Oral Soln 250 MG/5 ML UDC GTUBE SCH ×3 (01:04→17:25)
[2020-12-29] MEDS: Insulin LISPRO 300 UNITS/3 ML VIAL SUBQ SCH ×6 (01:05→20:36)
[2020-12-29] MEDS: Artificial Tears SOLN 15 ML BOTTLE BOTH EYES SCH ×6 (01:07→20:35)
[2020-12-29] MEDS: FentaNYL (PF) 2,500 MCG/50 ML IV.SOLN IVC SCH ×2 (01:42→21:25)
[2020-12-29] MEDS: Midazolam HCl 50 MG/100 ML IV.SOLN IVC SCH (01:44)
[2020-12-29] MEDS: Ipratropium/Albuterol Neb 3 ML IH SCH ×6 (03:51→23:25)
[2020-12-29 04:05] LABS: ABG Base Excess 11 mEq/L (-2 to 3); ABG HCO3 38 mEq/L (21-27); ABG Oxygen Saturation 89 % (95-98); ABG PCO2 74 mmHg (35-45); ABG PH 7.32 pH Units (7.32-7.45); ABG PO2 64 mmHg (85-104); ABG TCO2 41 mEq/L (20-26); Blood Gas Modality ASSIST CONTROL; Blood Gas VT 400 cc
[2020-12-29 04:59] LABS: VBG Ionized Calcium 1.21 mmol/L (1.15-1.35)
[2020-12-29 05:01] LABS: Basophils % 0.1 %; Hemoglobin 7.1 g/dL (11.5-15.4); Immature Granulocytes % 1.6 % (0-4); Lymphocytes # 2.2 K/mcL (0.6-4.6); Mean Corpuscular HGB Conc 29.6 g/dL (31.6-35.5); Mean Corpuscular Hemoglobin 29.8 pg (28.0-33.3); Mean Corpuscular Volume 100.8 fL (83.0-100.0); Mean Platelet Volume 9.5 fL (9.4-12.4); Monocytes # 1.2 K/mcL (0.0-1.3); Neutrophils # 4.7 K/mcL (1.6-8.9); Nucleated Red Blood Cells 0.4 /100 WBC (0); Platelet Count 197 K/mcL (140-400); Red Blood Count 2.38 M/mcL (3.82-4.97); Red Cell Distribution Width 15.8 % (11.5-14.5); Segmented Neutrophils % 57.3 %; White Blood Count 8.3 K/mcL (4.3-11.1)
[2020-12-29 05:23] LABS: BUN/Creatinine Ratio 46 (6-26); Blood Urea Nitrogen 17 mg/dL (8-23); Calcium 8.2 mg/dL (8.6-10.3); Carbon Dioxide 38 mEq/L (23-29); Chloride 103 mEq/L (98-107); Glucose 174 mg/dL (70-105); Magnesium 1.9 mg/dL (1.6-2.6); Osmolality,Calculated 302 (280-300); Potassium 4.1 mEq/L (3.5-5.1); Sodium 143 mEq/L (136-145); eGFR For African Americans > 60 (> 60); eGFR For Non-African Americans > 60 (> 60)
[2020-12-29] MEDS: *HR* Heparin 5,000 UNIT/ML VIAL SQ SCH ×3 (06:41→20:36)
[2020-12-29] MEDS: Norepinephrine 4 MG/254 ML IV.SOLN IVC SCH (07:19)
[2020-12-29] MEDS: Budesonide/Formoterol 160/4.5 1 PUFF INH IH SCH ×2 (07:26→19:42)
[2020-12-29] MEDS: Nystatin SUSP 5 ML UD.LIQ PO SCH (07:44)
[2020-12-29] MEDS: Furosemide 20 MG/2 ML VIAL IVP SCH (07:45)
[2020-12-29] MEDS: Gabapentin 400 MG CAPSULE GTUBE SCH ×3 (07:45→20:36)
[2020-12-29] MEDS: Pantoprazole 40 MG VIAL IVP SCH (07:45)
[2020-12-29] MEDS: Chlorhexidine Rinse 15 ML MOUTHWASH MM SCH ×2 (07:45→20:35)
[2020-12-29] MEDS: predniSONE 10 MG TABLET GTUBE SCH (07:45)
[2020-12-29] MEDS: Aspirin 81 MG TAB.CHEW PO SCH (07:45)
[2020-12-29] MEDS: Sennosides 8.6 MG TABLET PO SCH ×2 (07:46→20:35)
[2020-12-29] MEDS: Insulin DETEMIR 100 UNIT/ML X5UNITS SUBQ SCH ×2 (07:46→20:36)
[2020-12-29] MEDS: Dexmedetomidine HCl 400 MCG/100 ML MLS IVC SCH ×2 (08:53→17:50)
[2020-12-29] MEDS: carvediloL 6.25 MG TABLET PO SCH ×2 (09:48→18:32)
[2020-12-29 11:11] LABS: RSV PCR Body Fluid NOT DETECTED
[2020-12-30] MEDS: Artificial Tears SOLN 15 ML BOTTLE BOTH EYES SCH ×3 (00:22→07:47)
[2020-12-30] MEDS: Insulin LISPRO 300 UNITS/3 ML VIAL SUBQ SCH ×4 (00:22→11:55)
[2020-12-30] MEDS: Dexmedetomidine HCl 400 MCG/100 ML MLS IVC SCH ×2 (00:44→06:24)
[2020-12-30] MEDS: Valproic Acid Oral Soln 250 MG/5 ML UDC GTUBE SCH ×2 (01:32→10:33)
[2020-12-30] MEDS: *HR* Metoprolol 5 MG/5 ML VIAL IVP PRN ×2 (03:30→10:33)
[2020-12-30] MEDS: Ipratropium/Albuterol Neb 3 ML IH SCH ×3 (03:37→11:11)
[2020-12-30 04:08] LABS: ABG Base Excess 12 mEq/L (-2 to 3); ABG HCO3 38 mEq/L (21-27); ABG Oxygen Saturation 94 % (95-98); ABG PCO2 57 mmHg (35-45); ABG PH 7.43 pH Units (7.32-7.45); ABG PO2 73 mmHg (85-104); ABG TCO2 39 mEq/L (20-26); Blood Gas VT 400 cc
[2020-12-30] MEDS: *HR* Heparin 5,000 UNIT/ML VIAL SQ SCH (04:22)
[2020-12-30 04:29] LABS: Basophils % 0.2 %; Hematocrit 26.7 % (35.3-44.9); Hemoglobin 8.2 g/dL (11.5-15.4); Immature Granulocytes % 1.7 % (0-4); Lymphocytes # 2.5 K/mcL (0.6-4.6); Lymphocytes % 26.9 %; Mean Corpuscular HGB Conc 30.7 g/dL (31.6-35.5); Mean Corpuscular Hemoglobin 30.6 pg (28.0-33.3); Mean Corpuscular Volume 99.6 fL (83.0-100.0); Mean Platelet Volume 9.9 fL (9.4-12.4); Monocytes # 1.3 K/mcL (0.0-1.3); Monocytes % 13.9 %; Neutrophils # 5.4 K/mcL (1.6-8.9); Nucleated Red Blood Cells 0.4 /100 WBC (0); Platelet Count 236 K/mcL (140-400); Red Blood Count 2.68 M/mcL (3.82-4.97); Red Cell Distribution Width 14.9 % (11.5-14.5); Segmented Neutrophils % 57.3 %; White Blood Count 9.4 K/mcL (4.3-11.1)
[2020-12-30 04:44] LABS: BUN/Creatinine Ratio 59 (6-26); Blood Urea Nitrogen 17 mg/dL (8-23); Calcium 8.6 mg/dL (8.6-10.3); Carbon Dioxide 35 mEq/L (23-29); Chloride 100 mEq/L (98-107); Glucose 257 mg/dL (70-105); Osmolality,Calculated 302 (280-300); Potassium 4.3 mEq/L (3.5-5.1); Sodium 141 mEq/L (136-145); eGFR For African Americans > 60 (> 60); eGFR For Non-African Americans > 60 (> 60)
[2020-12-30] MEDS: Norepinephrine 4 MG/254 ML IV.SOLN IVC SCH (05:38)
[2020-12-30] MEDS ORDERED: *HR* OxyCODONE Oral Soln 5 MG/5 ML UD.LIQ GTUBE PRN (07:15)
[2020-12-30] MEDS: Aspirin 81 MG TAB.CHEW PO SCH (07:35)
[2020-12-30] MEDS: carvediloL 6.25 MG TABLET PO SCH (07:35)
[2020-12-30] MEDS: Sennosides 8.6 MG TABLET PO SCH (07:35)
[2020-12-30] MEDS: Gabapentin 400 MG CAPSULE GTUBE SCH (07:35)
[2020-12-30] MEDS: predniSONE 10 MG TABLET GTUBE SCH (07:35)
[2020-12-30] MEDS: Budesonide/Formoterol 160/4.5 1 PUFF INH IH SCH (07:39)
[2020-12-30] MEDS: Pantoprazole 40 MG VIAL IVP SCH (07:46)
[2020-12-30] MEDS: Furosemide 20 MG/2 ML VIAL IVP SCH (07:46)
[2020-12-30] MEDS: Chlorhexidine Rinse 15 ML MOUTHWASH MM SCH (07:47)
[2020-12-30] MEDS: Insulin DETEMIR 100 UNIT/ML X5UNITS SUBQ SCH (07:47)
[2020-12-30 11:15] VITALS: BP 181/78
== END 2020-12-30 12:34 | DRG 4 ==
LOC: ICNU 11-17 02:17 → SUATTDRO 11-17 02:17 → 2NNU 11-28 16:43 → 2NENU 12-11 04:56 → ICNU 12-13 13:19
PROVIDERS: ADMIT Family Medicine; ATTEND Student in an Organized Health Care Education/Training Program